=== PATIENT | female | born 1970 | race African-American/Black ===

== ENCOUNTER 2016-06-19 17:50 | Emergency (ER) | payer BC ==
[2016-06-19 17:59] VITALS: BP 139/82; PULSE 90; TEMP 98.8; BMI 39.9
--- NOTE | 2016-06-19 18:52 | PDOC ---
History of Present Illness - General Chief Complaint: Pain Stated Complaint: RT HAND PAIN/NUMB Time Seen by Provider: 06/19/16 18:30 History Source: Patient Exam Limitations: No Limitations - History of Present Illness Initial Comments: 06/19/16 18:46 46 yr female with pain to right hand for 2 months. Pt states the pain is worse because the weather is so cold. Pt denies trauma. Pt is post breast cancer 2013 . Pt has no fever or chills, has apt in 3 days with neurologist. Pt c/o numbness , tingling to her thumb, right index finger worse at night. Pt has pain to the base of right thumb. no headache or vision changes. 06/19/16 18:49 Occurred: reports: other (2 months ) Upper Extremity Pain Location: right: thumb, 2nd finger Method of Injury: reports: unknown Extremity Pain Location - Extremity Pain Location Extremity Pain Locations: right: thumb, 2nd finger Past History - Past Medical History Allergies/Adverse Reactions: Allergies Allergy/AdvReac Type Severity Reaction Status Date / Time No Known Allergies Allergy Verified 06/19/16 17:59 Home Medications: Ambulatory Orders Olmesartan Medoxomil [Benicar -] 40 mg PO DAILY 11/26/13 Albuterol Sulfate Inhaler - [Ventolin HFA Inhaler -] 1 - 2 inh PO QID PRN #1 inhaler 03/18/14 Hydrochlorothiazide [Hctz -] 25 mg PO DAILY #30 tablet 04/30/14 Montelukast Na [Singulair -] 10 mg PO HS #30 tablet 04/30/14 Salmeterol/Fluticasone [Advair 100Mcg/50Mcg -] 1 puff IH BID #1 inhaler Nifedipine [Nifedical Xl] 30 mg PO AM 04/12/16 Albuterol Sulfate Inhaler - [Ventolin HFA Inhaler -] 1 - 2 inh PO QID #1 inhaler 04/13/16 Levofloxacin [Levaquin] 750 mg PO DAILY #10 tab MDD 1 04/13/16 Methylprednisolone [Medrol Dose Arik] 4 mg PO ASDIR #21 tablet 04/13/16 Prednisone [Deltasone -] 40 mg PO DAILY #9 tablet 06/19/16 Anemia: No Asthma: Yes Cancer: Yes (BILATERAL BREAST CA OCTOBER 2014) Cardiac Disorders: Yes (HX OF CHEST PAIN 2013 PT REPORTS NEG WORK-UP) CVA: No COPD: No CHF: No Dementia: No Diabetes: Yes (WAS TAKEN OFF MEDICATION NOW UNDER CONTROL STATED BY PT) GI Disorders: No Disorders: No HTN: Yes Hypercholesterolemia: No Kidney Stones: Yes Liver Disease: No Suicide Attempt (Hx): No Seizures: No Thyroid Disease: Yes (HYPOTHYROID) - Surgical History Abdominal Surgery: Yes Appendectomy: No Cardiac Surgery: No Cholecystectomy: No Lung Surgery: No Neurologic Surgery: No Orthopedic Surgery: No - Reproductive History Cervical CA: No Dysfunctional Uterine Bleeding: No Ectopic : No Endometrial CA: No Polycystic Ovaries: No Therapeutic (s) & number: No Tubal Ligation: Yes - Immunization History Td Vaccination: Yes TDAP Vaccination: Yes Immunization Up to Date: Yes - Psycho/Social/Smoking Cessation Hx Anxiety: No Suicidal Ideation: No Smoking Status: Yes Smoking History: Never smoked Years of Tobacco Use: 0 Have you smoked in the past 12 months: No Number of Cigarettes Smoked Daily: 0 If you are a former smoker, when did you quit?: 2012 Information on smoking cessation initiated: No Hx Alcohol Use: No Drug/Substance Use Hx: No Substance Use Type: None Hx Substance Use Treatment: No Review of Systems - Review of Systems Able to Perform ROS?: Yes Is the patient limited Romansh proficient: No Constitutional: No: Symptoms Reported HEENTM: No: Symptoms Reported Respiratory: No: Symptoms reported Cardiac (ROS): No: Symptoms Reported ABD/GI: No: Symptoms Reported : No: Symptoms Reported Musculoskeletal: Yes: See HPI *Physical Exam - Vital Signs Last Vital Signs Temp Pulse Resp BP Pulse Ox 98.8 F 90 18 139/82 100 06/19/16 17:55 06/19/16 17:55 06/19/16 17:55 06/19/16 17:55 06/19/16 17:55 - Physical Exam General Appearance: Yes: Nourished, Appropriately Dressed HEENT: positive: EOMI, NORA, Pharynx Normal Neck: positive: Supple. negative: Lymphadenopathy (R), Lymphadenopathy (L) Respiratory/Chest: positive: Lungs Clear, Normal Breath Sounds. negative: Chest Tender Cardiovascular: positive: Regular Rhythm, Regular Rate Gastrointestinal/Abdominal: positive: Normal Bowel Sounds, Soft Musculoskeletal: positive: Normal Inspection Extremity: positive: Normal Capillary Refill, Normal Inspection, Normal Range of Motion, Tender (base of right thumb, no deformity, tender to touch ) Integumentary: positive: Normal Color, Dry, Warm Neurologic: positive: Fully Oriented, Alert, Normal Mood/Affect, Normal Response , Motor Strength /5 ED Treatment Course - RADIOLOGY Radiology Studies Ordered: Category Date Time Status HAND- RIGHT [RAD] Stat Radiology 06/19/16 18:42 Ordered Medical Decision Making - Medical Decision Making 06/19/16 18:55 cc: pain to right thumb, index finger for 2 months worse with cold weather no fever, no arm pain no swelling will r/o DVT r/o stress fracture pt took meds at home with no relief. 06/19/16 21:01 US is negative, xray is negative will give wrist splint to right hand follow up as planned *DC/Admit/Observation/Transfer Diagnosis at time of Disposition: Hand pain, right - Discharge Dispostion Disposition: HOME Condition at time of disposition: Good - Prescriptions Prescriptions: Prednisone [Deltasone -] 40 mg PO DAILY #9 tablet - Patient Instructions Additional Instructions: use the splint as needed you can sleep with it on if it helps with pain follow with the neurologist as planned take medrol dose pack as directed for the pain in your hand, it may help it might not, the neurologist may have other options for you to try.
[2016-06-19] MEDS ORDERED: NAPROXEN 500 MG TABLET (FP) PO ONE (21:12)
[2016-06-19] MEDS ORDERED: NAPROXEN 500 MG TABLET (FP) ONE (21:15)
== END 2016-06-19 21:31 | disposition home or self-care (01) ==
LOC: JERFT 17:50
PROC: 2W3CX1Z Immobilization of Right Lower Arm using Splint (ICD-10-PCS; principal; 2016-06-19)
DX: M79.641 Pain in right hand (principal); R20.0 Anesthesia of skin; Z85.3 Personal history of malignant neoplasm of breast
CPT/HCPCS: 73130-TC-RT; 93971; 99281-25

== ENCOUNTER 2016-09-06 12:49 | Inpatient (IN) | payer BC ==
[2016-09-06] MEDS ORDERED: predniSONE 20 MG TABLET (UD) PO ONE (13:04)
--- NOTE | 2016-09-06 13:05 | PDOC ---
[id number] SOB (ASTHMA) Time Seen by Provider: 09/06/16 13:01 History Source: Patient - History of Present Illness Timing/Duration: reports: this morning Associated Symptoms: reports: cough, wheezing. denies: fever/chills, nasal congestion, nasal drainage Past History - Past Medical History Allergies/Adverse Reactions: Allergies Allergy/AdvReac Type Severity Reaction Status Date / Time No Known Allergies Allergy Verified 09/06/16 12:52 Home Medications: Ambulatory Orders Olmesartan Medoxomil [Benicar -] 40 mg PO DAILY 11/26/13 Hydrochlorothiazide [Hctz -] 25 mg PO DAILY #30 tablet 04/30/14 Montelukast Na [Singulair -] 10 mg PO HS #30 tablet 04/30/14 Nifedipine [Nifedical Xl] 60 mg PO AM 04/12/16 Albuterol 0.083% Nebulizer Fartun [Ventolin 0.083% Nebulizer Soln -] 1 neb NEB Q6H #30 vial 07/18/16 Albuterol Sulfate Inhaler - [Ventolin HFA Inhaler -] 1 - 2 inh PO QID #1 inhaler 07/18/16 Salmeterol/Fluticasone [Advair 100Mcg/50Mcg -] 1 puff IH BID #1 inhaler Bupropion HCl [Wellbutrin Sr] 150 mg PO DAILY 09/07/16 Letrozole [Femara] 2.5 mg PO DAILY 09/07/16 Lorazepam 0.5 mg PO HS 09/07/16 Rosuvastatin Calcium [Crestor] 5 mg PO HS 09/07/16 Venlafaxine HCl ER [Effexor Xr -] 75 mg PO DAILY 09/07/16 Zolpidem Tartrate [Ambien Cr] 12.5 mg PO HS 09/07/16 Cefuroxime Axetil [Ceftin -] 500 mg PO Q12H #20 tablet 09/08/16 Methylprednisolone [Medrol Dose Arik] 4 mg PO ASDIR #21 tablet 09/08/16 Anemia: No Asthma: Yes Cancer: Yes (BREAST) Cardiac Disorders: Yes (HX OF CHEST PAIN 2014 PT REPORTS NEG WORK-UP) CVA: No COPD: No CHF: No Dementia: No Diabetes: No GI Disorders: No Disorders: No HTN: Yes Hypercholesterolemia: No Kidney Stones: Yes Liver Disease: No Suicide Attempt (Hx): No Seizures: No Thyroid Disease: Yes (HYPOTHYROID) Other medical history: BRACCA GENE POS - Surgical History Abdominal Surgery: No Appendectomy: No Cardiac Surgery: No Cholecystectomy: No Lung Surgery: No Neurologic Surgery: No Orthopedic Surgery: No - Family Disease History Family Disease History: Heart Disease: Sister ([place] (age 48)), CA: Father, Mother , Sister - Reproductive History Cervical CA: No Dysfunctional Uterine Bleeding: No Ectopic : No Endometrial CA: No Polycystic Ovaries: No Therapeutic (s) & number: No Tubal Ligation: Yes - Immunization History Td Vaccination: Yes TDAP Vaccination: Yes Immunization Up to Date: Yes - Psycho/Social/Smoking Cessation Hx Anxiety: No Suicidal Ideation: No Smoking Status: Yes Smoking History: Former smoker Years of Tobacco Use: 0 Have you smoked in the past 12 months: No Number of Cigarettes Smoked Daily: 0 If you are a former smoker, when did you quit?: 2 YRS Information on smoking cessation initiated: No Hx Alcohol Use: Yes (SOCIAL) Drug/Substance Use Hx: No Substance Use Type: None Hx Substance Use Treatment: No Respiratory Specific PMHX - Complaint Specific PMHX Angina: No Review of Systems - Review of Systems Constitutional: No: Fever Respiratory: Yes: Cough, Shortness of Breath, Wheezing *Physical Exam - Vital Signs Last Vital Signs Temp Pulse Resp BP Pulse Ox 97.8 F 93 H 24 119/78 99 09/06/16 12:50 09/06/16 12:50 09/06/16 12:50 09/06/16 12:50 09/06/16 12:50 - Physical Exam General Appearance: Yes: Appropriately Dressed. No: Apparent Distress HEENT: positive: Normal Voice Neck: positive: Supple Respiratory/Chest: positive: Wheezing Cardiovascular: positive: S1, S2 Gastrointestinal/Abdominal: positive: Soft. negative: Tender Integumentary: positive: Dry, Warm Neurologic: positive: Fully Oriented, Alert, Normal Mood/Affect ED Treatment Course - LABORATORY CBC & Chemistry Diagram: 09/07/16 06:30 09/07/16 06:30 Medical Decision Making - Medical Decision Making 09/06/16 13:32 46 yo F, h/o asthma, last admission 2 years ago, no intubations, uses alb pump, advair and nebs at home, here w/ acute sob/wheezing this am, similar to her asthma. Meds not helping at home. +cough, no f/c. see exam Asthma Stable but unable to speak in full sentences w/ diffuse wheezing on exam -nebs -pred -reassess 09/06/16 14:06 Pt c/o worsening tightness despite multiple nebs. Continues to sat 100% on portable monitor. Mag sulfate in progress. Possibly admit to obs for serial nebs. Signed out to ADILSON Pretty in main ED 09/06/16 19:27 09/06/16 19:28 09/06/16 19:28 *DC/Admit/Observation/Transfer Diagnosis at time of Disposition: Exacerbation of asthma - Discharge Dispostion Disposition: HOME Condition at time of disposition: Fair - Prescriptions
[2016-09-06] MEDS ORDERED: ALBUTEROL SO4 2.5/IPRATROPIUM 0.5 INH SOL 3 ML VIAL.NEB. NEB ONE (13:06)
[2016-09-06] MEDS: ALBUTEROL SO4 2.5/IPRATROPIUM 0.5 INH SOL 3 ML VIAL.NEB. NEB SCH ×4 (13:08→14:07)
[2016-09-06] MEDS ORDERED: predniSONE 20 MG TABLET (UD) ONE (13:09)
--- NOTE | 2016-09-06 14:03 | PDOC ---
*Physical Exam - Vital Signs Last Vital Signs Temp Pulse Resp BP Pulse Ox 97.8 F 93 H 24 119/78 99 09/06/16 12:50 09/06/16 12:50 09/06/16 12:50 09/06/16 12:50 09/06/16 12:50 ED Treatment Course - LABORATORY CBC & Chemistry Diagram: 09/06/16 14:30 09/06/16 14:30 - RADIOLOGY Radiology Studies Ordered: Category Date Time Status CHEST PA & LAT [RAD] Stat Radiology 09/06/16 14:02 Ordered - Medications Given in the ED: ED Medications Discontinued Medications Generic Name Dose Route Start Last Admin Trade Name Freq PRN Reason Stop Dose Admin Albuterol/Ipratropium 1 amp 09/06/16 13:15 09/06/16 13:52 Duoneb - NEB 09/06/16 14:01 1 amp Q15M LALY Administration Prednisone 60 mg 09/06/16 13:04 09/06/16 13:14 Deltasone - PO 09/06/16 13:05 60 mg ONCE ONE Administration Medical Decision Making - Medical Decision Making 09/06/16 14:03 Patient transferred from [facility] to Main ED. Briefly, this is a 46 year old female with a history of breast ca s/p bilateral mastectomy, asthma (prior hospitalizations but no intubations, maintained on daily Advair and Singulair) who presented to the ED complaining of dyspnea and cough since morning, typical of prior asthma exacerbations. She was given multiple albuterol nebs and prednisone in [facility] but did not improve. On exam, there is diffuse inspiratory and expiratory wheezing with poor air movement. Patient is anxious. She complains of left-sided chest pain. Plan: -Continue albuterol nebulizers -Add Mg 2g IVPB -Obtain CXR -Send labs including cardiac profile, d-dimer -ASA 324mg CXR: No acute cardiopulmonary process PCP is Dr. Smith Lugo *DC/Admit/Observation/Transfer Diagnosis at time of Disposition: Exacerbation of asthma - Discharge Dispostion Condition at time of disposition: Guarded Admit: Yes
[2016-09-06] MEDS ORDERED: MAGNESIUM SULF 50% (8.12 MEQ/2 ML-1 GM VIAL) IVPB ONE (14:06)
[2016-09-06] MEDS ORDERED: MAGNESIUM SULF 50% (8.12 MEQ/2 ML-1 GM VIAL) ONE (14:36)
[2016-09-06] MEDS ORDERED: ALPRAZolam 0.25 MG TABLET PO ONE (14:57)
[2016-09-06] MEDS ORDERED: ALPRAZolam 0.25 MG TABLET ONE (15:11)
[2016-09-06] MEDS ORDERED: ALBUTEROL SO4 0.083% IH SOL 2.5 MG/3 ML VIAL.NEB. NEB ONE (15:11)
[2016-09-06] MEDS: ALBUTEROL SO4 0.083% IH SOL 2.5 MG/3 ML VIAL.NEB. NEB SCH ×4 (15:14→16:07)
[2016-09-06] MEDS ORDERED: ASPIRIN 81 MG CHEWABLE TABLETS PO ONE (15:38)
[2016-09-06 15:40] LABS: BASOPHIL 0.2 % (0-2.0); MCH 26.8 pg (25.7-33.7); MCHC 32.6 g/dl (32.0-36.0); MEAN CELL VOLUME 82.2 fl (80-96); MEAN PLT VOLUME 7.9 fl (7.5-11.1); NEUTROPHILS 72.5 % (42.8-82.8); PLATELET COUNT 214 K/MM3 (134-434); RDW 15.7 % (11.6-15.6); WHITE BLOOD COUNT 9.7 K/mm3 (4.0-10.0)
[2016-09-06] MEDS ORDERED: ASPIRIN 81 MG CHEWABLE TABLETS ONE (15:49)
[2016-09-06 16:00] LABS: ALBUMIN 3.8 g/dl (3.4-5.0); BILIRUBIN,TOTAL 0.5 mg/dL (0.2-1.0); CALCIUM 9.3 mg/dL (8.5-10.1); CREATININE 1.1 mg/dL (0.55-1.02); TOT PROT 7.5 g/dl (6.4-8.2)
[2016-09-06] MEDS: SODIUM CHLORIDE 1,000 ML IV SCH (20:26)
[2016-09-06 20:48] LABS: TROPONIN I < 0.02 ng/ml (0.00-0.05)
[2016-09-06] MEDS ORDERED: traMADol HCL 50 MG TABLET PO ONE (22:31)
[2016-09-06] MEDS ORDERED: traMADol HCL 50 MG TABLET ONE (22:32)
[2016-09-07] MEDS ORDERED: ALBUTEROL SO4 2.5/IPRATROPIUM 0.5 INH SOL 3 ML VIAL.NEB. NEB ONE ×2 (00:23→00:42)
[2016-09-07] MEDS ORDERED: ALBUTEROL SO4 2.5/IPRATROPIUM 0.5 INH SOL 3 ML VIAL.NEB. NEB PRN (00:46)
[2016-09-07] MEDS ORDERED: AZITHROMYCIN IVPB 250 ML IVPB ONE ×2 (00:47→01:25)
[2016-09-07] MEDS ORDERED: CEFTRIAXONE 50 ML ONE ×2 (01:12→10:27)
[2016-09-07] MEDS: CEFTRIAXONE 50 ML IVPB SCH ×2 (01:23→10:27)
[2016-09-07] MEDS ORDERED: morphine CARPU-JECT 4 MG/1 ML DISP.SYRIN IVPUSH ONE (01:27)
[2016-09-07] MEDS ORDERED: morphine CARPU-JECT 4 MG/1 ML DISP.SYRIN ONE (01:29)
[2016-09-07] MEDS: methylPREDNISolone NA SUCC 40 MG/1 ML VIAL IVPB SCH ×3 (01:29→18:15)
[2016-09-07] MEDS ORDERED: methylPREDNISolone NA SUCC 40 MG/1 ML VIAL ONE ×2 (01:30→09:28)
[2016-09-07 06:53] LABS: BASOPHIL 0.5 % (0-2.0); MCH 27.1 pg (25.7-33.7); MCHC 32.8 g/dl (32.0-36.0); MEAN CELL VOLUME 82.6 fl (80-96); MEAN PLT VOLUME 7.6 fl (7.5-11.1); NEUTROPHILS 90.3 % (42.8-82.8); PLATELET COUNT 196 K/MM3 (134-434); WHITE BLOOD COUNT 10.7 K/mm3 (4.0-10.0)
[2016-09-07 07:17] LABS: ALBUMIN 3.3 g/dl (3.4-5.0); BILIRUBIN,TOTAL 0.3 mg/dL (0.2-1.0); CALCIUM 8.8 mg/dL (8.5-10.1); CREATININE 1.2 mg/dL (0.55-1.02); TOT PROT 6.9 g/dl (6.4-8.2)
[2016-09-07] MEDS: NIFEdipine E.R. 30 MG TABLET (FP) PO SCH ×2 (09:26→09:40)
[2016-09-07] MEDS: VALSARTAN 160 MG TABLET (UD) PO SCH ×2 (09:26→09:40)
[2016-09-07] MEDS: HYDROCHLOROTHIAZIDE 25 MG TABLET (FP) PO SCH ×2 (09:26→09:41)
[2016-09-07] MEDS ORDERED: traMADol HCL 50 MG TABLET ONE (09:28)
[2016-09-07] MEDS: traMADol HCL 50 MG TABLET PO PRN ×2 (09:39→18:35)
[2016-09-07] MEDS: HEPARIN NA (PORCINE) 5,000 UNITS/ML 1ML VIAL SQ SCH ×2 (10:00→22:13)
[2016-09-07 10:35] VITALS: BMI 40.2
--- NOTE | 2016-09-07 12:22 | EKG ---
Test Reason : Blood Pressure : / mmHG Vent. Rate : 098 BPM Atrial Rate : 098 BPM P-R Int : 138 ms QRS Dur : 086 ms QT Int : 344 ms P-R-T Axes : 048 -18 -28 degrees QTc Int : 439 ms NORMAL SINUS RHYTHM POSSIBLE LEFT ATRIAL ENLARGEMENT NONSPECIFIC ST AND T WAVE ABNORMALITY ABNORMAL ECG WHEN COMPARED WITH ECG OF 18-JUL-2016 09:48, CRITERIA FOR SEPTAL INFARCT ARE NO LONGER PRESENT Confirmed by LOUISE JOHNSON MD ([id number]) on 09/07/2016 12:22:01 PM Referred By: Confirmed By:LOUISE JOHNSON MD
--- NOTE | 2016-09-07 12:28 | HP ---
Admitting History and Physical - Past Medical History IT APPLICATIONS ANALYST: Yes: Migraine Cardiovascular: Yes: HTN, Hyperlipdemia, Other (h/o chest pain in 2015-per patient stress test negative) Pulmonary: Yes: Asthma Gastrointestinal: Yes: Constipation, Other (colon polyps) Renal/: Yes: Renal Calculi ...LMP Comment: HYSTERECTOMY ...: No Heme/Onc: Yes: Cancer (breast) Endocrine: Yes: Diabetes Mellitus, Hypothyroidism - Past Surgical History Past Surgical History: Yes: Hysterectomy, Mastectomy - Smoking History Smoking history: Former smoker Have you smoked in the past 12 months: No Aproximately how many cigarettes per day: 0 If you are a former smoker, when did you quit?: 2 YRS - Alcohol/Substance Use Hx Alcohol Use: Yes (SOCIAL) - Social History ADL: Independent 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, 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, 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 History of Recent Travel: No Home Medications - Allergies Allergies/Adverse Reactions: Allergies Allergy/AdvReac Type Severity Reaction Status Date / Time No Known Allergies Allergy Verified 09/06/16 12:52 - Home Medications Home Medications: Ambulatory Orders Olmesartan Medoxomil [Benicar -] 40 mg PO DAILY 11/26/13 Hydrochlorothiazide [Hctz -] 25 mg PO DAILY #30 tablet 04/30/14 Montelukast Na [Singulair -] 10 mg PO HS #30 tablet 04/30/14 Nifedipine [Nifedical Xl] 60 mg PO AM 04/12/16 Albuterol 0.083% Nebulizer Fartun [Ventolin 0.083% Nebulizer Soln -] 1 neb NEB Q6H #30 vial 07/18/16 Albuterol Sulfate Inhaler - [Ventolin HFA Inhaler -] 1 - 2 inh PO QID #1 inhaler 07/18/16 Salmeterol/Fluticasone [Advair 100Mcg/50Mcg -] 1 puff IH BID #1 inhaler Bupropion HCl [Wellbutrin Sr] 150 mg PO DAILY 09/07/16 Letrozole [Femara] 2.5 mg PO DAILY 09/07/16 Lorazepam 0.5 mg PO HS 09/07/16 Rosuvastatin Calcium [Crestor] 5 mg PO HS 09/07/16 Venlafaxine HCl ER [Effexor Xr -] 75 mg PO DAILY 09/07/16 Zolpidem Tartrate [Ambien Cr] 12.5 mg PO HS 09/07/16 Cefuroxime Axetil [Ceftin -] 500 mg PO Q12H #20 tablet 09/08/16 Methylprednisolone [Medrol Dose Arik] 4 mg PO ASDIR #21 tablet 09/08/16 Family Disease History - Family Disease History Family Disease History: CA: Father (triple negative breast ca), Mother (triple negative breast ca), Sister (2-sisters, one BRCA-pos; one -s/p lumpectomy) Physical Examination Vital Signs: Vital Signs Temperature 98.1 F 09/07/16 10:25 Pulse Rate 98 H 09/07/16 10:25 Respiratory Rate 18 09/07/16 10:25 Blood Pressure 139/91 09/07/16 10:25 O2 Sat by Pulse Oximetry (%) 97 09/07/16 10:25 Labs: CBC, BMP 09/07/16 06:30 09/07/16 06:30 Problem List - Problems (1) Exacerbation of asthma Code(s): J45.901 - UNSPECIFIED ASTHMA WITH (ACUTE) EXACERBATION (2) HLD (hyperlipidemia) Code(s): E78.5 - HYPERLIPIDEMIA, UNSPECIFIED (3) HTN (hypertension) Code(s): I10 - ESSENTIAL (PRIMARY) HYPERTENSION
[2016-09-07] MEDS ORDERED: MONTELUKAST NA 10 MG TABLET PO SCH (22:00)
[2016-09-07] MEDS: SODIUM CHLORIDE 1,000 ML IV SCH (22:13)
[2016-09-07] MEDS: oxyCODONE HCL 5 MG TABLET PO PRN (22:14)
[2016-09-08] MEDS: methylPREDNISolone NA SUCC 40 MG/1 ML VIAL IVPB SCH ×3 (01:04→17:32)
[2016-09-08 05:29] VITALS: TEMP 98.4
[2016-09-08] MEDS: NIFEdipine E.R. 30 MG TABLET (FP) PO SCH (06:24)
[2016-09-08] MEDS: oxyCODONE HCL 5 MG TABLET PO PRN (06:24)
[2016-09-08] MEDS: SODIUM CHLORIDE 1,000 ML IV SCH (06:26)
[2016-09-08] MEDS: HEPARIN NA (PORCINE) 5,000 UNITS/ML 1ML VIAL SQ SCH (09:19)
[2016-09-08] MEDS: CEFTRIAXONE 50 ML IVPB SCH (09:23)
[2016-09-08] MEDS: HYDROCHLOROTHIAZIDE 25 MG TABLET (FP) PO SCH (09:27)
[2016-09-08] MEDS: VALSARTAN 160 MG TABLET (UD) PO SCH (09:27)
[2016-09-08 09:42] VITALS: BP 116/78; PULSE 88
--- NOTE | 2016-09-08 12:19 | CON.PULM ---
Consult Consult Specialty:: PULMONARY Referred by:: RUFINA Reason for Consultation:: COUGH/WHEEZE - History of Present Illness Chief Complaint: COUGH/WHEEZE History of Present Illness: 46 B FEMALE FORMER SMOKER H/O BREAST CA PRESENTS TO ER WITH RECENT ONSET COUGH/ WHEEZES REQUIRING ER VISIT. PATIENT DENIES FEVER, HAS SCANT SPUTUM, NO SICK CONTACTS. PRESENTLY, FEELS WELL AND WANTS TO GO HOME. 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 Cardio/Vascular: Yes: HTN, Hyperlipdemia, Other (h/o chest pain in 2014-per patient stress test negative) Pulmonary: Yes: Asthma Gastrointestinal: Yes: Constipation, Other (colon polyps) Renal/: Yes: Renal Calculi ...LMP Comment: HYSTERECTOMY ...: No Endocrine: Yes: Diabetes Mellitus, Hypothyroidism - Past Surgical History Past Surgical History: Yes: Hysterectomy, Mastectomy - Alcohol/Substance Use Hx Alcohol Use: Yes (SOCIAL) History of Substance Use: reports: None - Smoking History Smoking history: Former smoker Have you smoked in the past 12 months: No Aproximately how many cigarettes per day: 0 If you are a former smoker, when did you quit?: 2 YRS - Social History Usual Living Arrangement: With Spouse ADL: Independent 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, 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, 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 History of Recent Travel: No Home Medications - Allergies Allergies/Adverse Reactions: Allergies Allergy/AdvReac Type Severity Reaction Status Date / Time No Known Allergies Allergy Verified 09/06/16 12:52 - Home Medications Home Medications: Ambulatory Orders Olmesartan Medoxomil [Benicar -] 40 mg PO DAILY 11/26/13 Hydrochlorothiazide [Hctz -] 25 mg PO DAILY #30 tablet 04/30/14 Montelukast Na [Singulair -] 10 mg PO HS #30 tablet 04/30/14 Nifedipine [Nifedical Xl] 60 mg PO AM 04/12/16 Albuterol 0.083% Nebulizer Fartun [Ventolin 0.083% Nebulizer Soln -] 1 neb NEB Q6H #30 vial 07/18/16 Albuterol Sulfate Inhaler - [Ventolin HFA Inhaler -] 1 - 2 inh PO QID #1 inhaler 07/18/16 Salmeterol/Fluticasone [Advair 100Mcg/50Mcg -] 1 puff IH BID #1 inhaler Bupropion HCl [Wellbutrin Sr] 150 mg PO DAILY 09/07/16 Letrozole [Femara] 2.5 mg PO DAILY 09/07/16 Lorazepam 0.5 mg PO HS 09/07/16 Rosuvastatin Calcium [Crestor] 5 mg PO HS 09/07/16 Venlafaxine HCl ER [Effexor Xr -] 75 mg PO DAILY 09/07/16 Zolpidem Tartrate [Ambien Cr] 12.5 mg PO HS 09/07/16 Family Disease History - Family Disease History Family Disease History: CA: Father (triple negative breast ca), Mother (triple negative breast ca), Sister (2-sisters, one BRCA-pos; one -s/p lumpectomy) Review of Systems - Review of Systems Constitutional: denies: Fever Eyes: denies: Blurred Vision HENT: denies: Difficult Swallowing Neck: denies: Decreased ROM Cardiovascular: denies: Chest Pain Respiratory: reports: Cough, SOB on Exertion, Wheezing. denies: Hemoptysis Gastrointestinal: denies: Abdominal Pain Genitourinary: reports: No Symptoms Musculoskeletal: reports: No Symptoms Physical Exam Vital Sings: Vital Signs Temperature 98.4 F 09/08/16 09:41 Pulse Rate 88 09/08/16 11:38 Respiratory Rate 18 09/08/16 09:41 Blood Pressure 116/78 09/08/16 09:41 O2 Sat by Pulse Oximetry (%) 99 09/08/16 11:38 Constitutional: Yes: Calm Eyes: Yes: EOM Intact HENT: Yes: Normocephalic Neck: Yes: Trachea Midline Cardiovascular: Yes: Regular Rate and Rhythm Respiratory: Yes: CTA Bilaterally Gastrointestinal: Yes: Normal Bowel Sounds, Abdomen, Obese Edema: LLE: 1+, RLE: 1+ Integumentary: Yes: WNL Neurological: Yes: WNL ...Motor Strength: WNL Psychiatric: Yes: WNL Labs: CBC, BMP 09/07/16 06:30 09/07/16 06:30 REST REVIEWED Imaging - Results Chest X-ray: Report Reviewed, Image Reviewed Cat Scan: Report Reviewed, Image Reviewed EKG: Report Reviewed Problem List - Problems (1) Exacerbation of asthma Code(s): J45.901 - UNSPECIFIED ASTHMA WITH (ACUTE) EXACERBATION (2) Abdominal pain Code(s): R10.9 - UNSPECIFIED ABDOMINAL PAIN (3) Breast cancer, left breast Code(s): C50.912 - MALIGNANT NEOPLASM OF UNSPECIFIED SITE OF LEFT FEMALE BREAST Assessment/Plan ACUTE EXACERBATION ASTHMA BREAST CA MULTIPLE MEDICAL PROBLEMS LISTED HAS RECEIVED DUONEBS/IV STEROIDS AND IV ANTIBIOTICS PRESENTLY, THE PEAK FLOW IS 350 L/M WOULD CONVERT STEROIDS TO ORAL CONTINUE SHEILA PRN ICS/LABA SINGULAIR/ORAL ANTIBIOTICS NO OBJECTION TO CONTINUING TREATMENT AN OUTPATIENT WITH CLOSE FOLLOW UP THANK YOU Dominick REYNA MD
== END 2016-09-08 04:00 | disposition home or self-care (01) | DRG 203 ==
LOC: JER 12:49 → JERFT 12:49 → JERBED 20:20 → OBSVTOIN 09-07 00:49 → J7W 09-07 15:16
PROVIDERS: ADMIT Internal Medicine; ATTEND Internal Medicine
DX: J45.901 Unspecified asthma with (acute) exacerbation (principal); I10 Essential (primary) hypertension; E78.5 Hyperlipidemia, unspecified; E11.9 Type 2 diabetes mellitus without complications; Z85.3 Personal history of malignant neoplasm of breast; Z87.891 Personal history of nicotine dependence
CPT/HCPCS: 36415; 71020-TC; 71275-TC; 80053; 82550; 82553; 84484; 84703; 85025; 85379; 93005; 93010; 94150; 99285-25; G0378; J1644

== ENCOUNTER 2016-10-18 13:52 | Emergency (ER) | payer BC, OTHER ==
[2016-10-18 13:58] VITALS: BP 157/91; PULSE 100; TEMP 98.5; BMI 41.5
--- NOTE | 2016-10-18 14:30 | PDOC ---
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 She states she has a history of carpal tunnel which she got injection for recently and that seems to bothering her now since the injury. Shouldn't was told by work to come and get evaluated after she told them what happened GENERAL/CONSTITUTIONAL: No fever, weakness. dizziness HEAD, EYES, EARS, NOSE AND THROAT: No change in vision. No ear pain or discharge. No sore throat. CARDIOVASCULAR: No chest pain RESPIRATORY: No shortness of breath or cough GASTROINTESTINAL: No pain, nausea, vomiting, diarrhea or constipation GENITOURINARY: No dysuria MUSCULOSKELETAL: No neck or back pain, + right arm SKIN: No rash NEUROLOGIC: No headache, vertigo, loss of consciousness, or loss of sensation. GENERAL: The patient is awake, alert, and fully oriented, in no acute distress. HEAD: Normal with no signs of trauma. EYES: Pupils equal, round and reactive to light, sclera anicteric, conjunctiva clear. ENT: pharynx: no erythema, no exudate, uvula midline NECK: supple CHEST: clear, nontender, rr ABD: soft, nontender EXTREMITIES: Normal range of motion, no edema. Right arm with full range of motion, no deformity, strength 5 out of 5 upper extremities bilaterally and neurovascular intact. NEUROLOGICAL: Normal speech, normal gait. SKIN: Warm, Dry Past History - Past Medical History Allergies/Adverse Reactions: Allergies Allergy/AdvReac Type Severity Reaction Status Date / Time No Known Allergies Allergy Verified 10/18/16 13:58 Home Medications: Ambulatory Orders Olmesartan Medoxomil [Benicar -] 40 mg PO DAILY 11/26/13 Hydrochlorothiazide [Hctz -] 25 mg PO DAILY #30 tablet 04/30/14 Montelukast Na [Singulair -] 10 mg PO HS #30 tablet 04/30/14 Nifedipine [Nifedical Xl] 60 mg PO AM 04/12/16 Albuterol 0.083% Nebulizer Fartun [Ventolin 0.083% Nebulizer Soln -] 1 neb NEB Q6H #30 vial 07/18/16 Albuterol Sulfate Inhaler - [Ventolin HFA Inhaler -] 1 - 2 inh PO QID #1 inhaler 07/18/16 Salmeterol/Fluticasone [Advair 100Mcg/50Mcg -] 1 puff IH BID #1 inhaler Bupropion HCl [Wellbutrin Sr] 150 mg PO DAILY 09/07/16 Letrozole [Femara] 2.5 mg PO DAILY 09/07/16 Lorazepam 0.5 mg PO HS 09/07/16 Rosuvastatin Calcium [Crestor] 5 mg PO HS 09/07/16 Venlafaxine HCl ER [Effexor Xr -] 75 mg PO DAILY 09/07/16 Zolpidem Tartrate [Ambien Cr] 12.5 mg PO HS 09/07/16 Cefuroxime Axetil [Ceftin -] 500 mg PO Q12H #20 tablet 09/08/16 Methylprednisolone [Medrol Dose Arik] 4 mg PO ASDIR #21 tablet 09/08/16 Oxycodone HCl/Acetaminophen [Percocet 5-325 mg Tablet] 1 tab PO HS PRN #20 tablet MDD 2 10/18/16 Anemia: No Asthma: Yes Cancer: Yes (BREAST) Cardiac Disorders: Yes (HX OF CHEST PAIN 2014 PT REPORTS NEG WORK-UP) CVA: No COPD: No CHF: No Dementia: No Diabetes: No GI Disorders: No Disorders: No HTN: Yes Hypercholesterolemia: No Kidney Stones: Yes Liver Disease: No Suicide Attempt (Hx): No Seizures: No Thyroid Disease: Yes (HYPOTHYROID) - Surgical History Abdominal Surgery: No Appendectomy: No Cardiac Surgery: No Cholecystectomy: No Lung Surgery: No Neurologic Surgery: No Orthopedic Surgery: No - Family Disease History Family Disease History: Heart Disease: Sister, CA: Father, Mother, Sister - Reproductive History Cervical CA: No Dysfunctional Uterine Bleeding: No Ectopic : No Endometrial CA: No Polycystic Ovaries: No Therapeutic (s) & number: No Tubal Ligation: Yes - Immunization History Td Vaccination: Yes TDAP Vaccination: Yes Immunization Up to Date: Yes - Psycho/Social/Smoking Cessation Hx Anxiety: No Suicidal Ideation: No Smoking Status: Yes Smoking History: Never smoked Years of Tobacco Use: 0 Have you smoked in the past 12 months: No Number of Cigarettes Smoked Daily: 0 If you are a former smoker, when did you quit?: 2 YRS Hx Alcohol Use: No Drug/Substance Use Hx: No Substance Use Type: None Hx Substance Use Treatment: No *Physical Exam - Vital Signs Last Vital Signs Temp Pulse Resp BP Pulse Ox 98.5 F 100 H 20 157/91 99 10/18/16 13:55 10/18/16 13:55 10/18/16 13:55 10/18/16 13:55 10/18/16 13:55 Medical Decision Making - Medical Decision Making 10/18/16 15:02 Patient with history of carpal tunnel, whose arm got pulled at school yesterday by a student, has full range of motion but some pain. No indication for imaging , was sent by her school for evaluation. He should took Motrin today which did not really help the pain and she had difficulty sleeping last night Will give a short course of pain medicine for at night and patient has an orthopedist to follow-up with *DC/Admit/Observation/Transfer Diagnosis at time of Disposition: Injury of arm Qualifiers: Encounter type: initial encounter Laterality: right Qualified Code(s): S49.91XA - Unspecified injury of right shoulder and upper arm, initial encounter - Discharge Dispostion Disposition: HOME Condition at time of disposition: Stable Admit: No - Prescriptions Prescriptions: Oxycodone HCl/Acetaminophen [Percocet 5-325 mg Tablet] 1 tab PO HS PRN #20 tablet MDD 2 PRN Reason: Pain - Referrals Referrals: Smith Lugo MD [Primary Care Provider] - - Patient Instructions Printed Discharge Instructions: DI for Arm Pain Additional Instructions: Elevate, wear splint You can apply ice for 20 minutes every 2 hours for the next 2 days Motrin 600 mg every 12 hours for pain. you can take the percocet at bedtime and another time during the day if needed and not going to work Call the orthopedist tomorrow - Post Discharge Activity Work/School Note: Back to Work
== END 2016-10-18 14:42 | disposition home or self-care (01) ==
LOC: JERFT 13:52
DX: S49.81XA Other specified injuries of right shoulder and upper arm, initial encounter (principal); X50.9XXA Other and unspecified overexertion or strenuous movements or postures, initial encounter; Y93.89 Activity, other specified; Y92.218 Other school as the place of occurrence of the external cause; Y99.0 Civilian activity done for income or pay; Y07.9 Unspecified perpetrator of maltreatment and neglect; J45.909 Unspecified asthma, uncomplicated; I11.0 Hypertensive heart disease with heart failure; E03.9 Hypothyroidism, unspecified; G56.01 Carpal tunnel syndrome, right upper limb; Z85.3 Personal history of malignant neoplasm of breast
CPT/HCPCS: 99281-25

== ENCOUNTER 2016-10-25 08:43 | Inpatient (IN) | payer BC, OTHER ==
[2016-10-25 08:48] VITALS: BMI 31.6
--- NOTE | 2016-10-25 08:52 | PDOC ---
History of Present Illness - General Chief Complaint: Wheezing Stated Complaint: SOB (ASTHMA ATTACK) Time Seen by Provider: 10/25/16 08:52 History Source: Patient Exam Limitations: No Limitations - History of Present Illness Initial Comments: 10/25/16 09:29 Patient is a 46-year-old female with a past medical history of asthma, breast cancer who presents to the ED today complaining of shortness of breath and wheezing. Patient states that her asthma flared last night and her albuterol treatment at home did not help. Admits to vomiting post nebulizer treatment. Patient also complains of left sided chest heaviness 3 days. Patient was recently hospitalized in August for an asthma exacerbation, never been intubated. Patient currently takes Advair and albuterol at home for her asthma. Patient denies history of seasonal allergies. Denies congestion, rhinorrhea, ear fullness, cough, and palpitations. Past History - Past Medical History Allergies/Adverse Reactions: Allergies Allergy/AdvReac Type Severity Reaction Status Date / Time No Known Allergies Allergy Verified 10/25/16 08:48 Home Medications: Ambulatory Orders Olmesartan Medoxomil [Benicar -] 40 mg PO DAILY 11/26/13 Hydrochlorothiazide [Hctz -] 25 mg PO DAILY #30 tablet 04/30/14 Montelukast Na [Singulair -] 10 mg PO HS #30 tablet 04/30/14 Nifedipine [Nifedical Xl] 60 mg PO AM 04/12/16 Albuterol 0.083% Nebulizer Fartun [Ventolin 0.083% Nebulizer Soln -] 1 neb NEB Q6H #30 vial 07/18/16 Albuterol Sulfate Inhaler - [Ventolin HFA Inhaler -] 1 - 2 inh PO QID #1 inhaler 07/18/16 Salmeterol/Fluticasone [Advair 100Mcg/50Mcg -] 1 puff IH BID #1 inhaler Bupropion HCl [Wellbutrin Sr] 150 mg PO DAILY 09/07/16 Letrozole [Femara] 2.5 mg PO DAILY 09/07/16 Lorazepam 0.5 mg PO HS 09/07/16 Rosuvastatin Calcium [Crestor] 5 mg PO HS 09/07/16 Venlafaxine HCl ER [Effexor Xr -] 75 mg PO DAILY 09/07/16 Zolpidem Tartrate [Ambien Cr] 12.5 mg PO HS 09/07/16 Anemia: No Asthma: Yes Cancer: Yes (BREAST) Cardiac Disorders: Yes (HX OF CHEST PAIN 2014 PT REPORTS NEG WORK-UP) CVA: No COPD: No CHF: No Dementia: No Diabetes: No GI Disorders: No Disorders: No HTN: Yes Hypercholesterolemia: No Kidney Stones: Yes Liver Disease: No Suicide Attempt (Hx): No Seizures: No Thyroid Disease: Yes (HYPOTHYROID) - Surgical History Abdominal Surgery: No Appendectomy: No Cardiac Surgery: No Cholecystectomy: No Lung Surgery: No Neurologic Surgery: No Orthopedic Surgery: No - Family Disease History Family Disease History: Heart Disease: Sister, CA: Father, Mother, Sister - Reproductive History Cervical CA: No Dysfunctional Uterine Bleeding: No Ectopic : No Endometrial CA: No Polycystic Ovaries: No Therapeutic (s) & number: No Tubal Ligation: Yes - Immunization History Td Vaccination: Yes TDAP Vaccination: Yes Immunization Up to Date: Yes - Psycho/Social/Smoking Cessation Hx Anxiety: No Suicidal Ideation: No Smoking Status: Yes Smoking History: Never smoked Years of Tobacco Use: 0 Have you smoked in the past 12 months: No Number of Cigarettes Smoked Daily: 0 If you are a former smoker, when did you quit?: 2 YRS Information on smoking cessation initiated: No Hx Alcohol Use: No Drug/Substance Use Hx: No Substance Use Type: None Hx Substance Use Treatment: No Review of Systems - Review of Systems Able to Perform ROS?: Yes Is the patient limited Malagasy proficient: No Constitutional: No: Chills, Fever, Night Sweats HEENTM: No: Double Vision, Ear Pain, Ear Discharge, Nose Pain, Nose Congestion, Throat Pain Respiratory: Yes: Shortness of Breath, SOB with Exertion, Wheezing. No: Cough Cardiac (ROS): Yes: Chest Pain. No: Edema, Irregular Heart Rate, Lightheadedness *Physical Exam - Vital Signs Last Vital Signs Temp Pulse Resp BP Pulse Ox 98.4 F 80 18 137/92 100 10/25/16 08:45 10/25/16 08:45 10/25/16 08:45 10/25/16 08:45 10/25/16 08:45 - Physical Exam General Appearance: Yes: Nourished, Appropriately Dressed, Mild Distress ( audible wheezing; pt is speaking in full sentances, but labored.) HEENT: positive: Nasal Congestion. negative: Rhinorrhea, Sinus Tenderness Neck: positive: Trachea midline, Supple. negative: Tender, Lymphadenopathy (R) , Lymphadenopathy (L) Respiratory/Chest: positive: Respiratory Distress (Audible wheezing while talking (without auscilation) poor aeration to the bases), Labored Respiration, Decreased Breath Sounds, Wheezing (Scattered inspiratory and expiratory wheezing ). negative: Lungs Clear, Normal Breath Sounds, Accessory Muscle Use, Rhonchi, Stridor Cardiovascular: positive: Regular Rhythm, Regular Rate, S1, S2 (present) ED Treatment Course - LABORATORY CBC & Chemistry Diagram: 10/25/16 14:45 10/25/16 14:45 Medical Decision Making - Medical Decision Making 10/25/16 09:36 Patient is a 46-year-old female with a past medical history of asthma, breast cancer who presents to the ED today complaining of shortness of breath and wheezing. Patient is audibly wheezing without auscultation. One DuoNeb was given prior to examination due to wheezing. Patient still with inspiratory and expiratory wheezing after first DuoNeb. Will give another DuoNeb at this time. We will give prednisone and obtain an EKG. Will reevaluate. 10/25/16 09:44 Pt. finished second duoneb treatment. Still very tight with inspiratory and expiratory wheezing. Will give third duoneb and re-evaluate 10/25/16 09:57 EKG: rate of 77 bpm, QT/QTc 378/427; Normal sinus rhythm with no acute ST-T wave changes. 10/25/16 10:05 Pt. still with inspiratory and expiratory wheezing after 3rd treatment. Pt. feeling no better. Will move back to the main ED. Sign out given Josselin STANTON *DC/Admit/Observation/Transfer Diagnosis at time of Disposition: Exacerbation of asthma, SOB (shortness of breath)
[2016-10-25] MEDS ORDERED: ALBUTEROL SO4 2.5/IPRATROPIUM 0.5 INH SOL 3 ML VIAL.NEB. NEB ONE ×5 (09:01→15:25)
[2016-10-25] MEDS ORDERED: DEXAMETHASONE 4 MG TABLET (FP) PO ONE (09:11)
[2016-10-25] MEDS ORDERED: predniSONE 20 MG TABLET (UD) PO ONE (09:15)
[2016-10-25] MEDS: ALBUTEROL SO4 2.5/IPRATROPIUM 0.5 INH SOL 3 ML VIAL.NEB. NEB SCH ×4 (09:17→10:11)
[2016-10-25] MEDS ORDERED: predniSONE 20 MG TABLET (UD) ONE (09:18)
--- NOTE | 2016-10-25 11:05 | PDOC ---
ED Treatment Course - RADIOLOGY Radiology Studies Ordered: Category Date Time Status CHEST PA & LAT [RAD] Stat Radiology 10/25/16 10:33 Ordered - Medications Given in the ED: ED Medications Discontinued Medications Generic Name Dose Route Start Last Admin Trade Name Daniela PRN Reason Stop Dose Admin Albuterol/Ipratropium 1 amp 10/25/16 09:15 10/25/16 10:11 Duoneb - NEB 10/25/16 10:01 1 amp Q15M LALY Administration Dexamethasone 10 mg 10/25/16 09:11 10/25/16 09:28 Decadron - PO 10/25/16 09:12 Not Given ONCE ONE Prednisone 60 mg 10/25/16 09:15 10/25/16 09:28 Deltasone - PO 10/25/16 09:16 60 mg ONCE ONE Administration Progress Note - Progress Note Progress Note: I have received report from ROMY Saleh regarding this patient. Pt's initial chief complaint: SOB and wheezing Pt's work up completed prior to sign out: EKG Pt treatment given from prior staff: Duoneb x 3, Prednisone Pt plan to be completed: CXR, hcg Dispo: Admission for serial nebs Medical Decision Making - Medical Decision Making A/P: 46 y/o afebrile female with PMH astjma, Breast CA c/o SOB and wheezing x 3 days. Her normal albuterol treatments at home are not helping. Pt was initially seen in [facility], given duoneb x 3 and PO prednisone with no relief. The patient continues to have audible wheezing and diffuse expiratory wheezing across all lung celis. Plan is as follows: 1. hcg 2. CXR 3. Admission CXR IMPRESSION: No evidence of active pulmonary disease. Spoke with Dr. Rodríguez, admitting for Smith Lugo, and she accepts admission. Pt made aware and is amenable. *DC/Admit/Observation/Transfer Diagnosis at time of Disposition: Exacerbation of asthma, SOB (shortness of breath) - Discharge Dispostion Condition at time of disposition: Fair Admit: Yes - Referrals Referrals: Smith Lugo MD [Primary Care Provider] - - Patient Instructions - Post Discharge Activity
[2016-10-25 15:17] LABS: ALBUMIN 3.5 g/dl (3.4-5.0); BILIRUBIN,TOTAL 0.3 mg/dL (0.2-1.0); CALCIUM 9.1 mg/dL (8.5-10.1); COCKROFT - GAULT 73.5675; CREATININE 1.3 mg/dL (0.55-1.02); TOT PROT 6.9 g/dl (6.4-8.2)
[2016-10-25 15:19] LABS: TROPONIN I < 0.02 ng/ml (0.00-0.05)
[2016-10-25 15:22] LABS: BASOPHIL 0.2 % (0-2.0); EOSINOPHIL 0.1 % (0-4.5); MCH 26.8 pg (25.7-33.7); MCHC 32.1 g/dl (32.0-36.0); MEAN CELL VOLUME 83.4 fl (80-96); MEAN PLT VOLUME 8.1 fl (7.5-11.1); PLATELET COUNT 185 K/MM3 (134-434); RDW 16.1 % (11.6-15.6); WHITE BLOOD COUNT 7.4 K/mm3 (4.0-10.0)
[2016-10-25] MEDS ORDERED: ALBUTEROL SO4 2.5/IPRATROPIUM 0.5 INH SOL 3 ML VIAL.NEB. NEB PRN (17:01)
[2016-10-25] MEDS ORDERED: ALBUTEROL SO4 0.083% IH SOL 2.5 MG/3 ML VIAL.NEB. NEB ONE ×2 (20:35→20:45)
--- NOTE | 2016-10-25 21:00 | HP ---
Admitting History and Physical - Past Medical History REHAB MANAGER: Yes: Migraine Cardiovascular: Yes: HTN, Hyperlipdemia, Other (h/o chest pain in 2015-per patient stress test negative) Pulmonary: Yes: Asthma Gastrointestinal: Yes: Constipation, Other (colon polyps) Renal/: Yes: Renal Calculi Heme/Onc: Yes: Cancer (breast) Endocrine: Yes: Diabetes Mellitus, Hypothyroidism - Past Surgical History Past Surgical History: Yes: Hysterectomy, Mastectomy - Smoking History Smoking history: Never smoked Have you smoked in the past 12 months: No Aproximately how many cigarettes per day: 0 If you are a former smoker, when did you quit?: 2 YRS - Alcohol/Substance Use Hx Alcohol Use: No History of Substance Use: reports: None - Social History ADL: Independent 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, 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, 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 History of Recent Travel: No Home Medications - Allergies Allergies/Adverse Reactions: Allergies Allergy/AdvReac Type Severity Reaction Status Date / Time No Known Allergies Allergy Verified 11/03/16 15:22 - Home Medications Home Medications: Ambulatory Orders Olmesartan Medoxomil [Benicar -] 40 mg PO DAILY 11/26/13 Hydrochlorothiazide [Hctz -] 25 mg PO DAILY #30 tablet 04/30/14 Montelukast Na [Singulair -] 10 mg PO HS #30 tablet 04/30/14 Nifedipine [Nifedical Xl] 60 mg PO AM 04/12/16 Albuterol 0.083% Nebulizer Fartun [Ventolin 0.083% Nebulizer Soln -] 1 neb NEB Q6H #30 vial 07/18/16 Albuterol Sulfate Inhaler - [Ventolin HFA Inhaler -] 1 - 2 inh PO QID #1 inhaler 07/18/16 Bupropion HCl [Wellbutrin Sr] 150 mg PO DAILY 09/07/16 Letrozole [Femara] 2.5 mg PO DAILY 09/07/16 Lorazepam 0.5 mg PO HS 09/07/16 Rosuvastatin Calcium [Crestor] 5 mg PO HS 09/07/16 Venlafaxine HCl ER [Effexor Xr -] 75 mg PO DAILY 09/07/16 Zolpidem Tartrate [Ambien Cr] 12.5 mg PO HS 09/07/16 Budesonide/Formeterol Fumarate [SYMBICORT 160/4.5mcg -] 2 puff IH BID #1 inhaler 10/27/16 Cefuroxime Axetil [Ceftin -] 500 mg PO Q12H #14 tablet 10/27/16 Ranitidine [Zantac -] 150 mg PO DAILY tablet 10/27/16 Prednisone [Deltasone -] 20 mg PO DAILY 11/03/16 Family Disease History - Family Disease History Family Disease History: CA: Father (triple negative breast ca), Mother (triple negative breast ca), Sister (2-sisters, one BRCA-pos; one -s/p lumpectomy) Physical Examination Vital Signs: Vital Signs Temperature 98.3 F 10/25/16 17:30 Pulse Rate 103 H 10/25/16 17:30 Respiratory Rate 19 10/25/16 17:30 Blood Pressure 141/81 10/25/16 17:30 O2 Sat by Pulse Oximetry (%) 100 10/25/16 17:30 Labs: CBC, BMP 10/25/16 14:45 10/25/16 14:45 Problem List - Problems (1) Asthma exacerbation Code(s): J45.901 - UNSPECIFIED ASTHMA WITH (ACUTE) EXACERBATION (2) Bilateral breast cancer Code(s): C50.911 - MALIGNANT NEOPLASM OF UNSP SITE OF RIGHT FEMALE BREAST C50.912 - MALIGNANT NEOPLASM OF UNSPECIFIED SITE OF LEFT FEMALE BREAST Qualifiers: Qualified Code(s): C50.911 - Malignant neoplasm of unspecified site of right female breast; C50.912 - Malignant neoplasm of unspecified site of left female breast
[2016-10-25] MEDS ORDERED: AZITHROMYCIN IVPB 250 ML IVPB ONE (22:00)
[2016-10-25] MEDS: ROSUVASTATIN CA 5 MG TABLET (FP) PO SCH (22:32)
[2016-10-25] MEDS: MONTELUKAST NA 10 MG TABLET PO SCH (22:32)
[2016-10-25] MEDS: HEPARIN NA (PORCINE) 5,000 UNITS/ML 1ML VIAL SQ SCH (22:33)
[2016-10-25] MEDS: CEFTRIAXONE 50 ML IVPB SCH (22:33)
[2016-10-25] MEDS: methylPREDNISolone NA SUCC 40 MG/1 ML VIAL IVPB SCH (22:33)
[2016-10-26] MEDS: LORazepam 0.5 MG TABLET PO PRN ×2 (00:15→21:17)
[2016-10-26] MEDS: methylPREDNISolone NA SUCC 40 MG/1 ML VIAL IVPB SCH ×2 (01:50→10:34)
[2016-10-26] MEDS: NIFEdipine E.R 60 MG TABLET (UD) PO SCH (06:15)
[2016-10-26 08:09] LABS: ALBUMIN 3.3 g/dl (3.4-5.0); BILIRUBIN,TOTAL 0.3 mg/dL (0.2-1.0); COCKROFT - GAULT 79.696; CREATININE 1.2 mg/dL (0.55-1.02); TOT PROT 6.9 g/dl (6.4-8.2)
[2016-10-26] MEDS ORDERED: AZITHROMYCIN IVPB 250 MG in DEXTROSE 5%-WATER - 250 ML IVPB SCH (10:00)
[2016-10-26] MEDS ORDERED: PATIENT'S OWN MEDICATION (NON-FORMULARY) (Olmesartan Medoxomil 40 MG) PO SCH (10:00)
[2016-10-26] MEDS ORDERED: BUPROPION HCL 150 MG PO SCH (10:00)
[2016-10-26] MEDS ORDERED: PT OWN MED DRAWER 7, Y5N ONE ×2 (10:28→21:10)
[2016-10-26] MEDS: VALSARTAN 160 MG TABLET (UD) PO SCH (10:33)
[2016-10-26] MEDS: HEPARIN NA (PORCINE) 5,000 UNITS/ML 1ML VIAL SQ SCH ×2 (10:34→21:11)
[2016-10-26] MEDS: CEFTRIAXONE 50 ML IVPB SCH (10:34)
[2016-10-26] MEDS: HYDROCHLOROTHIAZIDE 25 MG TABLET (FP) PO SCH (10:34)
--- NOTE | 2016-10-26 11:17 | CONSULT ---
Consultation: REQUESTING PROVIDER: CONSULT REQUEST: We have been asked to medically evaluate this patient for ( pulmonology ). HISTORY OF PRESENT ILLNESS: 46 y/o f with past medical h/o asthma, ca breast s/ p b/l mastectomy came to hospital with a cc of sob and wheezing. Yeimi mays states that she felt sob on Sunday night which kept on increasing. she took albuterol neb which didn't help her. She also states that she has dry cogh from many days which come and goes. Denies fever, chills, runny nose, sick contact. States because of sob she felt like pressure like symptom in chest which got better now. She denies working out. denies seasonal allergies, denies post nasal drip. Reports regurgitation, change in voice and heart burn. Also states she snores in night and some time wakes up with choking sensation. 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 REVIEW OF SYSTEMS: CONSTITUTIONAL: Absent: fever, chills, diaphoresis, generalized weakness, HEENT: Absent: rhinorrhea, nasal congestion, throat pain, throat swelling, CARDIOVASCULAR: Absent: chest congestion , syncope, palpitations, irregular heart rate, lightheadedness, peripheral edema RESPIRATORY: Absent: cough, shortness of breath, dyspnea with exertion, wheezing, stridor, hemoptysis GASTROINTESTINAL: Absent: abdominal pain, abdominal distension, nausea, vomiting, diarrhea, constipation, melena, hematochezia GENITOURINARY: Absent: dysuria, frequency, urgency, hesitancy, hematuria, flank pain, genital pain PHYSICAL EXAMINATION Vital Signs - 24 hr 10/25/16 10/25/16 10/25/16 14:30 16:30 17:00 Temperature 98.5 F Pulse Rate 108 H Pulse Rate [ 103 H 116 H Apical] Respiratory 20 19 18 Rate Blood Pressure 141/81 Blood Pressure 140/93 134/88 [Left Arm] O2 Sat by Pulse 100 96 Oximetry (%) 10/25/16 10/25/16 10/25/16 17:30 21:00 21:03 Temperature 98.3 F 98.3 F Pulse Rate 103 H 111 H Pulse Rate [ Apical] Respiratory 19 19 Rate Blood Pressure 141/81 152/91 Blood Pressure [Left Arm] O2 Sat by Pulse 100 100 96 Oximetry (%) 10/25/16 10/26/16 10/26/16 23:30 02:00 08:48 Temperature 98.2 F 98.1 F 99 F Pulse Rate 102 H 96 H 98 H Pulse Rate [ Apical] Respiratory 20 20 20 Rate Blood Pressure 144/78 135/56 147/92 Blood Pressure [Left Arm] O2 Sat by Pulse Oximetry (%) GENERAL: Awake, alert, and fully oriented, in no acute distress. HEAD: Normal with no signs of trauma. EYES: Pupils equal, round and reactive to light, EARS, NOSE, THROAT: oropharynx clear without exudates. Moist mucous membranes. NECK: Normal range of motion,no JVD, LUNGS: Breath sounds equal, clear to auscultation bilaterally. No wheezes, and no crackles. HEART: s1s2 ABDOMEN: Soft, nontender, not distended, normoactive bowel sounds, no guarding, no rebound, no masses. UPPER EXTREMITIES: 2+ pulses, warm, well-perfused. No cyanosis. LOWER EXTREMITIES: , well-perfused. No calf tenderness. Laboratory Results - last 24 hr 10/25/16 10/25/16 10/25/16 14:45 14:45 14:45 WBC 7.4 D RBC 4.57 Hgb 12.2 Hct 38.1 MCV 83.4 MCHC 32.1 RDW 16.1 H Plt Count 185 MPV 8.1 Neutrophils % 92.0 H Lymphocytes % 6.7 L Monocytes % 1.0 L Eosinophils % 0.1 D Basophils % 0.2 Sodium 141 Potassium 3.8 Chloride 107 Carbon Dioxide 26 Anion Gap 8 BUN 21 H Creatinine 1.3 H Creat Clearance w eGFR 44.10 Random Glucose 193 H Calcium 9.1 Total Bilirubin 0.3 AST 16 D ALT 25 Alkaline Phosphatase 65 Creatine Kinase 243 H CK-MB (CK-2) 1.902 Troponin I < 0.02 Total Protein 6.9 Albumin 3.5 10/26/16 06:10 WBC RBC Hgb Hct MCV MCHC RDW Plt Count MPV Neutrophils % Lymphocytes % Monocytes % Eosinophils % Basophils % Sodium 143 Potassium 4.3 Chloride 107 Carbon Dioxide 21 Anion Gap 15 BUN 22 H Creatinine 1.2 H Creat Clearance w eGFR 48.36 Random Glucose 221 H Calcium 9.0 Total Bilirubin 0.3 AST 14 L ALT 23 Alkaline Phosphatase 65 Creatine Kinase CK-MB (CK-2) Troponin I Total Protein 6.9 Albumin 3.3 L Active Medications Generic Name Dose Route Start Last Admin Trade Name Freq PRN Reason Stop Dose Admin Albuterol/Ipratropium 1 amp 10/25/16 17:01 10/25/16 18:59 Duoneb - NEB 1 amp Q6H PRN Administration SHORT OF BREATH/WHEEZING Bupropion HCl 150 mg 10/26/16 10:00 10/26/16 10:33 Wellbutrin Xl - PO 150 mg DAILY LALY Administration Heparin Sodium (Porcine) 5,000 unit 10/25/16 22:00 10/26/16 10:34 Heparin - SQ 5,000 unit BID LALY Administration Hydrochlorothiazide 25 mg 10/26/16 10:00 10/26/16 10:34 Hctz - PO 25 mg DAILY LALY Administration Azithromycin 250 mg/ Dextrose 250 mls @ 250 mls/hr 10/26/16 10:00 10/26/16 11: 16 IVPB 250 mls/hr DAILY LALY Administration Ceftriaxone Sodium 50 mls @ 100 mls/hr 10/25/16 22:00 10/26/16 10:34 Rocephin 1gm Ivpb (Pre-Docked) IVPB 100 mls/hr DAILY LALY Administration Letrozole 2.5 mg 10/26/16 10:00 Femara - PO DAILY LALY Lorazepam 0.5 mg 10/25/16 21:00 10/26/16 00:15 Ativan - PO 0.5 mg HS PRN Administration ANXIETY Methylprednisolone Sodium Succinate 40 mg 10/25/16 21:00 10/26/16 10:34 Solu-Medrol - IVPB 40 mg Q8H-IV LALY Administration Montelukast Sodium 10 mg 10/25/16 22:00 10/25/16 22:32 Singulair - PO 10 mg HS LALY Administration Nifedipine 60 mg 10/26/16 07:00 10/26/16 06:15 Procardia Xl - PO 60 mg AM LALY Administration Rosuvastatin Calcium 5 mg 10/25/16 22:00 10/25/16 22:32 Crestor - PO 5 mg HS LALY Administration Valsartan 320 mg 10/26/16 10:00 10/26/16 10:33 Diovan - PO 320 mg DAILY LALY Administration Venlafaxine HCl 75 mg 10/26/16 10:00 Effexor Xr - PO DAILY LALY ASSESSMENT/PLAN: acute exacerbation of asthma h/o breast ca, s/p b/l mastectomy GERD clinical suspicion for sleep apnea obesity plan albuterol prn oral steroid prednisone taper symbicort 2 puff bid montelukast zantac 150mg hs keep head end elevated lose weight monitor off antibiotics pulmonary follow up as an outpatient, should have sleep apnea workup as an outpatient. Dispo: We will continue to follow the patient. Thank you for this consultative opportunity. Visit type - Emergency Visit Emergency Visit: Yes ED Registration Date: 10/25/16 Care time: The patient presented to the Emergency Department on the above date and was hospitalized for further evaluation of their emergent condition. - New Patient This patient is new to me today: Yes Date on this admission: 10/26/16 - Critical Care Critical Care patient: No
--- NOTE | 2016-10-26 11:18 | PN ---
Teaching Attending Note Name of Resident: Merlin Leigh ATTENDING PHYSICIAN STATEMENT I saw and evaluated the patient. I reviewed the resident's note and discussed the case with the resident. I agree with the resident's findings and plan as documented. SUBJECTIVE: In brief. 46 F, known to me from previous recent admissions. Followed by a Signals Analyst from [facility]. Recent admission for AE of Asthma (never intubated, not steroid dependent, unknown PEF). Asthma symptoms seems to be aggravated by recent heat/humidity. She also reports some GERD symptoms and well and symptoms and clinical history consistent with Sleep Apnea. No travel history or sick contacts. No fever or chills. No hemoptysis. CXR : no acute pathology OBJECTIVE: Intake & Output 10/23/16 10/24/16 10/25/16 10/26/16 23:59 23:59 23:59 23:59 Intake Total 200 250 Balance 200 250 Weight 190 lb Last Vital Signs Temp Pulse Resp BP Pulse Ox 99 F 98 H 20 147/92 96 10/26/16 08:48 10/26/16 08:48 10/26/16 08:48 10/26/16 08:48 10/25/16 21:03 Active Medications Albuterol/Ipratropium (Duoneb -) 1 amp NEB Q6H PRN PRN Reason: SHORT OF BREATH/WHEEZING Last Admin: 10/25/16 18:59 Dose: 1 amp Bupropion HCl (Wellbutrin Xl -) 150 mg PO DAILY [facility] Last Admin: 10/26/16 10:33 Dose: 150 mg Heparin Sodium (Porcine) (Heparin -) 5,000 unit SQ BID [facility] Last Admin: 10/26/16 10:34 Dose: 5,000 unit Hydrochlorothiazide (Hctz -) 25 mg PO DAILY [facility] Last Admin: 10/26/16 10:34 Dose: 25 mg Azithromycin 250 mg/ Dextrose 250 mls @ 250 mls/hr IVPB DAILY [facility] Last Admin: 10/26/16 11:16 Dose: 250 mls/hr Ceftriaxone Sodium (Rocephin 1gm Ivpb (Pre-Docked)) 50 mls @ 100 mls/hr IVPB DAILY [facility] Last Admin: 10/26/16 10:34 Dose: 100 mls/hr Letrozole (Femara -) 2.5 mg PO DAILY [facility] Lorazepam (Ativan -) 0.5 mg PO HS PRN PRN Reason: ANXIETY Last Admin: 10/26/16 00:15 Dose: 0.5 mg Methylprednisolone Sodium Succinate (Solu-Medrol -) 40 mg IVPB Q8H-IV [facility] Last Admin: 10/26/16 10:34 Dose: 40 mg Montelukast Sodium (Singulair -) 10 mg PO HS [facility] Last Admin: 10/25/16 22:32 Dose: 10 mg Nifedipine (Procardia Xl -) 60 mg PO AM [facility] Last Admin: 10/26/16 06:15 Dose: 60 mg Rosuvastatin Calcium (Crestor -) 5 mg PO HS [facility] Last Admin: 10/25/16 22:32 Dose: 5 mg Valsartan (Diovan -) 320 mg PO DAILY [facility] Last Admin: 10/26/16 10:33 Dose: 320 mg Venlafaxine HCl (Effexor Xr -) 75 mg PO DAILY [facility] GENERAL: Awake, alert, and fully oriented, in no acute distress. HEAD: Normal with no signs of trauma. EYES: Pupils equal, round and reactive to light, extraocular movements intact, sclera anicteric, conjunctiva clear. No lid lag. EARS, NOSE, THROAT: Ears normal, nares patent, oropharynx clear without exudates. Moist mucous membranes. NECK: Normal range of motion, supple without lymphadenopathy, JVD, or masses. LUNGS: Breath sounds equal, few scattered rhonchi. No wheezes, and no crackles. No accessory muscle use. HEART: Regular rate and rhythm, normal S1 and S2 without murmur, rub or gallop. ABDOMEN: Soft, nontender, not distended, normoactive bowel sounds, no guarding, no rebound, no masses. No hepatomegaly or splenomegaly. MUSCULOSKELETAL: Normal range of motion at all joints. No bony deformities or tenderness. No CVA tenderness. UPPER EXTREMITIES: 2+ pulses, warm, well-perfused. No cyanosis. No clubbing. Cap refill <2 seconds. No peripheral edema. LOWER EXTREMITIES: 2+ pulses, warm, well-perfused. No calf tenderness. No peripheral edema. NEUROLOGICAL: Non-focal exam PSYCHIATRIC: Cooperative. Good eye contact. Appropriate mood and affect. SKIN: Warm, dry, normal turgor, no rashes or lesions noted. Laboratory Results - last 24 hr 10/25/16 10/25/16 10/25/16 14:45 14:45 14:45 WBC 7.4 D RBC 4.57 Hgb 12.2 Hct 38.1 MCV 83.4 MCHC 32.1 RDW 16.1 H Plt Count 185 MPV 8.1 Neutrophils % 92.0 H Lymphocytes % 6.7 L Monocytes % 1.0 L Eosinophils % 0.1 D Basophils % 0.2 Sodium 141 Potassium 3.8 Chloride 107 Carbon Dioxide 26 Anion Gap 8 BUN 21 H Creatinine 1.3 H Creat Clearance w eGFR 44.10 Random Glucose 193 H Calcium 9.1 Total Bilirubin 0.3 AST 16 D ALT 25 Alkaline Phosphatase 65 Creatine Kinase 243 H CK-MB (CK-2) 1.902 Troponin I < 0.02 Total Protein 6.9 Albumin 3.5 10/26/16 06:10 WBC RBC Hgb Hct MCV MCHC RDW Plt Count MPV Neutrophils % Lymphocytes % Monocytes % Eosinophils % Basophils % Sodium 143 Potassium 4.3 Chloride 107 Carbon Dioxide 21 Anion Gap 15 BUN 22 H Creatinine 1.2 H Creat Clearance w eGFR 48.36 Random Glucose 221 H Calcium 9.0 Total Bilirubin 0.3 AST 14 L ALT 23 Alkaline Phosphatase 65 Creatine Kinase CK-MB (CK-2) Troponin I Total Protein 6.9 Albumin 3.3 L ASSESSMENT AND PLAN: AE of Asthma related to weather change Possible contribution of GERD Likely Sleep Apnea No evidence of infectious process Do not suspect PNA At present patient feels close to her baseline There is no Pulmonary contraindication for D/C Symbicort 160/4.4 : 2 inhalations BID Singulair Prednisone taper GERD treatment Should have Sleep Apnea workup as an outpatient Dr Douglas
[2016-10-26] MEDS ORDERED: ALBUTEROL SO4 0.083% IH SOL 2.5 MG/3 ML VIAL.NEB. NEB PRN (11:35)
--- NOTE | 2016-10-26 11:35 | EKG ---
Test Reason : Blood Pressure : / mmHG Vent. Rate : 077 BPM Atrial Rate : 077 BPM P-R Int : 136 ms QRS Dur : 086 ms QT Int : 378 ms P-R-T Axes : 034 -22 -18 degrees QTc Int : 427 ms NORMAL SINUS RHYTHM NORMAL ECG WHEN COMPARED WITH ECG OF 06-SEP-2016 15:51, NONSPECIFIC T WAVE ABNORMALITY NO LONGER EVIDENT IN LATERAL LEADS Confirmed by ALEX REINA, LOUISE ([id number]) on 10/26/2016 11:35:23 AM Referred By: Liam FRY Confirmed By:LOUISE JOHNSON MD
[2016-10-26 11:43] LABS: BASOPHIL 0.3 % (0-2.0); MCHC 32.5 g/dl (32.0-36.0); MEAN CELL VOLUME 83.2 fl (80-96); MEAN PLT VOLUME 8.3 fl (7.5-11.1); NEUTROPHILS 89.8 % (42.8-82.8); PLATELET COUNT 197 K/MM3 (134-434); RDW 16.3 % (11.6-15.6); WHITE BLOOD COUNT 11.4 K/mm3 (4.0-10.0)
[2016-10-26] MEDS: VENLAFAXINE HCL 75 MG E.R. CAPSULES (FP) PO SCH (12:18)
[2016-10-26] MEDS: LETROZOLE 2.5 MG TABLET (FP) PO SCH (12:18)
[2016-10-26] MEDS: ACETAMINOPHEN 325 MG TABLET (FP) PO PRN (19:43)
--- NOTE | 2016-10-26 20:40 | PN ---
Progress Note, Physician - Current Medication List Current Medications: Active Medications Acetaminophen (Tylenol -) 650 mg PO Q6H PRN PRN Reason: FEVER OR PAIN Last Admin: 10/26/16 19:43 Dose: 650 mg Albuterol Sulfate (Ventolin 0.083% Nebulizer Soln -) 1 amp NEB Q6H PRN PRN Reason: SHORT OF BREATH/WHEEZING Budesonide/Formoterol Fumarate (Symbicort 160/4.5mcg -) 2 puff IH BID [facility] Bupropion HCl (Wellbutrin Xl -) 150 mg PO DAILY [facility] Last Admin: 10/26/16 10:33 Dose: 150 mg Heparin Sodium (Porcine) (Heparin -) 5,000 unit SQ BID [facility] Last Admin: 10/26/16 10:34 Dose: 5,000 unit Hydrochlorothiazide (Hctz -) 25 mg PO DAILY [facility] Last Admin: 10/26/16 10:34 Dose: 25 mg Ceftriaxone Sodium (Rocephin 1gm Ivpb (Pre-Docked)) 50 mls @ 100 mls/hr IVPB DAILY [facility] Last Admin: 10/26/16 10:34 Dose: 100 mls/hr Letrozole (Femara -) 2.5 mg PO DAILY [facility] Last Admin: 10/26/16 12:18 Dose: 2.5 mg Lorazepam (Ativan -) 0.5 mg PO HS PRN PRN Reason: ANXIETY Last Admin: 10/26/16 00:15 Dose: 0.5 mg Montelukast Sodium (Singulair -) 10 mg PO HS [facility] Last Admin: 10/25/16 22:32 Dose: 10 mg Nifedipine (Procardia Xl -) 60 mg PO AM [facility] Last Admin: 10/26/16 06:15 Dose: 60 mg Prednisone (Deltasone -) 60 mg PO DAILY [facility] Ranitidine HCl (Zantac -) 150 mg PO DAILY [facility] Rosuvastatin Calcium (Crestor -) 5 mg PO HS [facility] Last Admin: 10/25/16 22:32 Dose: 5 mg Valsartan (Diovan -) 320 mg PO DAILY [facility] Last Admin: 10/26/16 10:33 Dose: 320 mg Venlafaxine HCl (Effexor Xr -) 75 mg PO DAILY [facility] Last Admin: 10/26/16 12:18 Dose: 75 mg - Objective Vital Signs: Vital Signs Temperature 98.2 F 10/26/16 14:00 Pulse Rate 108 H 10/26/16 14:00 Respiratory Rate 22 10/26/16 14:00 Blood Pressure 107/69 10/26/16 14:00 O2 Sat by Pulse Oximetry (%) 97 10/26/16 11:39 Labs: CBC, BMP 10/26/16 06:10 10/26/16 06:10
[2016-10-26] MEDS: MONTELUKAST NA 10 MG TABLET PO SCH (21:11)
[2016-10-26] MEDS: RANITIDINE HCL 150 MG TABLET (FP) PO SCH (21:11)
[2016-10-26] MEDS: ROSUVASTATIN CA 5 MG TABLET (FP) PO SCH (22:21)
[2016-10-26] MEDS: BUDESONIDE/FORMETEROL FUMARATE 160/4.5 mcg INHALER IH SCH (22:21)
[2016-10-27] MEDS: ACETAMINOPHEN 325 MG TABLET (FP) PO PRN (04:27)
[2016-10-27] MEDS ORDERED: PT OWN MED DRAWER 7, Y5N ONE ×2 (06:26→09:06)
[2016-10-27] MEDS: NIFEdipine E.R 60 MG TABLET (UD) PO SCH (06:36)
[2016-10-27 08:29] VITALS: BP 132/70; PULSE 86; TEMP 97.9
[2016-10-27] MEDS: CEFTRIAXONE 50 ML IVPB SCH (09:00)
[2016-10-27] MEDS: RANITIDINE HCL 150 MG TABLET (FP) PO SCH (09:01)
[2016-10-27] MEDS: VALSARTAN 160 MG TABLET (UD) PO SCH (09:01)
[2016-10-27] MEDS: HEPARIN NA (PORCINE) 5,000 UNITS/ML 1ML VIAL SQ SCH (09:01)
[2016-10-27] MEDS: HYDROCHLOROTHIAZIDE 25 MG TABLET (FP) PO SCH (09:01)
[2016-10-27] MEDS: VENLAFAXINE HCL 75 MG E.R. CAPSULES (FP) PO SCH (09:07)
[2016-10-27] MEDS: LETROZOLE 2.5 MG TABLET (FP) PO SCH (09:07)
[2016-10-27] MEDS: BUDESONIDE/FORMETEROL FUMARATE 160/4.5 mcg INHALER IH SCH (09:07)
[2016-10-27] MEDS ORDERED: predniSONE 20 MG TABLET (UD) PO SCH (10:00)
== END 2016-10-27 11:00 | disposition home or self-care (01) | DRG 203 ==
LOC: JERFT 08:43 → JER 08:43 → JERBED 11:57 → INTOOBSV 11:57 → J4S 16:42 → OBSVTOIN 21:03 → J6S 23:58
PROVIDERS: ADMIT Internal Medicine; ATTEND Internal Medicine
DX: J45.901 Unspecified asthma with (acute) exacerbation (principal); E03.9 Hypothyroidism, unspecified; E11.9 Type 2 diabetes mellitus without complications; I10 Essential (primary) hypertension; E78.5 Hyperlipidemia, unspecified; N20.0 Calculus of kidney; K63.5 Polyp of colon; G43.909 Migraine, unspecified, not intractable, without status migrainosus; K21.9 Gastro-esophageal reflux disease without esophagitis; E66.9 Obesity, unspecified; Z68.31 Body mass index [BMI] 31.0-31.9, adult; G47.30 Sleep apnea, unspecified; K59.09 Other constipation; Z87.891 Personal history of nicotine dependence; Z85.3 Personal history of malignant neoplasm of breast
CPT/HCPCS: 36415; 71020-TC; 80053; 82550; 82553; 84484; 85025; 93005; 93010; 94640; 99284-25; G0378; J1644

== ENCOUNTER → 2016-11-03 | Emergency (ER) | payer BC, OTHER ==
[~2016-11-03] MED LIST: HYDROmorphone HCL CARPU-JECT 1 MG/1 ML DISP.SYRIN IVPUSH ONE; HYDROmorphone HCL CARPU-JECT 1 MG/1 ML DISP.SYRIN ONE; SODIUM CHLORIDE 1,000 ML IV SCH
[2016-11-03 15:26] VITALS: BMI 39.9
--- NOTE | 2016-11-03 19:12 | PDOC ---
History of Present Illness - General Chief Complaint: Pain Stated Complaint: ABD PAIN Time Seen by Provider: 11/03/16 19:05 History Source: Patient Exam Limitations: No Limitations - History of Present Illness Travel History: No Initial Comments: 11/03/16 20:33 46-year-old female with a history of bilateral breast CA/2014, asthma, hypertension, NIDDM presents to the emergency department complaining of diffuse abdominal discomfort. Pain is described as 7/10 dull nonradiating intermittent discomfort. Patient denies nausea/vomiting, fever/chills, diarrhea, neck pains, back pains, chest pain, shortness of breath, urinary symptoms: Frequency/urgency /hesitancy, hematuria. Patient was recently seen at [facility] in [place] for asthma. for asthma. Timing/Duration: reports: intermittent Abdominal Pain Onset Location: reports: generalized abdomen Pain Radiation: reports: no radiation Past History - Past Medical History Allergies/Adverse Reactions: Allergies Allergy/AdvReac Type Severity Reaction Status Date / Time No Known Allergies Allergy Verified 11/03/16 15:22 Home Medications: Ambulatory Orders Olmesartan Medoxomil [Benicar -] 40 mg PO DAILY 11/26/13 Hydrochlorothiazide [Hctz -] 25 mg PO DAILY #30 tablet 04/30/14 Montelukast Na [Singulair -] 10 mg PO HS #30 tablet 04/30/14 Nifedipine [Nifedical Xl] 60 mg PO AM 04/12/16 Albuterol 0.083% Nebulizer Fartun [Ventolin 0.083% Nebulizer Soln -] 1 neb NEB Q6H #30 vial 07/18/16 Albuterol Sulfate Inhaler - [Ventolin HFA Inhaler -] 1 - 2 inh PO QID #1 inhaler 07/18/16 Bupropion HCl [Wellbutrin Sr] 150 mg PO DAILY 09/07/16 Letrozole [Femara] 2.5 mg PO DAILY 09/07/16 Lorazepam 0.5 mg PO HS 09/07/16 Rosuvastatin Calcium [Crestor] 5 mg PO HS 09/07/16 Venlafaxine HCl ER [Effexor Xr -] 75 mg PO DAILY 09/07/16 Zolpidem Tartrate [Ambien Cr] 12.5 mg PO HS 09/07/16 Budesonide/Formeterol Fumarate [SYMBICORT 160/4.5mcg -] 2 puff IH BID #1 inhaler 10/27/16 Cefuroxime Axetil [Ceftin -] 500 mg PO Q12H #14 tablet 10/27/16 Ranitidine [Zantac -] 150 mg PO DAILY tablet 10/27/16 Prednisone [Deltasone -] 20 mg PO DAILY 11/03/16 Anemia: No Asthma: Yes Cancer: Yes (BREAST) Cardiac Disorders: Yes (HX OF CHEST PAIN 2014 PT REPORTS NEG WORK-UP) CVA: No COPD: No CHF: No Dementia: No Diabetes: No GI Disorders: No Disorders: No HTN: Yes Hypercholesterolemia: No Kidney Stones: Yes Liver Disease: No Suicide Attempt (Hx): No Seizures: No Thyroid Disease: Yes (HYPOTHYROID) - Surgical History Abdominal Surgery: No Appendectomy: No Cardiac Surgery: No Cholecystectomy: No Lung Surgery: No Neurologic Surgery: No Orthopedic Surgery: No - Family Disease History Family Disease History: Heart Disease: Sister, CA: Father, Mother, Sister - Reproductive History Cervical CA: No Dysfunctional Uterine Bleeding: No Ectopic : No Endometrial CA: No Polycystic Ovaries: No Therapeutic (s) & number: No Tubal Ligation: Yes - Immunization History Td Vaccination: Yes TDAP Vaccination: Yes Immunization Up to Date: Yes - Psycho/Social/Smoking Cessation Hx Anxiety: No Suicidal Ideation: No Smoking Status: Yes Smoking History: Never smoked Years of Tobacco Use: 0 Have you smoked in the past 12 months: No Number of Cigarettes Smoked Daily: 0 If you are a former smoker, when did you quit?: 2 YRS Information on smoking cessation initiated: No Hx Alcohol Use: No Drug/Substance Use Hx: No Substance Use Type: None Hx Substance Use Treatment: No Review of Systems - Review of Systems Able to Perform ROS?: Yes Comments:: 11/03/16 20:58 CONSTITUTIONAL: Absent: fever, chills, diaphoresis, generalized weakness, malaise, loss of appetite HEENT: Absent: rhinorrhea, nasal congestion, throat pain, throat swelling, difficulty swallowing, mouth swelling, ear pain, eye pain, visual Changes CARDIOVASCULAR: Absent: chest pain, loss of consciousness, palpitations, irregular heart rate, peripheral edema RESPIRATORY: Absent: cough, shortness of breath, dyspnea with exertion, orthopnea, wheezing, stridor, hemoptysis GASTROINTESTINAL: +diffuse abdominal pain Absent: abdominal distension, nausea, vomiting, diarrhea, constipation, melena, hematochezia GENITOURINARY: Absent: dysuria, frequency, urgency, hesitancy, hematuria, flank pain, genital pain MUSCULOSKELETAL: Absent: myalgia, arthralgia, joint swelling SKIN: Absent: rash, itching, pallor HEMATOLOGIC/IMMUNOLOGIC: Absent: easy bleeding, easy bruising, lymphadenopathy, frequent infections ENDOCRINE: Absent: unexplained weight gain, unexplained weight loss, heat intolerance, cold intolerance NEUROLOGIC: Absent: headache, focal weakness or paresthesias, dizziness, unsteady gait, seizure, mental status changes, bladder or bowel incontinence PSYCHIATRIC: Absent: anxiety, depression, suicidal or homicidal ideation, hallucinations. Is the patient limited Afghan proficient: No *Physical Exam - Vital Signs Last Vital Signs Temp Pulse Resp BP Pulse Ox 98.1 F 82 18 137/94 100 11/03/16 15:22 11/03/16 15:22 11/03/16 15:22 11/03/16 15:22 11/03/16 15:22 - Physical Exam Comments: 11/03/16 20:58 GENERAL: Well developed, well nourished. Awake and alert. No acute distress. HEENT: Normocephalic, atraumatic. PERRLA, EOMI. No conjunctival pallor. Sclera are non- icteric. Moist mucous membranes. Oropharynx is clear. NECK: Supple. Full ROM. No JVD. Carotid pulses 2+ and symmetric, without bruits. No thyromegaly. No lymphadenopathy. CARDIOVASCULAR: Regular rate and rhythm. No murmurs, rubs, or gallops. Distal pulses are 2+ and symmetric. PULMONARY: No evidence of respiratory distress. Lungs clear to auscultation bilaterally. No wheezing, rales or rhonchi. ABDOMINAL: Soft. Non-tender. Non-distended. No rebound or guarding. No organomegaly. Normoactive bowel sounds. MUSCULOSKELETAL Normal range of motion at all joints. No bony deformities or tenderness. No CVA tenderness. EXTREMITIES: No cyanosis. No clubbing. No edema. No calf tenderness. SKIN: Warm and dry. Normal capillary refill. No rashes. No jaundice. NEUROLOGICAL: Alert, awake, appropriate. Cranial nerves 2-12 intact. No deficits to light touch and temperature in face, upper extremities and lower extremities. No motor deficits in the in face, upper extremities and lower extremities. Normoreflexic in the upper and lower extremities. Normal speech. Toes are down- going bilaterally. Gait is normal without ataxia. PSYCHIATRIC: Cooperative. Good eye contact. Appropriate mood and affect. ED Treatment Course - LABORATORY CBC & Chemistry Diagram: 11/03/16 19:13 11/03/16 19:13 *DC/Admit/Observation/Transfer Diagnosis at time of Disposition: Abdominal pain Qualifiers: Abdominal location: generalized Qualified Code(s): R10.84 - Generalized abdominal pain Renal hematoma, right Qualifiers: Encounter type: initial encounter Qualified Code(s): S37.011A - Minor contusion of right kidney, initial encounter - Discharge Dispostion Disposition: HOME Condition at time of disposition: Stable Admit: No - Referrals Referrals: Fabrizio Hamilton MD [Primary Care Provider] - Satya Moyer MD [Staff Physician] - - Patient Instructions Printed Discharge Instructions: Acute Abdomen Additional Instructions: You are well aware that you have a bruise to your right kidney which is call the hematoma. The CAT scan report shows that it was measured at 3.4 x 2.1 x 4.7 cm. You had a ctscan on 12/18/2015 and MRI of 04/21/2016. The sized of this mass to your right kidney has slightly decreased. Please continue to follow up with your nuclear monitoring technician. Return back to the emergency department for severe/persistent or worsening symptoms.
[2016-11-03 19:30] LABS: BASOPHIL 0.9 % (0-2.0); EOSINOPHIL 1.4 % (0-4.5); MCH 27.1 pg (25.7-33.7); MCHC 32.8 g/dl (32.0-36.0); MEAN CELL VOLUME 82.5 fl (80-96); MEAN PLT VOLUME 7.2 fl (7.5-11.1); NEUTROPHILS 59.1 % (42.8-82.8); PLATELET COUNT 209 K/MM3 (134-434); RDW 15.8 % (11.6-15.6)
[2016-11-03 19:51] LABS: ALBUMIN 3.6 g/dl (3.4-5.0); BILIRUBIN,TOTAL 0.5 mg/dL (0.2-1.0); CALCIUM 8.9 mg/dL (8.5-10.1); COCKROFT - GAULT 109.82; CREATININE 1.1 mg/dL (0.55-1.02); TOT PROT 6.9 g/dl (6.4-8.2)
[2016-11-03 20:13] LABS: URINE APPEARANCE CLEAR; URINE BILIRUBIN NEGATIVE (NEGATIVE); URINE BLOOD NEGATIVE (NEGATIVE); URINE COLOR YELLOW; URINE GLUCOSE (UA) NEGATIVE (NEGATIVE); URINE KETONE NEGATIVE (NEGATIVE); URINE NITRITE NEGATIVE (NEGATIVE); URINE PROTEIN NEGATIVE (NEGATIVE); URINE UROBILINOGEN 2.0 E.U/dl E.U./dl (0.2-1.0)
[2016-11-03 20:23] LABS: URINE LEUK ESTERASE TRACE (NEGATIVE)
[2016-11-03 20:27] LABS: AMYLASE 72 U/L (25-115)
--- NOTE | 2016-11-03 20:28 | PDOC ---
*Physical Exam - Vital Signs Last Vital Signs Temp Pulse Resp BP Pulse Ox 98.1 F 82 18 137/94 100 11/03/16 15:22 11/03/16 15:22 11/03/16 15:22 11/03/16 15:22 11/03/16 15:22 ED Treatment Course - LABORATORY CBC & Chemistry Diagram: 11/03/16 19:13 11/03/16 19:13 - ADDITIONAL ORDERS Additional order review: Laboratory Results 11/03/16 11/03/16 19:13 19:13 Sodium 142 Potassium 3.6 Chloride 106 Carbon Dioxide 29 D Anion Gap 7 L BUN 13 D Creatinine 1.1 H Creat Clearance w eGFR 53.47 Random Glucose 90 D Calcium 8.9 Total Bilirubin 0.5 D AST 20 D ALT 30 D Alkaline Phosphatase 58 Total Protein 6.9 Albumin 3.6 Urine Color Yellow Urine Appearance Clear Urine pH 7.0 D Urine Protein Negative Urine Glucose (UA) Negative Urine Ketones Negative Urine Blood Negative Urine Nitrite Negative Urine Bilirubin Negative Urine Urobilinogen 2.0 e.u/dl H Ur Leukocyte Esterase Trace H Urine HCG, Qual Negative 11/03/16 19:13 RBC 4.72 MCV 82.5 MCHC 32.8 RDW 15.8 H MPV 7.2 L D Neutrophils % 59.1 D Lymphocytes % 32.8 D Monocytes % 5.8 D Eosinophils % 1.4 D Basophils % 0.9 - Medications Given in the ED: ED Medications Discontinued Medications Generic Name Dose Route Start Last Admin Trade Name Freq PRN Reason Stop Dose Admin Hydromorphone HCl 1 mg 11/03/16 19:50 11/03/16 20:02 Dilaudid Injection - IVPUSH 11/03/16 19:51 1 mg ONCE ONE Administration Medical Decision Making - Medical Decision Making 11/03/16 20:28 Pt seen by the Advanced Practice Provider under my direct supervision Ancillary studies reviewed I agree with plan as outlined by the Advanced Practice Provider ROMY Mejía *DC/Admit/Observation/Transfer Diagnosis at time of Disposition: Abdominal pain, Renal hematoma, right - Discharge Dispostion Disposition: HOME Condition at time of disposition: Stable - Referrals Referrals: Fabrizio Hamilton MD [Primary Care Provider] - Satya Moyer MD [Staff Physician] - - Patient Instructions Printed Discharge Instructions: Acute Abdomen Additional Instructions: You are well aware that you have a bruise to your right kidney which is call the hematoma. The CAT scan report shows that it was measured at 3.4 x 2.1 x 4.7 cm. You had a ctscan on 12/18/2015 and MRI of 04/21/2016. The sized of this mass to your right kidney has slightly decreased. Please continue to follow up with your director of fundraising. Return back to the emergency department for severe/persistent or worsening symptoms.
[2016-11-03 20:43] LABS: URINE BACTERIA RARE /hpf (NONE SEEN); URINE MUCUS RARE; URINE RBC 1 /hpf (0-3); URINE WBC 4 /hpf (3-5)
[2016-11-03 23:31] VITALS: BP 132/96; PULSE 84; TEMP 97.9
== END | disposition home or self-care (01) ==
LOC: JER 15:17
PROC: 3E033NZ Introduction of Analgesics, Hypnotics, Sedatives into Peripheral Vein, Percutaneous Approach (ICD-10-PCS; principal; 2016-11-03)
DX: R10.84 Generalized abdominal pain (principal); I10 Essential (primary) hypertension; E11.9 Type 2 diabetes mellitus without complications; Z79.84 Long term (current) use of oral hypoglycemic drugs; J45.909 Unspecified asthma, uncomplicated; E03.9 Hypothyroidism, unspecified; Z87.442 Personal history of urinary calculi; Z85.3 Personal history of malignant neoplasm of breast
CPT/HCPCS: 36415; 74177-TC; 80053; 81003; 81015; 82150; 83690; 84703; 85025; 99282-25; Q9967

== ENCOUNTER 2017-03-12 15:28 | Observation (INO) | payer BC ==
[2017-03-12 15:53] VITALS: BMI 39.9
--- NOTE | 2017-03-12 16:35 | PDOC ---
History of Present Illness - History of Present Illness Initial Comments: 03/12/17 16:35 The patient is a 46 year old female with history of hypertension, breast CA s/p double mastectomy s/p reconstructive surgery (no longer being treated with chemotherapy/radiation), thyroid CA, who presents to the ED complaining of chest pain that began approximately 1 hour prior to ED arrival. She describes her chest pain as midsternal, nonmigrating, pressure like chest pain that is intermittent, episodes lasting a few seconds at a time with associated bilateral jaw tightness. She also reports associated lightheadedness and diffuse headache. She denies blurred vision, numbmess, tingling, or focal weakness. She denies nausea, vomiting, or diaphoresis. She denies fever or chills. She reports she had an echocardiogram.stress test 2 weeks ago but is unsure of the results. PCP: Dr. Lugo Machine I Coremaker: Dr. Balbuena <Juanita Winston - Last Filed: 03/12/17 18:45> - General History Source: Patient Exam Limitations: No Limitations <Brayden Mahan - Last Filed: 03/12/17 18:50> - General Chief Complaint: Chest Pain Stated Complaint: Lightheaded Time Seen by Provider: 03/12/17 15:47 Past History <Juanita Winston - Last Filed: 03/12/17 18:45> - Past Medical History Anemia: No Asthma: Yes Cancer: Yes (BREAST) Cardiac Disorders: Yes (HX OF CHEST PAIN 2014 PT REPORTS NEG WORK-UP) CVA: No COPD: No CHF: No Dementia: No Diabetes: No GI Disorders: No Disorders: No HTN: Yes Hypercholesterolemia: No Kidney Stones: Yes Liver Disease: No Seizures: No Thyroid Disease: Yes (HYPOTHYROID) - Surgical History Abdominal Surgery: No Appendectomy: No Cardiac Surgery: No Cholecystectomy: No Lung Surgery: No Neurologic Surgery: No Orthopedic Surgery: No - Family Disease History Family Disease History: Heart Disease: Sister, CA: Father, Mother, Sister - Reproductive History Cervical CA: No Dysfunctional Uterine Bleeding: No Ectopic : No Endometrial CA: No Polycystic Ovaries: No Therapeutic (s) & number: No Tubal Ligation: Yes - Immunization History Td Vaccination: Yes TDAP Vaccination: Yes Immunization Up to Date: Yes - Suicide/Smoking/Psychosocial Hx Smoking Status: Yes Smoking History: Unknown if ever smoked Years of Tobacco Use: 0 Have you smoked in the past 12 months: No Number of Cigarettes Smoked Daily: 0 If you are a former smoker, when did you quit?: 2 YRS Hx Alcohol Use: No Drug/Substance Use Hx: No Substance Use Type: None Hx Substance Use Treatment: No <Brayden Mahan - Last Filed: 03/12/17 18:50> - Past Medical History Allergies/Adverse Reactions: Allergies Allergy/AdvReac Type Severity Reaction Status Date / Time No Known Allergies Allergy Verified 03/12/17 15:53 Home Medications: Ambulatory Orders Olmesartan Medoxomil [Benicar -] 40 mg PO DAILY 11/26/13 Hydrochlorothiazide [Hctz -] 25 mg PO DAILY #30 tablet 04/30/14 Montelukast Na [Singulair -] 10 mg PO HS #30 tablet 04/30/14 Nifedipine [Nifedical Xl] 60 mg PO AM 04/12/16 Albuterol 0.083% Nebulizer Fartun [Ventolin 0.083% Nebulizer Soln -] 1 neb NEB Q6H #30 vial 07/18/16 Albuterol Sulfate Inhaler - [Ventolin HFA Inhaler -] 1 - 2 inh PO QID #1 inhaler 07/18/16 Bupropion HCl [Wellbutrin Sr] 150 mg PO DAILY 09/07/16 Letrozole [Femara] 2.5 mg PO DAILY 09/07/16 Lorazepam 0.5 mg PO HS 09/07/16 Rosuvastatin Calcium [Crestor] 5 mg PO HS 09/07/16 Venlafaxine HCl ER [Effexor Xr -] 75 mg PO DAILY 09/07/16 Zolpidem Tartrate [Ambien Cr] 12.5 mg PO HS 09/07/16 Budesonide/Formeterol Fumarate [SYMBICORT 160/4.5mcg -] 2 puff IH BID #1 inhaler 10/27/16 Cefuroxime Axetil [Ceftin -] 500 mg PO Q12H #14 tablet 10/27/16 Ranitidine [Zantac -] 150 mg PO DAILY tablet 10/27/16 Prednisone [Deltasone -] 20 mg PO DAILY 11/03/16 Review of Systems - Review of Systems Able to Perform ROS?: Yes Comments:: 03/12/17 16:39 GENERAL/CONSTITUTIONAL: No fever or chills. HEAD, EYES, EARS, NOSE AND THROAT: No change in vision. No ear pain or discharge. No sore throat. CARDIOVASCULAR: +Chest pain, lightheadedness, jaw tightness. B/l LE edema ( resolved) RESPIRATORY: No cough, wheezing, or hemoptysis. GASTROINTESTINAL: No nausea, vomiting, diarrhea or constipation. GENITOURINARY: No dysuria, frequency, or change in urination. MUSCULOSKELETAL: No joint or muscle swelling or pain. No neck or back pain. SKIN: No rash NEUROLOGIC: +Diffuse BLACKMAN. No loss of consciousness, or change in strength/ sensation. ENDOCRINE: No increased thirst. No abnormal weight change. HEMATOLOGIC/LYMPHATIC: No anemia, easy bleeding, or history of blood clots. ALLERGIC/IMMUNOLOGIC: No hives or skin allergy. <Juanita Winston - Last Filed: 03/12/17 18:45> *Physical Exam - Vital Signs Last Vital Signs Temp Pulse Resp BP Pulse Ox 98.5 F 76 H 142/111 99 03/12/17 15:47 03/12/17 15:47 03/12/17 15:47 03/12/17 15:47 - Physical Exam Comments: 03/12/17 16:44 GENERAL: Awake, alert, and fully oriented, in no acute distress HEAD: No signs of trauma EYES: PERRLA, EOMI, sclera anicteric, conjunctiva clear ENT: Auricles normal inspection, hearing grossly normal, nares patent, oropharynx clear without exudates. Moist mucosa NECK: Normal ROM, supple, no lymphadenopathy, JVD, or masses LUNGS: Breath sounds equal, clear to auscultation bilaterally. No wheezes, and no crackles HEART: Regular rate and rhythm, normal S1 and S2, no murmurs, rubs or gallops ABDOMEN: Soft, nontender, normoactive bowel sounds. No guarding, no rebound. No masses EXTREMITIES: Normal range of motion, no edema. No clubbing or cyanosis. No cords, erythema, or tenderness NEUROLOGICAL: Cranial nerves II through XII grossly intact. Normal speech, normal gait. 5/5 MS x 4 all extremities. Sensation intact throughout. No pronator drift. No dysmetria. SKIN: Warm, Dry, normal turgor, no rashes or lesions noted. v <Juanita Winston - Last Filed: 03/12/17 18:45> - Vital Signs Last Vital Signs Temp Pulse Resp BP Pulse Ox 98.5 F 76 H 142/111 99 03/12/17 15:47 03/12/17 15:47 03/12/17 15:47 03/12/17 15:47 <Brayden Mahan - Last Filed: 03/12/17 18:50> Heart Score/ECG Review #1 ECG reviewed & interpreted by me at: 17:00 03/12/17 17:43 NSR 69, no std/iain, TWI III, avF, V3, V5-V6, no std/iain, normal axis, normal intervals, QTC 417 msec <Brayden Mahan - Last Filed: 03/12/17 18:50> ED Treatment Course - LABORATORY CBC & Chemistry Diagram: 03/12/17 17:37 03/12/17 17:37 <Juanita Winston - Last Filed: 03/12/17 18:45> - LABORATORY CBC & Chemistry Diagram: 03/12/17 17:37 03/12/17 17:37 - RADIOLOGY Radiology Studies Ordered: Category Date Time Status HEAD CT WITHOUT CONTRAST [CT] Stat CT Scan 03/12/17 15:50 Ordered CHEST X-RAY PORTABLE* [RAD] Stat Radiology 03/12/17 15:50 Ordered <Brayden Mahan - Last Filed: 03/12/17 18:50> Medical Decision Making - Medical Decision Making 03/12/17 18:[address] Rissa Rodríguez, who admits for Dr. Smith Lugo. Agrees to admission. <Juanita Winston - Last Filed: 03/12/17 18:45> - Medical Decision Making 03/12/17 16:47 A portion of this note was documented by scribe services under my direction. I have reviewed the details of the note, within reason, and agree with the documentation with the following case summary and management plan written by me. Patient treated in the ED. Nursing notes are reviewed and incorporated into the medical decision-making. Vital signs reviewed. Peripheral IV access obtained by the nurse, laboratory studies are drawn and sent, reviewed and interpreted by myself. Vital Signs Temp Pulse Resp BP Pulse Ox 98.5 F 76 H 142/111 99 03/12/17 15:47 03/12/17 15:47 03/12/17 15:47 03/12/17 15:47 46 year female with history of hypertension, breast cancer status post double mastectomy presents to the emergency department for chest pain and lightheadedness. Patient reports that approximately 1 hour prior to arrival, the patient has started noticing lightheadedness even with sitting associated with several seconds of chest tightness radiating to the jaws. Denies shortness of breath, diaphoresis or vomiting. Patient recently had a stress test and an echocardiogram 2 weeks ago and follows up with steelscope operator Dr. Balbuena. Does not know the results. We'll need to rule out cardiac etiology for the patient's symptoms. Labs including troponin, cardiac telemetry, troponin. The patient will need observation at the [facility] for telemetry given the symptoms. 03/12/17 18:48 CBC, BMP 03/12/17 17:37 03/12/17 17:37 CMP Sodium 141 mmol/L (136-145) 03/12/17 17:37 Potassium 3.8 mmol/L (3.5-5.1) 03/12/17 17:37 Chloride 108 mmol/L (98-107) H 03/12/17 17:37 Carbon Dioxide 27 mmol/L (21-32) 03/12/17 17:37 Anion Gap 6 (8-16) L 03/12/17 17:37 BUN 19 mg/dL (7-18) H D 03/12/17 17:37 Creatinine 1.1 mg/dL (0.55-1.02) H 03/12/17 17:37 Creat Clearance w eGFR 53.47 (>60) 03/12/17 17:37 Random Glucose 104 mg/dL (74-106) D 03/12/17 17:37 Calcium 9.0 mg/dL (8.5-10.1) 03/12/17 17:37 Total Bilirubin 0.3 mg/dL (0.2-1.0) D 03/12/17 17:37 AST 17 U/L (15-37) 03/12/17 17:37 ALT 25 U/L (12-78) 03/12/17 17:37 Alkaline Phosphatase 62 U/L (45-117) 03/12/17 17:37 Creatine Kinase 327 IU/L (26-192) H 03/12/17 17:37 Creatine Kinase Index 0.8 % (0.0-5.0) 03/12/17 17:37 CK-MB (CK-2) 2.671 ng/mL (0.5-3.6) 03/12/17 17:37 Troponin I < 0.02 ng/ml (0.00-0.05) 03/12/17 17:37 Total Protein 7.4 g/dl (6.4-8.2) 03/12/17 17:37 Albumin 3.6 g/dl (3.4-5.0) 03/12/17 17:37 CBC pending. Case discussed with Dr. Balbuena. Pt had a recent negative CTA to r/o PE and negative cath. However, given the chest pain, jaw radiation, lightheadedness, will admit to observation. Case discussed with DR. Rodríguez who accepts the patient to tele observation. Case discussed in detail with admitting physician including history, physical exam and ancillary studies. Admitting physician has assumed care for the patient, will follow all pending diagnostics and will complete the evaluation and treatment. <Brayden Mahan - Last Filed: 03/12/17 18:50> *DC/Admit/Observation/Transfer - Attestations Scribe Attestion: 03/12/17 16:46 Documentation prepared by Juanita Winston, acting as medical assisting program director for Brayden Mahan MD. <Juanita Winston - Last Filed: 03/12/17 18:45> - Discharge Dispostion Admit: Yes <Brayden Mahan - Last Filed: 03/12/17 18:50> Diagnosis at time of Disposition: Lightheadedness - Discharge Dispostion Condition at time of disposition: Stable - Referrals Referrals: Smith Lugo MD [Primary Care Provider] -
[2017-03-12 17:57] LABS: INR 1.01 (0.82-1.09); PROTHROMBIN TIME (PATIENT) 11.1 SEC (9.98-11.88)
[2017-03-12 18:00] LABS: ACTIVATED PTT 24.3 SECONDS (26.9-34.4)
[2017-03-12 18:04] LABS: ALBUMIN 3.6 g/dl (3.4-5.0); ALK PHOS 62 U/L (45-117); ANION GAP 6 (8-16); BILIRUBIN,TOTAL 0.3 mg/dL (0.2-1.0); CO2 27 mmol/L (21-32); CPK 327 IU/L (26-192); CREATININE 1.1 mg/dL (0.55-1.02); GLUCOSE,RANDOM 104 mg/dL (74-106); SGOT/AST 17 U/L (15-37); SGPT/ALT 25 U/L (12-78); TOT PROT 7.4 g/dl (6.4-8.2)
[2017-03-12 18:06] LABS: TROPONIN I < 0.02 ng/ml (0.00-0.05)
[2017-03-12 19:11] LABS: BASOPHIL 0.6 % (0-2.0); EOSINOPHIL 2.9 % (0-4.5); MCH 27.9 pg (25.7-33.7); MCHC 33.8 g/dl (32.0-36.0); MEAN CELL VOLUME 82.6 fl (80-96); MEAN PLT VOLUME 7.8 fl (7.5-11.1); NEUTROPHILS 56.5 % (42.8-82.8); PLATELET COUNT 232 K/MM3 (134-434); WHITE BLOOD COUNT 7.9 K/mm3 (4.0-10.0)
[2017-03-13] MEDS: ZOLPIDEM TARTRATE 5 MG TABLET PO PRN ×2 (01:50→21:51)
[2017-03-13] MEDS: ACETAMINOPHEN 325 MG TABLET (FP) PO PRN ×2 (01:50→08:23)
[2017-03-13] MEDS: ALBUTEROL SO4 0.083% IH SOL 2.5 MG/3 ML VIAL.NEB. NEB SCH ×4 (06:24→23:07)
[2017-03-13] MEDS: NIFEdipine E.R 60 MG TABLET (UD) PO SCH (06:28)
--- NOTE | 2017-03-13 07:16 | CON.CARD ---
Cardiology Consult (text) - Consultation Consultation Note: Cardiology Consult: Requested by Dr. Rodríguez for dizziness 46F known from office w/ chronic HTN, breast CA s/p b/l mastectomy, chemo and reconstruction, asthma presents to ER with severe lightheadedness and presyncope. Found to be moderate to severely hypertensive with BP 140/110. Head CT negative. Of note, patient has recently had an extensive cardiopulmonary work up for chronic atypical chest pain including cath 3 weeks ago at [facility] showing minimal non-obstructive CAD, a CTA chest on 02/26 negative for PE or aortic pathology. She denies slurred speech or focal neuro deficits. No palps or SOB. No fevers, chills cough or GI sx. Still feels lightheaded upon standing. PMH: BRCA gene + As above. Surgical hx includes B/l oophorectomy, partial thyroidectomy ALL: None Home Meds: Procardia XL 90, Benicar 40, HCTZ 25, Tamoxifen, Albuterol MDI, Singulair, Advair FH: Father and mother both breast CA SH: Former smoker. No ETOH or illegal drugs. 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 RRR. No m/r/g Chest: Decreased breath sounds, no wheezing or rales Abd: soft, NT Ext: no edema 03/12/17 03/13/17 22:00 08:24 Temperature 98.1 F Pulse Rate 66 Blood Pressure 120/59 O2 Sat by Pulse 100 Oximetry (%) Oxygen Delivery Room Air Method LABS/DATA: ECG: NSR, L axis, NSST changes TELE: NSR Head CT: empty sella, o/w negative CXR: no infiltrates Repeat echo pending. Laboratory Tests 03/12/17 03/12/17 03/12/17 17:37 17:37 18:45 WBC 7.9 Hgb 11.9 Hct 35.1 Plt Count 232 INR 1.01 Sodium 141 Potassium 3.8 BUN 19 H D Creatinine 1.1 H Creatine Kinase 327 H Troponin I < 0.02 Total LDL Cholesterol 03/13/17 06:00 WBC Hgb Hct Plt Count INR Sodium Potassium BUN Creatinine Creatine Kinase 249 H Troponin I < 0.02 Total LDL Cholesterol 104 H IMP: Lightheadedness of unclear etiology, possibly pre-renal state Chronic HTN H/o breast Cancer REC: 1. Telemetry to exclude arrhythmia 2. Close observation of BP, resume home meds. 3. Check TSH and Utox 4. Repeat echo 5. Orthostatics 6. Neuro evaluation
[2017-03-13 08:48] LABS: CPK 249 IU/L (26-192); TROPONIN I < 0.02 ng/ml (0.00-0.05)
[2017-03-13 09:04] LABS: CHOLESTEROL 181 mg/dl
--- NOTE | 2017-03-13 09:37 | EKG ---
Test Reason : Blood Pressure : / mmHG Vent. Rate : 069 BPM Atrial Rate : 069 BPM P-R Int : 144 ms QRS Dur : 086 ms QT Int : 390 ms P-R-T Axes : 032 -32 -41 degrees QTc Int : 417 ms NORMAL SINUS RHYTHM LEFT AXIS DEVIATION SEPTAL INFARCT , AGE UNDETERMINED ABNORMAL ECG WHEN COMPARED WITH ECG OF 25-OCT-2016 09:26, T WAVE VARIATION Confirmed by ABEL ESTEVEZ MD ([id number]) on 03/13/2017 9:36:47 AM Referred By: Confirmed By:ABEL ESTEVEZ MD
[2017-03-13 09:49] LABS: URINE MARIJUANA THC NEGATIVE ng/ml (CUTOFF=50)
[2017-03-13] MEDS ORDERED: KETOROLAC TROMETHAMINE 30 MG/1 ML VIAL IVPUSH ONE (11:00)
[2017-03-13] MEDS: LETROZOLE 2.5 MG TABLET (FP) PO SCH (11:08)
[2017-03-13] MEDS: VALSARTAN 160 MG TABLET (UD) PO SCH (11:09)
[2017-03-13] MEDS: VENLAFAXINE HCL 75 MG E.R. CAPSULES (FP) PO SCH (11:09)
[2017-03-13] MEDS: BUDESONIDE/FORMETEROL FUMARATE 160/4.5 mcg INHALER IH SCH ×2 (11:10→21:23)
[2017-03-13] MEDS: HYDROCHLOROTHIAZIDE 25 MG TABLET (FP) PO SCH (11:10)
[2017-03-13] MEDS: ASPIRIN COATED 81 MG TABLET.EC PO SCH (11:14)
[2017-03-13] MEDS: RANITIDINE HCL 150 MG TABLET (FP) PO SCH (11:14)
--- NOTE | 2017-03-13 17:27 | HP ---
Admitting History and Physical - Admission History of Present Illness: Pt is a 46 y/o female with PMH significant for hTN, HLD(s/p cardiac cath about 3 weeks wc was negative), diabetes, hypothyroidism, anemia, asthma, migraine BLACKMAN , renal calculi and breast CA(on hormal therapy) s/p double mastectomy s/p reconstructive surgery and thyroid CA. Pt presented to the ER w/ complaints of chest pain. The chest pain is substernal and nonradiating. It is not associated w/ palpitaitons or SOB. Pt also complains of and headache. Pt has been having hjeadache for the past year. The BLACKMAN is generalized and not associated w/ photophobia and no N/V. Pt is now chest pain free. 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 Q6H #30 vial 07/18/16 Albuterol Sulfate Inhaler - [Ventolin HFA Inhaler -] 1 - 2 inh PO QID #1 inhaler 07/18/16 Bupropion HCl [Wellbutrin Sr] 150 mg PO DAILY 09/07/16 Letrozole [Femara] 2.5 mg PO DAILY 09/07/16 Lorazepam 0.5 mg PO HS 09/07/16 Rosuvastatin Calcium [Crestor] 5 mg PO HS 09/07/16 Venlafaxine HCl ER [Effexor Xr -] 75 mg PO DAILY 09/07/16 Zolpidem Tartrate [Ambien Cr] 12.5 mg PO HS 09/07/16 Budesonide/Formeterol Fumarate [SYMBICORT 160/4.5mcg -] 2 puff IH BID #1 inhaler 10/27/16 Cefuroxime Axetil [Ceftin -] 500 mg PO Q12H #14 tablet 10/27/16 Ranitidine [Zantac -] 150 mg PO DAILY tablet 10/27/16 Prednisone [Deltasone -] 20 mg PO DAILY 11/03/16 Family Disease History - Family Disease History Family History: Unremarkable Family Disease History: CA: Father (triple negative breast ca), Mother (triple negative breast ca), Sister (2-sisters, one BRCA-pos; one -s/p lumpectomy) Review of Systems - Review of Systems Cardiovascular: reports: Chest Pain Physical Examination Vital Signs: Vital Signs Temperature 98.7 F 03/13/17 15:00 Pulse Rate 88 03/13/17 15:00 Respiratory Rate 20 03/13/17 15:00 Blood Pressure 121/66 03/13/17 15:00 O2 Sat by Pulse Oximetry (%) 98 03/13/17 08:00 Constitutional: Yes: Well Nourished HENT: Yes: WNL Neck: Yes: WNL, Supple Cardiovascular: Yes: WNL, Regular Rate and Rhythm Respiratory: Yes: WNL, Regular, CTA Bilaterally Gastrointestinal: Yes: WNL, Normal Bowel Sounds, Soft Extremities: Yes: WNL Edema: No Problem List - Problems (1) Chest pain Assessment/Plan: Admitted to tele Serial cpk/troponin negative Check echo Further w/u as per cardio Urine tox screen (+) cocaine/ecstasy Spoke at length to pt about drug use and cardiac risk Code(s): R07.9 - CHEST PAIN, UNSPECIFIED (2) Headache Assessment/Plan: CT scan head unremarkable MRI brain Neuro consult Code(s): R51 - HEADACHE (3) HTN (hypertension) Assessment/Plan: BP stable Cont antihypertensives Code(s): I10 - ESSENTIAL (PRIMARY) HYPERTENSION (4) HLD (hyperlipidemia) Assessment/Plan: Cont crestor Code(s): E78.5 - HYPERLIPIDEMIA, UNSPECIFIED
[2017-03-13] MEDS: MONTELUKAST NA 10 MG TABLET PO SCH (21:24)
[2017-03-13] MEDS: ROSUVASTATIN CA 5 MG TABLET (FP) PO SCH (21:24)
--- NOTE | 2017-03-13 22:09 | CON.NEURO ---
Consult Consult Specialty:: NEUROLOGY-ALEX[facility] RE[facility] Reason for Consultation:: Lightheadedness - History of Present Illness Chief Complaint: Lightheadedness/dizziness History of Present Illness: The patient is a 46 year old female with history of hypertension, breast CA s/p double mastectomy s/p reconstructive surgery (no longer being treated with chemotherapy/radiation), thyroid CA, who presents to the ED complaining of chest pain that began approximately 1 hour prior to ED arrival. She describes her chest pain as midsternal, nonmigrating, pressure like chest pain that is intermittent, episodes lasting a few seconds at a time with associated bilateral jaw tightness. She also reports associated lightheadedness and diffuse headache. She denies blurred vision, numbmess, tingling, or focal weakness. She denies nausea, vomiting, or diaphoresis. She denies fever or chills. She reports she had an echocardiogram.stress test 2 weeks ago but is unsure of the results. Pt.reports she was placed on hormone therapy for breast ca 1 year ago, since than began having headaches-these were ocurring 2x/week, lasting an hour each. bitemporal, 8/10 in intensity acc. by photophobia, throbbing in character, well treated with Excedrin prn. SHe observes that most times with her headaches her BP would be approx. 150/90-100. + weight gain since hormone therapy started. She also reports lightheadedness/dizzinessx1 month ocurring when she would get out of bed in the morning or bend her head down. Yesterday am reports 2 episodes of vertigo each lasting 2-5 minutes each with no other accompanying symptoms.Deniers headaches upon coughing/sneezing.Denies blurred vison/visual obscurations and all lother neurologic symptoms. Urine tox. screen + for cocaine/MDMA. 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 Cardio/Vascular: Yes: HTN, Hyperlipdemia, Other (h/o chest pain in 2015-per patient stress test negative) Pulmonary: Yes: Asthma Gastrointestinal: Yes: Constipation, Other (colon polyps) Renal/: Yes: Renal Calculi Endocrine: Yes: Diabetes Mellitus, Hypothyroidism - Past Surgical History Past Surgical History: Yes: Hysterectomy, Mastectomy - Alcohol/Substance Use Hx Alcohol Use: No History of Substance Use: reports: None - Smoking History Smoking history: Unknown if ever smoked Have you smoked in the past 12 months: No Aproximately how many cigarettes per day: 0 If you are a former smoker, when did you quit?: 2 YRS - Social History Usual Living Arrangement: With Spouse ADL: Independent 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, 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, 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 History of Recent Travel: No Home Medications - Allergies Allergies/Adverse Reactions: Allergies Allergy/AdvReac Type Severity Reaction Status Date / Time No Known Allergies Allergy Verified 03/12/17 15:53 - Home Medications Home Medications: Ambulatory Orders Olmesartan Medoxomil [Benicar -] 40 mg PO DAILY 11/26/13 Hydrochlorothiazide [Hctz -] 25 mg PO DAILY #30 tablet 04/30/14 Montelukast Na [Singulair -] 10 mg PO HS #30 tablet 04/30/14 Nifedipine [Nifedical Xl] 60 mg PO AM 04/12/16 Albuterol 0.083% Nebulizer Fartun [Ventolin 0.083% Nebulizer Soln -] 1 neb NEB Q6H #30 vial 07/18/16 Albuterol Sulfate Inhaler - [Ventolin HFA Inhaler -] 1 - 2 inh PO QID #1 inhaler 07/18/16 Bupropion HCl [Wellbutrin Sr] 150 mg PO DAILY 09/07/16 Letrozole [Femara] 2.5 mg PO DAILY 09/07/16 Lorazepam 0.5 mg PO HS 09/07/16 Rosuvastatin Calcium [Crestor] 5 mg PO HS 09/07/16 Venlafaxine HCl ER [Effexor Xr -] 75 mg PO DAILY 09/07/16 Zolpidem Tartrate [Ambien Cr] 12.5 mg PO HS 09/07/16 Budesonide/Formeterol Fumarate [SYMBICORT 160/4.5mcg -] 2 puff IH BID #1 inhaler 10/27/16 Cefuroxime Axetil [Ceftin -] 500 mg PO Q12H #14 tablet 10/27/16 Ranitidine [Zantac -] 150 mg PO DAILY tablet 10/27/16 Prednisone [Deltasone -] 20 mg PO DAILY 11/03/16 Family Disease History - Family Disease History Family Disease History: CA: Father (triple negative breast ca), Mother (triple negative breast ca), Sister (2-sisters, one BRCA-pos; one -s/p lumpectomy) Physical Exam-Neuro Vital Signs: Vital Signs Temperature 98.7 F 03/13/17 21:05 Pulse Rate 83 03/13/17 21:05 Respiratory Rate 20 03/13/17 21:05 Blood Pressure 114/76 03/13/17 21:05 O2 Sat by Pulse Oximetry (%) 97 03/13/17 20:30 Labs: INR, PTT INR 1.01 (0.82-1.09) 03/12/17 17:37 - Neuro Exam Dominant Hand: Right Mini Mental Exam: Normal DTR's: 2+ Left Bicep, 2+ Right Bicep, 2+ Left Tricep, 2+ Right Tricep, 2+ Left Brachioradialis, 2+ Right Brachioradialis, 2+ Left Achilles, 2+ Right Achilles Babinski: Absent Motor Strength: 5/5: Left Arm, Right Arm, Left Leg, Right Leg Gait: Normal Imaging - Results Cat Scan: Report Reviewed (CT head reported without abnormalities.) Assessment/Plan Pt. presenting with lightheadedness/dizziness, episodic headaches and vertigo in the setting of hormone therapy/breast ca. and weight gain. In addition has cocaine/MDMA in urine. In the differential dx. is pseudotumour cerebrii(benign intracranial HTN), orthostatic(due to meds) lightheadedness, cocaine induced lightheadedness, post.circulation ischemic events, very less likely metastatic lesions.. Suggest: MRI brain without contrast. She may require a spinal tap for measuring opening pressure for dx. of benign intracranial HTN. Thank you, Ophelia Long MD
[2017-03-14] MEDS: NIFEdipine E.R 60 MG TABLET (UD) PO SCH (06:22)
[2017-03-14] MEDS: ALBUTEROL SO4 0.083% IH SOL 2.5 MG/3 ML VIAL.NEB. NEB SCH ×4 (06:50→23:56)
--- NOTE | 2017-03-14 07:17 | PN ---
Progress Note, Physician Chief Complaint: Appreciated neuro input MRI brain planned to help with the neuro differential TELE: NSR + MDMA and COCAINE in urine - Current Medication List Current Medications: Active Medications Acetaminophen (Tylenol -) 650 mg PO Q6H PRN PRN Reason: FEVER OR PAIN Last Admin: 03/13/17 08:23 Dose: 650 mg Albuterol Sulfate (Ventolin 0.083% Nebulizer Soln -) 1 amp NEB QIDR [facility] Last Admin: 03/13/17 23:07 Dose: 1 amp Aspirin (Ecotrin -) 81 mg PO DAILY [facility] Last Admin: 03/13/17 11:14 Dose: 81 mg Budesonide/Formoterol Fumarate (Symbicort 160/4.5mcg -) 2 puff IH BID [facility] Last Admin: 03/13/17 21:23 Dose: 2 puff Bupropion HCl (Wellbutrin Xl -) 150 mg PO DAILY [facility] Last Admin: 03/13/17 11:09 Dose: 150 mg Hydrochlorothiazide (Hctz -) 25 mg PO DAILY [facility] Last Admin: 03/13/17 11:10 Dose: 25 mg Letrozole (Femara -) 2.5 mg PO DAILY [facility] Last Admin: 03/13/17 11:08 Dose: 2.5 mg Montelukast Sodium (Singulair -) 10 mg PO HS [facility] Last Admin: 03/13/17 21:24 Dose: 10 mg Nifedipine (Procardia Xl -) 60 mg PO AM [facility] Last Admin: 03/14/17 06:22 Dose: 60 mg Ranitidine HCl (Zantac -) 150 mg PO DAILY [facility] Last Admin: 03/13/17 11:14 Dose: 150 mg Rosuvastatin Calcium (Crestor -) 5 mg PO HS [facility] Last Admin: 03/13/17 21:24 Dose: 5 mg Valsartan (Diovan -) 320 mg PO DAILY [facility] Last Admin: 03/13/17 11:09 Dose: 320 mg Venlafaxine HCl (Effexor Xr -) 75 mg PO DAILY [facility] Last Admin: 03/13/17 11:09 Dose: 75 mg Zolpidem Tartrate (Ambien -) 10 mg PO HS PRN PRN Reason: INSOMNIA Last Admin: 03/13/17 21:51 Dose: 10 mg - Objective Vital Signs: Vital Signs Temperature 98.4 F 03/14/17 05:00 Pulse Rate 82 03/14/17 05:00 Respiratory Rate 20 03/14/17 05:00 Blood Pressure 139/77 03/14/17 05:00 O2 Sat by Pulse Oximetry (%) 97 03/13/17 20:30 Constitutional: Yes: Calm Cardiovascular: Yes: Regular Rate and Rhythm Respiratory: Yes: CTA Bilaterally Gastrointestinal: Yes: Soft Edema: No Neurological: Yes: Alert, Oriented ...Motor Strength: WNL Labs: INR, PTT INR 1.01 (0.82-1.09) 03/12/17 17:37 Laboratory Tests 03/12/17 03/13/17 03/13/17 17:37 06:00 08:10 WBC Hct Plt Count Potassium Creatinine Troponin I < 0.02 < 0.02 TSH MDMA (Ecstasy) Screen Positive Cocaine Screen Positive 03/14/17 03/14/17 05:10 05:10 WBC 8.2 Hct 37.7 Plt Count 241 Potassium 3.9 Creatinine 1.0 Troponin I TSH 0.32 L D MDMA (Ecstasy) Screen Cocaine Screen - ....Imaging EKG: Image Reviewed Assessment/Plan IMP: Lightheadedness of unclear etiology, possibly pre-renal state Chronic HTN H/o breast Cancer Cocaine use Thyroid disorder REC: 1. Tele and echo do not reveal cause of symptoms. 2. Would proceed w/ Neuro workup as suggested including brain MRI (r/o met. dz). 3. TSH is low, likely needs Synthroid dose adjusted. 4. Mildly orthostatic, can be corrected with oral hydration. 5. Strongly advised cessation of all illegal drugs. She states she used cocaine last week "once" because she was "Stressed out" but states it is not a habit. Will need close outpatient f/u with PMD and consideration for future drug counselling.
[2017-03-14 07:20] LABS: BASOPHIL 0.5 % (0-2.0); EOSINOPHIL 2.2 % (0-4.5); MCH 27.4 pg (25.7-33.7); MCHC 33.2 g/dl (32.0-36.0); MEAN CELL VOLUME 82.6 fl (80-96); MEAN PLT VOLUME 7.7 fl (7.5-11.1); NEUTROPHILS 64.1 % (42.8-82.8); PLATELET COUNT 241 K/MM3 (134-434); RDW 15.1 % (11.6-15.6); WHITE BLOOD COUNT 8.2 K/mm3 (4.0-10.0)
[2017-03-14 07:50] LABS: ALBUMIN 3.5 g/dl (3.4-5.0); ANION GAP 6 (8-16); CALCIUM 9.1 mg/dL (8.5-10.1); CO2 28 mmol/L (21-32); GLUCOSE,RANDOM 92 mg/dL (74-106); SGPT/ALT 32 U/L (12-78)
[2017-03-14 08:01] LABS: ALK PHOS 60 U/L (45-117); BILIRUBIN,TOTAL 0.5 mg/dL (0.2-1.0); SGOT/AST 19 U/L (15-37); THYROID STIMULATING HORMONE 0.32 uIU/ml (0.358-3.74)
[2017-03-14] MEDS: VALSARTAN 160 MG TABLET (UD) PO SCH (09:14)
[2017-03-14] MEDS: RANITIDINE HCL 150 MG TABLET (FP) PO SCH (09:14)
[2017-03-14] MEDS: ASPIRIN COATED 81 MG TABLET.EC PO SCH (09:14)
[2017-03-14] MEDS: VENLAFAXINE HCL 75 MG E.R. CAPSULES (FP) PO SCH (09:15)
[2017-03-14] MEDS: LETROZOLE 2.5 MG TABLET (FP) PO SCH (09:15)
[2017-03-14] MEDS: HYDROCHLOROTHIAZIDE 25 MG TABLET (FP) PO SCH (09:15)
[2017-03-14] MEDS: BUDESONIDE/FORMETEROL FUMARATE 160/4.5 mcg INHALER IH SCH ×2 (09:15→21:20)
[2017-03-14 12:04] LABS: CPK 207 IU/L (26-192); TROPONIN I < 0.02 ng/ml (0.00-0.05)
--- NOTE | 2017-03-14 18:58 | PN ---
Progress Note (short form) - Note Progress Note: 46 year old female with history of hypertension, breast CA s/p double mastectomy s/p reconstructive surgery (no longer being treated with chemotherapy /radiation), thyroid CA, who presents to the ED complaining of chest pain that began approximately 1 hour prior to ED arrival. She describes her chest pain as midsternal, nonmigrating, pressure like chest pain that is intermittent, episodes lasting a few seconds at a time with associated bilateral jaw tightness. She also reports associated lightheadedness and diffuse headache. She denies blurred vision, numbmess, tingling, or focal weakness. She denies nausea, vomiting, or diaphoresis. She denies fever or chills. She reports she had an echocardiogram.stress test 2 weeks ago but is unsure of the results. Pt.reports she was placed on hormone therapy for breast ca 1 year ago, since than began having headaches-these were ocurring 2x/week, lasting an hour each. bitemporal, 8/10 in intensity acc. by photophobia, throbbing in character, well treated with Excedrin prn. She observes that most times with her headaches her BP would be approx. 150/90-100. + weight gain since hormone therapy started. She also reports lightheadedness/dizzinessx1 month ocurring when she would get out of bed in the morning or bend her head down. Yesterday am reports 2 episodes of vertigo each lasting 2-5 minutes each with no other accompanying symptoms.Deniers headaches upon coughing/sneezing.Denies blurred vison/visual obscurations and all lother neurologic symptoms. Urine tox. screen + for cocaine/MDMA. FU : BLACKMAN continue , no tinnitus, + visual changes MRI noted IMPRESSION: 1. No evidence of intracranial mass, acute or subacute infarction. No mass effect, midline shift or hydrocephalus. 2. A partially empty sella turcica with prominent optic nerve sheath complexes and suggestion of flattening of the globes at the optic disc insertions. Please correlate clinically for papilledema. The constellation of findings may be seen patients with idiopathic intracranial hypertension. Please correlate clinically. 3. Nonenhancing punctate foci of T2/FLAIR signal scattered within the cerebral white matter are nonspecific with a broad differential, including migraine headaches, minimal chronic microvascular ischemia as well as a chronic sequela of vasculitis or prior infectious process. Primary demyelinating process is less likely. Please correlate clinically. 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: Yes: Migraine Cardio/Vascular: Yes: HTN, Hyperlipdemia, Other (h/o chest pain in 2015-per patient stress test negative) Pulmonary: Yes: Asthma Gastrointestinal: Yes: Constipation, Other (colon polyps) Renal/: Yes: Renal Calculi Endocrine: Yes: Diabetes Mellitus, Hypothyroidism - Past Surgical History Past Surgical History: Yes: Hysterectomy, Mastectomy - Alcohol/Substance Use Hx Alcohol Use: No History of Substance Use: reports: None - Smoking History Smoking history: Unknown if ever smoked Have you smoked in the past 12 months: No Aproximately how many cigarettes per day: 0 If you are a former smoker, when did you quit?: 2 YRS - Social History Usual Living Arrangement: With Spouse ADL: Independent 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, 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, 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 History of Recent Travel: No Home Medications - Allergies Allergies/Adverse Reactions: Allergies Allergy/AdvReac Type Severity Reaction Status Date / Time No Known Allergies Allergy Verified 03/12/17 15:53 - Home Medications Home Medications: Ambulatory Orders Olmesartan Medoxomil [Benicar -] 40 mg PO DAILY 11/26/13 Hydrochlorothiazide [Hctz -] 25 mg PO DAILY #30 tablet 04/30/14 Montelukast Na [Singulair -] 10 mg PO HS #30 tablet 04/30/14 Nifedipine [Nifedical Xl] 60 mg PO AM 04/12/16 Albuterol 0.083% Nebulizer Fartun [Ventolin 0.083% Nebulizer Soln -] 1 neb NEB Q6H #30 vial 07/18/16 Albuterol Sulfate Inhaler - [Ventolin HFA Inhaler -] 1 - 2 inh PO QID #1 inhaler 07/18/16 Bupropion HCl [Wellbutrin Sr] 150 mg PO DAILY 09/07/16 Letrozole [Femara] 2.5 mg PO DAILY 09/07/16 Lorazepam 0.5 mg PO HS 09/07/16 Rosuvastatin Calcium [Crestor] 5 mg PO HS 09/07/16 Venlafaxine HCl ER [Effexor Xr -] 75 mg PO DAILY 09/07/16 Zolpidem Tartrate [Ambien Cr] 12.5 mg PO HS 09/07/16 Budesonide/Formeterol Fumarate [SYMBICORT 160/4.5mcg -] 2 puff IH BID #1 inhaler 10/27/16 Cefuroxime Axetil [Ceftin -] 500 mg PO Q12H #14 tablet 10/27/16 Ranitidine [Zantac -] 150 mg PO DAILY tablet 10/27/16 Prednisone [Deltasone -] 20 mg PO DAILY 11/03/16 Family Disease History - Family Disease History Family Disease History: CA: Father (triple negative breast ca), Mother (triple negative breast ca), Sister (2-sisters, one BRCA-pos; one -s/p lumpectomy) Physical Exam-Neuro Vital Signs: Vital Signs Temperature 98.5 F 03/14/17 15:00 Pulse Rate 92 H 03/14/17 15:00 Respiratory Rate 18 03/14/17 15:00 Blood Pressure 123/75 03/14/17 15:00 O2 Sat by Pulse Oximetry (%) 100 03/14/17 08:00 Labs: CBCD WBC 8.2 K/mm3 (4.0-10.0) 03/14/17 05:10 RBC 4.57 M/mm3 (3.60-5.2) 03/14/17 05:10 Hgb 12.5 GM/dL (10.7-15.3) 03/14/17 05:10 Hct 37.7 % (32.4-45.2) 03/14/17 05:10 MCV 82.6 fl (80-96) 03/14/17 05:10 MCHC 33.2 g/dl (32.0-36.0) 03/14/17 05:10 RDW 15.1 % (11.6-15.6) 03/14/17 05:10 Plt Count 241 K/MM3 (134-434) 03/14/17 05:10 MPV 7.7 fl (7.5-11.1) 03/14/17 05:10 CMP Sodium 139 mmol/L (136-145) 03/14/17 05:10 Potassium 3.9 mmol/L (3.5-5.1) 03/14/17 05:10 Chloride 105 mmol/L (98-107) 03/14/17 05:10 Carbon Dioxide 28 mmol/L (21-32) 03/14/17 05:10 Anion Gap 6 (8-16) L 03/14/17 05:10 BUN 14 mg/dL (7-18) D 03/14/17 05:10 Creatinine 1.0 mg/dL (0.55-1.02) 03/14/17 05:10 Creat Clearance w eGFR 59.69 (>60) 03/14/17 05:10 Calcium 9.1 mg/dL (8.5-10.1) 03/14/17 05:10 Total Bilirubin 0.5 mg/dL (0.2-1.0) D 03/14/17 05:10 AST 19 U/L (15-37) 03/14/17 05:10 ALT 32 U/L (12-78) D 03/14/17 05:10 Alkaline Phosphatase 60 U/L (45-117) 03/14/17 05:10 Total Protein 7.0 g/dl (6.4-8.2) 03/14/17 05:10 Albumin 3.5 g/dl (3.4-5.0) 03/14/17 05:10 - Neuro Exam Dominant Hand: Right Mini Mental Exam: Normal DTR's: 2+ Left Bicep, 2+ Right Bicep, 2+ Left Tricep, 2+ Right Tricep, 2+ Left Brachioradialis, 2+ Right Brachioradialis, 2+ Left Achilles, 2+ Right Achilles Babinski: Absent Motor Strength: 5/5: Left Arm, Right Arm, Left Leg, Right Leg Gait: Normal Imaging - Results Cat Scan: Report Reviewed (CT head reported without abnormalities.) Assessment/Plan Pt. presenting with lightheadedness/dizziness, episodic headaches and vertigo in the setting of hormone therapy/breast ca. and weight gain. In addition has cocaine/MDMA in urine. MRI suggests intracranial hypertension ; pseudotumour cerebrii(benign intracranial HTN) please obtain OPTHo consult, r/o pappiledema will do Lumbar TAP in AM and check OP IF + will start diamox Dr Benson
[2017-03-14] MEDS: MONTELUKAST NA 10 MG TABLET PO SCH (21:21)
[2017-03-14] MEDS: ROSUVASTATIN CA 5 MG TABLET (FP) PO SCH (21:21)
[2017-03-14] MEDS: ZOLPIDEM TARTRATE 5 MG TABLET PO PRN (21:23)
--- NOTE | 2017-03-14 22:24 | PN ---
Progress Note, Physician - Current Medication List Current Medications: Active Medications Acetaminophen (Tylenol -) 650 mg PO Q6H PRN PRN Reason: FEVER OR PAIN Last Admin: 03/13/17 08:23 Dose: 650 mg Albuterol Sulfate (Ventolin 0.083% Nebulizer Soln -) 1 amp NEB QIDR [facility] Last Admin: 03/14/17 17:36 Dose: 1 amp Aspirin (Ecotrin -) 81 mg PO DAILY [facility] Last Admin: 03/14/17 09:14 Dose: 81 mg Budesonide/Formoterol Fumarate (Symbicort 160/4.5mcg -) 2 puff IH BID [facility] Last Admin: 03/14/17 21:20 Dose: 2 puff Bupropion HCl (Wellbutrin Xl -) 150 mg PO DAILY [facility] Last Admin: 03/14/17 09:14 Dose: 150 mg Hydrochlorothiazide (Hctz -) 25 mg PO DAILY [facility] Last Admin: 03/14/17 09:15 Dose: 25 mg Letrozole (Femara -) 2.5 mg PO DAILY [facility] Last Admin: 03/14/17 09:15 Dose: 2.5 mg Montelukast Sodium (Singulair -) 10 mg PO HS [facility] Last Admin: 03/14/17 21:21 Dose: 10 mg Nifedipine (Procardia Xl -) 60 mg PO AM [facility] Last Admin: 03/14/17 06:22 Dose: 60 mg Ranitidine HCl (Zantac -) 150 mg PO DAILY [facility] Last Admin: 03/14/17 09:14 Dose: 150 mg Rosuvastatin Calcium (Crestor -) 5 mg PO HS [facility] Last Admin: 03/14/17 21:21 Dose: 5 mg Valsartan (Diovan -) 320 mg PO DAILY [facility] Last Admin: 03/14/17 09:14 Dose: 320 mg Venlafaxine HCl (Effexor Xr -) 75 mg PO DAILY [facility] Last Admin: 03/14/17 09:15 Dose: 75 mg Zolpidem Tartrate (Ambien -) 10 mg PO HS PRN PRN Reason: INSOMNIA Last Admin: 03/14/17 21:23 Dose: 10 mg - Objective Vital Signs: Vital Signs Temperature 98 F 03/14/17 21:15 Pulse Rate 85 03/14/17 21:15 Respiratory Rate 20 03/14/17 21:15 Blood Pressure 124/87 03/14/17 21:15 O2 Sat by Pulse Oximetry (%) 98 03/14/17 20:00 Constitutional: Yes: Well Nourished HENT: Yes: WNL Neck: Yes: WNL, Supple Cardiovascular: Yes: WNL, Regular Rate and Rhythm Respiratory: Yes: WNL, Regular, CTA Bilaterally Gastrointestinal: Yes: WNL, Normal Bowel Sounds, Soft, Abdomen, Obese Extremities: Yes: WNL Edema: No Labs: CBC, BMP 03/14/17 05:10 03/14/17 05:10 INR, PTT INR 1.01 (0.82-1.09) 03/12/17 17:37 Problem List - Problems (1) Chest pain Assessment/Plan: Pt is chest pain free Admitted to tele Serial cpk/troponin negative Further w/u as per cardio Urine tox screen (+) cocaine/ecstasy Spoke at length to pt about drug use and cardiac risk Code(s): R07.9 - CHEST PAIN, UNSPECIFIED (2) Headache Assessment/Plan: CT scan head unremarkable MRI brain showed empty sella turcica/ ?papilledema Pt to have LP in am Will try to get optho consult Diamox as per neuro Code(s): R51 - HEADACHE (3) HTN (hypertension) Assessment/Plan: BP stable Cont antihypertensives Code(s): I10 - ESSENTIAL (PRIMARY) HYPERTENSION (4) HLD (hyperlipidemia) Code(s): E78.5 - HYPERLIPIDEMIA, UNSPECIFIED
[2017-03-15] MEDS: NIFEdipine E.R 60 MG TABLET (UD) PO SCH (06:32)
[2017-03-15] MEDS: ACETAMINOPHEN 325 MG TABLET (FP) PO PRN (06:33)
[2017-03-15] MEDS: ALBUTEROL SO4 0.083% IH SOL 2.5 MG/3 ML VIAL.NEB. NEB SCH ×2 (06:55→12:05)
--- NOTE | 2017-03-15 09:27 | PN ---
Progress Note (short form) - Note Progress Note: 46 year old female with history of hypertension, breast CA s/p double mastectomy s/p reconstructive surgery (no longer being treated with chemotherapy /radiation), thyroid CA, who presents to the ED complaining of chest pain that began approximately 1 hour prior to ED arrival. She describes her chest pain as midsternal, nonmigrating, pressure like chest pain that is intermittent, episodes lasting a few seconds at a time with associated bilateral jaw tightness. She also reports associated lightheadedness and diffuse headache. She denies blurred vision, numbmess, tingling, or focal weakness. She denies nausea, vomiting, or diaphoresis. She denies fever or chills. She reports she had an echocardiogram.stress test 2 weeks ago but is unsure of the results. Pt.reports she was placed on hormone therapy for breast ca 1 year ago, since than began having headaches-these were ocurring 2x/week, lasting an hour each. bitemporal, 8/10 in intensity acc. by photophobia, throbbing in character, well treated with Excedrin prn. She observes that most times with her headaches her BP would be approx. 150/90-100. + weight gain since hormone therapy started. She also reports lightheadedness/dizzinessx1 month ocurring when she would get out of bed in the morning or bend her head down. Yesterday am reports 2 episodes of vertigo each lasting 2-5 minutes each with no other accompanying symptoms.Deniers headaches upon coughing/sneezing.Denies blurred vison/visual obscurations and all lother neurologic symptoms. Urine tox. screen + for cocaine/MDMA. FU : BLACKMAN continue , no tinnitus, + visual changes S/P TAP this AM, OP 31 --elevated , sent sample for testing signed consent in chart MRI noted IMPRESSION: 1. No evidence of intracranial mass, acute or subacute infarction. No mass effect, midline shift or hydrocephalus. 2. A partially empty sella turcica with prominent optic nerve sheath complexes and suggestion of flattening of the globes at the optic disc insertions. Please correlate clinically for papilledema. The constellation of findings may be seen patients with idiopathic intracranial hypertension. Please correlate clinically. 3. Nonenhancing punctate foci of T2/FLAIR signal scattered within the cerebral white matter are nonspecific with a broad differential, including migraine headaches, minimal chronic microvascular ischemia as well as a chronic sequela of vasculitis or prior infectious process. Primary demyelinating process is less likely. Please correlate clinically. 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: Migraine Cardio/Vascular: Yes: HTN, Hyperlipdemia, Other (h/o chest pain in 2014-per patient stress test negative) Pulmonary: Yes: Asthma Gastrointestinal: Yes: Constipation, Other (colon polyps) Renal/: Yes: Renal Calculi Endocrine: Yes: Diabetes Mellitus, Hypothyroidism - Past Surgical History Past Surgical History: Yes: Hysterectomy, Mastectomy - Alcohol/Substance Use Hx Alcohol Use: No History of Substance Use: reports: None - Smoking History Smoking history: Unknown if ever smoked Have you smoked in the past 12 months: No Aproximately how many cigarettes per day: 0 If you are a former smoker, when did you quit?: 2 YRS - Social History Usual Living Arrangement: With Spouse ADL: Independent 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, 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, 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 History of Recent Travel: No Home Medications - Allergies Allergies/Adverse Reactions: Allergies Allergy/AdvReac Type Severity Reaction Status Date / Time No Known Allergies Allergy Verified 03/12/17 15:53 - Home Medications Home Medications: Ambulatory Orders Olmesartan Medoxomil [Benicar -] 40 mg PO DAILY 11/26/13 Hydrochlorothiazide [Hctz -] 25 mg PO DAILY #30 tablet 04/30/14 Montelukast Na [Singulair -] 10 mg PO HS #30 tablet 04/30/14 Nifedipine [Nifedical Xl] 60 mg PO AM 04/12/16 Albuterol 0.083% Nebulizer Fartun [Ventolin 0.083% Nebulizer Soln -] 1 neb NEB Q6H #30 vial 07/18/16 Albuterol Sulfate Inhaler - [Ventolin HFA Inhaler -] 1 - 2 inh PO QID #1 inhaler 07/18/16 Bupropion HCl [Wellbutrin Sr] 150 mg PO DAILY 09/07/16 Letrozole [Femara] 2.5 mg PO DAILY 09/07/16 Lorazepam 0.5 mg PO HS 09/07/16 Rosuvastatin Calcium [Crestor] 5 mg PO HS 09/07/16 Venlafaxine HCl ER [Effexor Xr -] 75 mg PO DAILY 09/07/16 Zolpidem Tartrate [Ambien Cr] 12.5 mg PO HS 09/07/16 Budesonide/Formeterol Fumarate [SYMBICORT 160/4.5mcg -] 2 puff IH BID #1 inhaler 10/27/16 Cefuroxime Axetil [Ceftin -] 500 mg PO Q12H #14 tablet 10/27/16 Ranitidine [Zantac -] 150 mg PO DAILY tablet 10/27/16 Prednisone [Deltasone -] 20 mg PO DAILY 11/03/16 Family Disease History - Family Disease History Family Disease History: CA: Father (triple negative breast ca), Mother (triple negative breast ca), Sister (2-sisters, one BRCA-pos; one -s/p lumpectomy) Physical Exam-Neuro Vital Signs: Vital Signs Temperature 98.5 F 03/14/17 15:00 Pulse Rate 92 H 03/14/17 15:00 Respiratory Rate 18 03/14/17 15:00 Blood Pressure 123/75 03/14/17 15:00 O2 Sat by Pulse Oximetry (%) 100 03/14/17 08:00 Labs: CBCD WBC 8.2 K/mm3 (4.0-10.0) 03/14/17 05:10 RBC 4.57 M/mm3 (3.60-5.2) 03/14/17 05:10 Hgb 12.5 GM/dL (10.7-15.3) 03/14/17 05:10 Hct 37.7 % (32.4-45.2) 03/14/17 05:10 MCV 82.6 fl (80-96) 03/14/17 05:10 MCHC 33.2 g/dl (32.0-36.0) 03/14/17 05:10 RDW 15.1 % (11.6-15.6) 03/14/17 05:10 Plt Count 241 K/MM3 (134-434) 03/14/17 05:10 MPV 7.7 fl (7.5-11.1) 03/14/17 05:10 CMP Sodium 139 mmol/L (136-145) 03/14/17 05:10 Potassium 3.9 mmol/L (3.5-5.1) 03/14/17 05:10 Chloride 105 mmol/L (98-107) 03/14/17 05:10 Carbon Dioxide 28 mmol/L (21-32) 03/14/17 05:10 Anion Gap 6 (8-16) L 03/14/17 05:10 BUN 14 mg/dL (7-18) D 03/14/17 05:10 Creatinine 1.0 mg/dL (0.55-1.02) 03/14/17 05:10 Creat Clearance w eGFR 59.69 (>60) 03/14/17 05:10 Calcium 9.1 mg/dL (8.5-10.1) 03/14/17 05:10 Total Bilirubin 0.5 mg/dL (0.2-1.0) D 03/14/17 05:10 AST 19 U/L (15-37) 03/14/17 05:10 ALT 32 U/L (12-78) D 03/14/17 05:10 Alkaline Phosphatase 60 U/L (45-117) 03/14/17 05:10 Total Protein 7.0 g/dl (6.4-8.2) 03/14/17 05:10 Albumin 3.5 g/dl (3.4-5.0) 03/14/17 05:10 - Neuro Exam Dominant Hand: Right Mini Mental Exam: Normal DTR's: 2+ Left Bicep, 2+ Right Bicep, 2+ Left Tricep, 2+ Right Tricep, 2+ Left Brachioradialis, 2+ Right Brachioradialis, 2+ Left Achilles, 2+ Right Achilles Babinski: Absent Motor Strength: 5/5: Left Arm, Right Arm, Left Leg, Right Leg Gait: Normal Imaging - Results Cat Scan: Report Reviewed (CT head reported without abnormalities.) Assessment/Plan Pt. presenting with lightheadedness/dizziness, episodic headaches and vertigo in the setting of hormone therapy/breast ca. and weight gain. In addition has cocaine/MDMA in urine. MRI suggests intracranial hypertension ; pseudotumour cerebrii(benign intracranial HTN) LP today-- procedure note L4/l5 Localized, sterilized, CSF collected in recumbent position, OP 31 cc L69--[id number] , sent for gluc, protein, cell count , cytology please obtain OPTHo consult,-can be done outpt start diamox 250BID will have discuss with ONC hormone treatment as this may be factor as well can be dc later today as long as no BLACKMAN, further c/o outpt [phone] Dr Benson
[2017-03-15] MEDS: VALSARTAN 160 MG TABLET (UD) PO SCH (10:03)
[2017-03-15] MEDS: ASPIRIN COATED 81 MG TABLET.EC PO SCH (10:04)
[2017-03-15] MEDS: HYDROCHLOROTHIAZIDE 25 MG TABLET (FP) PO SCH (10:04)
[2017-03-15] MEDS: BUDESONIDE/FORMETEROL FUMARATE 160/4.5 mcg INHALER IH SCH (10:04)
[2017-03-15] MEDS: RANITIDINE HCL 150 MG TABLET (FP) PO SCH (10:04)
[2017-03-15] MEDS: VENLAFAXINE HCL 75 MG E.R. CAPSULES (FP) PO SCH (10:04)
[2017-03-15] MEDS: LETROZOLE 2.5 MG TABLET (FP) PO SCH (10:05)
--- NOTE | 2017-03-15 10:23 | PN ---
Progress Note, Physician History of Present Illness: seen and examined today in nad. s/p LP this am, states she has some discomfort at the LP site. no new complaints. - Current Medication List Current Medications: Active Medications Acetaminophen (Tylenol -) 650 mg PO Q6H PRN PRN Reason: FEVER OR PAIN Last Admin: 03/15/17 06:33 Dose: 650 mg Albuterol Sulfate (Ventolin 0.083% Nebulizer Soln -) 1 amp NEB QIDR [facility] Last Admin: 03/15/17 06:55 Dose: 1 amp Aspirin (Ecotrin -) 81 mg PO DAILY [facility] Last Admin: 03/15/17 10:04 Dose: 81 mg Budesonide/Formoterol Fumarate (Symbicort 160/4.5mcg -) 2 puff IH BID [facility] Last Admin: 03/15/17 10:04 Dose: 2 puff Bupropion HCl (Wellbutrin Xl -) 150 mg PO DAILY [facility] Last Admin: 03/15/17 10:04 Dose: 150 mg Hydrochlorothiazide (Hctz -) 25 mg PO DAILY [facility] Last Admin: 03/15/17 10:04 Dose: 25 mg Letrozole (Femara -) 2.5 mg PO DAILY [facility] Last Admin: 03/15/17 10:05 Dose: 2.5 mg Montelukast Sodium (Singulair -) 10 mg PO HS [facility] Last Admin: 03/14/17 21:21 Dose: 10 mg Nifedipine (Procardia Xl -) 60 mg PO AM [facility] Last Admin: 03/15/17 06:32 Dose: 60 mg Ranitidine HCl (Zantac -) 150 mg PO DAILY [facility] Last Admin: 03/15/17 10:04 Dose: 150 mg Rosuvastatin Calcium (Crestor -) 5 mg PO HS [facility] Last Admin: 03/14/17 21:21 Dose: 5 mg Valsartan (Diovan -) 320 mg PO DAILY [facility] Last Admin: 03/15/17 10:03 Dose: 320 mg Venlafaxine HCl (Effexor Xr -) 75 mg PO DAILY [facility] Last Admin: 03/15/17 10:04 Dose: 75 mg Zolpidem Tartrate (Ambien -) 10 mg PO HS PRN PRN Reason: INSOMNIA Last Admin: 03/14/17 21:23 Dose: 10 mg - Objective Vital Signs: Vital Signs Temperature 98.2 F 03/15/17 06:35 Pulse Rate 78 03/15/17 06:35 Respiratory Rate 20 03/15/17 06:35 Blood Pressure 133/71 03/15/17 06:35 O2 Sat by Pulse Oximetry (%) 98 03/14/17 20:00 Constitutional: Yes: No Distress, Calm, Obese Eyes: Yes: Conjunctiva Clear, EOM Intact, PERRL HENT: Yes: Atraumatic, Normocephalic Neck: Yes: Supple, Trachea Midline Cardiovascular: Yes: Regular Rate and Rhythm, S1, S2. No: Bradycardia, Tachycardia, Pulse Irregular, Bruit, JVD, Gallop, Murmur, Rub, S3, S4, Varicosities Respiratory: Yes: Regular, CTA Bilaterally. No: Rales, Rhonchi, Wheezes Gastrointestinal: Yes: Normal Bowel Sounds, Soft. No: Distention, Tenderness Extremities: Yes: WNL Edema: No Peripheral Pulses WNL: Yes Peripheral Pulses: Left Doralis Pedis: 2+, Right Dorsalis Pedis: 2+ Integumentary: Yes: WNL Neurological: Yes: Alert, Oriented Psychiatric: Yes: Alert, Oriented Labs: CBC, BMP 03/14/17 05:10 03/14/17 05:10 INR, PTT INR 1.01 (0.82-1.09) 03/12/17 17:37 - ....Imaging Chest X-ray: Report Reviewed, Image Reviewed EKG: Report Reviewed, Image Reviewed Other: Report Reviewed, Image Reviewed (tele-nsr, sinus tach, no arrhythmias) Assessment/Plan IMP: Lightheadedness Intracranial hypertension/pseudotumor cerebrii Chest [id number] CAD-minimal, non-obstructive disease Chronic HTN H/o breast Cancer Cocaine use Thyroid disorder REC: -No cardiac source of symptoms identified, no arrhythmias on telemetry, echo showed overall normal structural heart, carotid doppler has shown no stenosis, recent cardiac cath very minimal non-obstructive CAD -Neuro work up revealed intracerebral HTN, additionally tox screen revealed cocaine and MDMA use -[facility] Drug use counseling -No additional inpatient cardiac work up needed at this point -Acceptable from a cardiac standpoint for discharge with plan for outpatient follow up -pt should f/up with PMD and Neurology as outpatient
[2017-03-15 10:30] LABS: CSF APPEARANCE CLEAR; CSF COLOR COLORLESS; CSF RBC 31
[2017-03-15 11:29] LABS: GLUCOSE,CSF 56 mg/dL (50-80)
[2017-03-15 12:08] VITALS: BP 116/74; PULSE 82; TEMP 98.4
--- NOTE | 2017-03-15 15:36 | PATH ---
Cytology Non-Gynecological Report Patient Name: SOCORRO NICHOLAS [facility]. Rec. #: [id number] /Age/Gender: 1970 (Age: 46) / F Account: [id number] Location: 4 W TELEMETRY U Taken: 03/15/2017 Received: 03/15/2017 Reported: 03/15/2017 Physicians: Rissa Rodríguez M.D. Specimen(s) Received CEREBRAL SPINAL FLUID Clinical History History of breast cancer Final Diagnosis CEREBROSPINAL FLUID: NO MALIGNANT CELLS IDENTIFIED. LYMPHOCYTES AND PROTEINACEOUS MATERIAL. Comment: Immunohistochemical stain for Ae1/Ae3 keratin performed and interpreted at [facility] is negative supporting the interpretation above. Electronically Signed Ren Dunham M.D. Gross Description Received are 5cc of clear fluid. Four cytofunnel slides are made.
--- NOTE | 2017-04-15 16:18 | DS ---
Physical Examination Vital Signs: Vital Signs Temperature 98.4 F 03/15/17 10:00 Pulse Rate 82 03/15/17 10:00 Respiratory Rate 20 03/15/17 10:00 Blood Pressure 116/74 03/15/17 10:00 O2 Sat by Pulse Oximetry (%) 97 03/15/17 10:00 Labs: CBC, BMP 03/14/17 05:10 03/14/17 05:10 Discharge Summary Reason For Visit: LightheadedNESS Condition: Good - Instructions Diet, Activity, Other Instructions: follow up outpatient with an supervisor tubing. follow up next week with dr benson. Referrals: Hector Benson DO [Staff Physician] - John Balbuena MD [Staff Physician] - Smith Lugo MD [Primary Care Provider] - Disposition: HOME - Home Medications Comprehensive Discharge Medication List: Ambulatory Orders Montelukast Na [Singulair -] 10 mg PO HS #30 tablet 04/30/14 Nifedipine [Nifedical Xl] 60 mg PO AM 04/12/16 Albuterol 0.083% Nebulizer Fartun [Ventolin 0.083% Nebulizer Soln -] 1 neb NEB Q6H #30 vial 07/18/16 Albuterol Sulfate Inhaler - [Ventolin HFA Inhaler -] 1 - 2 inh PO QID #1 inhaler 07/18/16 Bupropion HCl [Wellbutrin Sr] 150 mg PO DAILY 09/07/16 Letrozole [Femara] 2.5 mg PO DAILY 09/07/16 Rosuvastatin Calcium [Crestor] 5 mg PO HS 09/07/16 Venlafaxine HCl ER [Effexor Xr -] 75 mg PO DAILY 09/07/16 Budesonide/Formeterol Fumarate [SYMBICORT 160/4.5mcg -] 2 puff IH BID #1 inhaler 10/27/16 Ranitidine [Zantac -] 150 mg PO DAILY tablet 10/27/16 Acetazolamide [Diamox -] 250 mg PO BID #60 tablet 03/15/17 Aspirin Coated [Ecotrin -] 81 mg PO DAILY #30 tab 03/15/17 Valsartan [Diovan] 160 mg PO DAILY #30 tablet 03/15/17 Zolpidem Tartrate [Ambien] 12.5 mg PO HS PRN MDD 1 03/23/17
== END 2017-03-15 13:51 | disposition home or self-care (01) ==
LOC: JER 15:28 → JERBED 18:50 → J4W 23:14
PROVIDERS: ADMIT Internal Medicine; ATTEND Internal Medicine
PROC: 3E0333Z Introduction of Anti-inflammatory into Peripheral Vein, Percutaneous Approach (ICD-10-PCS; principal; 2017-03-12)
PROC: 3E0F7GC Introduction of Other Therapeutic Substance into Respiratory Tract, Via Natural or Artificial Opening (ICD-10-PCS; 2017-03-12)
DX: R42 Dizziness and giddiness (principal); R07.9 Chest pain, unspecified; I25.10 Atherosclerotic heart disease of native coronary artery without angina pectoris; I10 Essential (primary) hypertension; G93.2 Benign intracranial hypertension; E03.9 Hypothyroidism, unspecified; E78.5 Hyperlipidemia, unspecified; E11.9 Type 2 diabetes mellitus without complications; J45.909 Unspecified asthma, uncomplicated; F14.90 Cocaine use, unspecified, uncomplicated; Z85.3 Personal history of malignant neoplasm of breast; Z90.13 Acquired absence of bilateral breasts and nipples; Z92.21 Personal history of antineoplastic chemotherapy; Z87.442 Personal history of urinary calculi
CPT/HCPCS: 36415; 70450-TC; 70553-TC; 71010-TC; 76700-TC; 80053; 80061; 80307; 82553; 82945; 83721; 84157; 84443; 84484; 85025; 85610; 85730; 88108; 88342-TC; 89050; 93005; 93010; 93306-TC; 94640; 99285-25; G0378; G0480

== ENCOUNTER 2017-03-22 20:58 | Emergency (ER) | payer BC ==
[2017-03-22 21:23] VITALS: TEMP 98.3; BMI 22.8
--- NOTE | 2017-03-22 21:30 | PDOC ---
History of Present Illness - General Chief Complaint: Chest Pain Stated Complaint: CHEST PAIN Time Seen by Provider: 03/22/17 21:29 - History of Present Illness Initial Comments: 03/22/17 21:29 Ms. Beatty is a 46 yo female with a significant past medical history of hypertension, breast CA s/p double mastectomy s/p reconstructive surgery (no longer being treated with chemotherapy/radiation), thyroid CA, recent (negative ) cath to investigate chest pain, and visit yesterday with plastic surgeon who deemed good results from reconstruction who presents to the emergency department with a 2 day history of chest pain that she would like investigated. She reports the chest pain began yesterday before her appointment with her plastic surgeon and got worse when she went to the grocery store and lifted a large container of [employer] punch. She then went to [employer] and reported her pain increased during dinner. She attempted to alleviate the pain with jack maria c with no result. The patient denies shortness of breath, headache and dizziness. Denies fever, chills, nausea, vomit, diarrhea and constipation. Denies dysuria, frequency, urgency and hematuria. Allergies: NKDA Past History - Past Medical History Allergies/Adverse Reactions: Allergies Allergy/AdvReac Type Severity Reaction Status Date / Time No Known Allergies Allergy Verified 03/22/17 21:22 Home Medications: Ambulatory Orders Montelukast Na [Singulair -] 10 mg PO HS #30 tablet 04/30/14 Nifedipine [Nifedical Xl] 60 mg PO AM 04/12/16 Albuterol 0.083% Nebulizer Fartun [Ventolin 0.083% Nebulizer Soln -] 1 neb NEB Q6H #30 vial 07/18/16 Albuterol Sulfate Inhaler - [Ventolin HFA Inhaler -] 1 - 2 inh PO QID #1 inhaler 07/18/16 Bupropion HCl [Wellbutrin Sr] 150 mg PO DAILY 09/07/16 Letrozole [Femara] 2.5 mg PO DAILY 09/07/16 Rosuvastatin Calcium [Crestor] 5 mg PO HS 09/07/16 Venlafaxine HCl ER [Effexor Xr -] 75 mg PO DAILY 09/07/16 Budesonide/Formeterol Fumarate [SYMBICORT 160/4.5mcg -] 2 puff IH BID #1 inhaler 10/27/16 Ranitidine [Zantac -] 150 mg PO DAILY tablet 10/27/16 Acetazolamide [Diamox -] 250 mg PO BID #60 tablet 03/15/17 Aspirin Coated [Ecotrin -] 81 mg PO DAILY #30 tab 03/15/17 Valsartan [Diovan] 160 mg PO DAILY #30 tablet 03/15/17 Zolpidem Tartrate [Ambien] 10 mg PO HS PRN #0 tablet MDD 1 03/15/17 Anemia: No Asthma: Yes Cancer: Yes (BREAST) Cardiac Disorders: Yes (HX OF CHEST PAIN 2014 PT REPORTS NEG WORK-UP) CVA: No COPD: No CHF: No Dementia: No Diabetes: No GI Disorders: No Disorders: No HTN: Yes Hypercholesterolemia: No Kidney Stones: Yes Liver Disease: No Seizures: No Thyroid Disease: Yes (HYPOTHYROID) - Surgical History Abdominal Surgery: No Appendectomy: No Cardiac Surgery: No Cholecystectomy: No Lung Surgery: No Neurologic Surgery: No Orthopedic Surgery: No - Family Disease History Family Disease History: Heart Disease: Sister, CA: Father, Mother, Sister - Reproductive History Cervical CA: No Dysfunctional Uterine Bleeding: No Ectopic : No Endometrial CA: No Polycystic Ovaries: No Therapeutic (s) & number: No Tubal Ligation: Yes - Immunization History Td Vaccination: Yes TDAP Vaccination: Yes Immunization Up to Date: Yes - Suicide/Smoking/Psychosocial Hx Smoking Status: Yes Smoking History: Never smoked Years of Tobacco Use: 0 Have you smoked in the past 12 months: No Number of Cigarettes Smoked Daily: 0 If you are a former smoker, when did you quit?: 2 YRS Information on smoking cessation initiated: No Hx Alcohol Use: No Drug/Substance Use Hx: No Substance Use Type: None Hx Substance Use Treatment: No Review of Systems - Review of Systems Comments:: 03/22/17 21:30 GENERAL/CONSTITUTIONAL: No fever or chills. No weakness. HEAD, EYES, EARS, NOSE AND THROAT: No change in vision. No ear pain or discharge. No sore throat. CARDIOVASCULAR: +Chest pain that gets worse whenever she moves her left arm. No shortness of breath RESPIRATORY: No cough, wheezing, or hemoptysis. GASTROINTESTINAL: No nausea, vomiting, diarrhea or constipation. GENITOURINARY: No dysuria, frequency, or change in urination. MUSCULOSKELETAL: No joint or muscle swelling or pain. No neck or back pain. SKIN: No rash NEUROLOGIC: No headache, vertigo, loss of consciousness, or change in strength/ sensation. ENDOCRINE: No increased thirst. No abnormal weight change HEMATOLOGIC/LYMPHATIC: No anemia, easy bleeding, or history of blood clots. ALLERGIC/IMMUNOLOGIC: No hives or skin allergy. 03/22/17 22:09 *Physical Exam - Vital Signs Last Vital Signs Temp Pulse Resp BP Pulse Ox 98.3 F 99 H 18 155/109 99 03/22/17 21:22 03/22/17 21:22 03/22/17 21:22 03/22/17 21:22 03/22/17 21:22 - Physical Exam Comments: 03/22/17 21:30 GENERAL: Awake, alert, and fully oriented, in no acute distress HEAD: No signs of trauma, normocephalic, atraumatic EYES: PERRLA, EOMI, sclera anicteric, conjunctiva clear ENT: Auricles normal inspection, hearing grossly normal, nares patent, oropharynx clear without exudates. Moist mucosa NECK: Normal ROM, supple, no lymphadenopathy, JVD, or masses LUNGS: No distress, speaks full sentences, clear to auscultation bilaterally HEART: +Reproducible chest pain with tenderness to palpation midline. Regular rate and rhythm, normal S1 and S2, no murmurs, rubs or gallops, peripheral pulses normal and equal bilaterally. ABDOMEN: Soft, nontender, normoactive bowel sounds. No guarding, no rebound. No masses EXTREMITIES: +Increase of chest pain with opposed adduction of left arm. Normal inspection, Normal range of motion, no edema. No clubbing or cyanosis. NEUROLOGICAL: Cranial nerves II through XII grossly intact. Normal speech, normal gait, no focal sensorimotor deficits SKIN: Warm, Dry, normal turgor, no rashes or lesions noted. ED Treatment Course - LABORATORY CBC & Chemistry Diagram: 03/22/17 23:32 03/23/17 00:19 Medical Decision Making - Medical Decision Making 03/22/17 22:14 Patient presents for 2nd opinion of chest pain. Patient in no acute distress and not short of breath with reproducible sternal pain increased with movement of left arm. 03/23/17 01:09 Labs negative as below, EKG normal rate, normal rhythm, normal access, normal intervals, no ST elevations. Normal EKG. Will d/c to home with instructions to follow-up as needed outpatient with PCP. *DC/Admit/Observation/Transfer Diagnosis at time of Disposition: Muscle strain of anterior chest wall - Discharge Dispostion Disposition: HOME - Patient Instructions Printed Discharge Instructions: DI for Atypical Chest Pain Additional Instructions: Please follow-up with your PCP if your muscle strain does not get better over time. Take over the counter motrin as needed for pain relief.
--- NOTE | 2017-03-22 21:58 | PDOC ---
Attending Attestation - Resident Resident Name: Sarabjit Eugene - ED Attending Attestation I have performed the following: I have examined & evaluated the patient, The case was reviewed & discussed with the resident, I agree w/resident's findings & plan, Exceptions are as noted <EfrageoffreyFabrizio - Last Filed: 03/22/17 21:58> - HPI HPI: 03/22/17 22:16 The patient is a 46-year-old female with a significant past medical history of HTN, breast CA s/p double mastectomy and reconstructive surgery, thyroid CA, recent cath (neg) for chest pain investigation, who presents to the emergency department with chest pain that began yesterday. She states she went to see her plastic surgeon regarding the reconstructive surgery, and afterwards went grocery shopping and ate at [employer] when she felt her chest pain worsening. Pt denies SOB, BLACKMAN and dizziness. Denies F/C, N/V/D. The patient denies dysuria, frequency, urgency and hematuria. Allergies: NKDA PCP: Dr. Smith Lugo <Ene Cary - Last Filed: 03/22/17 22:16>
[2017-03-22 23:36] LABS: BASOPHIL 1.2 % (0-2.0); EOSINOPHIL 2.8 % (0-4.5); MCH 27.3 pg (25.7-33.7); MEAN CELL VOLUME 82.8 fl (80-96); NEUTROPHILS 61.8 % (42.8-82.8); PLATELET COUNT 195 K/MM3 (134-434); WHITE BLOOD COUNT 8.2 K/mm3 (4.0-10.0)
[2017-03-22 23:54] LABS: URINE APPEARANCE SLCLOUDY; URINE BILIRUBIN NEGATIVE (NEGATIVE); URINE BLOOD 1+ (NEGATIVE); URINE COLOR YELLOW; URINE GLUCOSE (UA) NEGATIVE (NEGATIVE); URINE KETONE NEGATIVE (NEGATIVE); URINE NITRITE NEGATIVE (NEGATIVE); URINE PROTEIN NEGATIVE (NEGATIVE); URINE UROBILINOGEN NEGATIVE mg/dL (0.2-1.0)
[2017-03-22 23:58] LABS: URINE HYALINE CAST 2 /lpf; URINE MUCUS FEW; URINE RBC 7 /hpf (0-3); URINE WBC 12 /hpf (3-5)
[2017-03-23 00:50] LABS: ALBUMIN 3.6 g/dl (3.4-5.0); ALK PHOS 65 U/L (45-117); ANION GAP 7 (8-16); BILIRUBIN,TOTAL 0.2 mg/dL (0.2-1.0); CALCIUM 9.1 mg/dL (8.5-10.1); CO2 27 mmol/L (21-32); GLUCOSE,RANDOM 85 mg/dL (74-106); SGOT/AST 20 U/L (15-37); SGPT/ALT 32 U/L (12-78)
[2017-03-23] MEDS ORDERED: KETOROLAC TROMETHAMINE 30 MG/1 ML VIAL IVPUSH ONE (01:15)
[2017-03-23] MEDS ORDERED: KETOROLAC TROMETHAMINE 30 MG/1 ML VIAL ONE (01:17)
[2017-03-23 01:58] VITALS: BP 151/91; PULSE 75
--- NOTE | 2017-03-23 09:06 | EKG ---
Test Reason : Blood Pressure : / mmHG Vent. Rate : 082 BPM Atrial Rate : 082 BPM P-R Int : 110 ms QRS Dur : 086 ms QT Int : 368 ms P-R-T Axes : 040 -35 007 degrees QTc Int : 429 ms POOR DATA QUALITY, INTERPRETATION MAY BE ADVERSELY AFFECTED SINUS RHYTHM WITH SINUS ARRHYTHMIA WITH SHORT PA LEFT AXIS DEVIATION SEPTAL INFARCT (CITED ON OR BEFORE 12-MAR-2017) ABNORMAL ECG Confirmed by NEHEMIAH AMOS MD ([id number]) on 03/23/2017 9:06:44 AM Referred By: Confirmed By:NEHEMIAH AMOS MD
[2017-03-23 09:11] LABS: URINE LEUK ESTERASE Negative (NEGATIVE)
== END 2017-03-23 01:26 | disposition home or self-care (01) ==
LOC: JER 20:58
PROC: 3E0333Z Introduction of Anti-inflammatory into Peripheral Vein, Percutaneous Approach (ICD-10-PCS; principal; 2017-03-22)
DX: S29.011A Strain of muscle and tendon of front wall of thorax, initial encounter (principal); X58.XXXA Exposure to other specified factors, initial encounter; Y93.9 Activity, unspecified; Y92.9 Unspecified place or not applicable; I10 Essential (primary) hypertension; Z85.3 Personal history of malignant neoplasm of breast; Z85.850 Personal history of malignant neoplasm of thyroid
CPT/HCPCS: 36415; 80053; 81003; 81015; 85025; 93005; 93010; 99284-25

== ENCOUNTER 2017-03-28 16:24 | Observation (INO) | payer BC ==
[2017-03-28 16:30] VITALS: TEMP 98.6; BMI 39.9
--- NOTE | 2017-03-28 20:33 | PDOC ---
History of Present Illness - General History Source: Patient Exam Limitations: No Limitations - History of Present Illness Initial Comments: 03/28/17 20:46 The patient is a 46 year old female, with a significant past medical history of Migraines, Asthma, Breast CA, HTN, Hypothyroidism who presents to the emergency department with migraine. As per Dr. Benson, patient had LP performed early March. Since then, patient has been experiencing persistent headache. Patient describes global diffuse throbbing headache with no nausea, vomiting, light sound sensitivity. Patient has been taking tylenol with minimal relief and presents to the ED for blood patch. She denies chest pain, dizziness. She denies fever, chills, abdominal pain, nausea, vomit, diarrhea or constipation. She denies dysuria, frequency, urgency or hematuria. Patient denies sick contacts or recent travel. <Deloris Dover - Last Filed: 03/28/17 22:57> - General History Source: Patient <Fabrizio Crain - Last Filed: 03/28/17 23:03> - General Chief Complaint: Migraine Headache Stated Complaint: PCP SENT Time Seen by Provider: 03/28/17 20:18 Past History <Deloris Dover - Last Filed: 03/28/17 22:57> - Past Medical History Anemia: No Asthma: Yes Cancer: Yes (BREAST) Cardiac Disorders: Yes (HX OF CHEST PAIN 2014 PT REPORTS NEG WORK-UP) CVA: No COPD: No CHF: No DVT: No Dementia: No Diabetes: No Dialysis: No GI Disorders: No Disorders: No HTN: Yes Hypercholesterolemia: No Kidney Stones: Yes Liver Disease: No Psychiatric Problems: No Seizures: No Thyroid Disease: Yes (HYPOTHYROID) Lung CA: No Other medical history: MIGRAINES - Surgical History Abdominal Surgery: No Appendectomy: No Cardiac Surgery: No Cholecystectomy: No Gastric Stapling: No GI Surgery: No Lung Surgery: No Neurologic Surgery: No Orthopedic Surgery: No - Family Disease History Family Disease History: Heart Disease: Sister, CA: Father, Mother, Sister - Reproductive History Cervical CA: No Dysfunctional Uterine Bleeding: No Ectopic : No Endometrial CA: No Polycystic Ovaries: No Therapeutic (s) & number: No Tubal Ligation: Yes - Immunization History Td Vaccination: Yes TDAP Vaccination: Yes Immunization Up to Date: Yes - Suicide/Smoking/Psychosocial Hx Smoking Status: Yes Smoking History: Never smoked Years of Tobacco Use: 0 Have you smoked in the past 12 months: No Number of Cigarettes Smoked Daily: 0 If you are a former smoker, when did you quit?: 2 YRS Hx Alcohol Use: Yes (SOCIAL) Drug/Substance Use Hx: No Substance Use Type: None Hx Substance Use Treatment: No <Fabrizio Crain - Last Filed: 03/28/17 23:03> - Past Medical History Allergies/Adverse Reactions: Allergies Allergy/AdvReac Type Severity Reaction Status Date / Time No Known Allergies Allergy Verified 03/28/17 16:30 Home Medications: Ambulatory Orders Montelukast Na [Singulair -] 10 mg PO HS #30 tablet 04/30/14 Nifedipine [Nifedical Xl] 60 mg PO AM 04/12/16 Albuterol 0.083% Nebulizer Fartun [Ventolin 0.083% Nebulizer Soln -] 1 neb NEB Q6H #30 vial 07/18/16 Albuterol Sulfate Inhaler - [Ventolin HFA Inhaler -] 1 - 2 inh PO QID #1 inhaler 07/18/16 Bupropion HCl [Wellbutrin Sr] 150 mg PO DAILY 09/07/16 Letrozole [Femara] 2.5 mg PO DAILY 09/07/16 Rosuvastatin Calcium [Crestor] 5 mg PO HS 09/07/16 Venlafaxine HCl ER [Effexor Xr -] 75 mg PO DAILY 09/07/16 Budesonide/Formeterol Fumarate [SYMBICORT 160/4.5mcg -] 2 puff IH BID #1 inhaler 10/27/16 Ranitidine [Zantac -] 150 mg PO DAILY tablet 10/27/16 Acetazolamide [Diamox -] 250 mg PO BID #60 tablet 03/15/17 Aspirin Coated [Ecotrin -] 81 mg PO DAILY #30 tab 03/15/17 Valsartan [Diovan] 160 mg PO DAILY #30 tablet 03/15/17 Zolpidem Tartrate [Ambien] 12.5 mg PO HS PRN MDD 1 03/23/17 Review of Systems - Review of Systems Able to Perform ROS?: Yes Comments:: 03/28/17 20:46 CONSTITUTIONAL: Absent: fever, chills, diaphoresis, generalized weakness, malaise, loss of appetite HEENT: Absent: rhinorrhea, nasal congestion, throat pain, throat swelling, difficulty swallowing, mouth swelling, ear pain, eye pain, visual Changes CARDIOVASCULAR: Absent: chest pain, syncope, palpitations, irregular heart rate, lightheadedness , peripheral edema RESPIRATORY: Absent: cough, shortness of breath, dyspnea with exertion, orthopnea, wheezing, stridor, hemoptysis GASTROINTESTINAL: Absent: abdominal pain, abdominal distension, nausea, vomiting, diarrhea, constipation, melena, hematochezia GENITOURINARY: Absent: dysuria, frequency, urgency, hesitancy, hematuria, flank pain, genital pain MUSCULOSKELETAL: Absent: myalgia, arthralgia, joint swelling SKIN: Absent: rash, itching, pallor HEMATOLOGIC/IMMUNOLOGIC: Absent: easy bleeding, easy bruising, lymphadenopathy, frequent infections ENDOCRINE: Absent: unexplained weight gain, unexplained weight loss, heat intolerance, cold intolerance NEUROLOGIC: +headache Absent: , focal weakness or paresthesias, dizziness, unsteady gait, seizure, mental status changes, bladder or bowel incontinence PSYCHIATRIC: Absent: anxiety, depression, suicidal or homicidal ideation, hallucinations. <Deloris Dover - Last Filed: 03/28/17 22:57> *Physical Exam - Vital Signs Last Vital Signs Temp Pulse Resp BP Pulse Ox 98.6 F 96 H 20 140/102 97 03/28/17 16:27 03/28/17 16:27 03/28/17 16:27 03/28/17 16:27 03/28/17 16:27 - Physical Exam Comments: 03/28/17 20:46 GENERAL: Well developed, well nourished. Awake and alert. In no acute distress. HEENT: Normocephalic, atraumatic. PERRLA, EOMI. No conjunctival pallor. Sclerae are non -icteric. Moist mucous membranes. Oropharynx is clear. NECK: Supple. Full ROM. No JVD. Carotid pulses 2+ and symmetric, without bruits. No thyromegaly. No lymphadenopathy. CARDIOVASCULAR: Regular rate and rhythm. No murmurs, rubs, or gallops. Distal pulses are 2+ and symmetric. PULMONARY: No evidence of respiratory distress. Lungs clear to auscultation bilaterally. No wheezing, rales or rhonchi. ABDOMINAL: Soft. Non-tender. Non-distended. No rebound or guarding. No organomegaly. Normoactive bowel sounds. MUSCULOSKELETAL Normal range of motion at all joints. No bony deformities or tenderness. No CVA tenderness. EXTREMITIES: No cyanosis. No clubbing. No edema. No calf tenderness. SKIN: Warm and dry. Normal capillary refill. No rashes. No jaundice. NEUROLOGICAL: Alert, awake, appropriate. Cranial nerves 2-12 intact. No deficits to light touch and temperature in face, upper extremities and lower extremities. No motor deficits in the in face, upper extremities and lower extremities. Normoreflexic in the upper and lower extremities. Normal speech. Toes are downgoing bilaterally. Gait is normal without ataxia. PSYCHIATRIC: Cooperative. Good eye contact. Appropriate mood and affect. <Deloris Dvoer - Last Filed: 03/28/17 22:57> - Vital Signs Last Vital Signs Temp Pulse Resp BP Pulse Ox 98.6 F 96 H 20 140/102 97 03/28/17 16:27 03/28/17 16:27 03/28/17 16:27 03/28/17 16:27 03/28/17 16:27 <Fabrizio Crain - Last Filed: 03/28/17 23:03> Medical Decision Making - Medical Decision Making 03/28/17 22:[address] Rodríguezs service via phone answering service Awaiting call back 03/28/17 22:54 Second page placed. Awaiting call back. 03/28/17 22:57 Discussed the case with Dr. Rodríguez Patient will be admitted. <Deloris Dover - Last Filed: 03/28/17 22:57> - Medical Decision Making 03/28/17 20:40 Dr. Crain: The scribe's documentation has been prepared under my direction and personally reviewed by me in its entirery. I confirm that the note above accurately reflects all work, treatment, procedures, and medical decision making performed by me. Spoke to anesthesologist it operations manager he said he could not do blood patch this evening. Pt will return in the morning to have procedure done. 03/28/17 23:01 Pt BP becoming worse, as well as her headache despite treatment. Pt to be admitted to Telemetry to control BP <Fabrizio Crain - Last Filed: 03/28/17 23:03> *DC/Admit/Observation/Transfer - Attestations Scribe Attestion: 03/28/17 20:47 Documentation prepared by Deloris Dover, acting as medical and scientific illustrator for Fabrizio Crain MD/DO. <Deloris Dover - Last Filed: 03/28/17 22:57> - Discharge Dispostion Admit: Yes <Fabrizio Crain - Last Filed: 03/28/17 23:03> Diagnosis at time of Disposition: Headache, Uncontrolled hypertension - Discharge Dispostion Condition at time of disposition: Stable - Referrals Referrals: Smith Lugo MD [Primary Care Provider] - - Patient Instructions
[2017-03-28] MEDS ORDERED: hydrALAZINE HCL 20 MG/ML VIAL IVPUSH ONE ×2 (20:55→21:51)
[2017-03-28] MEDS ORDERED: hydrALAZINE HCL 20 MG/ML VIAL ONE (21:23)
[2017-03-28] MEDS ORDERED: morphine CARPU-JECT 2 MG/1 ML DISP.SYRIN IVPUSH ONE (22:35)
[2017-03-28] MEDS ORDERED: ONDANSETRON 4 MG/2 ML VIAL IVPUSH STA (22:35)
[2017-03-29] MEDS ORDERED: morphine CARPU-JECT 10 MG/1 ML DISP.SYRIN ONE ×2 (00:10→04:54)
[2017-03-29] MEDS ORDERED: ONDANSETRON 4 MG/2 ML VIAL ONE (00:10)
[2017-03-29 00:47] LABS: BASOPHIL 0.7 % (0-2.0); EOSINOPHIL 3.2 % (0-4.5); MCH 27.2 pg (25.7-33.7); MCHC 33.1 g/dl (32.0-36.0); MEAN CELL VOLUME 82.4 fl (80-96); MEAN PLT VOLUME 7.8 fl (7.5-11.1); NEUTROPHILS 56.7 % (42.8-82.8); PLATELET COUNT 215 K/MM3 (134-434); RDW 15.3 % (11.6-15.6); WHITE BLOOD COUNT 9.7 K/mm3 (4.0-10.0)
[2017-03-29 00:58] LABS: URINE APPEARANCE CLEAR; URINE BILIRUBIN NEGATIVE (NEGATIVE); URINE BLOOD NEGATIVE (NEGATIVE); URINE COLOR STRAW; URINE GLUCOSE (UA) NEGATIVE (NEGATIVE); URINE KETONE NEGATIVE (NEGATIVE); URINE NITRITE NEGATIVE (NEGATIVE); URINE PROTEIN NEGATIVE (NEGATIVE); URINE UROBILINOGEN NEGATIVE mg/dL (0.2-1.0)
[2017-03-29 01:05] LABS: INR 0.97 (0.82-1.09)
[2017-03-29 01:12] LABS: URINE MARIJUANA THC NEGATIVE ng/ml (CUTOFF=50)
[2017-03-29 01:13] LABS: ALBUMIN 3.6 g/dl (3.4-5.0); ALK PHOS 63 U/L (45-117); ANION GAP 12 (8-16); BILIRUBIN,TOTAL 0.2 mg/dL (0.2-1.0); CALCIUM 8.8 mg/dL (8.5-10.1); CO2 18 mmol/L (21-32); CREATININE 0.9 mg/dL (0.55-1.02); GLUCOSE,RANDOM 143 mg/dL (74-106); SGOT/AST 17 U/L (15-37); SGPT/ALT 28 U/L (12-78)
[2017-03-29] MEDS ORDERED: morphine CARPU-JECT 2 MG/1 ML DISP.SYRIN IVPUSH ONE (04:32)
[2017-03-29 06:30] LABS: BASOPHIL 0.5 % (0-2.0); EOSINOPHIL 2.1 % (0-4.5); MCH 27.6 pg (25.7-33.7); MCHC 33.5 g/dl (32.0-36.0); MEAN CELL VOLUME 82.2 fl (80-96); MEAN PLT VOLUME 7.7 fl (7.5-11.1); NEUTROPHILS 59.5 % (42.8-82.8); PLATELET COUNT 211 K/MM3 (134-434); RDW 15.3 % (11.6-15.6); WHITE BLOOD COUNT 9.5 K/mm3 (4.0-10.0)
[2017-03-29 06:55] LABS: ALBUMIN 3.4 g/dl (3.4-5.0); ANION GAP 10 (8-16); CALCIUM 8.8 mg/dL (8.5-10.1); CO2 24 mmol/L (21-32); CREATININE 0.8 mg/dL (0.55-1.02); GLUCOSE,RANDOM 109 mg/dL (74-106); SGOT/AST 12 U/L (15-37); SGPT/ALT 26 U/L (12-78)
[2017-03-29 06:57] LABS: ALK PHOS 58 U/L (45-117); BILIRUBIN,TOTAL 0.4 mg/dL (0.2-1.0); TOT PROT 6.5 g/dl (6.4-8.2)
--- NOTE | 2017-03-29 08:49 | CON.CARD ---
Consult Consult Specialty:: Cardiology Referred by:: ER Reason for Consultation:: HTN urgency, headache - History of Present Illness Chief Complaint: sent in for persistent headache, admitted for htn urgency History of Present Illness: 46 year old woman h/o HTN, mild non-obs CAD, breast Ca, cocaine use, recent admission for headaches found to have evidence of Intracranial hypertension/ pseudotumor cerebrii s/p LP discharged home. pt has had persistent headaches and saw neurologist yesterday who sent her in for a blood patch of LP site. pt was noted to have uncontrolled HTN overnight and thus was admitted for further management. pt seen and examined in the er this am in nad. states she still has a headache. states that her BP has been well controlled at home except when her headache flairs up she notices it is higher. denies any other current symptoms. no chest pain, sob, palpitations. no pnd, orthopnea, or LE edema. IMP: Lightheadedness Chest [id number] CAD-minimal, non-obstructive disease Chronic HTN H/o breast Cancer Cocaine use Thyroid disorder REC: -No cardiac source of symptoms identified, no arrhythmias on telemetry, echo showed overall normal structural heart, carotid doppler has shown no stenosis, recent cardiac cath very minimal non-obstructive CAD -Neuro work up revealed intracerebral HTN, additionally tox screen revealed cocaine and MDMA use -[facility] Drug use counseling -No additional inpatient cardiac work up needed at this point -Acceptable from a cardiac standpoint for discharge with plan for outpatient follow up -pt should f/up with PMD and Neurology as outpatient - History Source History Provided By: Patient, Medical Record Limitations to Obtaining History: No Limitations - Past Medical History 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 Cardio/Vascular: Yes: CAD, HTN, Hyperlipdemia, Other (h/o chest pain in 2014- per patient stress test negative) Pulmonary: Yes: Asthma Gastrointestinal: Yes: Constipation, Other (colon polyps) Renal/: Yes: Renal Calculi Endocrine: Yes: Diabetes Mellitus, Hypothyroidism - Past Surgical History Past Surgical History: Yes: Hysterectomy, Mastectomy - Alcohol/Substance Use Hx Alcohol Use: Yes (SOCIAL) History of Substance Use: reports: None - Smoking History Smoking history: Never smoked Have you smoked in the past 12 months: No Aproximately how many cigarettes per day: 0 If you are a former smoker, when did you quit?: 2 YRS - Social History Usual Living Arrangement: With Spouse ADL: Independent 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, 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, 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 History of Recent Travel: No Home Medications - Allergies Allergies/Adverse Reactions: Allergies Allergy/AdvReac Type Severity Reaction Status Date / Time No Known Allergies Allergy Verified 03/28/17 16:30 - Home Medications Home Medications: Ambulatory Orders Montelukast Na [Singulair -] 10 mg PO HS #30 tablet 04/30/14 Nifedipine [Nifedical Xl] 60 mg PO AM 04/12/16 Albuterol 0.083% Nebulizer Fartun [Ventolin 0.083% Nebulizer Soln -] 1 neb NEB Q6H #30 vial 07/18/16 Albuterol Sulfate Inhaler - [Ventolin HFA Inhaler -] 1 - 2 inh PO QID #1 inhaler 07/18/16 Bupropion HCl [Wellbutrin Sr] 150 mg PO DAILY 09/07/16 Letrozole [Femara] 2.5 mg PO DAILY 09/07/16 Rosuvastatin Calcium [Crestor] 5 mg PO HS 09/07/16 Venlafaxine HCl ER [Effexor Xr -] 75 mg PO DAILY 09/07/16 Budesonide/Formeterol Fumarate [SYMBICORT 160/4.5mcg -] 2 puff IH BID #1 inhaler 10/27/16 Ranitidine [Zantac -] 150 mg PO DAILY tablet 10/27/16 Acetazolamide [Diamox -] 250 mg PO BID #60 tablet 03/15/17 Aspirin Coated [Ecotrin -] 81 mg PO DAILY #30 tab 03/15/17 Valsartan [Diovan] 160 mg PO DAILY #30 tablet 03/15/17 Zolpidem Tartrate [Ambien] 12.5 mg PO HS PRN MDD 1 03/23/17 Family Disease History - Family Disease History Family Disease History: CA: Father (triple negative breast ca), Mother (triple negative breast ca), Sister (2-sisters, one BRCA-pos; one -s/p lumpectomy) Review of Systems - Review of Systems Constitutional: denies: No Symptoms, Chills, Diaphoresis, Fever, Lethargy, Loss of Appetite, Malaise, Night Sweats, Unintentional Wgt. Loss, Weakness, Other Eyes: denies: No Symptoms, Blind Spots, Blurred Vision, Double Vision, Eye Pain , Floaters, Photophobia, Recent Change in Vision, Other HENT: denies: No Symptoms, Difficult Swallowing, Ear Discharge, Ear Pain, Epistaxis, Gingival Bleeding, Hearing Loss, Mouth Swelling, Nasal Congestion, Ocular Prosthesis, Throat Pain, Toothache, Ringing in Ears, Other Neck: denies: No Symptoms, Decreased ROM, Lumps, Pain on Movement, Stiffness, Swollen Glands, Tenderness, Other Cardiovascular: denies: No Symptoms, Chest Pain, Edema, Palpitations, Shortness of Breath, Other Respiratory: denies: No Symptoms, Cough, Exercise Intolerance, Hemoptysis, Orthopnea, PND, Snoring, SOB, SOB on Exertion, Wheezing, Other Gastrointestinal: denies: No Symptoms, Abdominal Pain, Bloating, Constipation, Diarrhea, Dysphagia, Indigestion, Melena, Nausea, Rectal Bleeding, Vomiting, Vomiting Blood, Other Genitourinary: denies: No Symptoms, Burning, Discharge, Dysuria, Flank Pain, Frequency, Hematuria, Incontinence, Lesions, Menses, Pain, Testicular Mass, Testicular Pain, Testicular Swelling, Urgency, Vaginal Bleeding, Other Breasts: denies: No Symptoms Reported, See HPI, Breast Implants, Discharge from Nipple, Lumps, Pain, Skin Changes, Other Musculoskeletal: denies: No Symptoms, Back Pain, Crepitus, Decreased ROM, Extremity Pain, Joint Pain, Joint Swelling, Muscle Pain, Muscle Cramps, Muscle Weakness, Other Integumentary: denies: No Symptoms, Blister, Bruising, Change in Color, Eczema, Erythema, Incision, Lesions, Lump, Pallor, Pruritis, Rash, Wound, Other Neurological: reports: Headache. denies: No Symptoms, Change in LOC, Change in Speech, Confusion, Dizziness, Incoordination, Numbness, Parasthesia, Pre- Existing Deficit, Seizure, Syncope, Tremors, Unsteady Gait, Weakness, Other Endocrine: denies: No Symptoms, Excessive Sweating, Flushing, Increased Hunger, Increased Thirst, Intolerance to Cold, Intolerance to Heat, Unexplained Weight Gain, Unexplained Weight Loss, Other Hematology/Lymphatic: denies: No Symptoms, Easily Bruised, Excessive Bleeding, Swollen Glands, Other Psychiatric: denies: No Symptoms, Altered Sleep Pattern, Anxiety, Depression, Hallucinations, Panic, Paranoia, Suicidal, Other - Risk Factors Known Risk Factors: Yes: Hypercholesterolemia, Hypertension Vital Signs: Vital Signs Temperature 98.6 F 03/28/17 16:27 Pulse Rate 97 H 03/29/17 06:52 Respiratory Rate 18 03/29/17 07:46 Blood Pressure 107/72 03/29/17 06:52 O2 Sat by Pulse Oximetry (%) 98 03/29/17 07:46 Constitutional: Yes: No Distress, Calm, Obese Eyes: Yes: Conjunctiva Clear, EOM Intact, PERRL HENT: Yes: Atraumatic, Normocephalic Neck: Yes: Supple, Trachea Midline Respiratory: Yes: Regular, CTA Bilaterally. No: Rales, Rhonchi, Wheezes Gastrointestinal: Yes: Normal Bowel Sounds, Soft. No: Distention, Tenderness Cardiovascular: Yes: Regular Rate and Rhythm. No: Bradycardia, Tachycardia, Pulse Irregular, Gallop, Rub, Varicosities JVD: No Carotid Bruit: No PMI: Non-Displaced Heart Sounds: Yes: S1, S2. No: Split S2, S3, S4, Clicks, Gallop, Rub, Bruit Murmur: No: Systolic Murmur, Diastolic Murmur Musculoskeletal: Yes: WNL Extremities: Yes: WNL Edema: No Peripheral Pulses WNL: Yes Peripheral Pulses: 2+ Left Doralis Pedis, 2+ Right Dorsalis Pedis Integumentary: Yes: WNL Neurological: Yes: Alert, Oriented Psychiatric: Yes: Alert, Oriented - Other Data Labs, Other Data: CBC, BMP 03/29/17 06:15 03/29/17 06:15 INR, PTT INR 0.97 (0.82-1.09) 03/29/17 00:38 ekgs reviewed Echo: Report Reviewed Prior Cardiac Procedures: Cardiac Catheterization Imaging - Results Chest X-ray: Report Reviewed, Image Reviewed EKG: Report Reviewed, Image Reviewed Other: Report Reviewed, Image Reviewed Assessment/Plan 46 year old woman h/o HTN, mild non-obs CAD, breast Ca, cocaine use, recent admission for headaches found to have evidence of Intracranial hypertension/ pseudotumor cerebrii s/p LP discharged home. pt has had persistent headaches and saw neurologist yesterday who sent her in for a blood patch of LP site. pt was noted to have uncontrolled HTN overnight and thus was admitted for further management. pt seen and examined in the er this am in nad. states she still has a headache. states that her BP has been well controlled at home except when her headache flairs up she notices it is higher. denies any other current symptoms. no chest pain, sob, palpitations. no pnd, orthopnea, or LE edema. HTN-uncontrolled overnight in setting of severe headache -bp normalized this am and was low normal this am and pt reports overall normal readings at home -would resume home bp meds -Pt does not require telemetry -Ok for discharge from cardiac standpoint after blood patch -Close f/up in office within 1 week
[2017-03-29] MEDS ORDERED: KETOROLAC TROMETHAMINE 30 MG/1 ML VIAL IVPUSH ONE (08:57)
[2017-03-29] MEDS ORDERED: KETOROLAC TROMETHAMINE 30 MG/1 ML VIAL ONE (09:01)
[2017-03-29 09:08] LABS: URINE LEUK ESTERASE 3+ (NEGATIVE)
[2017-03-29 09:11] LABS: URINE BACTERIA MODERATE /hpf (NEGATIVE); URINE RBC 0-3 /hpf (0-3); URINE WBC 20-30 (3-5)
[2017-03-29] MEDS ORDERED: VALSARTAN 160 MG TABLET (UD) PO SCH (10:00)
[2017-03-29] MEDS ORDERED: BUDESONIDE/FORMETEROL FUMARATE 160/4.5 mcg INHALER IH SCH (10:00)
[2017-03-29] MEDS ORDERED: ASPIRIN COATED 81 MG TABLET.EC PO SCH (10:00)
[2017-03-29] MEDS ORDERED: acetaZOLAMIDE 250 MG TABLET PO SCH (10:00)
[2017-03-29] MEDS ORDERED: NIFEdipine E.R 60 MG TABLET (UD) PO SCH (10:00)
[2017-03-29] MEDS ORDERED: RANITIDINE HCL 150 MG TABLET (FP) PO SCH (10:00)
[2017-03-29] MEDS ORDERED: LETROZOLE 2.5 MG TABLET (FP) PO SCH (10:00)
--- NOTE | 2017-03-29 10:06 | PN ---
Progress Note (short form) - Note Progress Note: Chart reviewed, pt. seen. Case discussed with Dr. Benson. 46y/o female s/p lumbar puncture presents to ER with symptoms consistent with post-dural puncture headache. After informed consent obtained, an epidural blood patch was performed under sterile technique with 20cc of blood injected. Pt. tolerated the procedure well. Pt. instructed to stay in bed for 1 hour. Pt. will follow up with Dr. Benson.
--- NOTE | 2017-03-29 10:26 | CON.NEURO ---
Consult - History of Present Illness History of Present Illness: 46 year old female, with a significant past medical history of Migraines, Asthma , Breast CA, HTN, Hypothyroidism who presents fro [facility] post LP done last week. LP performed early March- found to elevated OP and presumptive pseudotumor. (- ) malignant cells. was a high volume tap. SInce then [facility] with standing /sitting, orthostatic component++. Since then, patient has been experiencing persistent headache. has been unable to go back to work. She denies chest pain, dizziness. She denies fever, chills, abdominal pain, nausea, vomit, diarrhea or constipation. She denies dysuria, frequency, urgency or hematuria. Patient denies sick contacts or recent travel. 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 Cardio/Vascular: Yes: HTN, Hyperlipdemia, Other (h/o chest pain in 2014-per patient stress test negative) Pulmonary: Yes: Asthma Gastrointestinal: Yes: Constipation, Other (colon polyps) Renal/: Yes: Renal Calculi Endocrine: Yes: Diabetes Mellitus, Hypothyroidism - Past Surgical History Past Surgical History: Yes: Hysterectomy, Mastectomy - Alcohol/Substance Use Hx Alcohol Use: Yes (SOCIAL) History of Substance Use: reports: None - Smoking History Smoking history: Never smoked Have you smoked in the past 12 months: No Aproximately how many cigarettes per day: 0 If you are a former smoker, when did you quit?: 2 YRS - Social History Usual Living Arrangement: With Spouse ADL: Independent 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, 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, 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 History of Recent Travel: No Home Medications - Allergies Allergies/Adverse Reactions: Allergies Allergy/AdvReac Type Severity Reaction Status Date / Time No Known Allergies Allergy Verified 03/28/17 16:30 - Home Medications Home Medications: Ambulatory Orders Montelukast Na [Singulair -] 10 mg PO HS #30 tablet 04/30/14 Nifedipine [Nifedical Xl] 60 mg PO AM 04/12/16 Albuterol 0.083% Nebulizer Fartun [Ventolin 0.083% Nebulizer Soln -] 1 neb NEB Q6H #30 vial 07/18/16 Albuterol Sulfate Inhaler - [Ventolin HFA Inhaler -] 1 - 2 inh PO QID #1 inhaler 07/18/16 Bupropion HCl [Wellbutrin Sr] 150 mg PO DAILY 09/07/16 Letrozole [Femara] 2.5 mg PO DAILY 09/07/16 Rosuvastatin Calcium [Crestor] 5 mg PO HS 09/07/16 Venlafaxine HCl ER [Effexor Xr -] 75 mg PO DAILY 09/07/16 Budesonide/Formeterol Fumarate [SYMBICORT 160/4.5mcg -] 2 puff IH BID #1 inhaler 10/27/16 Ranitidine [Zantac -] 150 mg PO DAILY tablet 10/27/16 Acetazolamide [Diamox -] 250 mg PO BID #60 tablet 03/15/17 Aspirin Coated [Ecotrin -] 81 mg PO DAILY #30 tab 03/15/17 Valsartan [Diovan] 160 mg PO DAILY #30 tablet 03/15/17 Zolpidem Tartrate [Ambien] 12.5 mg PO HS PRN MDD 1 03/23/17 Family Disease History - Family Disease History Family Disease History: CA: Father (triple negative breast ca), Mother (triple negative breast ca), Sister (2-sisters, one BRCA-pos; one -s/p lumpectomy) Physical Exam-Neuro Vital Signs: Vital Signs Temperature 98.6 F 03/28/17 16:27 Pulse Rate 97 H 03/29/17 06:52 Respiratory Rate 18 03/29/17 07:46 Blood Pressure 107/72 03/29/17 06:52 O2 Sat by Pulse Oximetry (%) 98 03/29/17 07:46 Labs: CBC, BMP 03/29/17 06:15 03/29/17 06:15 INR, PTT INR 0.97 (0.82-1.09) 03/29/17 00:38 - Neuro Exam Level Of Consciousness: Yes: Alert (nonfocal neuro exam, optho exam limited ) Problem List - Problems (1) Headache Code(s): R51 - HEADACHE (2) Low intracranial pressure Code(s): G93.9 - DISORDER OF BRAIN, UNSPECIFIED (3) Intracranial hypertension, benign Code(s): G93.2 - BENIGN INTRACRANIAL HYPERTENSION Assessment/Plan 46 year old female, with a significant past medical history of Migraines, Asthma , Breast CA, HTN, Hypothyroidism who presents fro [facility] post done 2week ago. LP performed early March- found to elevated OP and presumptive pseudotumor/MRI + also suggested the same. (-) malignant cells. was a high volume tap. Since then [facility] with standing /sitting, orthostatic component++. Since then, patient has been experiencing persistent headache. has been unable to go back to work. LOw pressure [facility] post TAP, spoke to anersthesia for blodd patch can continue DIAMOX 250BID in meantime, please call any questions. Dr Benson
--- NOTE | 2017-03-29 12:04 | HP ---
Admitting History and Physical - Admission History of Present Illness: Pt is a 46 y/o female w/ PMH significant for HTN, HLD, CAD, breast Ca, substance abuse(cocaine/ectasy), hypothyroidism, asthma, nephroliathiasis and diabetes. Pt was recently admitted for headaches and acclerated HTN. Pt underwent LP for intracranial hypertension/pseudotumor cerebrii. Pt's headaches continued and went to see neuro who sent pt to ER for blood patch. While in the ER pt also found to have elevated HTN. 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 Cardiovascular: Yes: CAD, HTN, Hyperlipdemia, Other (h/o chest pain in 2015-per patient stress test negative) Pulmonary: Yes: Asthma Gastrointestinal: Yes: Constipation, Other (colon polyps) Renal/: Yes: Renal Calculi Heme/Onc: Yes: Cancer (breast) Endocrine: Yes: Diabetes Mellitus, Hypothyroidism - Past Surgical History Past Surgical History: Yes: Hysterectomy, Mastectomy - Smoking History Smoking history: Never smoked Have you smoked in the past 12 months: No Aproximately how many cigarettes per day: 0 If you are a former smoker, when did you quit?: 2 YRS - Alcohol/Substance Use Hx Alcohol Use: Yes (SOCIAL) History of Substance Use: reports: None - Social History ADL: Independent 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, 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, 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 History of Recent Travel: No Home Medications - Allergies Allergies/Adverse Reactions: Allergies Allergy/AdvReac Type Severity Reaction Status Date / Time No Known Allergies Allergy Verified 03/28/17 16:30 - Home Medications Home Medications: Ambulatory Orders Montelukast Na [Singulair -] 10 mg PO HS #30 tablet 04/30/14 Nifedipine [Nifedical Xl] 60 mg PO AM 04/12/16 Albuterol 0.083% Nebulizer Fartun [Ventolin 0.083% Nebulizer Soln -] 1 neb NEB Q6H #30 vial 07/18/16 Albuterol Sulfate Inhaler - [Ventolin HFA Inhaler -] 1 - 2 inh PO QID #1 inhaler 07/18/16 Bupropion HCl [Wellbutrin Sr] 150 mg PO DAILY 09/07/16 Letrozole [Femara] 2.5 mg PO DAILY 09/07/16 Rosuvastatin Calcium [Crestor] 5 mg PO HS 09/07/16 Venlafaxine HCl ER [Effexor Xr -] 75 mg PO DAILY 09/07/16 Budesonide/Formeterol Fumarate [SYMBICORT 160/4.5mcg -] 2 puff IH BID #1 inhaler 10/27/16 Ranitidine [Zantac -] 150 mg PO DAILY tablet 10/27/16 Acetazolamide [Diamox -] 250 mg PO BID #60 tablet 03/15/17 Aspirin Coated [Ecotrin -] 81 mg PO DAILY #30 tab 03/15/17 Valsartan [Diovan] 160 mg PO DAILY #30 tablet 03/15/17 Zolpidem Tartrate [Ambien] 12.5 mg PO HS PRN MDD 1 03/23/17 Family Disease History - Family Disease History Family History: Unremarkable Family Disease History: CA: Father (triple negative breast ca), Mother (triple negative breast ca), Sister (2-sisters, one BRCA-pos; one -s/p lumpectomy) Review of Systems - Review of Systems Constitutional: reports: No Symptoms Eyes: reports: No Symptoms HENT: reports: No Symptoms Neck: reports: No Symptoms Cardiovascular: reports: No Symptoms Respiratory: reports: No Symptoms Gastrointestinal: reports: No Symptoms Physical Examination Vital Signs: Vital Signs Temperature 98.6 F 03/28/17 16:27 Pulse Rate 82 03/29/17 11:40 Respiratory Rate 14 03/29/17 11:40 Blood Pressure 100/64 03/29/17 11:40 O2 Sat by Pulse Oximetry (%) 99 03/29/17 11:40 Constitutional: Yes: No Distress Eyes: Yes: WNL HENT: Yes: WNL Neck: Yes: WNL, Supple Cardiovascular: Yes: WNL, Regular Rate and Rhythm Respiratory: Yes: WNL, Regular, CTA Bilaterally Gastrointestinal: Yes: WNL, Normal Bowel Sounds Musculoskeletal: Yes: WNL Extremities: Yes: WNL Edema: No Neurological: Yes: WNL, Alert, Oriented ...Motor Strength: WNL Labs: CBC, BMP 03/29/17 06:15 03/29/17 06:15 Problem List - Problems (1) Headache Assessment/Plan: Pt underwent blood patch Pt tolerated procedure DC planniing Code(s): R51 - HEADACHE (2) HTN (hypertension) Assessment/Plan: Monitor BP Cont antihypertensives Cardio consult Code(s): I10 - ESSENTIAL (PRIMARY) HYPERTENSION (3) Intracranial hypertension, benign Assessment/Plan: Cont diamox Code(s): G93.2 - BENIGN INTRACRANIAL HYPERTENSION (4) Breast CA Code(s): C50.919 - MALIGNANT NEOPLASM OF UNSP SITE OF UNSPECIFIED FEMALE BREAST (5) HLD (hyperlipidemia) Code(s): E78.5 - HYPERLIPIDEMIA, UNSPECIFIED
--- NOTE | 2017-03-29 12:57 | EKG ---
Test Reason : Blood Pressure : / mmHG Vent. Rate : 112 BPM Atrial Rate : 112 BPM P-R Int : 128 ms QRS Dur : 090 ms QT Int : 344 ms P-R-T Axes : 063 -36 017 degrees QTc Int : 469 ms SINUS TACHYCARDIA LEFT AXIS DEVIATION SEPTAL INFARCT , AGE UNDETERMINED ABNORMAL ECG WHEN COMPARED WITH ECG OF 29-MAR-2017 00:07, SEPTAL INFARCT IS NOW PRESENT Confirmed by ALEX REINA, LOUISE ([id number]) on 03/29/2017 12:57:35 PM Referred By: Confirmed By:LOUISE JOHNSON MD
--- NOTE | 2017-03-29 12:57 | EKG ---
Test Reason : Blood Pressure : / mmHG Vent. Rate : 114 BPM Atrial Rate : 114 BPM P-R Int : 140 ms QRS Dur : 084 ms QT Int : 338 ms P-R-T Axes : 067 -43 -12 degrees QTc Int : 465 ms SINUS TACHYCARDIA LEFT AXIS DEVIATION NONSPECIFIC ST ABNORMALITY ABNORMAL ECG WHEN COMPARED WITH ECG OF 22-MAR-2017 21:17, [place] INTERVAL HAS INCREASED CRITERIA FOR SEPTAL INFARCT ARE NO LONGER PRESENT Confirmed by ALEX REINA, LOUISE ([id number]) on 03/29/2017 12:57:26 PM Referred By: Confirmed By:LOUISE JOHNSON MD
[2017-03-29 13:07] VITALS: BP 128/69; PULSE 93
[2017-03-29] MEDS ORDERED: MONTELUKAST NA 10 MG TABLET PO SCH (22:00)
[2017-03-29] MEDS ORDERED: ROSUVASTATIN CA 5 MG TABLET (FP) PO SCH (22:00)
--- NOTE | 2017-03-30 00:17 | DS ---
Physical Examination Vital Signs: Vital Signs Temperature 98.6 F 03/28/17 16:27 Pulse Rate 93 H 03/29/17 13:05 Respiratory Rate 16 03/29/17 13:05 Blood Pressure 128/69 03/29/17 13:05 O2 Sat by Pulse Oximetry (%) 95 03/29/17 13:05 Discharge Summary Reason For Visit: UNCONTROLLED HYPERTENSION Condition: Good - Instructions Diet, Activity, Other Instructions: 2 gram sodium diet Referrals: Smith Lugo MD [Primary Care Provider] - Disposition: HOME - Home Medications Comprehensive Discharge Medication List: Ambulatory Orders Montelukast Na [Singulair -] 10 mg PO HS #30 tablet 04/30/14 Nifedipine [Nifedical Xl] 60 mg PO AM 04/12/16 Albuterol 0.083% Nebulizer Fartun [Ventolin 0.083% Nebulizer Soln -] 1 neb NEB Q6H #30 vial 07/18/16 Albuterol Sulfate Inhaler - [Ventolin HFA Inhaler -] 1 - 2 inh PO QID #1 inhaler 07/18/16 Bupropion HCl [Wellbutrin Sr] 150 mg PO DAILY 09/07/16 Letrozole [Femara] 2.5 mg PO DAILY 09/07/16 Rosuvastatin Calcium [Crestor] 5 mg PO HS 09/07/16 Venlafaxine HCl ER [Effexor Xr -] 75 mg PO DAILY 09/07/16 Budesonide/Formeterol Fumarate [SYMBICORT 160/4.5mcg -] 2 puff IH BID #1 inhaler 10/27/16 Ranitidine [Zantac -] 150 mg PO DAILY tablet 10/27/16 Acetazolamide [Diamox -] 250 mg PO BID #60 tablet 03/15/17 Aspirin Coated [Ecotrin -] 81 mg PO DAILY #30 tab 03/15/17 Valsartan [Diovan] 160 mg PO DAILY #30 tablet 03/15/17 Zolpidem Tartrate [Ambien] 12.5 mg PO HS PRN MDD 1 03/23/17
== END 2017-03-29 13:08 | disposition home or self-care (01) ==
LOC: JER 16:24 → UNDOADMOB 22:59 → JERBED 22:59 → INTOOBSV 22:59 → UNDOADMIN 23:16 → JERBED 23:16
PROVIDERS: ADMIT Internal Medicine; ATTEND Internal Medicine
PROC: 3E0333Z Introduction of Anti-inflammatory into Peripheral Vein, Percutaneous Approach (ICD-10-PCS; principal; 2017-03-29)
PROC: 3E033NZ Introduction of Analgesics, Hypnotics, Sedatives into Peripheral Vein, Percutaneous Approach (ICD-10-PCS; 2017-03-29)
PROC: 3E033GC Introduction of Other Therapeutic Substance into Peripheral Vein, Percutaneous Approach (ICD-10-PCS; 2017-03-29)
PROC: 3E0F7GC Introduction of Other Therapeutic Substance into Respiratory Tract, Via Natural or Artificial Opening (ICD-10-PCS; 2017-03-29)
DX: I10 Essential (primary) hypertension (principal); R51 Headache; G93.2 Benign intracranial hypertension; G93.9 Disorder of brain, unspecified; I25.10 Atherosclerotic heart disease of native coronary artery without angina pectoris; E03.9 Hypothyroidism, unspecified; J45.909 Unspecified asthma, uncomplicated; Z85.3 Personal history of malignant neoplasm of breast; Z87.442 Personal history of urinary calculi; Z79.82 Long term (current) use of aspirin
CPT/HCPCS: 36415; 71010-TC; 80053; 80307; 81003; 81015; 84703; 85025; 85610; 93005; 93010; 99283-25; G0378

== ENCOUNTER 2018-10-07 17:10 | Inpatient (IN) | payer BC ==
--- NOTE | 2018-10-07 18:05 | PDOC ---
History of Present Illness - General Chief Complaint: Chest Pain Stated Complaint: CHEST PAIN - History of Present Illness Initial Comments: The pt is a 48F w/ a history of HTN, COPD, Breast cancer (on CTX every 6 months) , w/ a FHx of sister w/ AR at 50y who presents for evaluation 1 week of worsening, intermittent, sharp, substernal chest pain that radiates to her left chest. She endorses RODRIGUEZ that is worse than her baseline the last 2 days. She also reports a global, intermittent, BLACKMAN for 2-3 days that she has tried taking oxy for w/ minimal relief. Reports NBNB vomiting x2 today. Denies fevers/chills, vision changes, abdominal pain, dysuria, hematuria, or blood in her stool 10/07/18 18:30 Past History - Past Medical History Allergies/Adverse Reactions: Allergies Allergy/AdvReac Type Severity Reaction Status Date / Time No Known Allergies Allergy Verified 10/07/18 17:33 Home Medications: Ambulatory Orders Albuterol 0.083% Nebulizer Fartun [Ventolin 0.083%] 1 neb NEB TID PRN 10/07/18 Amlodipine Besylate [Norvasc -] 10 mg PO DAILY 10/07/18 Atorvastatin Ca [Lipitor] 10 mg PO HS 10/07/18 Bupropion HCl [Wellbutrin Xl -] 150 mg PO DAILY 10/07/18 Calcium Carbonate/Vitamin D3 [Calcium 600 + Vit D Tablet] 2 each PO DAILY Cholecalciferol (Vitamin D3) [Vitamin D3] 2,000 unit PO DAILY 10/07/18 Diclofenac Sodium [Voltaren] 2 gm TP QID 10/07/18 Fluticasone/Salmeterol [Advair 250-50 Diskus] 1 each IH BID PRN 10/07/18 Gabapentin 800 mg PO BID 10/07/18 Letrozole [Femara] 2.5 mg PO DAILY 10/07/18 Lorazepam 0.5 mg PO DAILY 10/07/18 Pantoprazole Sodium 40 mg PO DAILY 10/07/18 Valsartan [Diovan] 160 mg PO DAILY 10/07/18 Venlafaxine HCl ER [Effexor Xr -] 75 mg PO DAILY 10/07/18 acetaZOLAMIDE [Diamox -] 500 mg PO BID 10/07/18 Anemia: No Asthma: Yes Cancer: Yes (BREAST) Cardiac Disorders: Yes (HX OF CHEST PAIN 2014 PT REPORTS NEG WORK-UP) CVA: No COPD: No CHF: No DVT: No Dementia: No Diabetes: No Dialysis: No GI Disorders: No Disorders: No HTN: Yes Hypercholesterolemia: No Kidney Stones: Yes Liver Disease: No Psychiatric Problems: No Seizures: No Thyroid Disease: Yes (HYPOTHYROID) Lung CA: No - Surgical History Abdominal Surgery: No Appendectomy: No Cardiac Surgery: No Cholecystectomy: No Gastric Stapling: No GI Surgery: No Lung Surgery: No Neurologic Surgery: No Orthopedic Surgery: No - Family Disease History Family Disease History: Heart Disease: Sister, CA: Father, Mother, Sister - Reproductive History Cervical CA: No Dysfunctional Uterine Bleeding: No Ectopic : No Endometrial CA: No Polycystic Ovaries: No Therapeutic (s) & number: No Tubal Ligation: Yes - Immunization History Td Vaccination: Yes TDAP Vaccination: Yes Immunization Up to Date: Yes - Suicide/Smoking/Psychosocial Hx Smoking Status: Yes Smoking History: Never smoked Years of Tobacco Use: 0 Have you smoked in the past 12 months: No Number of Cigarettes Smoked Daily: 0 If you are a former smoker, when did you quit?: 2 YRS Hx Alcohol Use: No Drug/Substance Use Hx: No Substance Use Type: None Hx Substance Use Treatment: No Review of Systems - Review of Systems Able to Perform ROS?: Yes Comments:: GENERAL/CONSTITUTIONAL: No fever or chills. No weakness._ HEAD, EYES, EARS, NOSE AND THROAT: No change in vision. No ear pain or discharge. No sore throat._ CARDIOVASCULAR: No chest pain or shortness of breath_ RESPIRATORY: Denies cough, hemoptysis_ GASTROINTESTINAL: No nausea, vomiting, diarrhea or constipation._ GENITOURINARY: No dysuria, frequency, or change in urination._ MUSCULOSKELETAL: No joint or muscle swelling or pain. No neck or back pain._ SKIN: No rash_ NEUROLOGIC: No headache, vertigo, loss of consciousness, or change in strength/ sensation._ ENDOCRINE: No increased thirst. No abnormal weight change_ HEMATOLOGIC/LYMPHATIC: No anemia, easy bleeding, or history of blood clots._ ALLERGIC/IMMUNOLOGIC: No hives or skin allergy._ 10/07/18 18:05 Is the patient limited Lithuanian proficient: No *Physical Exam - Vital Signs Last Vital Signs Temp Pulse Resp BP Pulse Ox 98.3 F 91 H 15 143/90 96 10/07/18 17:33 10/07/18 17:33 10/07/18 17:33 10/07/18 17:33 10/07/18 17:33 - Physical Exam Comments: GENERAL: Awake, alert, and oriented to person/place/time, in no acute distress_ HEAD: No signs of trauma, normocephalic, atraumatic _ EYES: PERRLA, EOMI, sclera anicteric, conjunctiva clear_ ENT: Hearing grossly normal, nares patent, oropharynx clear without exudates. No uvular deviation. Moist mucosa_ NECK: Normal ROM, supple, no lymphadenopathy, JVD, or masses_ LUNGS: No distress, speaks full sentences, clear to auscultation bilaterally _ HEART: Regular rate and rhythm, normal S1 and S2, no murmurs appreciated, peripheral pulses normal and equal bilaterally._ ABDOMEN: Soft, nontender, normoactive bowel sounds. No guarding, no rebound. No masses_ EXTREMITIES: Normal inspection, Normal range of motion, no edema. No clubbing or cyanosis_ NEUROLOGICAL: Cranial nerves II through XII grossly intact. Normal speech, normal gait, no focal sensorimotor deficits _ SKIN: Warm, Dry, normal turgor, no rashes or lesions noted_ 10/07/18 18:05 ED Treatment Course - LABORATORY CBC & Chemistry Diagram: 10/07/18 18:35 10/07/18 18:35 Medical Decision Making - Medical Decision Making The pt is a 48F w/ a history of COPD, Breast Cancer, FHx AR, previous cocaine use who presents for chest pain, lightheadedness, and BLACKMAN Ddx: ACS, PNA, COPD, substance abuse ED Course Labs sent ECG CXR UDS IVF, Ofirmev, Benadryl, Zofran, Reglan ECG w/ new T-wave inversions in V5-V6; HR 82; QTc 439; ST elevation/depressions 10/07/18 18:41 Lytes wnl Trop I neg No CHARLENE LFTs wnl No leukocytosis No anemia Pt reports BLACKMAN feels somewhat improved and chest pain is improved but not resolved Plan for admission for ACS 10/07/18 20:39 *DC/Admit/Observation/Transfer Diagnosis at time of Disposition: ACS (acute coronary syndrome) Chest pain Qualifiers: Chest pain type: unspecified Qualified Code(s): R07.9 - Chest pain, unspecified Headache Qualifiers: Headache type: unspecified Headache chronicity pattern: unspecified pattern Intractability: not intractable Qualified Code(s): R51 - Headache - Discharge Dispostion Condition at time of disposition: Good Decision to Admit order: Yes - Referrals Referrals: Smith Lugo MD [Primary Care Provider] - - Patient Instructions - Post Discharge Activity
[2018-10-07] MEDS ORDERED: METOCLOPRAMIDE HCL INJECTION 10 MG/2 ML VIAL IVPUSH ONE (18:26)
[2018-10-07] MEDS ORDERED: ONDANSETRON 4 MG/2 ML VIAL IVPUSH ONE (18:26)
[2018-10-07] MEDS ORDERED: SODIUM CHLORIDE 0.9% 500 ML INFUS.BAG IV ONE (18:26)
[2018-10-07] MEDS ORDERED: ACETAMINOPHEN 1000 MG/100 ML VIAL (NON FORMULARY) IVPB ONE (18:26)
[2018-10-07] MEDS ORDERED: METOCLOPRAMIDE HCL INJECTION 10 MG/2 ML VIAL ONE (18:39)
[2018-10-07] MEDS ORDERED: ACETAMINOPHEN INJECTION 100 ML IVPB ONE ×2 (18:40→22:18)
[2018-10-07] MEDS ORDERED: ONDANSETRON 4 MG/2 ML VIAL ONE (18:40)
[2018-10-07 18:48] LABS: RBC 4.56 M/mm3 (3.60-5.2); WHITE BLOOD COUNT 8.1 K/mm3 (4.0-10.0)
[2018-10-07 18:49] LABS: EOS % 0.5 % (0-4.5); HEMATOCRIT 37.5 % (32.4-45.2); HEMOGLOBIN 12.3 GM/dL (10.7-15.3); LYMPH % 30.1 % (8-40); MCHC 32.8 g/dl (32.0-36.0); MEAN CELL VOLUME 82.1 fl (80-96); MONO % 5.2 % (3.8-10.2); NEUT % 63.2 % (42.8-82.8); PLATELET COUNT 220 K/MM3 (134-434)
[2018-10-07 19:18] LABS: ALBUMIN 3.2 g/dl (3.4-5.0); ALK PHOS 46 U/L (45-117); ANION GAP 7 MMOL/L (8-16); BILIRUBIN,TOTAL 0.5 mg/dL (0.2-1); BLOOD UREA NITROGEN 13 mg/dL (7-18); CALCIUM 7.9 mg/dL (8.5-10.1); CHLORIDE 112 mmol/L (98-107); CO2 23 mmol/L (21-32); CREATININE 0.8 mg/dL (0.55-1.3); GLUCOSE,RANDOM 103 mg/dL (74-106); POTASSIUM 3.7 mmol/L (3.5-5.1); SGOT/AST 24 U/L (15-37); SGPT/ALT 21 U/L (13-61); SODIUM 143 mmol/L (136-145); TOT PROT 6.6 g/dl (6.4-8.2)
[2018-10-07 20:52] LABS: COCAINE, UR NEGATIVE ng/ml (CUTOFF=300); METHADONE, UR NEGATIVE ng/ml (CUTOFF=300); PHENCYCLIDINE,URINE NEGATIVE ng/ml (CUTOFF=25); URINE AMPHETAMINES NEGATIVE ng/ml (CUTOFF=500); URINE BARBITURATES NEGATIVE ng/ml (CUTOFF=200); URINE BENZODIAZEPINES NEGATIVE ng/ml (CUTOFF=200)
[2018-10-07 20:56] LABS: OPIATES, URI POSITIVE ng/ml (CUTOFF=300)
[2018-10-07] MEDS ORDERED: ASPIRIN 81 MG CHEWABLE TABLETS PO ONE (22:05)
--- NOTE | 2018-10-07 22:05 | PDOC ---
Documentation entered by Maria Isabel Cortez SCRIBE, acting as scribe for Coleen Nettles MD. Coleen Nettles MD: This documentation has been prepared by the Dana arriaga Daisy, SCRIBE, under my direction and personally reviewed by me in its entirety. I confirm that the documentation accurately reflects all work, treatment, procedures, and medical decision making performed by me. Attending Attestation - Resident Resident Name: HelenaGarrison - ED Attending Attestation I have performed the following: I have examined & evaluated the patient, The case was reviewed & discussed with the resident, I agree w/resident's findings & plan - HPI HPI: 10/07/18 18:50 The patient is a 48 YOF with a PMH of COPD, CHF, hypertension, coronary artery disease, GERD, breast cancer who presents to the ER with a diffuse headache and chest pain for the past week. She describes the chest pain as sharp, intermittent, and localized to the left breast. She is also complaining of associated 2 episodes of NB, NB vomit and lightheadedness., Allergies: NKDA Surgeries: bilateral mastectomy, and hysterectomy. PCP: Dr. Smith Lugo - Physicial Exam PE: 10/07/18 18:53 ADULT EXAM GENERAL: Awake, alert, and fully oriented, in no acute distress HEAD: No signs of trauma EYES: PERRLA, EOMI, sclera anicteric, conjunctiva clear ENT: Auricles normal inspection, hearing grossly normal, nares patent, oropharynx clear without exudates. Moist mucosa NECK: No JVD or bruits LUNGS: Breath sounds equal, clear to auscultation bilaterally. No wheezes, and no crackles HEART: Regular rate and rhythm, normal S1 and S2, no murmurs, rubs or gallops ABDOMEN: Protuberant abdomen; Soft, nontender, normoactive bowel sounds. No guarding, no rebound. No masses EXTREMITIES: Normal range of motion, no edema. No clubbing or cyanosis. No cords , erythema, or tenderness NEUROLOGICAL: Cranial nerves II through XII grossly intact. Normal speech, normal gait SKIN: Warm, Dry, normal turgor, no rashes or lesions noted. - Medical Decision Making 10/07/18 18:42 48-year-old female presents with 1 week of headache and chest pain She denies the pain as sharp, radiating underneath her left breast and intermittent. Her headache is associated with vomiting and lightheadedness. She had 2 episodes of vomiting today. Past medical history significant for COPD, CHF, hypertension, coronary artery disease, GERD, breast cancer Past surgical history bilateral mastectomy, and hysterectomy. 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 Family history her sister had a myocardial infarction at the age of 50 10/07/18 18:47 Plan EKG was done and shows normal sinus rhythm 82 bpm, left axis deviation and has Q waves in V1 V2, V3 10/07/18 22:02 first troponin is negative, pt to be admitted for telemetry obs to r/o MD
[2018-10-07] MEDS ORDERED: ASPIRIN 81 MG CHEWABLE TABLETS ONE (22:18)
[2018-10-08] MEDS: ACETAMINOPHEN 325 MG TABLET (FP) PO PRN (02:22)
[2018-10-08] MEDS ORDERED: morphine SULFATE 4 MG/ML VIAL ONE (04:15)
[2018-10-08] MEDS ORDERED: ONDANSETRON 4 MG/2 ML VIAL ONE (04:15)
[2018-10-08] MEDS ORDERED: ALBUTEROL SO4 0.083% IH SOL 2.5 MG/3 ML VIAL.NEB. NEB PRN (04:29)
[2018-10-08] MEDS ORDERED: ONDANSETRON 4 MG/2 ML VIAL IVPUSH PRN (04:32)
[2018-10-08] MEDS ORDERED: ONDANSETRON 4 MG/2 ML VIAL IVPUSH ONE (04:38)
[2018-10-08] MEDS ORDERED: morphine CARPU-JECT 4 MG/1 ML DISP.SYRIN IVPUSH ONE (04:39)
[2018-10-08] MEDS: DEXTROSE 5%-0.45% SALINE 1,000 ML IV SCH ×2 (04:55→12:45)
[2018-10-08 08:13] LABS: ALBUMIN 3.3 g/dl (3.4-5.0); ALK PHOS 52 U/L (45-117); ANION GAP 7 MMOL/L (8-16); BILIRUBIN,TOTAL 0.4 mg/dL (0.2-1); BLOOD UREA NITROGEN 11 mg/dL (7-18); CALCIUM 8.8 mg/dL (8.5-10.1); CHLORIDE 108 mmol/L (98-107); CO2 24 mmol/L (21-32); CREATININE 0.7 mg/dL (0.55-1.3); GLUCOSE,RANDOM 120 mg/dL (74-106); POTASSIUM 3.7 mmol/L (3.5-5.1); SGOT/AST 18 U/L (15-37); SGPT/ALT 26 U/L (13-61); SODIUM 139 mmol/L (136-145)
[2018-10-08 08:15] LABS: BASO % 0.4 % (0-2.0); EOS % 0.6 % (0-4.5); HEMATOCRIT 37.4 % (32.4-45.2); HEMOGLOBIN 12.3 GM/dL (10.7-15.3); LYMPH % 10.9 % (8-40); MCH 26.8 pg (25.7-33.7); MCHC 32.8 g/dl (32.0-36.0); MEAN CELL VOLUME 81.7 fl (80-96); MEAN PLT VOLUME 7.9 fl (7.5-11.1); MONO % 3.3 % (3.8-10.2); NEUT % 84.8 % (42.8-82.8); PLATELET COUNT 218 K/MM3 (134-434); RBC 4.58 M/mm3 (3.60-5.2); RDW 16.7 % (11.6-15.6); WHITE BLOOD COUNT 7.9 K/mm3 (4.0-10.0)
--- NOTE | 2018-10-08 08:35 | EKG ---
Test Reason : Blood Pressure : / mmHG Vent. Rate : 070 BPM Atrial Rate : 070 BPM P-R Int : 138 ms QRS Dur : 088 ms QT Int : 416 ms P-R-T Axes : 042 -33 -50 degrees QTc Int : 449 ms NORMAL SINUS RHYTHM LEFT AXIS DEVIATION SEPTAL INFARCT (CITED ON OR BEFORE 12-MAR-2017) ABNORMAL ECG WHEN COMPARED WITH ECG OF 29-MAR-2017 03:08, VENT. RATE HAS DECREASED BY 42 BPM QUESTIONABLE CHANGE IN INITIAL FORCES OF SEPTAL LEADS T WAVE INVERSION NOW EVIDENT IN INFERIOR LEADS NONSPECIFIC T WAVE ABNORMALITY NOW EVIDENT IN LATERAL LEADS Confirmed by MD BILLY, SAVANNAH ([id number]) on 10/08/2018 8:34:47 AM Referred By: Confirmed By:SAVANNAH CERVANTES MD
--- NOTE | 2018-10-08 09:09 | CON.CARD ---
Consult Consult Specialty:: Cardiology Referred by:: Medicine Reason for Consultation:: epigastric pain - History of Present Illness Chief Complaint: epigastric pain History of Present Illness: 48F h/o HTN, COPD, breast cancer, prior cocaine use p/w epigastric pain. Chest pain for one week, intermittent, sharp, epigastric pain radiating to L chest. Has family history of sister with [place] age 50. Also complains of headache, vomiting. Symptoms started on Sunday with diarrhea, poor appetite. On Sunday started getting pain in epigastric area radiating to L chest, yesterday had episodes of nausea and vomiting and felt that the abdominal pain got worse. No exertional symptoms. Sees Dr. Gregorio for cardio. - Past Medical History MUSHROOM PICKER: Yes: Migraine Cardio/Vascular: Yes: CAD, HTN, Hyperlipdemia, Other (h/o chest pain in 2014- per patient stress test negative) Pulmonary: Yes: Asthma Gastrointestinal: Yes: Constipation, Other (colon polyps) Renal/: Yes: Renal Calculi Endocrine: Yes: Diabetes Mellitus, Hypothyroidism - Past Surgical History Past Surgical History: Yes: Hysterectomy, Mastectomy - Alcohol/Substance Use Hx Alcohol Use: No History of Substance Use: reports: None - Smoking History Smoking history: Never smoked Have you smoked in the past 12 months: No Aproximately how many cigarettes per day: 0 If you are a former smoker, when did you quit?: 2 YRS - Social History Usual Living Arrangement: With Spouse ADL: Independent 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, 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, 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 History of Recent Travel: No Home Medications - Allergies Allergies/Adverse Reactions: Allergies Allergy/AdvReac Type Severity Reaction Status Date / Time No Known Allergies Allergy Verified 10/07/18 17:33 - Home Medications Home Medications: Ambulatory Orders Albuterol 0.083% Nebulizer Fartun [Ventolin 0.083%] 1 neb NEB TID PRN 10/07/18 Amlodipine Besylate [Norvasc -] 10 mg PO DAILY 10/07/18 Atorvastatin Ca [Lipitor] 10 mg PO HS 10/07/18 Bupropion HCl [Wellbutrin Xl -] 150 mg PO DAILY 10/07/18 Calcium Carbonate/Vitamin D3 [Calcium 600 + Vit D Tablet] 2 each PO DAILY Cholecalciferol (Vitamin D3) [Vitamin D3] 2,000 unit PO DAILY 10/07/18 Diclofenac Sodium [Voltaren] 2 gm TP QID 10/07/18 Fluticasone/Salmeterol [Advair 250-50 Diskus] 1 each IH BID PRN 10/07/18 Gabapentin 800 mg PO BID 10/07/18 Letrozole [Femara] 2.5 mg PO DAILY 10/07/18 Lorazepam 0.5 mg PO DAILY 10/07/18 Pantoprazole Sodium 40 mg PO DAILY 10/07/18 Valsartan [Diovan] 160 mg PO DAILY 10/07/18 Venlafaxine HCl ER [Effexor Xr -] 75 mg PO DAILY 10/07/18 acetaZOLAMIDE [Diamox -] 500 mg PO BID 10/07/18 Family Disease History - Family Disease History Family Disease History: CA: Father (triple negative breast ca), Mother (triple negative breast ca), Sister (2-sisters, one BRCA-pos; one -s/p lumpectomy) Review of Systems - Review of Systems Constitutional: reports: No Symptoms Eyes: reports: No Symptoms HENT: reports: No Symptoms Neck: reports: No Symptoms Cardiovascular: reports: No Symptoms Respiratory: reports: No Symptoms Gastrointestinal: reports: Abdominal Pain, Diarrhea, Vomiting Genitourinary: reports: No Symptoms Musculoskeletal: reports: No Symptoms Integumentary: reports: No Symptoms Neurological: reports: No Symptoms Endocrine: reports: No Symptoms Hematology/Lymphatic: reports: No Symptoms Psychiatric: reports: No Symptoms Vital Signs: Vital Signs Temperature 98.3 F 10/08/18 07:36 Pulse Rate 95 H 10/08/18 07:36 Respiratory Rate 18 10/08/18 07:36 Blood Pressure 138/79 10/08/18 07:36 O2 Sat by Pulse Oximetry (%) 96 10/08/18 07:36 Constitutional: Yes: Well Nourished, No Distress, Calm Eyes: Yes: Conjunctiva Clear, EOM Intact HENT: Yes: Atraumatic, Normocephalic Neck: Yes: Supple, Trachea Midline Respiratory: Yes: Regular, CTA Bilaterally Gastrointestinal: Yes: Normal Bowel Sounds, Soft, Tenderness, Epigastrium Cardiovascular: Yes: Regular Rate and Rhythm JVD: No Carotid Bruit: No PMI: Non-Displaced Heart Sounds: Yes: S1, S2 Murmur: No: Systolic Murmur Musculoskeletal: No: Back Pain Extremities: No: Cold Edema: No Peripheral Pulses WNL: Yes Peripheral Pulses: 2+ Left Doralis Pedis, 2+ Right Dorsalis Pedis Integumentary: No: Jaundice Neurological: Yes: Oriented Psychiatric: No: Agitated - Other Data Labs, Other Data: CBC, BMP 10/08/18 07:30 10/08/18 07:30 Troponin, BNP 10/07/18 10/07/18 10/08/18 18:35 22:51 07:30 Troponin I < 0.02 < 0.02 < 0.02 Troponin, BNP 10/07/18 10/07/18 10/08/18 18:35 22:51 07:30 Troponin I < 0.02 < 0.02 < 0.02 Assessment/Plan EKG: sinus, nl intervals, nonspecific T wave changes CXR: no acute process epigastric pain - trop neg x 3, EKG no ischemic changes - unlikely ACS - concerning for GI etiology given associated diarrhea, vomiting, epigastric tenderness on exam - echo pending, if benign findings defer further cardiac testing as inpatient HTN - continue home meds COPD - manage per primary
[2018-10-08] MEDS: GABAPENTIN 400 MG CAPSULE (FP) PO SCH ×2 (09:29→22:26)
[2018-10-08] MEDS: HEPARIN NA (PORCINE) 5,000 UNITS/ML 1ML VIAL SQ SCH ×2 (09:29→22:26)
[2018-10-08] MEDS: LETROZOLE 2.5 MG TABLET (FP) PO SCH (09:29)
[2018-10-08] MEDS: PANTOPRAZOLE 40 MG TABLET (FP) PO SCH (09:29)
[2018-10-08] MEDS: CALCIUM 500MG/VIT-D 200 UNITS COMBO TABLET (FP) PO SCH (09:29)
[2018-10-08] MEDS: amLODIPine BESYLATE 10 MG TABLET (FP) PO SCH (09:29)
[2018-10-08] MEDS: CHOLECALCIFEROL (VITAMIN D3) 1,000 UNIT TABLET (FP) PO SCH (09:29)
[2018-10-08] MEDS: VALSARTAN 160 MG TABLET (UD) PO SCH (09:30)
[2018-10-08] MEDS ORDERED: LORazepam 0.5 MG TABLET ONE (09:32)
[2018-10-08] MEDS: LORazepam 0.5 MG TABLET PO SCH (09:39)
--- NOTE | 2018-10-08 10:56 | ECHO ---
Version: 1 Name: SOCORRO NICHOLAS Exam: Adult Echocardiogram Study Date: 10/08/2018, 7:51 AM Age: 48 Years MMode/2D Measurements & Calculations IVSd: 1.06 cm LVIDs: 2.9 cm LVIDd: 4.9 cm LVPWd: 0.94 cm LVOT diam: 2.05 cm Ao root diam: 2.9 cm LA dimension: 3.4 cm Doppler Measurements & Calculations MV E max kamari: 62.7 cm/sec Med E/e': 11.0 MV A max kamari: 79.0 cm/sec Med Peak E' Kamari: 5.7 cm/sec MV E/A: 0.79 Lat E/e': 9.1 Lat Peak E' Kamari: 6.9 cm/sec Ao max P.2 mmHg LV V1 mean: 84.0 cm/sec Ao V2 max: 194.9 cm/sec LV V1 mean P.2 mmHg Left Ventricle The left ventricular size, thickness and function are normal. Abnormal diastolic relaxation. Right Ventricle The right ventricle is normal in size and function. Atria Normal left and right atrial size and function. The atrial septum is aneurysmal without evidence of shunting. Mitral Valve The mitral valve is normal. Tricuspid Valve The tricuspid valve is normal. There is trace tricuspid regurgitation. Aortic Valve The aortic valve is normal in structure and function. Pulmonic Valve The pulmonic valve is not well seen, but is grossly normal. Great Vessels The aortic root is normal size. Pericardium/Pleura There is no pericardial effusion. Summary Statements The left ventricular size, thickness and function are normal The right ventricle is normal in size and function. Normal left and right atrial size and function. The mitral valve is normal. There is trace tricuspid regurgitation. The aortic valve is normal in structure and function. The aortic root is normal size. The EF is 71%. MD Stanislaw Lees 10/08/2018, 9:56 AM Ordering Physician: Rissa Rodríguez Performed By: Chio Prather
[2018-10-08] MEDS: BUDESONIDE/FORMETEROL FUMARATE 80/4.5 mcg INHALER IH SCH ×2 (11:33→22:29)
--- NOTE | 2018-10-08 11:56 | CONSULT ---
Consult - text type - Consultation Consultation Note: NEUROLOGY CONSULT GREATLY APPRECIATED: Events reviewed and discussed. Cardiology consult appreciated. This 48 yo RH female with pmhx migraines, COPD, Breast CA (BRCA+) on chemotherapy, HTN, HLD, depression, chronic low back pain and insomnia. Meds: albuterol, amlodipine, atorvastatin, buproprion, advair, gabapentin 800 BID, letrozole, lorazepam 0.5 mg, pantoprazole, valsartan, effexor, diamox 500 BID Surgical hx: partial thyroidectomy, L4/L5 spinal fusion May 2018, PAOLA-BSO, B/L mastectomy x 2. Hx of headaches since age 30s attributed to "requiring glasses", initially improved after removal of ovaries 2 years ago. Now daily holocranial headaches with photophobia, nausea, vomiting, kinesiophobia x 1 month with limited effect with Excedrin or Tylenol. MRI 03/14/17 noted increased T2 signal in the optic nerve sheath as well as periventricular ischemic changes. LP performed as out-patient and dx with presumptive pseudotumor cerebri, now on diamox. ROS: chronic LBP, worse in evening hours and interrupting sleep despite surgery. Occasional "numbness" in hands and feet, dx with "carpal tunnel." reports patient "grits" teeth at nighttime. FH++ mother with migraines Head CT (reviewed): fair quality study, essentially normal MRI of brain C+/C- 03/14/17 (reviewed): optic sheaths mildly prom., ? papilledema , periventricular/scattered supratentorial chronic ischemic changes c/w migraine DEO: 240lb. Cor reg. No bruit. Neck Supple. S/P LS fusion. Neg SLR. NEURO: Awake, alert, oriented x 3. CNII-CNXII: EOM's without nystagmus. Full celis appreciated. No facial. Motor: No drift. Strength normal. Reflexes normal in arms, absent KJ' s, but AJ's present. Toes downgoing. Coordination: No FTN dystaxia. Sensation: Normal to vibration. Reduced pinprink to L digits I, II, III. Romberg - Gait: Normal including toes, heels. Impression: Migraine Headaches now Chronic Daily Headache Syndrome (CDHS) R/O Underlying Papilledema/Pseudotumor Cerebri Possible L Carpal Tunnel Syndrome (CTS) Nocturnal LBP, paresthesia, and bruxism suggest possible underlying Restless Limbs Syndrome (RLS) Suggest: Stop Tylenol and NSAIDs Provide sumatriptan 6 mg sq x1, oxygen therapy at 6L/min, and Reglan 5-10 mg for nausea/BLACKMAN's. Then sumatriptan 100 mg prn for acute headache Start topiramate 25 mg BID x 1 week, then increase to 50 mg BID ( also carbonic anhydrase inhibitor similar to diamox) Ophthalmology consult to evaluate papilledema Neuro f/u as out-patient for migraine headaches, CTS and RLS Thank you very much, Adrian Whatley MD
[2018-10-08] MEDS ORDERED: SUMAtriptan SUCCINATE 50 MG TABLET PO PRN ×2 (12:12→21:11)
[2018-10-08 12:55] VITALS: BMI 40.1
[2018-10-08] MEDS ORDERED: SUMATRIPTAN SUCCINATE 6 MG/0.5 ML VIAL SQ ONE (13:15)
--- NOTE | 2018-10-08 15:06 | HP ---
Admitting History and Physical - Admission History of Present Illness: Pt is a 48 female w/ PMH significant for HTN, HLD, Migraines,COPDand Breast cancer (on CTX every 6 months). Pt presents to the ER w/ multiple complaints. Pt is having 1 week of worsening, intermittent, sharp, substernal chest pain that radiates to her left chest. She also complains of RODRIGUEZ that is worse than her baseline the last 2 days. However she also complains of intermittent BLACKMAN for the past 2-3 days associated w/ nausea and vomiting. Pt gives a h/o diarrhea for the past month. 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, Other (Pseudotumor cerebri?) Cardiovascular: Yes: CAD, HTN, Hyperlipdemia Pulmonary: Yes: COPD Gastrointestinal: Yes: Constipation, Other (colon polyps) Renal/: Yes: Renal Calculi ...: No Heme/Onc: Yes: Cancer (Breast CA) Musculoskeletal: Yes: Chronic low back pain Endocrine: Yes: Diabetes Mellitus, Hypothyroidism - Past Surgical History Past Surgical History: Yes: Hysterectomy, Mastectomy Additional Past Surgical History: Partial thyrodiectomy Spinal fusion L4/L5 - Smoking History Smoking history: Never smoked Have you smoked in the past 12 months: No Aproximately how many cigarettes per day: 0 If you are a former smoker, when did you quit?: 2014 - Alcohol/Substance Use Hx Alcohol Use: Yes (casual) History of Substance Use: reports: None - Social History ADL: Independent 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, 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, 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 History of Recent Travel: No Home Medications - Allergies Allergies/Adverse Reactions: Allergies Allergy/AdvReac Type Severity Reaction Status Date / Time No Known Allergies Allergy Verified 10/07/18 17:33 - Home Medications Home Medications: Ambulatory Orders Albuterol 0.083% Nebulizer Fartun [Ventolin 0.083%] 1 neb NEB TID PRN 10/07/18 Amlodipine Besylate [Norvasc -] 10 mg PO DAILY 10/07/18 Atorvastatin Ca [Lipitor] 10 mg PO HS 10/07/18 Bupropion HCl [Wellbutrin Xl -] 150 mg PO DAILY 10/07/18 Calcium Carbonate/Vitamin D3 [Calcium 600 + Vit D Tablet] 2 each PO DAILY Cholecalciferol (Vitamin D3) [Vitamin D3] 2,000 unit PO DAILY 10/07/18 Diclofenac Sodium [Voltaren] 2 gm TP QID 10/07/18 Fluticasone/Salmeterol [Advair 250-50 Diskus] 1 each IH BID PRN 10/07/18 Gabapentin 800 mg PO BID 10/07/18 Letrozole [Femara] 2.5 mg PO DAILY 10/07/18 Lorazepam 0.5 mg PO DAILY 10/07/18 Pantoprazole Sodium 40 mg PO DAILY 10/07/18 Valsartan [Diovan] 160 mg PO DAILY 10/07/18 Venlafaxine HCl ER [Effexor Xr -] 75 mg PO DAILY 10/07/18 acetaZOLAMIDE [Diamox -] 500 mg PO BID 10/07/18 Family Disease History - Family Disease History Family History: Unremarkable Family Disease History: CA: Father (triple negative breast ca), Mother (triple negative breast ca), Sister (2-sisters, one BRCA-pos; one -s/p lumpectomy) Review of Systems - Review of Systems Constitutional: reports: No Symptoms HENT: reports: No Symptoms Neck: reports: No Symptoms Cardiovascular: reports: Chest Pain, Shortness of Breath Respiratory: reports: SOB Gastrointestinal: reports: Diarrhea, Nausea, Vomiting Genitourinary: reports: No Symptoms Physical Examination Vital Signs: Vital Signs Temperature 98.4 F 10/08/18 14:48 Pulse Rate 84 10/08/18 14:48 Respiratory Rate 20 10/08/18 14:48 Blood Pressure 135/86 10/08/18 14:48 O2 Sat by Pulse Oximetry (%) 98 10/08/18 14:30 Constitutional: Yes: Well Nourished Neck: Yes: WNL, Supple Cardiovascular: Yes: WNL, Regular Rate and Rhythm Respiratory: Yes: WNL, Regular, CTA Bilaterally Gastrointestinal: Yes: WNL, Normal Bowel Sounds, Soft Musculoskeletal: Yes: WNL Extremities: Yes: WNL Edema: No Neurological: Yes: WNL, Alert, Oriented ...Motor Strength: WNL Labs: CBC, BMP 10/08/18 07:30 10/08/18 07:30 Problem List - Problems (1) Chest pain Assessment/Plan: Serial cpk/troponin Tele monitoring Cardio consult Cont asa Will also check abdominal US Code(s): R07.9 - CHEST PAIN, UNSPECIFIED Qualifiers: Chest pain type: unspecified Qualified Code(s): R07.9 - Chest pain, unspecified (2) Headache Assessment/Plan: Pt requiring morphine for pain Check ct scan head Neuro consult ?H/O pseudotumor cerebri Cont diamox Code(s): R51 - HEADACHE Qualifiers: Headache type: unspecified Headache chronicity pattern: unspecified pattern Intractability: not intractable Qualified Code(s): R51 - Headache (3) SOB (shortness of breath) Assessment/Plan: Check echo Cont inhalers H/O COPD Code(s): R06.02 - SHORTNESS OF BREATH (4) HTN (hypertension) Assessment/Plan: BP stable Code(s): I10 - ESSENTIAL (PRIMARY) HYPERTENSION (5) HLD (hyperlipidemia) Code(s): E78.5 - HYPERLIPIDEMIA, UNSPECIFIED (6) Breast CA Assessment/Plan: Cont femara Code(s): C50.919 - MALIGNANT NEOPLASM OF UNSP SITE OF UNSPECIFIED FEMALE BREAST
--- NOTE | 2018-10-08 17:16 | EKG ---
Test Reason : Blood Pressure : / mmHG Vent. Rate : 082 BPM Atrial Rate : 082 BPM P-R Int : 134 ms QRS Dur : 084 ms QT Int : 376 ms P-R-T Axes : 049 -32 -55 degrees QTc Int : 439 ms NORMAL SINUS RHYTHM LEFT AXIS DEVIATION SEPTAL INFARCT (CITED ON OR BEFORE 12-MAR-2017) ABNORMAL ECG WHEN COMPARED WITH ECG OF 29-MAR-2017 03:08, T WAVE INVERSION NOW EVIDENT IN INFERIOR LEADS NONSPECIFIC T WAVE ABNORMALITY NOW EVIDENT IN LATERAL LEADS Confirmed by MD Nabeel, Stanislaw ([id number]) on 10/08/2018 5:16:12 PM Referred By: Confirmed By:Stanislaw Lees MD
[2018-10-08] MEDS ORDERED: PT OWN MED DRAWER 7, Y5N ONE (21:32)
[2018-10-08] MEDS: TOPIRAMATE 25 MG TABLET (FP) PO SCH (22:26)
[2018-10-08] MEDS: ATORVASTATIN CA 10 MG TABLET (FP) PO SCH (22:26)
[2018-10-08] MEDS: ZOLPIDEM TARTRATE 5 MG TABLET PO PRN (22:37)
[2018-10-09 06:13] LABS: BASO % 0.8 % (0-2.0); EOS % 3.7 % (0-4.5); HEMATOCRIT 36.1 % (32.4-45.2); HEMOGLOBIN 11.9 GM/dL (10.7-15.3); LYMPH % 34.7 % (8-40); MCH 26.7 pg (25.7-33.7); MCHC 32.9 g/dl (32.0-36.0); MEAN CELL VOLUME 81.1 fl (80-96); MEAN PLT VOLUME 8.2 fl (7.5-11.1); MONO % 6.9 % (3.8-10.2); NEUT % 53.9 % (42.8-82.8); PLATELET COUNT 213 K/MM3 (134-434); RBC 4.45 M/mm3 (3.60-5.2); RDW 16.4 % (11.6-15.6); WHITE BLOOD COUNT 6.9 K/mm3 (4.0-10.0)
[2018-10-09 06:25] LABS: ALK PHOS 48 U/L (45-117); ANION GAP 5 MMOL/L (8-16); BILIRUBIN,TOTAL 0.3 mg/dL (0.2-1); BLOOD UREA NITROGEN 10 mg/dL (7-18); CALCIUM 8.8 mg/dL (8.5-10.1); CHLORIDE 113 mmol/L (98-107); CO2 25 mmol/L (21-32); CREATININE 0.8 mg/dL (0.55-1.3); GLUCOSE,RANDOM 100 mg/dL (74-106); POTASSIUM 3.5 mmol/L (3.5-5.1); SGOT/AST 23 U/L (15-37); SGPT/ALT 31 U/L (13-61); SODIUM 143 mmol/L (136-145); TOT PROT 6.5 g/dl (6.4-8.2)
[2018-10-09] MEDS ORDERED: PT OWN MED DRAWER 7, Y5N ONE ×3 (08:18→21:12)
--- NOTE | 2018-10-09 09:57 | CON.GI ---
Consult Consult Specialty:: GI Referred by:: Dr. Rodríguez Reason for Consultation:: Abdominal Pain - History of Present Illness History of Present Illness: Patient is a 48 y/o female with past medical history of HTN, HLD, Migraines, COPD, Breast CA (CTX every 6 months). I was consulted to see the patient for complaints of abdominal pain. Patient states having burning/aching epigastric pain that radiates to LUQ accomapnied with nausea and vomiting for 4 days. Pain is exacerbated with food intake and was relieved with pain medication. She states the day before the pain began she had diarrhea dark in color. She states experiencing dysphagia with solids and having 15lb weight loss since 2017. Patient had an endoscopy performed 10/2016 which showed duodenal mucosa with chronic inflammation and focal Brunners glands hyperplasia and gastric oxyntic mucosa with mild to moderate chronic gastritis. 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, Other (Pseudotumor cerebri?) Cardio/Vascular: Yes: CAD, HTN, Hyperlipdemia Pulmonary: Yes: COPD Gastrointestinal: Yes: Constipation, Other (colon polyps) Renal/: Yes: Renal Calculi ...: No Musculoskeletal: Yes: Chronic low back pain Endocrine: Yes: Diabetes Mellitus, Hypothyroidism - Past Surgical History Past Surgical History: Yes: Hysterectomy, Mastectomy - Alcohol/Substance Use Hx Alcohol Use: Yes (casual) History of Substance Use: reports: None - Smoking History Smoking history: Never smoked Have you smoked in the past 12 months: No Aproximately how many cigarettes per day: 0 If you are a former smoker, when did you quit?: 2014 - Social History Usual Living Arrangement: With Spouse ADL: Independent 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, 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, 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 History of Recent Travel: No Home Medications - Allergies Allergies/Adverse Reactions: Allergies Allergy/AdvReac Type Severity Reaction Status Date / Time No Known Allergies Allergy Verified 10/07/18 17:33 - Home Medications Home Medications: Ambulatory Orders Albuterol 0.083% Nebulizer Fartun [Ventolin 0.083%] 1 neb NEB TID PRN 10/07/18 Amlodipine Besylate [Norvasc -] 10 mg PO DAILY 10/07/18 Atorvastatin Ca [Lipitor] 10 mg PO HS 10/07/18 Bupropion HCl [Wellbutrin Xl -] 150 mg PO DAILY 10/07/18 Calcium Carbonate/Vitamin D3 [Calcium 600 + Vit D Tablet] 2 each PO DAILY Cholecalciferol (Vitamin D3) [Vitamin D3] 2,000 unit PO DAILY 10/07/18 Diclofenac Sodium [Voltaren] 2 gm TP QID 10/07/18 Fluticasone/Salmeterol [Advair 250-50 Diskus] 1 each IH BID PRN 10/07/18 Gabapentin 800 mg PO BID 10/07/18 Letrozole [Femara] 2.5 mg PO DAILY 10/07/18 Lorazepam 0.5 mg PO DAILY 10/07/18 Pantoprazole Sodium 40 mg PO DAILY 10/07/18 Valsartan [Diovan] 160 mg PO DAILY 10/07/18 Venlafaxine HCl ER [Effexor Xr -] 75 mg PO DAILY 10/07/18 acetaZOLAMIDE [Diamox -] 500 mg PO BID 10/07/18 Family Disease History - Family Disease History Family Disease History: CA: Father (triple negative breast ca), Mother (triple negative breast ca), Sister (2-sisters, one BRCA-pos; one -s/p lumpectomy) Review of Systems - Review of Systems Constitutional: reports: Unintentional Wgt. Loss Eyes: reports: No Symptoms HENT: reports: No Symptoms Neck: reports: No Symptoms Cardiovascular: reports: No Symptoms Respiratory: reports: No Symptoms Gastrointestinal: reports: Abdominal Pain, Diarrhea, Nausea, Vomiting Genitourinary: reports: No Symptoms Breasts: reports: No Symptoms Reported Musculoskeletal: reports: No Symptoms Integumentary: reports: No Symptoms Neurological: reports: No Symptoms Endocrine: reports: No Symptoms Hematology/Lymphatic: reports: No Symptoms Psychiatric: reports: No Symptoms Physical Exam-GI Vital Signs: Vital Signs Temperature 97.7 F 10/09/18 09:00 Pulse Rate 78 10/09/18 09:00 Respiratory Rate 24 H 10/09/18 09:00 Blood Pressure 143/99 10/09/18 09:00 O2 Sat by Pulse Oximetry (%) 99 10/09/18 09:00 Constitutional: Yes: Well Nourished, No Distress, Calm Eyes: Yes: Conjunctiva Clear HENT: Yes: Atraumatic Cardiovascular: Yes: Regular Rate and Rhythm Respiratory: Yes: Regular, CTA Bilaterally Gastrointestinal Inspection: Yes: WNL. No: Ascites, Distention, Hernia, Scars, Other ...Auscultate: Yes: Normoactive Bowel Sounds. No: Hyperactive Bowel Sounds, Hypoactive Bowel Sounds, No Bowel Sounds, Other ...Palpate: Yes: Soft, Tenderness (RUQ, epigastric, LUQ). No: Firm/Rigid, Guarding, Hepatomegaly, Mass, Pulsatile Mass, Splenomegaly, Tenderness, Epigastium, Tenderness, Rebound, Other ...Percussion: Yes: Tympanitic. No: Dullness, Fluid Wave, Other Neurological: Yes: Alert, Oriented Psychiatric: Yes: Alert, Oriented Labs: CBC, BMP 10/09/18 05:30 10/09/18 05:30 Active Medications Generic Name Dose Route Start Last Admin Trade Name Freq PRN Reason Stop Dose Admin Acetaminophen 650 mg 10/08/18 02:14 10/08/18 02:22 Tylenol - PO 650 mg Q6H PRN Administration PAIN Albuterol Sulfate 1 amp 10/08/18 04:29 Ventolin 0.083% Nebulizer Soln - NEB Q8H PRN SHORT OF BREATH/WHEEZING Amlodipine Besylate 10 mg 10/08/18 10:00 10/08/18 09:29 Norvasc - PO 10 mg DAILY LALY Administration Atorvastatin Calcium 10 mg 10/08/18 22:00 10/08/18 22:26 Lipitor - PO 10 mg HS LALY Administration Budesonide/Formoterol Fumarate 2 puff 10/08/18 10:00 10/08/18 22:29 Symbicort 80/4.5mcg - IH 2 puff BID LALY Administration Bupropion HCl 150 mg 10/08/18 10:00 10/08/18 09:29 Wellbutrin Xl - PO 150 mg DAILY LALY Administration Calcium Carbonate/Cholecalciferol 2 tab 10/08/18 10:00 10/08/18 09:29 Os-Mikhail 500+D - PO 2 tab DAILY LALY Administration Cholecalciferol 2,000 unit 10/08/18 10:00 10/08/18 09:29 Vitamin D3 - PO 2,000 unit DAILY LALY Administration Gabapentin 800 mg 10/08/18 10:00 10/08/18 22:26 Neurontin - PO 800 mg BID LALY Administration Heparin Sodium (Porcine) 5,000 unit 10/08/18 10:00 10/08/18 22:26 Heparin - SQ 5,000 unit BID LALY Administration Dextrose/Sodium Chloride 1,000 mls @ 75 mls/hr 10/08/18 04:45 10/08/18 12:45 D5-1/2ns - IV 75 mls/hr ASDIR LALY Administration Letrozole 2.5 mg 10/08/18 10:00 10/08/18 09:29 Femara - PO 2.5 mg DAILY LALY Administration Lorazepam 0.5 mg 10/08/18 10:00 10/08/18 09:39 Ativan - PO 0.5 mg DAILY LALY Administration Ondansetron HCl 4 mg 10/08/18 04:32 10/09/18 09:03 Zofran Injection IVPUSH 4 mg Q6H PRN Administration NAUSEA Pantoprazole Sodium 40 mg 10/08/18 10:00 10/08/18 09:29 Protonix - PO 40 mg DAILY LALY Administration Sumatriptan Succinate 100 mg 10/08/18 21:11 10/08/18 22:26 Imitrex - PO 100 mg ONCE PRN Administration HEADACHE Topiramate 25 mg 10/08/18 22:00 10/08/18 22:26 Topamax - PO 25 mg BID LALY Administration Valsartan 160 mg 10/08/18 10:00 10/08/18 09:30 Diovan - PO 160 mg DAILY LALY Administration Zolpidem Tartrate 10 mg 10/08/18 22:24 10/08/18 22:37 Ambien - PO 10 mg HS PRN Administration INSOMNIA Imaging - Results Chest X-ray: Report Reviewed Cat Scan: Report Reviewed Problem List - Problems (1) Abdominal pain Assessment/Plan: R> Continue Pantoprazole >Zofran 4mg IVPB q4h and Reglan 10mg IV q8h >follow up as outpatient for further management Code(s): R10.9 - UNSPECIFIED ABDOMINAL PAIN Qualifiers: Abdominal location: generalized Qualified Code(s): R10.84 - Generalized abdominal pain
[2018-10-09] MEDS ORDERED: FLU VACCINE QUAD 60 MCG/0.5 ML (MDV 18-19) IM ONE (10:00)
[2018-10-09] MEDS: DEXTROSE 5%-0.45% SALINE 1,000 ML IV SCH (10:18)
[2018-10-09] MEDS: VALSARTAN 160 MG TABLET (UD) PO SCH (10:20)
[2018-10-09] MEDS: CHOLECALCIFEROL (VITAMIN D3) 1,000 UNIT TABLET (FP) PO SCH (10:20)
[2018-10-09] MEDS: GABAPENTIN 400 MG CAPSULE (FP) PO SCH ×2 (10:21→21:21)
[2018-10-09] MEDS: amLODIPine BESYLATE 10 MG TABLET (FP) PO SCH (10:21)
[2018-10-09] MEDS: HEPARIN NA (PORCINE) 5,000 UNITS/ML 1ML VIAL SQ SCH ×2 (10:21→21:21)
[2018-10-09] MEDS: PANTOPRAZOLE 40 MG TABLET (FP) PO SCH (10:21)
[2018-10-09] MEDS: CALCIUM 500MG/VIT-D 200 UNITS COMBO TABLET (FP) PO SCH (10:21)
[2018-10-09] MEDS: LORazepam 0.5 MG TABLET PO SCH (10:23)
[2018-10-09] MEDS: BUDESONIDE/FORMETEROL FUMARATE 80/4.5 mcg INHALER IH SCH ×2 (10:26→21:21)
[2018-10-09] MEDS: TOPIRAMATE 25 MG TABLET (FP) PO SCH ×2 (10:27→21:21)
[2018-10-09] MEDS: LETROZOLE 2.5 MG TABLET (FP) PO SCH (10:27)
[2018-10-09] MEDS ORDERED: ONDANSETRON 4 MG/2 ML VIAL IVPB STA (11:19)
--- NOTE | 2018-10-09 11:26 | CONSULT ---
Consult - text type - Consultation Consultation Note: Opthalmology Consult 48 year-old female with pmhx significant for pseudotumor cerebri dignosed in 2017 and treated with diamox 500 mg bid admitted with intermittents holocranial headache described as throbbing and 10/10 in intensity. Relieved with current regimen of medications . She reports blurry vision with headaches which last 1.5-2 hours . The headaches are associated with nausea and vomiting , photophobia and phonophobia. Denies diplopia. This is similar to the headaches that she had had in the past when diagnosed with pseudotumor cerebrii. She also reported concomitant chest and abdominal pain. PMHX Pseuotumor Cerebri Breast CA Stage 2 s/p b/l mastectomy and undergoing chemotherapy q6 months HTN Obesity hypothyroid astma/COPD ALL: Cipro Meds: amlodipine diamox symbicort albuterol letrzole ativan ambien wellbutrin calcium vitamin D neurontin valsartan sumatriptan reglan topimax tylenol POCH: pseudotumor, wears bifocals, patient of Dr. Yolie RUEDA: granmother with glaucoma GTTS: none Social : non smoker, lives with EXAM: VA with glasses near card 20/30 OD 20/40 OS. TA 12 OD 15 OS, P 3 sluggish ou no APD . VFc Full, Rotations full PLE LLL wnl SC melanosis , K clear ou AC formed ou I WNL Ou L Clear OU DFE C:D 0.3 discs flat and pink, m/v/p wnl Imp Visual disturbance and headache with history of chronic papilledema, but no evidence of optic disc edma on exam today, more likely migraine headaches. Continue present mgmt with neurology as headaches have resolved. Caution with Topamax given hyperopia. Will have patient return as outpatient for visual field test. Thank you for this consult Felicita Jason MD
--- NOTE | 2018-10-09 12:08 | PN ---
Progress Note (short form) - Note Progress Note: s: abd pain today, no dyspnea, palps, dizziness Current Medications Acetaminophen (Tylenol -) 650 mg PO Q6H PRN PRN Reason: PAIN Last Admin: 10/08/18 02:22 Dose: 650 mg Albuterol Sulfate (Ventolin 0.083% Nebulizer Soln -) 1 amp NEB Q8H PRN PRN Reason: SHORT OF BREATH/WHEEZING Amlodipine Besylate (Norvasc -) 10 mg PO DAILY [facility] Last Admin: 10/09/18 10:21 Dose: 10 mg Atorvastatin Calcium (Lipitor -) 10 mg PO HS [facility] Last Admin: 10/08/18 22:26 Dose: 10 mg Budesonide/Formoterol Fumarate (Symbicort 80/4.5mcg -) 2 puff IH BID [facility] Last Admin: 10/09/18 10:26 Dose: 2 puff Bupropion HCl (Wellbutrin Xl -) 150 mg PO DAILY [facility] Last Admin: 10/09/18 10:45 Dose: Not Given Calcium Carbonate/Cholecalciferol (Os-Mikhail 500+D -) 2 tab PO DAILY [facility] Last Admin: 10/09/18 10:21 Dose: 2 tab Cholecalciferol (Vitamin D3 -) 2,000 unit PO DAILY [facility] Last Admin: 10/09/18 10:20 Dose: 2,000 unit Gabapentin (Neurontin -) 800 mg PO BID [facility] Last Admin: 10/09/18 10:21 Dose: 800 mg Heparin Sodium (Porcine) (Heparin -) 5,000 unit SQ BID [facility] Last Admin: 10/09/18 10:21 Dose: 5,000 unit Dextrose/Sodium Chloride (D5-1/2ns -) 1,000 mls @ 75 mls/hr IV ASDIR [facility] Last Admin: 10/09/18 10:18 Dose: 75 mls/hr Letrozole (Femara -) 2.5 mg PO DAILY [facility] Last Admin: 10/09/18 10:27 Dose: 2.5 mg Lorazepam (Ativan -) 0.5 mg PO DAILY [facility] Last Admin: 10/09/18 10:23 Dose: 0.5 mg Metoclopramide HCl (Reglan Injection -) 10 mg IVPB Q8H [facility] Ondansetron HCl (Zofran Injection) 4 mg IVPB Q4H [facility] Stop: 10/09/18 23:20 Ondansetron HCl (Zofran Injection) 4 mg IVPUSH Q4H PRN PRN Reason: NAUSEA AND/OR VOMITING Pantoprazole Sodium (Protonix -) 40 mg PO DAILY [facility] Last Admin: 10/09/18 10:21 Dose: 40 mg Sumatriptan Succinate (Imitrex -) 100 mg PO ONCE PRN PRN Reason: HEADACHE Last Admin: 10/08/18 22:26 Dose: 100 mg Topiramate (Topamax -) 25 mg PO BID [facility] Last Admin: 10/09/18 10:27 Dose: 25 mg Valsartan (Diovan -) 160 mg PO DAILY [facility] Last Admin: 10/09/18 10:20 Dose: 160 mg Zolpidem Tartrate (Ambien -) 10 mg PO HS PRN PRN Reason: INSOMNIA Last Admin: 10/08/18 22:37 Dose: 10 mg Vital Signs Period Temp Pulse Resp BP Sys/Aleman Pulse Ox Last 24 Hr 97.6 F-99.1 F 74-98 18-24 118-143/74-99 98-99 Constitutional: Yes: Well Nourished, No Distress, Calm Eyes: Yes: Conjunctiva Clear, EOM Intact HENT: Yes: Atraumatic, Normocephalic Neck: Yes: Supple, Trachea Midline Respiratory: Yes: Regular, CTA Bilaterally Gastrointestinal: Yes: Normal Bowel Sounds, Soft, Tenderness, Epigastrium Cardiovascular: Yes: Regular Rate and Rhythm JVD: No Carotid Bruit: No PMI: Non-Displaced Heart Sounds: Yes: S1, S2 Murmur: No: Systolic Murmur Musculoskeletal: No: Back Pain Extremities: No: Cold Edema: No Peripheral Pulses WNL: Yes Peripheral Pulses: 2+ Left Doralis Pedis, 2+ Right Dorsalis Pedis Integumentary: No: Jaundice Neurological: Yes: Oriented Psychiatric: No: Agitated Assessment/Plan EKG: sinus, nl intervals, nonspecific T wave changes CXR: no acute process echo 09/2018 nl LV/RV function, tr TR epigastric pain - trop neg x 3, EKG no ischemic changes - unlikely ACS - concerning for GI etiology given associated diarrhea, vomiting, epigastric tenderness on exam - GI consulted - echo unremarkable, defer further cardiac testing as inpatient HTN - continue home meds COPD - manage per primary headaches - manage per neuro
[2018-10-09] MEDS: ONDANSETRON 4 MG/2 ML VIAL IVPB SCH ×3 (12:12→20:30)
[2018-10-09] MEDS: METOCLOPRAMIDE HCL INJECTION 10 MG/2 ML VIAL IVPB SCH ×2 (12:12→20:30)
[2018-10-09] MEDS ORDERED: SUCRALFATE 1 GM/10 ML UNIT DOSE CUPS PO SCH (14:00)
[2018-10-09] MEDS: SUCRALFATE 1 GM/10 ML UNIT DOSE CUPS PO SCH ×3 (15:43→21:21)
[2018-10-09] MEDS: METOCLOPRAMIDE HCL 10 MG TABLET (FP) PO SCH (17:33)
--- NOTE | 2018-10-09 19:38 | PN ---
Progress Note (short form) - Note Progress Note: NEUROLOGY FOLLOW-UP: Events reviewed and discussed with Dr. Rodríguez. Ophthalmology consultation is greatly appreciated. No evidence of active papilledema. Favors Dx of migraine. Mild BLACKMAN this morning. Resolved after Sumatriptan (50 mg) No parestheisiae Exam Normal IMP: Migraine Headaches SUGGEST: D/C on Topiramate 50 mg BID Sumatriptan 50-100 mg PRN Neuro f/u as out patient. Thank you very much, Adrian Whatley MD
--- NOTE | 2018-10-09 19:42 | PN ---
Progress Note, Physician History of Present Illness: Pt c/o epigastric pain - Current Medication List Current Medications: Active Medications Acetaminophen (Tylenol -) 650 mg PO Q6H PRN PRN Reason: PAIN Last Admin: 10/08/18 02:22 Dose: 650 mg Albuterol Sulfate (Ventolin 0.083% Nebulizer Soln -) 1 amp NEB Q8H PRN PRN Reason: SHORT OF BREATH/WHEEZING Amlodipine Besylate (Norvasc -) 10 mg PO DAILY [facility] Last Admin: 10/09/18 10:21 Dose: 10 mg Atorvastatin Calcium (Lipitor -) 10 mg PO HS [facility] Last Admin: 10/08/18 22:26 Dose: 10 mg Budesonide/Formoterol Fumarate (Symbicort 80/4.5mcg -) 2 puff IH BID [facility] Last Admin: 10/09/18 10:26 Dose: 2 puff Bupropion HCl (Wellbutrin Xl -) 150 mg PO DAILY [facility] Last Admin: 10/09/18 10:45 Dose: Not Given Calcium Carbonate/Cholecalciferol (Os-Mikhail 500+D -) 2 tab PO DAILY [facility] Last Admin: 10/09/18 10:21 Dose: 2 tab Cholecalciferol (Vitamin D3 -) 2,000 unit PO DAILY [facility] Last Admin: 10/09/18 10:20 Dose: 2,000 unit Gabapentin (Neurontin -) 800 mg PO BID [facility] Last Admin: 10/09/18 10:21 Dose: 800 mg Heparin Sodium (Porcine) (Heparin -) 5,000 unit SQ BID [facility] Last Admin: 10/09/18 10:21 Dose: 5,000 unit Dextrose/Sodium Chloride (D5-1/2ns -) 1,000 mls @ 75 mls/hr IV ASDIR [facility] Last Admin: 10/09/18 10:18 Dose: 75 mls/hr Letrozole (Femara -) 2.5 mg PO DAILY [facility] Last Admin: 10/09/18 10:27 Dose: 2.5 mg Lorazepam (Ativan -) 0.5 mg PO DAILY [facility] Last Admin: 10/09/18 10:23 Dose: 0.5 mg Metoclopramide HCl (Reglan Injection -) 10 mg IVPB Q8H [facility] Last Admin: 10/09/18 12:12 Dose: 10 mg Metoclopramide HCl (Reglan -) 5 mg PO TIDAC [facility] Last Admin: 10/09/18 17:33 Dose: 5 mg Ondansetron HCl (Zofran Injection) 4 mg IVPB Q4H [facility] Stop: 10/09/18 23:20 Last Admin: 10/09/18 15:43 Dose: 4 mg Ondansetron HCl (Zofran Injection) 4 mg IVPUSH Q4H PRN PRN Reason: NAUSEA AND/OR VOMITING Pantoprazole Sodium (Protonix -) 40 mg PO DAILY [facility] Last Admin: 10/09/18 10:21 Dose: 40 mg Sucralfate (Carafate Oral Suspension -) 1 gm PO QID [facility] Last Admin: 10/09/18 18:35 Dose: 1 gm Sumatriptan Succinate (Imitrex -) 100 mg PO ONCE PRN PRN Reason: HEADACHE Last Admin: 10/08/18 22:26 Dose: 100 mg Topiramate (Topamax -) 25 mg PO BID [facility] Last Admin: 10/09/18 10:27 Dose: 25 mg Valsartan (Diovan -) 160 mg PO DAILY [facility] Last Admin: 10/09/18 10:20 Dose: 160 mg Zolpidem Tartrate (Ambien -) 10 mg PO HS PRN PRN Reason: INSOMNIA Last Admin: 10/08/18 22:37 Dose: 10 mg - Objective Vital Signs: Vital Signs Temperature 98.0 F 10/09/18 18:00 Pulse Rate 85 10/09/18 18:00 Respiratory Rate 18 10/09/18 18:00 Blood Pressure 145/75 10/09/18 18:00 O2 Sat by Pulse Oximetry (%) 99 10/09/18 09:00 HENT: Yes: WNL Neck: Yes: WNL, Supple Cardiovascular: Yes: WNL, Regular Rate and Rhythm Respiratory: Yes: WNL, Regular, CTA Bilaterally Extremities: Yes: WNL Edema: No Labs: CBC, BMP 10/09/18 05:30 10/09/18 05:30 Problem List - Problems (1) Chest pain Assessment/Plan: Serial cpk/troponin have been negative DC Tele monitoring ?GI component GI consult noted Check abdominal US DC planning for am Code(s): R07.9 - CHEST PAIN, UNSPECIFIED Qualifiers: Chest pain type: unspecified Qualified Code(s): R07.9 - Chest pain, unspecified (2) Headache Assessment/Plan: Cont imitrex/topimax Seen by opthmal: no papillary edema Code(s): R51 - HEADACHE Qualifiers: Headache type: unspecified Headache chronicity pattern: unspecified pattern Intractability: not intractable Qualified Code(s): R51 - Headache (3) SOB (shortness of breath) Assessment/Plan: Cont inhalers Code(s): R06.02 - SHORTNESS OF BREATH (4) HTN (hypertension) Assessment/Plan: BP stable Code(s): I10 - ESSENTIAL (PRIMARY) HYPERTENSION (5) HLD (hyperlipidemia) Code(s): E78.5 - HYPERLIPIDEMIA, UNSPECIFIED (6) Breast CA Assessment/Plan: Cont femara Code(s): C50.919 - MALIGNANT NEOPLASM OF UNSP SITE OF UNSPECIFIED FEMALE BREAST
[2018-10-09] MEDS: ZOLPIDEM TARTRATE 5 MG TABLET PO PRN (21:21)
[2018-10-09] MEDS: ATORVASTATIN CA 10 MG TABLET (FP) PO SCH (21:21)
[2018-10-09] MEDS ORDERED: ONDANSETRON 4 MG/2 ML VIAL IVPUSH PRN (23:45)
[2018-10-10 02:21] VITALS: TEMP 98.2
[2018-10-10] MEDS: ONDANSETRON 4 MG/2 ML VIAL IVPB SCH (02:45)
[2018-10-10] MEDS: METOCLOPRAMIDE HCL INJECTION 10 MG/2 ML VIAL IVPB SCH ×2 (02:45→12:33)
[2018-10-10 07:05] VITALS: BP 133/73; PULSE 68
[2018-10-10] MEDS ORDERED: PT OWN MED DRAWER 7, Y5N ONE (10:04)
[2018-10-10] MEDS: HEPARIN NA (PORCINE) 5,000 UNITS/ML 1ML VIAL SQ SCH (10:06)
[2018-10-10] MEDS: SUCRALFATE 1 GM/10 ML UNIT DOSE CUPS PO SCH ×2 (10:06→14:16)
[2018-10-10] MEDS: GABAPENTIN 400 MG CAPSULE (FP) PO SCH (10:06)
[2018-10-10] MEDS: VALSARTAN 160 MG TABLET (UD) PO SCH (10:07)
[2018-10-10] MEDS: CALCIUM 500MG/VIT-D 200 UNITS COMBO TABLET (FP) PO SCH (10:07)
[2018-10-10] MEDS: PANTOPRAZOLE 40 MG TABLET (FP) PO SCH (10:07)
[2018-10-10] MEDS: CHOLECALCIFEROL (VITAMIN D3) 1,000 UNIT TABLET (FP) PO SCH (10:07)
[2018-10-10] MEDS: amLODIPine BESYLATE 10 MG TABLET (FP) PO SCH (10:07)
[2018-10-10] MEDS: LORazepam 0.5 MG TABLET PO SCH (10:08)
[2018-10-10] MEDS: TOPIRAMATE 25 MG TABLET (FP) PO SCH (10:08)
[2018-10-10] MEDS: LETROZOLE 2.5 MG TABLET (FP) PO SCH (10:09)
[2018-10-10] MEDS: BUDESONIDE/FORMETEROL FUMARATE 80/4.5 mcg INHALER IH SCH (10:10)
[2018-10-10] MEDS: ACETAMINOPHEN 325 MG TABLET (FP) PO PRN (11:11)
[2018-10-10] MEDS: METOCLOPRAMIDE HCL 10 MG TABLET (FP) PO SCH ×2 (11:11→11:13)
--- NOTE | 2018-10-10 12:03 | PN ---
Progress Note (short form) - Note Progress Note: s: no cp dyspnea, palps, dizziness Current Medications Generic Name Dose Route Start Last Admin Trade Name Freq PRN Reason Stop Dose Admin Acetaminophen 650 mg 10/08/18 02:14 10/10/18 11:11 Tylenol - PO 650 mg Q6H PRN Administration PAIN Albuterol Sulfate 1 amp 10/08/18 04:29 Ventolin 0.083% Nebulizer Soln - NEB Q8H PRN SHORT OF BREATH/WHEEZING Amlodipine Besylate 10 mg 10/08/18 10:00 10/10/18 10:07 Norvasc - PO 10 mg DAILY LALY Administration Atorvastatin Calcium 10 mg 10/08/18 22:00 10/09/18 21:21 Lipitor - PO 10 mg HS LALY Administration Budesonide/Formoterol Fumarate 2 puff 10/08/18 10:00 10/10/18 10:10 Symbicort 80/4.5mcg - IH 2 puff BID LALY Administration Bupropion HCl 150 mg 10/08/18 10:00 10/10/18 10:12 Wellbutrin Xl - PO Not Given DAILY LALY Calcium Carbonate/Cholecalciferol 2 tab 10/08/18 10:00 10/10/18 10:07 Os-Mikhail 500+D - PO 2 tab DAILY LALY Administration Cholecalciferol 2,000 unit 10/08/18 10:00 10/10/18 10:07 Vitamin D3 - PO 2,000 unit DAILY LALY Administration Gabapentin 800 mg 10/08/18 10:00 10/10/18 10:06 Neurontin - PO 800 mg BID LALY Administration Heparin Sodium (Porcine) 5,000 unit 10/08/18 10:00 10/10/18 10:06 Heparin - SQ 5,000 unit BID LALY Administration Letrozole 2.5 mg 10/08/18 10:00 10/10/18 10:09 Femara - PO 2.5 mg DAILY LALY Administration Lorazepam 0.5 mg 10/08/18 10:00 10/10/18 10:08 Ativan - PO 0.5 mg DAILY LALY Administration Metoclopramide HCl 10 mg 10/09/18 11:30 10/10/18 02:45 Reglan Injection - IVPB 10 mg Q8H LALY Administration Metoclopramide HCl 5 mg 10/09/18 16:30 10/10/18 11:13 Reglan - PO Not Given TIDAC [facility] Ondansetron HCl 4 mg 10/09/18 23:45 Zofran Injection IVPUSH Q4H PRN NAUSEA AND/OR VOMITING Pantoprazole Sodium 40 mg 10/08/18 10:00 10/10/18 10:07 Protonix - PO 40 mg DAILY LALY Administration Sucralfate 1 gm 10/09/18 14:00 10/10/18 10:06 Carafate Oral Suspension - PO 1 gm QID LALY Administration Topiramate 25 mg 10/08/18 22:00 10/10/18 10:08 Topamax - PO 25 mg BID LALY Administration Valsartan 160 mg 10/08/18 10:00 10/10/18 10:07 Diovan - PO 160 mg DAILY LALY Administration Zolpidem Tartrate 10 mg 10/08/18 22:24 10/09/18 21:21 Ambien - PO 10 mg HS PRN Administration INSOMNIA Vital Signs Period Temp Pulse Resp BP Sys/Aleman Pulse Ox Last 24 Hr 97.9 F-98.2 F 68-92 18-18 113-152/59-78 97-97 Constitutional: Yes: Well Nourished, No Distress, Calm Eyes: Yes: Conjunctiva Clear Respiratory: Yes: Regular, CTA Bilaterally Gastrointestinal: Yes: Normal Bowel Sounds, Soft, Tenderness, Epigastrium Cardiovascular: Yes: Regular Rate and Rhythm JVD: No Heart Sounds: Yes: S1, S2 Murmur: No: Systolic Murmur Musculoskeletal: No: Back Pain Extremities: No: Cold Edema: No Peripheral Pulses: 2+ Left Doralis Pedis, 2+ Right Dorsalis Pedis Integumentary: No: Jaundice Neurological: Yes: Oriented Psychiatric: No: Agitated CBC, BMP 10/09/18 05:30 10/09/18 05:30 Assessment/Plan tele:sr EKG: sinus, nl intervals, nonspecific T wave changes CXR: no acute process echo 09/2018 nl LV/RV function, tr TR epigastric pain - trop neg x 3, EKG no ischemic changes - unlikely ACS - concerning for GI etiology given associated diarrhea, vomiting, epigastric tenderness on exam - GI consulted - echo unremarkable, defer further cardiac testing as inpatient HTN - continue home meds COPD - manage per primary headaches - manage per neuro cardiac menon stable, dc tele
== END 2018-10-10 14:53 | disposition home or self-care (01) | DRG 313 ==
LOC: JER 17:10 → JERBED 20:40 → OBSVTOIN 10-08 04:30 → J4S 10-08 12:29
PROVIDERS: ADMIT Internal Medicine; ATTEND Internal Medicine
DX: R07.9 Chest pain, unspecified (principal); Z68.41 Body mass index [BMI] 40.0-44.9, adult; I11.0 Hypertensive heart disease with heart failure; I50.9 Heart failure, unspecified; R10.13 Epigastric pain; G43.909 Migraine, unspecified, not intractable, without status migrainosus; J44.9 Chronic obstructive pulmonary disease, unspecified; C50.919 Malignant neoplasm of unspecified site of unspecified female breast; J45.909 Unspecified asthma, uncomplicated; E03.9 Hypothyroidism, unspecified; K21.9 Gastro-esophageal reflux disease without esophagitis; Z87.891 Personal history of nicotine dependence; Z82.49 Family history of ischemic heart disease and other diseases of the circulatory system; Z90.710 Acquired absence of both cervix and uterus; Z90.13 Acquired absence of bilateral breasts and nipples; I25.10 Atherosclerotic heart disease of native coronary artery without angina pectoris; E66.9 Obesity, unspecified
CPT/HCPCS: 36415; 70460-TC; 71046-TC-FY; 76700-TC; 80053; 80307; 82550; 82553; 84484; 84703; 85025; 87081; 90688; 93005; 93010; 93306-TC; 99284-25; G0008; G0378; J0131; J1644

== ENCOUNTER 2018-11-13 10:35 | Inpatient (IN) | payer BC ==
--- NOTE | 2018-11-13 11:02 | PDOC ---
History of Present Illness <Diana Hannon - Last Filed: 11/13/18 12:17> - General History Source: Patient - History of Present Illness Timing/Duration: reports: other Severity: reports: moderate Associated Symptoms: reports: cough, shortness of breath, wheezing. denies: chest pain/soreness, fever/chills <Caroline MorenoRenzoDella - Last Filed: 11/13/18 12:54> - General Chief Complaint: Asthma Stated Complaint: ASTHMA ATTACK Time Seen by Provider: 11/13/18 10:59 Past History <Diana Hannon - Last Filed: 11/13/18 12:17> - Past Medical History Anemia: Yes Asthma: Yes Cancer: Yes (BREAST 2014) Cardiac Disorders: Yes (HX OF CHEST PAIN 2013 PT REPORTS NEG WORK-UP) CVA: No COPD: Yes CHF: No DVT: No Dementia: No Diabetes: No Dialysis: No GI Disorders: No Disorders: No HTN: Yes Hypercholesterolemia: Yes Kidney Stones: Yes Liver Disease: No Psychiatric Problems: No 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) Thyroid Disease: Yes (HYPOTHYROID) Lung CA: No - Surgical History Abdominal Surgery: No Appendectomy: No Cardiac Surgery: No Cholecystectomy: No Gastric Stapling: No GI Surgery: No Lung Surgery: No Neurologic Surgery: Yes (Back sx 05/2018- Spinal fusion) Orthopedic Surgery: No - Family Disease History Family Disease History: Heart Disease: Sister, CA: Father, Mother, Sister - Reproductive History Cervical CA: No Dysfunctional Uterine Bleeding: No Ectopic : No Endometrial CA: No Polycystic Ovaries: No Therapeutic (s) & number: No Tubal Ligation: Yes - Immunization History Td Vaccination: Yes TDAP Vaccination: Yes Immunization Up to Date: Yes - Suicide/Smoking/Psychosocial Hx Smoking Status: Yes Smoking History: Never smoked Years of Tobacco Use: 0 Have you smoked in the past 12 months: No Number of Cigarettes Smoked Daily: 0 If you are a former smoker, when did you quit?: 2014 Information on smoking cessation initiated: No Hx Alcohol Use: No Drug/Substance Use Hx: No Substance Use Type: Alcohol Hx Substance Use Treatment: No <Leila Moreno - Last Filed: 11/13/18 12:54> - Past Medical History Allergies/Adverse Reactions: Allergies Allergy/AdvReac Type Severity Reaction Status Date / Time No Known Allergies Allergy Verified 10/07/18 17:33 Home Medications: Ambulatory Orders Albuterol 0.083% Nebulizer Fartun [Ventolin 0.083% Nebulizer Soln -] 1 neb NEB TID PRN 10/07/18 Amlodipine Besylate [Norvasc -] 10 mg PO DAILY 10/07/18 Atorvastatin Ca [Lipitor] 10 mg PO HS 10/07/18 Bupropion HCl [Wellbutrin Xl -] 150 mg PO DAILY 10/07/18 Calcium Carbonate/Vitamin D3 [Calcium 600 + Vit D Tablet] 2 each PO DAILY Cholecalciferol (Vitamin D3) [Vitamin D3] 2,000 unit PO DAILY 10/07/18 Diclofenac Sodium [Voltaren] 2 gm TP QID 10/07/18 Fluticasone/Salmeterol [Advair 250-50 Diskus] 1 each IH BID PRN 10/07/18 Gabapentin 800 mg PO BID 10/07/18 Letrozole [Femara] 2.5 mg PO DAILY 10/07/18 Lorazepam 0.5 mg PO DAILY 10/07/18 Pantoprazole Sodium 40 mg PO DAILY 10/07/18 Valsartan [Diovan] 160 mg PO DAILY 10/07/18 acetaZOLAMIDE [Diamox -] 500 mg PO BID 10/07/18 Topiramate 50 mg PO BID #60 tablet 10/10/18 Respiratory Specific PMHX - Complaint Specific PMHX Angina: No <Leila Moreno - Last Filed: 11/13/18 12:54> Review of Systems - Review of Systems Constitutional: No: Chills, Fever Respiratory: Yes: Cough, Shortness of Breath, Wheezing Cardiac (ROS): No: Chest Pain, Palpitations <Leila Moreno - Last Filed: 11/13/18 12:54> *Physical Exam - Vital Signs Last Vital Signs Temp Pulse Resp BP Pulse Ox 98.1 F 94 H 22 H 134/81 97 11/13/18 10:41 11/13/18 10:41 11/13/18 10:41 11/13/18 10:41 11/13/18 10:41 <Diana Hannon - Last Filed: 11/13/18 12:17> - Vital Signs Last Vital Signs Temp Pulse Resp BP Pulse Ox 98.1 F 94 H 22 H 134/81 97 11/13/18 10:41 11/13/18 10:41 11/13/18 10:41 11/13/18 10:41 11/13/18 10:41 - Physical Exam General Appearance: Yes: Appropriately Dressed, Mild Distress HEENT: positive: Normal Voice Neck: positive: Supple Respiratory/Chest: positive: Wheezing Cardiovascular: positive: Regular Rate, S1, S2 Extremity: negative: Pedal Edema Integumentary: positive: Dry, Warm Neurologic: positive: Fully Oriented, Alert, Normal Mood/Affect <Leila Moreno - Last Filed: 11/13/18 12:54> ED Treatment Course - LABORATORY CBC & Chemistry Diagram: 11/13/18 11:30 11/13/18 11:30 - ADDITIONAL ORDERS Additional order review: Laboratory Results 11/13/18 11/13/18 11:30 11:30 Sodium 142 Potassium 4.1 Chloride 112 H Carbon Dioxide 22 Anion Gap 8 BUN 22 H Creatinine 1.3 Est GFR (CKD-EPI)AfAm 56.18 Est GFR (CKD-EPI)NonAf 48.47 Random Glucose 184 H Calcium 8.9 Total Bilirubin 0.4 AST 26 ALT 30 Alkaline Phosphatase 45 Total Protein 6.6 Albumin 3.3 L Serum , Qual Negative 11/13/18 11:30 RBC 4.18 MCV 83.2 MCHC 32.3 RDW 17.3 H MPV 7.8 Neutrophils % 79.7 D Lymphocytes % 16.9 D Monocytes % 2.9 L Eosinophils % 0.1 D Basophils % 0.4 - Medications Given in the ED: ED Medications Discontinued Medications Generic Name Dose Route Start Last Admin Trade Name Freq PRN Reason Stop Dose Admin Albuterol/Ipratropium 1 amp 11/13/18 11:15 11/13/18 12:09 Duoneb - NEB 11/13/18 12:01 1 amp Q15M LALY Administration Magnesium Sulfate 2 gm 11/13/18 11:03 11/13/18 11:54 Magnesium Sulfate IVPB 11/13/18 11:04 2 gm ONCE ONE Administration Methylprednisolone Sodium Succinate 125 mg 11/13/18 11:03 11/13/18 11:26 Solu-Medrol - IVPUSH 11/13/18 11:04 125 mg ONCE ONE Administration <Diana Hannon - Last Filed: 11/13/18 12:17> - LABORATORY CBC & Chemistry Diagram: 11/13/18 11:30 11/13/18 11:30 <Leila Moreno - Last Filed: 11/13/18 12:54> Medical Decision Making - Medical Decision Making The patient was seen and evaluated in conjunction with midlevel provider under my direct supervision, ancillary studies were reviewed. I agree with the plan as outlined ROMY Moreno. HPI, workup/dispo as outlined. VS reviewed, no fever but RR 20s noted, normal sats asthma vs copd exacerbation. treatments with steroid, albuterol/atrovent nebs, mag and reassess. labs reviewed, wnl. neg preg test. CXR unremarkable. 11/13/18 12:17 <Diana Hannon - Last Filed: 11/13/18 12:17> - Medical Decision Making 11/13/18 10:59 48-year-old female, former smoker, HTN, history of asthma/COPD, uses oxygen at home as needed, breast cancer s/p post double mastectomy/chemo, here with persistent shortness of breath with wheezing and productive cough ~2 weeks. No hemoptysis, fever, chills, palpitations, leg pain/swelling. Seen by her primary doctor 3 days ago and states she had a chest x-ray done which was negative. Given a shot of Solu-Medrol in office and currently on Pred burst but states symptoms have not improved. Reports that she was also given an IM dose of abx in office but not sent home with a prescription. Patient states her last admission for asthma was a year ago. No history of intubations See exam Asthma/copd flare, r/o PNA, PE considered given h/o breast cancer though unlikely given duration of sxs and not tachycardic here Sxs not improving despite steroid/nebs at home Tachypneic here w/ wheezing diffusely -duoneb -steroid (to 20mg po this am) -mag at this point -anticipate admission 11/13/18 12:46 Case d/w Dr Rodríguez and pt admitted <Leila Moreno - Last Filed: 11/13/18 12:54> *DC/Admit/Observation/Transfer <Diana Hannon - Last Filed: 11/13/18 12:17> - Discharge Dispostion Decision to Admit order: Yes <Leila Moreno - Last Filed: 11/13/18 12:54> Diagnosis at time of Disposition: History of COPD Asthma exacerbation Qualifiers: Asthma severity: moderate Asthma persistence: persistent Qualified Code(s): J45.41 - Moderate persistent asthma with (acute) exacerbation - Discharge Dispostion Condition at time of disposition: Fair
[2018-11-13] MEDS ORDERED: AZITHROMYCIN IVPB 500 MG in DEXTROSE 5%-WATER - 250 ML IVPB ONE (11:03)
[2018-11-13] MEDS ORDERED: methylPREDNISolone NA SUCC 125 MG/2 ML VIAL IVPUSH ONE (11:03)
[2018-11-13] MEDS ORDERED: MAGNESIUM SULF 50% (8.12 MEQ/2 ML-1 GM VIAL) IVPB ONE (11:03)
[2018-11-13] MEDS ORDERED: ALBUTEROL SO4 2.5/IPRATROPIUM 0.5 INH SOL 3 ML VIAL.NEB. NEB ONE ×2 (11:04→13:01)
[2018-11-13] MEDS ORDERED: methylPREDNISolone NA SUCC 125 MG/2 ML VIAL ONE (11:05)
[2018-11-13] MEDS: ALBUTEROL SO4 2.5/IPRATROPIUM 0.5 INH SOL 3 ML VIAL.NEB. NEB SCH ×6 (11:12→20:20)
[2018-11-13] MEDS ORDERED: MAGNESIUM SULF 50% (8.12 MEQ/2 ML-1 GM VIAL) ONE (11:13)
[2018-11-13] MEDS ORDERED: AZITHROMYCIN IVPB 500 MG/250 ML BAG IVPB ONE (11:13)
[2018-11-13 11:35] LABS: BASO % 0.4 % (0-2.0); EOS % 0.1 % (0-4.5); HEMATOCRIT 34.8 % (32.4-45.2); HEMOGLOBIN 11.2 GM/dL (10.7-15.3); LYMPH % 16.9 % (8-40); MCH 26.8 pg (25.7-33.7); MCHC 32.3 g/dl (32.0-36.0); MEAN CELL VOLUME 83.2 fl (80-96); MEAN PLT VOLUME 7.8 fl (7.5-11.1); MONO % 2.9 % (3.8-10.2); NEUT % 79.7 % (42.8-82.8); PLATELET COUNT 222 K/MM3 (134-434); RBC 4.18 M/mm3 (3.60-5.2); RDW 17.3 % (11.6-15.6); WHITE BLOOD COUNT 9.8 K/mm3 (4.0-10.0)
[2018-11-13 12:03] LABS: ALBUMIN 3.3 g/dl (3.4-5.0); BILIRUBIN,TOTAL 0.4 mg/dL (0.2-1); CALCIUM 8.9 mg/dL (8.5-10.1); CREATININE 1.3 mg/dL (0.55-1.3); POTASSIUM 4.1 mmol/L (3.5-5.1); TOT PROT 6.6 g/dl (6.4-8.2)
--- NOTE | 2018-11-13 12:51 | EKG ---
Test Reason : Blood Pressure : / mmHG Vent. Rate : 083 BPM Atrial Rate : 083 BPM P-R Int : 120 ms QRS Dur : 092 ms QT Int : 364 ms P-R-T Axes : 036 -27 -11 degrees QTc Int : 427 ms NORMAL SINUS RHYTHM WITH SINUS ARRHYTHMIA SEPTAL INFARCT (CITED ON OR BEFORE 12-MAR-2017) ABNORMAL ECG WHEN COMPARED WITH ECG OF 07-OCT-2018 23:07, QUESTIONABLE CHANGE IN INITIAL FORCES OF SEPTAL LEADS T WAVE INVERSION LESS EVIDENT IN INFERIOR LEADS NONSPECIFIC T WAVE ABNORMALITY NO LONGER EVIDENT IN LATERAL LEADS Confirmed by RADHA VELASQUEZ MD ([id number]) on 11/13/2018 12:50:48 PM Referred By: Confirmed By:RADHA VELASQUEZ MD
[2018-11-13 14:44] VITALS: BMI 39.1
--- NOTE | 2018-11-13 14:46 | CON.PULM ---
Consult Consult Specialty:: PULMONARY Referred by:: Dr Rodríguez Reason for Consultation:: shortness of breath - History of Present Illness Chief Complaint: shortness of breath History of Present Illness: 48yo female with h/o HTN, hyperlipidemia, asthma diagnosed as adult, former smoker, h/o breast ca s/p double mastectomy who was admitted with worsening shortness of breath x 5 days. Denies chest pain or palpitations. +cough productive of thick, clear sputum and wheezing. +chest tightness. No fevers or chills but with sweats. No sick contacts or recent travel. Maintained at home on Symbicort, Singulair and albuterol. Was started on prednisone as outpt 2 days ago without significant improvement. Prior to this episode, her asthma was well controlled. Has not been hospitalized or on prednisone in years. Unknown best peak flow. She is a former smoker, started at age 15, smoked 4-5 cigarettes /day until 2014. 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, Other (Pseudotumor cerebri?) Cardio/Vascular: Yes: CAD, HTN, Hyperlipdemia Pulmonary: Yes: COPD Gastrointestinal: Yes: Constipation, Other (colon polyps) Renal/: Yes: Renal Calculi Musculoskeletal: Yes: Chronic low back pain Endocrine: Yes: Diabetes Mellitus, Hypothyroidism - Past Surgical History Past Surgical History: Yes: Hysterectomy, Mastectomy - Alcohol/Substance Use Hx Alcohol Use: No History of Substance Use: reports: None - Smoking History Smoking history: Never smoked Have you smoked in the past 12 months: No Aproximately how many cigarettes per day: 0 If you are a former smoker, when did you quit?: 2014 - Social History Usual Living Arrangement: With Spouse ADL: Independent 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, 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, 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 History of Recent Travel: No Home Medications - Allergies Allergies/Adverse Reactions: Allergies Allergy/AdvReac Type Severity Reaction Status Date / Time No Known Allergies Allergy Verified 10/07/18 17:33 - Home Medications Home Medications: Ambulatory Orders Albuterol 0.083% Nebulizer Fartun [Ventolin 0.083% Nebulizer Soln -] 1 neb NEB TID PRN 10/07/18 Amlodipine Besylate [Norvasc -] 10 mg PO DAILY 10/07/18 Atorvastatin Ca [Lipitor] 10 mg PO HS 10/07/18 Bupropion HCl [Wellbutrin Xl -] 150 mg PO DAILY 10/07/18 Calcium Carbonate/Vitamin D3 [Calcium 600 + Vit D Tablet] 2 each PO DAILY Cholecalciferol (Vitamin D3) [Vitamin D3] 2,000 unit PO DAILY 10/07/18 Diclofenac Sodium [Voltaren] 2 gm TP QID 10/07/18 Fluticasone/Salmeterol [Advair 250-50 Diskus] 1 each IH BID PRN 10/07/18 Gabapentin 800 mg PO BID 10/07/18 Letrozole [Femara] 2.5 mg PO DAILY 10/07/18 Lorazepam 0.5 mg PO DAILY 10/07/18 Pantoprazole Sodium 40 mg PO DAILY 10/07/18 Valsartan [Diovan] 160 mg PO DAILY 10/07/18 acetaZOLAMIDE [Diamox -] 500 mg PO BID 10/07/18 Topiramate 50 mg PO BID #60 tablet 10/10/18 Family Disease History - Family Disease History Family Disease History: CA: Father (triple negative breast ca), Mother (triple negative breast ca), Sister (2-sisters, one BRCA-pos; one -s/p lumpectomy) Review of Systems - Review of Systems Constitutional: reports: Weakness. denies: Chills, Fever Eyes: denies: Recent Change in Vision HENT: denies: Nasal Congestion, Throat Pain Neck: denies: Stiffness, Tenderness Cardiovascular: reports: Shortness of Breath. denies: Chest Pain, Edema, Palpitations Respiratory: reports: Cough, Exercise Intolerance, SOB, SOB on Exertion, Wheezing. denies: Hemoptysis Gastrointestinal: denies: Abdominal Pain, Nausea, Vomiting Genitourinary: denies: Dysuria, Hematuria Neurological: denies: Dizziness, Headache Endocrine: denies: Unexplained Weight Loss Physical Exam Vital Sings: Vital Signs Temperature 98.3 F 11/13/18 13:37 Pulse Rate 98 H 11/13/18 13:37 Respiratory Rate 18 11/13/18 13:37 Blood Pressure 136/77 11/13/18 13:37 O2 Sat by Pulse Oximetry (%) 100 11/13/18 13:37 Constitutional: Yes: Calm Eyes: Yes: Conjunctiva Clear, EOM Intact HENT: Yes: Atraumatic, Normocephalic Neck: Yes: Supple, Trachea Midline Cardiovascular: Yes: Regular Rate and Rhythm Respiratory: Yes: Diminished (decreased air movement), Wheezes (scattered) ...Clubbing: No Gastrointestinal: Yes: Normal Bowel Sounds, Soft. No: Tenderness Edema: No Neurological: Yes: Alert, Oriented Labs: CBC, BMP 11/13/18 11:30 11/13/18 11:30 Imaging - Results Chest X-ray: Report Reviewed, Image Reviewed (no infiltrates) Problem List - Problems (1) Exacerbation of asthma Code(s): J45.901 - UNSPECIFIED ASTHMA WITH (ACUTE) EXACERBATION Qualifiers: Asthma severity: moderate Asthma persistence: persistent Qualified Code(s ): J45.41 - Moderate persistent asthma with (acute) exacerbation (2) HLD (hyperlipidemia) Code(s): E78.5 - HYPERLIPIDEMIA, UNSPECIFIED (3) HTN (hypertension) Code(s): I10 - ESSENTIAL (PRIMARY) HYPERTENSION (4) Lung nodule, multiple Code(s): R91.8 - OTHER NONSPECIFIC ABNORMAL FINDING OF LUNG FIELD Assessment/Plan Acute Asthma Exacerbation Lung Nodules HTN Hyperlipidemia h/o Breast Ca - IV medrol - inhaled bronchodilators standing and PRN - singulair - empiric azithromycin - monitor peak flow - CT chest noncontrast to re-evaluate lung nodules - O2 as needed - outpt PFTs - DVT prophylaxis Thank you for this consult Amanuel Hernandez MD
[2018-11-13] MEDS ORDERED: ALBUTEROL SO4 0.083% IH SOL 2.5 MG/3 ML VIAL.NEB. NEB PRN ×2 (14:52→15:11)
[2018-11-13] MEDS ORDERED: ALBUTEROL SO4 2.5/IPRATROPIUM 0.5 INH SOL 3 ML VIAL.NEB. NEB PRN (15:12)
[2018-11-13] MEDS ORDERED: LORazepam 0.5 MG TABLET PO SCH (15:15)
[2018-11-13] MEDS: methylPREDNISolone NA SUCC 40 MG/1 ML VIAL IVPUSH SCH (17:16)
[2018-11-13] MEDS: LETROZOLE 2.5 MG TABLET (FP) PO SCH (17:18)
[2018-11-13] MEDS ORDERED: PT OWN MED DRAWER 7, Y5N ONE ×2 (17:47→21:13)
[2018-11-13] MEDS ORDERED: methylPREDNISolone NA SUCC 40 MG/1 ML VIAL IVPUSH SCH (18:00)
[2018-11-13] MEDS: MONTELUKAST NA 10 MG TABLET PO SCH (21:16)
[2018-11-13] MEDS: acetaZOLAMIDE 250 MG TABLET PO SCH (21:16)
[2018-11-13] MEDS: ATORVASTATIN CA 10 MG TABLET (FP) PO SCH (21:16)
[2018-11-13] MEDS: GABAPENTIN 400 MG CAPSULE (FP) PO SCH (21:16)
[2018-11-13] MEDS: BUDESONIDE/FORMETEROL FUMARATE 160/4.5 mcg INHALER IH SCH (21:17)
[2018-11-13] MEDS ORDERED: PATIENT'S OWN MEDICATION (NON-FORMULARY) (Topiramate [Topiramate] 50 MG) PO SCH (22:00)
[2018-11-13] MEDS ORDERED: BUDESONIDE/FORMETEROL FUMARATE 80/4.5 mcg INHALER IH SCH (22:00)
[2018-11-13] MEDS ORDERED: ALBUTEROL SO4 0.083% IH SOL 2.5 MG/3 ML VIAL.NEB. NEB ONE (22:54)
--- NOTE | 2018-11-13 23:17 | HP ---
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, Other (Pseudotumor cerebri?) Cardiovascular: Yes: CAD, HTN, Hyperlipdemia Pulmonary: Yes: COPD Gastrointestinal: Yes: Constipation, Other (colon polyps) Renal/: Yes: Renal Calculi ...LMP: 03/15/10 ...LMP Comment: s/p hysterectomy ...: No Heme/Onc: Yes: Cancer (Breast CA) Musculoskeletal: Yes: Chronic low back pain Endocrine: Yes: Diabetes Mellitus, Hypothyroidism - Past Surgical History Past Surgical History: Yes: Hysterectomy, Mastectomy - Smoking History Smoking history: Never smoked Have you smoked in the past 12 months: No Aproximately how many cigarettes per day: 0 If you are a former smoker, when did you quit?: 2014 - Alcohol/Substance Use Hx Alcohol Use: No History of Substance Use: reports: None - Social History ADL: Independent 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, 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, 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 History of Recent Travel: No Home Medications - Allergies Allergies/Adverse Reactions: Allergies Allergy/AdvReac Type Severity Reaction Status Date / Time No Known Allergies Allergy Verified 10/07/18 17:33 - Home Medications Home Medications: Ambulatory Orders Albuterol 0.083% Nebulizer Fartun [Ventolin 0.083% Nebulizer Soln -] 1 neb NEB TID PRN 10/07/18 Amlodipine Besylate [Norvasc -] 10 mg PO DAILY 10/07/18 Atorvastatin Ca [Lipitor] 10 mg PO HS 10/07/18 Bupropion HCl [Wellbutrin Xl -] 150 mg PO DAILY 10/07/18 Calcium Carbonate/Vitamin D3 [Calcium 600 + Vit D Tablet] 2 each PO DAILY Cholecalciferol (Vitamin D3) [Vitamin D3] 2,000 unit PO DAILY 10/07/18 Diclofenac Sodium [Voltaren] 2 gm TP QID 10/07/18 Fluticasone/Salmeterol [Advair 250-50 Diskus] 1 each IH BID PRN 10/07/18 Gabapentin 800 mg PO BID 10/07/18 Letrozole [Femara] 2.5 mg PO DAILY 10/07/18 Lorazepam 0.5 mg PO DAILY 10/07/18 Pantoprazole Sodium 40 mg PO DAILY 10/07/18 Valsartan [Diovan] 160 mg PO DAILY 10/07/18 acetaZOLAMIDE [Diamox -] 500 mg PO BID 10/07/18 Topiramate 50 mg PO BID #60 tablet 10/10/18 Family Disease History - Family Disease History Family Disease History: CA: Father (triple negative breast ca), Mother (triple negative breast ca), Sister (2-sisters, one BRCA-pos; one -s/p lumpectomy) Physical Examination Vital Signs: Vital Signs Temperature 98.6 F 11/13/18 22:16 Pulse Rate 80 11/13/18 22:16 Respiratory Rate 0 L 11/13/18 22:16 Blood Pressure 124/70 11/13/18 22:16 O2 Sat by Pulse Oximetry (%) 100 11/13/18 21:00 Labs: CBC, BMP 11/13/18 11:30 11/13/18 11:30
[2018-11-13] MEDS: ZOLPIDEM TARTRATE 5 MG TABLET PO PRN (23:18)
[2018-11-13] MEDS: guaiFENesin 200 MG/10 ML 10 ML UNIT-DOSE CUPS PO PRN (23:18)
[2018-11-14] MEDS: methylPREDNISolone NA SUCC 40 MG/1 ML VIAL IVPUSH SCH ×3 (01:29→17:40)
[2018-11-14] MEDS: guaiFENesin 200 MG/10 ML 10 ML UNIT-DOSE CUPS PO PRN (07:07)
[2018-11-14] MEDS: ALBUTEROL SO4 2.5/IPRATROPIUM 0.5 INH SOL 3 ML VIAL.NEB. NEB SCH ×4 (07:35→20:15)
[2018-11-14] MEDS ORDERED: PT OWN MED DRAWER 7, Y5N ONE (09:25)
[2018-11-14] MEDS: AZITHROMYCIN IVPB 500 MG/250 ML BAG IVPB SCH (09:31)
[2018-11-14] MEDS: GABAPENTIN 400 MG CAPSULE (FP) PO SCH ×2 (09:32→21:33)
[2018-11-14] MEDS: amLODIPine BESYLATE 10 MG TABLET (FP) PO SCH (09:32)
[2018-11-14] MEDS: ENOXAPARIN NA (PORCINE) 40 MG/0.4 ML DISP.SYRIN SQ SCH (09:33)
[2018-11-14] MEDS: VALSARTAN 160 MG TABLET (UD) PO SCH (09:33)
[2018-11-14] MEDS: acetaZOLAMIDE 250 MG TABLET PO SCH ×2 (09:34→21:34)
[2018-11-14] MEDS: LETROZOLE 2.5 MG TABLET (FP) PO SCH (09:34)
[2018-11-14] MEDS: BUDESONIDE/FORMETEROL FUMARATE 160/4.5 mcg INHALER IH SCH ×2 (09:35→21:46)
--- NOTE | 2018-11-14 11:00 | PN ---
Progress Note (short form) - Note Progress Note: PULMONARY States breathing about the same or slightly worse. +cough with thick clear sputum and wheezing. No fevers or chills. CT chest showing unchanged pleural nodules. Vital Signs Period Temp Pulse Resp BP Sys/Aleman Pulse Ox Last 24 Hr 98.3 F-98.7 F 78-98 0-20 121-136/60-77 100-100 Gen: frequent cough Heart: RRR Lung: scattered rhonchi, wheezes Abd: soft, nontender Ext: no edema CBC, BMP 11/13/18 11:30 11/13/18 11:30 Active Medications Acetazolamide (Diamox -) 500 mg PO BID [facility] Last Admin: 11/14/18 09:34 Dose: 500 mg Albuterol/Ipratropium (Duoneb -) 1 amp NEB RQID [facility] Last Admin: 11/13/18 20:20 Dose: 1 amp Amlodipine Besylate (Norvasc -) 10 mg PO DAILY [facility] Last Admin: 11/14/18 09:32 Dose: 10 mg Atorvastatin Calcium (Lipitor -) 10 mg PO HS [facility] Last Admin: 11/13/18 21:16 Dose: 10 mg Budesonide/Formoterol Fumarate (Symbicort 160/4.5mcg -) 2 puff IH BID [facility] Last Admin: 11/14/18 09:35 Dose: 2 puff Bupropion HCl (Wellbutrin Xl -) 150 mg PO DAILY [facility] Last Admin: 11/14/18 09:45 Dose: Not Given Enoxaparin Sodium (Lovenox -) 40 mg SQ DAILY [facility] Last Admin: 11/14/18 09:33 Dose: 40 mg Gabapentin (Neurontin -) 800 mg PO BID [facility] Last Admin: 11/14/18 09:32 Dose: 800 mg Guaifenesin (Robitussin -) 10 ml PO Q6H PRN PRN Reason: COUGH Last Admin: 11/14/18 07:07 Dose: 10 ml Azithromycin (Zithromax 500mg Ivpb (Pre-Docked)) 500 mg in 250 mls @ 250 mls/ hr IVPB DAILY [facility] Last Admin: 11/14/18 09:31 Dose: 250 mls/hr Letrozole (Femara -) 2.5 mg PO DAILY [facility] Last Admin: 11/14/18 09:34 Dose: 2.5 mg Lorazepam (Ativan -) 0.5 mg PO DAILY [facility] Methylprednisolone Sodium Succinate (Solu-Medrol -) 40 mg IVPUSH Q8H-IV [facility] Last Admin: 11/14/18 09:31 Dose: 40 mg Montelukast Sodium (Singulair -) 10 mg PO HS [facility] Last Admin: 11/13/18 21:16 Dose: 10 mg Non-Formulary Medication (Topiramate [Topiramate]) 50 mg PO BID [facility] Valsartan (Diovan -) 160 mg PO DAILY [facility] Last Admin: 11/14/18 09:33 Dose: 160 mg Zolpidem Tartrate (Ambien -) 10 mg PO HS PRN PRN Reason: INSOMNIA Last Admin: 11/13/18 23:18 Dose: 10 mg A/P Acute Asthma Exacerbation Lung Nodules HTN Hyperlipidemia h/o Breast Ca - will increase medrol to 60mg - inhaled bronchodilators standing and PRN - singulair - empiric azithromycin - monitor peak flow - O2 as needed - outpt PFTs - DVT prophylaxis Problem List - Problems (1) Exacerbation of asthma Code(s): J45.901 - UNSPECIFIED ASTHMA WITH (ACUTE) EXACERBATION Qualifiers: Asthma severity: moderate Asthma persistence: persistent Qualified Code(s ): J45.41 - Moderate persistent asthma with (acute) exacerbation (2) HLD (hyperlipidemia) Code(s): E78.5 - HYPERLIPIDEMIA, UNSPECIFIED (3) HTN (hypertension) Code(s): I10 - ESSENTIAL (PRIMARY) HYPERTENSION (4) Lung nodule, multiple Code(s): R91.8 - OTHER NONSPECIFIC ABNORMAL FINDING OF LUNG FIELD
[2018-11-14] MEDS ORDERED: guaiFENesin/CODEINE 10 ML UNIT-DOSE CUPS PO PRN (11:01)
[2018-11-14] MEDS: guaiFENesin/CODEINE 10 ML UNIT-DOSE CUPS PO PRN ×2 (18:05→23:39)
[2018-11-14] MEDS: ATORVASTATIN CA 10 MG TABLET (FP) PO SCH (21:34)
[2018-11-14] MEDS: MONTELUKAST NA 10 MG TABLET PO SCH (21:34)
[2018-11-14] MEDS: ZOLPIDEM TARTRATE 5 MG TABLET PO PRN (21:46)
--- NOTE | 2018-11-14 23:49 | PN ---
Progress Note, Physician - Current Medication List Current Medications: Active Medications Acetazolamide (Diamox -) 500 mg PO BID [facility] Last Admin: 11/14/18 21:34 Dose: 500 mg Albuterol/Ipratropium (Duoneb -) 1 amp NEB RQID [facility] Last Admin: 11/14/18 20:15 Dose: 1 amp Amlodipine Besylate (Norvasc -) 10 mg PO DAILY [facility] Last Admin: 11/14/18 09:32 Dose: 10 mg Atorvastatin Calcium (Lipitor -) 10 mg PO HS [facility] Last Admin: 11/14/18 21:34 Dose: 10 mg Budesonide/Formoterol Fumarate (Symbicort 160/4.5mcg -) 2 puff IH BID [facility] Last Admin: 11/14/18 21:46 Dose: 2 puff Bupropion HCl (Wellbutrin Xl -) 150 mg PO DAILY [facility] Last Admin: 11/14/18 09:45 Dose: Not Given Enoxaparin Sodium (Lovenox -) 40 mg SQ DAILY [facility] Last Admin: 11/14/18 09:33 Dose: 40 mg Gabapentin (Neurontin -) 800 mg PO BID [facility] Last Admin: 11/14/18 21:33 Dose: 800 mg Guaifenesin/Codeine Phosphate (Robitussin Ac -) 10 ml PO Q6H PRN PRN Reason: COUGH Last Admin: 11/14/18 23:39 Dose: 10 ml Azithromycin (Zithromax 500mg Ivpb (Pre-Docked)) 500 mg in 250 mls @ 250 mls/ hr IVPB DAILY [facility] Last Admin: 11/14/18 09:31 Dose: 250 mls/hr Letrozole (Femara -) 2.5 mg PO DAILY [facility] Last Admin: 11/14/18 09:34 Dose: 2.5 mg Lorazepam (Ativan -) 0.5 mg PO DAILY [facility] Methylprednisolone Sodium Succinate (Solu-Medrol -) 60 mg IVPUSH Q8H-IV [facility] Last Admin: 11/14/18 17:40 Dose: 60 mg Montelukast Sodium (Singulair -) 10 mg PO HS [facility] Last Admin: 11/14/18 21:34 Dose: 10 mg Non-Formulary Medication (Topiramate [Topiramate]) 50 mg PO BID [facility] Valsartan (Diovan -) 160 mg PO DAILY [facility] Last Admin: 11/14/18 09:33 Dose: 160 mg Zolpidem Tartrate (Ambien -) 10 mg PO HS PRN PRN Reason: INSOMNIA Last Admin: 11/14/18 21:46 Dose: 10 mg - Objective Vital Signs: Vital Signs Temperature 98.1 F 11/14/18 22:23 Pulse Rate 80 11/14/18 22:23 Respiratory Rate 20 11/14/18 22:23 Blood Pressure 102/70 11/14/18 22:23 O2 Sat by Pulse Oximetry (%) 100 11/14/18 09:00 Labs: CBC, BMP 11/13/18 11:30 11/13/18 11:30
[2018-11-15] MEDS: methylPREDNISolone NA SUCC 40 MG/1 ML VIAL IVPUSH SCH ×3 (02:08→17:32)
[2018-11-15] MEDS: guaiFENesin/CODEINE 10 ML UNIT-DOSE CUPS PO PRN ×3 (06:14→17:32)
[2018-11-15] MEDS: ALBUTEROL SO4 2.5/IPRATROPIUM 0.5 INH SOL 3 ML VIAL.NEB. NEB SCH ×4 (07:25→20:45)
[2018-11-15] MEDS: ENOXAPARIN NA (PORCINE) 40 MG/0.4 ML DISP.SYRIN SQ SCH (10:32)
[2018-11-15] MEDS: GABAPENTIN 400 MG CAPSULE (FP) PO SCH ×2 (10:32→21:20)
[2018-11-15] MEDS: AZITHROMYCIN IVPB 500 MG/250 ML BAG IVPB SCH (10:33)
[2018-11-15] MEDS: amLODIPine BESYLATE 10 MG TABLET (FP) PO SCH (10:33)
[2018-11-15] MEDS: VALSARTAN 160 MG TABLET (UD) PO SCH (10:33)
[2018-11-15] MEDS ORDERED: PT OWN MED DRAWER 7, Y5N ONE ×2 (10:35→21:08)
[2018-11-15] MEDS: acetaZOLAMIDE 250 MG TABLET PO SCH ×2 (10:36→21:20)
[2018-11-15] MEDS: LETROZOLE 2.5 MG TABLET (FP) PO SCH (10:36)
[2018-11-15] MEDS: BUDESONIDE/FORMETEROL FUMARATE 160/4.5 mcg INHALER IH SCH ×2 (10:40→21:24)
--- NOTE | 2018-11-15 13:02 | PN ---
Progress Note, Physician History of Present Illness: PULMONARY ALERT,STILL CONGESTED,SOB,COUGH - Current Medication List Current Medications: Active Medications Acetazolamide (Diamox -) 500 mg PO BID [facility] Last Admin: 11/15/18 10:36 Dose: 500 mg Albuterol/Ipratropium (Duoneb -) 1 amp NEB RQID [facility] Last Admin: 11/15/18 11:40 Dose: 1 amp Amlodipine Besylate (Norvasc -) 10 mg PO DAILY [facility] Last Admin: 11/15/18 10:33 Dose: 10 mg Atorvastatin Calcium (Lipitor -) 10 mg PO HS [facility] Last Admin: 11/14/18 21:34 Dose: 10 mg Budesonide/Formoterol Fumarate (Symbicort 160/4.5mcg -) 2 puff IH BID [facility] Last Admin: 11/15/18 10:40 Dose: 2 puff Bupropion HCl (Wellbutrin Xl -) 150 mg PO DAILY [facility] Last Admin: 11/15/18 10:33 Dose: Not Given Enoxaparin Sodium (Lovenox -) 40 mg SQ DAILY [facility] Last Admin: 11/15/18 10:32 Dose: 40 mg Gabapentin (Neurontin -) 800 mg PO BID [facility] Last Admin: 11/15/18 10:32 Dose: 800 mg Guaifenesin/Codeine Phosphate (Robitussin Ac -) 10 ml PO Q6H PRN PRN Reason: COUGH Last Admin: 11/15/18 11:50 Dose: 10 ml Azithromycin (Zithromax 500mg Ivpb (Pre-Docked)) 500 mg in 250 mls @ 250 mls/ hr IVPB DAILY [facility] Last Admin: 11/15/18 10:33 Dose: 250 mls/hr Letrozole (Femara -) 2.5 mg PO DAILY [facility] Last Admin: 11/15/18 10:36 Dose: 2.5 mg Methylprednisolone Sodium Succinate (Solu-Medrol -) 60 mg IVPUSH Q8H-IV [facility] Last Admin: 11/15/18 10:33 Dose: 60 mg Montelukast Sodium (Singulair -) 10 mg PO HS [facility] Last Admin: 11/14/18 21:34 Dose: 10 mg Valsartan (Diovan -) 160 mg PO DAILY [facility] Last Admin: 11/15/18 10:33 Dose: 160 mg Zolpidem Tartrate (Ambien -) 10 mg PO HS PRN PRN Reason: INSOMNIA Last Admin: 11/14/18 21:46 Dose: 10 mg - Objective Vital Signs: Vital Signs Temperature 98.0 F 11/15/18 08:36 Pulse Rate 95 H 11/15/18 08:36 Respiratory Rate 18 11/15/18 08:36 Blood Pressure 148/88 11/15/18 08:36 O2 Sat by Pulse Oximetry (%) 100 11/14/18 21:00 Constitutional: Yes: Well Nourished, Calm Eyes: Yes: WNL HENT: Yes: WNL Neck: Yes: WNL Cardiovascular: Yes: Regular Rate and Rhythm, S1, S2 Respiratory: Yes: Rhonchi (DIFFUSE ANAI WHEEZES AND RHONCHI), Wheezes Gastrointestinal: Yes: Normal Bowel Sounds, Soft Extremities: Yes: WNL Edema: No Labs: CBC, BMP 11/13/18 11:30 11/13/18 11:30 Assessment/Plan - Problems (1) Exacerbation of asthma Code(s): J45.901 - UNSPECIFIED ASTHMA WITH (ACUTE) EXACERBATION Qualifiers: Asthma severity: moderate Asthma persistence: persistent Qualified Code(s ): J45.41 - Moderate persistent asthma with (acute) exacerbation (2) HLD (hyperlipidemia) Code(s): E78.5 - HYPERLIPIDEMIA, UNSPECIFIED (3) HTN (hypertension) Code(s): I10 - ESSENTIAL (PRIMARY) HYPERTENSION (4) Lung nodule, multiple Code(s): R91.8 - OTHER NONSPECIFIC ABNORMAL FINDING OF LUNG FIELD Assessment/Plan Acute Asthma Exacerbation Lung Nodules no change HTN Hyperlipidemia h/o Breast Ca - IV medrol q6h - inhaled bronchodilators standing and PRN - singulair - empiric azithromycin - monitor peak flow - O2 as needed - outpt PFTs - DVT prophylaxis DR TRINH
[2018-11-15] MEDS: MONTELUKAST NA 10 MG TABLET PO SCH (21:20)
[2018-11-15] MEDS: ATORVASTATIN CA 10 MG TABLET (FP) PO SCH (21:21)
[2018-11-15] MEDS: ZOLPIDEM TARTRATE 5 MG TABLET PO PRN (21:22)
--- NOTE | 2018-11-15 22:25 | PN ---
Progress Note, Physician History of Present Illness: Pt still w/ increased cough - Current Medication List Current Medications: Active Medications Acetazolamide (Diamox -) 500 mg PO BID [facility] Last Admin: 11/15/18 21:20 Dose: 500 mg Albuterol/Ipratropium (Duoneb -) 1 amp NEB RQID [facility] Last Admin: 11/15/18 20:45 Dose: 1 amp Amlodipine Besylate (Norvasc -) 10 mg PO DAILY [facility] Last Admin: 11/15/18 10:33 Dose: 10 mg Atorvastatin Calcium (Lipitor -) 10 mg PO HS [facility] Last Admin: 11/15/18 21:21 Dose: 10 mg Budesonide/Formoterol Fumarate (Symbicort 160/4.5mcg -) 2 puff IH BID [facility] Last Admin: 11/15/18 21:24 Dose: 2 puff Bupropion HCl (Wellbutrin Xl -) 150 mg PO DAILY [facility] Last Admin: 11/15/18 10:33 Dose: Not Given Enoxaparin Sodium (Lovenox -) 40 mg SQ DAILY [facility] Last Admin: 11/15/18 10:32 Dose: 40 mg Gabapentin (Neurontin -) 800 mg PO BID [facility] Last Admin: 11/15/18 21:20 Dose: 800 mg Guaifenesin/Codeine Phosphate (Robitussin Ac -) 10 ml PO Q6H PRN PRN Reason: COUGH Last Admin: 11/15/18 17:32 Dose: 10 ml Azithromycin (Zithromax 500mg Ivpb (Pre-Docked)) 500 mg in 250 mls @ 250 mls/ hr IVPB DAILY [facility] Last Admin: 11/15/18 10:33 Dose: 250 mls/hr Letrozole (Femara -) 2.5 mg PO DAILY [facility] Last Admin: 11/15/18 10:36 Dose: 2.5 mg Methylprednisolone Sodium Succinate (Solu-Medrol -) 60 mg IVPUSH Q8H-IV [facility] Last Admin: 11/15/18 17:32 Dose: 60 mg Montelukast Sodium (Singulair -) 10 mg PO HS [facility] Last Admin: 11/15/18 21:20 Dose: 10 mg Valsartan (Diovan -) 160 mg PO DAILY [facility] Last Admin: 11/15/18 10:33 Dose: 160 mg Zolpidem Tartrate (Ambien -) 10 mg PO HS PRN PRN Reason: INSOMNIA Last Admin: 11/15/18 21:22 Dose: 10 mg - Objective Vital Signs: Vital Signs Temperature 98.5 F 11/15/18 18:00 Pulse Rate 93 H 11/15/18 18:00 Respiratory Rate 16 11/15/18 18:00 Blood Pressure 142/79 11/15/18 18:00 O2 Sat by Pulse Oximetry (%) 100 11/15/18 09:00 Neck: Yes: WNL, Supple Cardiovascular: Yes: WNL, Regular Rate and Rhythm Respiratory: Yes: Rhonchi, Wheezes Gastrointestinal: Yes: WNL, Normal Bowel Sounds, Soft, Abdomen, Obese Labs: CBC, BMP 11/13/18 11:30 11/13/18 11:30 Problem List - Problems (1) Exacerbation of asthma Code(s): J45.901 - UNSPECIFIED ASTHMA WITH (ACUTE) EXACERBATION Qualifiers: Asthma severity: moderate Asthma persistence: persistent Qualified Code(s ): J45.41 - Moderate persistent asthma with (acute) exacerbation (2) Breast CA Code(s): C50.919 - MALIGNANT NEOPLASM OF UNSP SITE OF UNSPECIFIED FEMALE BREAST (3) HLD (hyperlipidemia) Code(s): E78.5 - HYPERLIPIDEMIA, UNSPECIFIED (4) HTN (hypertension) Code(s): I10 - ESSENTIAL (PRIMARY) HYPERTENSION
[2018-11-16] MEDS: guaiFENesin/CODEINE 10 ML UNIT-DOSE CUPS PO PRN ×4 (00:16→21:01)
[2018-11-16] MEDS: methylPREDNISolone NA SUCC 40 MG/1 ML VIAL IVPUSH SCH ×3 (01:32→17:47)
[2018-11-16] MEDS: ALBUTEROL SO4 2.5/IPRATROPIUM 0.5 INH SOL 3 ML VIAL.NEB. NEB SCH ×4 (07:45→20:30)
[2018-11-16] MEDS ORDERED: PT OWN MED DRAWER 7, Y5N ONE ×2 (10:08→20:59)
[2018-11-16] MEDS: LETROZOLE 2.5 MG TABLET (FP) PO SCH (10:11)
[2018-11-16] MEDS: AZITHROMYCIN IVPB 500 MG/250 ML BAG IVPB SCH (10:11)
[2018-11-16] MEDS: ENOXAPARIN NA (PORCINE) 40 MG/0.4 ML DISP.SYRIN SQ SCH (10:11)
[2018-11-16] MEDS: VALSARTAN 160 MG TABLET (UD) PO SCH (10:12)
[2018-11-16] MEDS: GABAPENTIN 400 MG CAPSULE (FP) PO SCH ×2 (10:12→21:01)
[2018-11-16] MEDS: amLODIPine BESYLATE 10 MG TABLET (FP) PO SCH (10:12)
[2018-11-16] MEDS: acetaZOLAMIDE 250 MG TABLET PO SCH ×2 (10:12→21:02)
[2018-11-16] MEDS: BUDESONIDE/FORMETEROL FUMARATE 160/4.5 mcg INHALER IH SCH ×2 (10:17→21:05)
--- NOTE | 2018-11-16 13:26 | PN ---
Progress Note (short form) - Note Progress Note: PULMONARY States breathing about the same. +cough now mostly nonproductive. No fevers or chills. Peak flow 220. Vital Signs Period Temp Pulse Resp BP Sys/Aleman Pulse Ox Last 24 Hr 97.8 F-98.6 F 81-107 16-20 125-146/74-97 100-100 Gen: NAD at rest Heart: RRR Lung: scattered rhonchi, wheezes Abd: soft, nontender Ext: no edema CBC, BMP 11/13/18 11:30 11/13/18 11:30 Active Medications Acetazolamide (Diamox -) 500 mg PO BID [facility] Last Admin: 11/16/18 10:12 Dose: 500 mg Albuterol/Ipratropium (Duoneb -) 1 amp NEB RQID [facility] Last Admin: 11/16/18 12:28 Dose: 1 amp Amlodipine Besylate (Norvasc -) 10 mg PO DAILY [facility] Last Admin: 11/16/18 10:12 Dose: 10 mg Atorvastatin Calcium (Lipitor -) 10 mg PO HS [facility] Last Admin: 11/15/18 21:21 Dose: 10 mg Budesonide/Formoterol Fumarate (Symbicort 160/4.5mcg -) 2 puff IH BID [facility] Last Admin: 11/16/18 10:17 Dose: 2 puff Bupropion HCl (Wellbutrin Xl -) 150 mg PO DAILY [facility] Last Admin: 11/16/18 10:13 Dose: Not Given Enoxaparin Sodium (Lovenox -) 40 mg SQ DAILY [facility] Last Admin: 11/16/18 10:11 Dose: 40 mg Gabapentin (Neurontin -) 800 mg PO BID [facility] Last Admin: 11/16/18 10:12 Dose: 800 mg Guaifenesin/Codeine Phosphate (Robitussin Ac -) 10 ml PO Q6H PRN PRN Reason: COUGH Last Admin: 11/16/18 08:23 Dose: 10 ml Azithromycin (Zithromax 500mg Ivpb (Pre-Docked)) 500 mg in 250 mls @ 250 mls/ hr IVPB DAILY [facility] Last Admin: 11/16/18 10:11 Dose: 250 mls/hr Letrozole (Femara -) 2.5 mg PO DAILY [facility] Last Admin: 11/16/18 10:11 Dose: 2.5 mg Methylprednisolone Sodium Succinate (Solu-Medrol -) 60 mg IVPUSH Q8H-IV [facility] Last Admin: 11/16/18 10:11 Dose: 60 mg Montelukast Sodium (Singulair -) 10 mg PO HS [facility] Last Admin: 11/15/18 21:20 Dose: 10 mg Valsartan (Diovan -) 160 mg PO DAILY [facility] Last Admin: 11/16/18 10:12 Dose: 160 mg Zolpidem Tartrate (Ambien -) 10 mg PO HS PRN PRN Reason: INSOMNIA Last Admin: 11/15/18 21:22 Dose: 10 mg A/P Acute Asthma Exacerbation Lung Nodules HTN Hyperlipidemia h/o Breast Ca - continue medrol 60mg q8h - inhaled bronchodilators standing and PRN - singulair - empiric azithromycin - monitor peak flow - O2 as needed - outpt PFTs - DVT prophylaxis Problem List - Problems (1) Exacerbation of asthma Code(s): J45.901 - UNSPECIFIED ASTHMA WITH (ACUTE) EXACERBATION Qualifiers: Asthma severity: moderate Asthma persistence: persistent Qualified Code(s ): J45.41 - Moderate persistent asthma with (acute) exacerbation (2) HLD (hyperlipidemia) Code(s): E78.5 - HYPERLIPIDEMIA, UNSPECIFIED (3) HTN (hypertension) Code(s): I10 - ESSENTIAL (PRIMARY) HYPERTENSION (4) Lung nodule, multiple Code(s): R91.8 - OTHER NONSPECIFIC ABNORMAL FINDING OF LUNG FIELD
--- NOTE | 2018-11-16 16:58 | EKG ---
Test Reason : Blood Pressure : / mmHG Vent. Rate : 093 BPM Atrial Rate : 093 BPM P-R Int : 108 ms QRS Dur : 090 ms QT Int : 340 ms P-R-T Axes : 057 -23 -21 degrees QTc Int : 422 ms SINUS RHYTHM WITH SHORT KS NONSPECIFIC ST ABNORMALITY ABNORMAL ECG WHEN COMPARED WITH ECG OF 13-NOV-2018 11:09, CRITERIA FOR SEPTAL INFARCT ARE NO LONGER PRESENT Confirmed by EVA REINA, RADHA ([id number]) on 11/16/2018 4:57:42 PM Referred By: Confirmed By:RADHA VELASQUEZ MD
[2018-11-16] MEDS: ZOLPIDEM TARTRATE 5 MG TABLET PO PRN (21:01)
[2018-11-16] MEDS: MONTELUKAST NA 10 MG TABLET PO SCH (21:02)
[2018-11-16] MEDS: ATORVASTATIN CA 10 MG TABLET (FP) PO SCH (21:02)
--- NOTE | 2018-11-17 01:19 | PN ---
Progress Note (short form) - Note Progress Note: covering for Dr Rodríguez patient seen and examined in room mild respiratory distress moist cough Vital Signs Period Temp Pulse Resp BP Sys/Aleman Pulse Ox Last 24 Hr 97.6 F-98.7 F 82-107 20-20 123-144/70-90 100-100 obese female neck -JVD heart S1/S2 lungs exp / insp wheezing abd obese CBC, BMP 11/13/18 11:30 11/13/18 11:30 Active Medications Acetazolamide (Diamox -) 500 mg PO BID [facility] Last Admin: 11/16/18 21:02 Dose: 500 mg Albuterol/Ipratropium (Duoneb -) 1 amp NEB RQID [facility] Last Admin: 11/16/18 20:30 Dose: 1 amp Amlodipine Besylate (Norvasc -) 10 mg PO DAILY [facility] Last Admin: 11/16/18 10:12 Dose: 10 mg Atorvastatin Calcium (Lipitor -) 10 mg PO HS [facility] Last Admin: 11/16/18 21:02 Dose: 10 mg Budesonide/Formoterol Fumarate (Symbicort 160/4.5mcg -) 2 puff IH BID [facility] Last Admin: 11/16/18 21:05 Dose: 2 puff Bupropion HCl (Wellbutrin Xl -) 150 mg PO DAILY [facility] Last Admin: 11/16/18 10:13 Dose: Not Given Enoxaparin Sodium (Lovenox -) 40 mg SQ DAILY [facility] Last Admin: 11/16/18 10:11 Dose: 40 mg Gabapentin (Neurontin -) 800 mg PO BID [facility] Last Admin: 11/16/18 21:01 Dose: 800 mg Guaifenesin/Codeine Phosphate (Robitussin Ac -) 10 ml PO Q6H PRN PRN Reason: COUGH Last Admin: 11/16/18 21:01 Dose: 10 ml Azithromycin (Zithromax 500mg Ivpb (Pre-Docked)) 500 mg in 250 mls @ 250 mls/ hr IVPB DAILY [facility] Last Admin: 11/16/18 10:11 Dose: 250 mls/hr Letrozole (Femara -) 2.5 mg PO DAILY [facility] Last Admin: 11/16/18 10:11 Dose: 2.5 mg Methylprednisolone Sodium Succinate (Solu-Medrol -) 60 mg IVPUSH Q8H-IV [facility] Last Admin: 11/16/18 17:47 Dose: 60 mg Montelukast Sodium (Singulair -) 10 mg PO HS [facility] Last Admin: 11/16/18 21:02 Dose: 10 mg Valsartan (Diovan -) 160 mg PO DAILY [facility] Last Admin: 11/16/18 10:12 Dose: 160 mg Zolpidem Tartrate (Ambien -) 10 mg PO HS PRN PRN Reason: INSOMNIA Last Admin: 11/16/18 21:01 Dose: 10 mg # AE Asthma continue IV steroids / nebulizer/ singulair / O2/ ABX peak flow / PPi # Lung nodules work up as out patient followed by Pulmonary # HTN continue meds # hld statins # Hx of breast CA
[2018-11-17] MEDS: methylPREDNISolone NA SUCC 40 MG/1 ML VIAL IVPUSH SCH ×4 (02:34→22:01)
[2018-11-17] MEDS: ALBUTEROL SO4 2.5/IPRATROPIUM 0.5 INH SOL 3 ML VIAL.NEB. NEB SCH ×4 (07:29→20:06)
[2018-11-17] MEDS ORDERED: PT OWN MED DRAWER 7, Y5N ONE ×2 (10:24→17:17)
[2018-11-17] MEDS: VALSARTAN 160 MG TABLET (UD) PO SCH (10:45)
[2018-11-17] MEDS: AZITHROMYCIN IVPB 500 MG/250 ML BAG IVPB SCH (10:45)
[2018-11-17] MEDS: amLODIPine BESYLATE 10 MG TABLET (FP) PO SCH (10:45)
[2018-11-17] MEDS: ENOXAPARIN NA (PORCINE) 40 MG/0.4 ML DISP.SYRIN SQ SCH (10:45)
[2018-11-17] MEDS: GABAPENTIN 400 MG CAPSULE (FP) PO SCH ×2 (10:46→22:01)
[2018-11-17] MEDS: acetaZOLAMIDE 250 MG TABLET PO SCH ×2 (10:47→22:01)
[2018-11-17] MEDS: BUDESONIDE/FORMETEROL FUMARATE 160/4.5 mcg INHALER IH SCH ×2 (10:47→22:07)
[2018-11-17] MEDS: LETROZOLE 2.5 MG TABLET (FP) PO SCH (10:47)
[2018-11-17] MEDS: guaiFENesin/CODEINE 10 ML UNIT-DOSE CUPS PO PRN (12:13)
--- NOTE | 2018-11-17 13:26 | PN ---
Progress Note (short form) - Note Progress Note: PULMONARY States breathing about the same. +cough now mostly nonproductive. No fevers or chills. Vital Signs Period Temp Pulse Resp BP Sys/Aleman Pulse Ox Last 24 Hr 97.6 F-98.8 F 84-101 19-20 121-142/61-74 100-100 Gen: NAD at rest Heart: RRR Lung: scattered rhonchi, wheezes Abd: soft, nontender Ext: no edema CBC, BMP 11/13/18 11:30 11/13/18 11:30 Active Medications Acetazolamide (Diamox -) 500 mg PO BID [facility] Last Admin: 11/17/18 10:47 Dose: 500 mg Albuterol/Ipratropium (Duoneb -) 1 amp NEB RQID [facility] Last Admin: 11/17/18 11:35 Dose: 1 amp Amlodipine Besylate (Norvasc -) 10 mg PO DAILY [facility] Last Admin: 11/17/18 10:45 Dose: 10 mg Atorvastatin Calcium (Lipitor -) 10 mg PO HS [facility] Last Admin: 11/16/18 21:02 Dose: 10 mg Budesonide/Formoterol Fumarate (Symbicort 160/4.5mcg -) 2 puff IH BID [facility] Last Admin: 11/17/18 10:47 Dose: 2 puff Bupropion HCl (Wellbutrin Xl -) 150 mg PO DAILY [facility] Last Admin: 11/17/18 10:47 Dose: Not Given Enoxaparin Sodium (Lovenox -) 40 mg SQ DAILY [facility] Last Admin: 11/17/18 10:45 Dose: 40 mg Gabapentin (Neurontin -) 800 mg PO BID [facility] Last Admin: 11/17/18 10:46 Dose: 800 mg Guaifenesin/Codeine Phosphate (Robitussin Ac -) 10 ml PO Q6H PRN PRN Reason: COUGH Last Admin: 11/17/18 12:13 Dose: 10 ml Azithromycin (Zithromax 500mg Ivpb (Pre-Docked)) 500 mg in 250 mls @ 250 mls/ hr IVPB DAILY [facility] Last Admin: 11/17/18 10:45 Dose: 250 mls/hr Letrozole (Femara -) 2.5 mg PO DAILY [facility] Last Admin: 11/17/18 10:47 Dose: 2.5 mg Methylprednisolone Sodium Succinate (Solu-Medrol -) 60 mg IVPUSH Q8H-IV [facility] Last Admin: 11/17/18 10:46 Dose: 60 mg Montelukast Sodium (Singulair -) 10 mg PO HS [facility] Last Admin: 11/16/18 21:02 Dose: 10 mg Valsartan (Diovan -) 160 mg PO DAILY [facility] Last Admin: 11/17/18 10:45 Dose: 160 mg Zolpidem Tartrate (Ambien -) 10 mg PO HS PRN PRN Reason: INSOMNIA Last Admin: 11/16/18 21:01 Dose: 10 mg A/P Acute Asthma Exacerbation Lung Nodules HTN Hyperlipidemia h/o Breast Ca - will increase medrol to 60mg q6h - inhaled bronchodilators standing and PRN - singulair - empiric azithromycin - monitor peak flow - O2 as needed - outpt PFTs - DVT prophylaxis Problem List - Problems (1) Exacerbation of asthma Code(s): J45.901 - UNSPECIFIED ASTHMA WITH (ACUTE) EXACERBATION Qualifiers: Asthma severity: moderate Asthma persistence: persistent Qualified Code(s ): J45.41 - Moderate persistent asthma with (acute) exacerbation (2) HLD (hyperlipidemia) Code(s): E78.5 - HYPERLIPIDEMIA, UNSPECIFIED (3) HTN (hypertension) Code(s): I10 - ESSENTIAL (PRIMARY) HYPERTENSION (4) Lung nodule, multiple Code(s): R91.8 - OTHER NONSPECIFIC ABNORMAL FINDING OF LUNG FIELD
[2018-11-17] MEDS: ZOLPIDEM TARTRATE 5 MG TABLET PO PRN (22:01)
[2018-11-17] MEDS: MONTELUKAST NA 10 MG TABLET PO SCH (22:07)
[2018-11-17] MEDS: ATORVASTATIN CA 10 MG TABLET (FP) PO SCH (22:07)
--- NOTE | 2018-11-17 22:20 | PN ---
Progress Note, Physician - Current Medication List Current Medications: Active Medications Acetazolamide (Diamox -) 500 mg PO BID [facility] Last Admin: 11/17/18 22:01 Dose: 500 mg Albuterol/Ipratropium (Duoneb -) 1 amp NEB RQID [facility] Last Admin: 11/17/18 20:06 Dose: 1 amp Amlodipine Besylate (Norvasc -) 10 mg PO DAILY [facility] Last Admin: 11/17/18 10:45 Dose: 10 mg Atorvastatin Calcium (Lipitor -) 10 mg PO HS [facility] Last Admin: 11/17/18 22:07 Dose: 10 mg Budesonide/Formoterol Fumarate (Symbicort 160/4.5mcg -) 2 puff IH BID [facility] Last Admin: 11/17/18 22:07 Dose: 2 puff Bupropion HCl (Wellbutrin Xl -) 150 mg PO DAILY [facility] Last Admin: 11/17/18 10:47 Dose: Not Given Enoxaparin Sodium (Lovenox -) 40 mg SQ DAILY [facility] Last Admin: 11/17/18 10:45 Dose: 40 mg Gabapentin (Neurontin -) 800 mg PO BID [facility] Last Admin: 11/17/18 22:01 Dose: 800 mg Guaifenesin/Codeine Phosphate (Robitussin Ac -) 10 ml PO Q6H PRN PRN Reason: COUGH Last Admin: 11/17/18 12:13 Dose: 10 ml Azithromycin (Zithromax 500mg Ivpb (Pre-Docked)) 500 mg in 250 mls @ 250 mls/ hr IVPB DAILY [facility] Last Admin: 11/17/18 10:45 Dose: 250 mls/hr Letrozole (Femara -) 2.5 mg PO DAILY [facility] Last Admin: 11/17/18 10:47 Dose: 2.5 mg Methylprednisolone Sodium Succinate (Solu-Medrol -) 60 mg IVPUSH QID [facility] Last Admin: 11/17/18 22:01 Dose: 60 mg Montelukast Sodium (Singulair -) 10 mg PO HS [facility] Last Admin: 11/17/18 22:07 Dose: 10 mg Valsartan (Diovan -) 160 mg PO DAILY [facility] Last Admin: 11/17/18 10:45 Dose: 160 mg Zolpidem Tartrate (Ambien -) 10 mg PO HS PRN PRN Reason: INSOMNIA Last Admin: 11/17/18 22:01 Dose: 10 mg - Objective Vital Signs: Vital Signs Temperature 98 F 11/17/18 19:00 Pulse Rate 98 H 11/17/18 19:00 Respiratory Rate 20 11/17/18 19:00 Blood Pressure 154/96 11/17/18 19:00 O2 Sat by Pulse Oximetry (%) 100 11/17/18 20:01 Labs: CBC, BMP 11/13/18 11:30 11/13/18 11:30 Problem List - Problems (1) Exacerbation of asthma Code(s): J45.901 - UNSPECIFIED ASTHMA WITH (ACUTE) EXACERBATION Qualifiers: Asthma severity: moderate Asthma persistence: persistent Qualified Code(s ): J45.41 - Moderate persistent asthma with (acute) exacerbation (2) Breast CA Code(s): C50.919 - MALIGNANT NEOPLASM OF UNSP SITE OF UNSPECIFIED FEMALE BREAST (3) HLD (hyperlipidemia) Code(s): E78.5 - HYPERLIPIDEMIA, UNSPECIFIED (4) HTN (hypertension) Code(s): I10 - ESSENTIAL (PRIMARY) HYPERTENSION
[2018-11-17] MEDS ORDERED: ALBUTEROL SO4 2.5/IPRATROPIUM 0.5 INH SOL 3 ML VIAL.NEB. NEB PRN (23:06)
[2018-11-18] MEDS: guaiFENesin/CODEINE 10 ML UNIT-DOSE CUPS PO PRN ×3 (03:15→23:19)
[2018-11-18] MEDS: ALBUTEROL SO4 2.5/IPRATROPIUM 0.5 INH SOL 3 ML VIAL.NEB. NEB SCH ×3 (07:20→16:29)
[2018-11-18] MEDS: ENOXAPARIN NA (PORCINE) 40 MG/0.4 ML DISP.SYRIN SQ SCH (10:10)
[2018-11-18] MEDS: BUDESONIDE/FORMETEROL FUMARATE 160/4.5 mcg INHALER IH SCH ×2 (10:15→21:33)
[2018-11-18] MEDS ORDERED: PT OWN MED DRAWER 7, Y5N ONE ×2 (10:19→21:25)
[2018-11-18] MEDS: GABAPENTIN 400 MG CAPSULE (FP) PO SCH ×2 (10:31→21:32)
[2018-11-18] MEDS: amLODIPine BESYLATE 10 MG TABLET (FP) PO SCH (10:31)
[2018-11-18] MEDS: VALSARTAN 160 MG TABLET (UD) PO SCH (10:32)
[2018-11-18] MEDS: AZITHROMYCIN IVPB 500 MG/250 ML BAG IVPB SCH (10:33)
[2018-11-18] MEDS: acetaZOLAMIDE 250 MG TABLET PO SCH ×2 (10:33→21:32)
[2018-11-18] MEDS: LETROZOLE 2.5 MG TABLET (FP) PO SCH (10:33)
[2018-11-18] MEDS: methylPREDNISolone NA SUCC 40 MG/1 ML VIAL IVPUSH SCH ×5 (10:33→21:31)
--- NOTE | 2018-11-18 11:44 | PN ---
Progress Note (short form) - Note Progress Note: Breathing feels about the same as yesterday, minimally improved. Still with congested cough but reports slightly less wheezing. Intake & Output 11/15/18 11/16/18 11/17/18 11/18/18 23:59 23:59 23:59 23:59 Intake Total 1390 1370 770 240 Balance 1390 1370 770 240 Weight 235 lb Last Vital Signs Temp Pulse Resp BP Pulse Ox 98.2 F 93 H 20 149/72 100 11/18/18 06:00 11/18/18 06:00 11/18/18 06:00 11/18/18 06:00 11/17/18 20:01 Active Medications Acetazolamide (Diamox -) 500 mg PO BID [facility] Last Admin: 11/18/18 10:33 Dose: 500 mg Albuterol/Ipratropium (Duoneb -) 1 amp NEB RQID [facility] Last Admin: 11/18/18 11:28 Dose: 1 amp Albuterol/Ipratropium (Duoneb -) 1 amp NEB Q4H PRN PRN Reason: WHEEZING Last Admin: 11/18/18 01:41 Dose: 1 amp Amlodipine Besylate (Norvasc -) 10 mg PO DAILY [facility] Last Admin: 11/18/18 10:31 Dose: 10 mg Atorvastatin Calcium (Lipitor -) 10 mg PO HS [facility] Last Admin: 11/17/18 22:07 Dose: 10 mg Budesonide/Formoterol Fumarate (Symbicort 160/4.5mcg -) 2 puff IH BID [facility] Last Admin: 11/17/18 22:07 Dose: 2 puff Bupropion HCl (Wellbutrin Xl -) 150 mg PO DAILY [facility] Last Admin: 11/18/18 10:31 Dose: Not Given Enoxaparin Sodium (Lovenox -) 40 mg SQ DAILY [facility] Last Admin: 11/17/18 10:45 Dose: 40 mg Gabapentin (Neurontin -) 800 mg PO BID [facility] Last Admin: 11/18/18 10:31 Dose: 800 mg Guaifenesin/Codeine Phosphate (Robitussin Ac -) 10 ml PO Q6H PRN PRN Reason: COUGH Last Admin: 11/18/18 03:15 Dose: 10 ml Azithromycin (Zithromax 500mg Ivpb (Pre-Docked)) 500 mg in 250 mls @ 250 mls/ hr IVPB DAILY [facility] Last Admin: 11/18/18 10:33 Dose: 250 mls/hr Letrozole (Femara -) 2.5 mg PO DAILY [facility] Last Admin: 11/18/18 10:33 Dose: 2.5 mg Methylprednisolone Sodium Succinate (Solu-Medrol -) 60 mg IVPUSH QID [facility] Last Admin: 11/18/18 10:33 Dose: 60 mg Montelukast Sodium (Singulair -) 10 mg PO HS [facility] Last Admin: 11/17/18 22:07 Dose: 10 mg Valsartan (Diovan -) 160 mg PO DAILY [facility] Last Admin: 11/18/18 10:32 Dose: 160 mg Zolpidem Tartrate (Ambien -) 10 mg PO HS PRN PRN Reason: INSOMNIA Last Admin: 11/17/18 22:01 Dose: 10 mg Gen: NAD at rest Heart: RRR Lung: Bilateral coarse rhonchi and expiratory wheezing Abd: soft, nontender Ext: no edema Problem List - Problems (1) Exacerbation of asthma Code(s): J45.901 - UNSPECIFIED ASTHMA WITH (ACUTE) EXACERBATION Qualifiers: Asthma severity: moderate Asthma persistence: persistent Qualified Code(s ): J45.41 - Moderate persistent asthma with (acute) exacerbation (2) HLD (hyperlipidemia) Code(s): E78.5 - HYPERLIPIDEMIA, UNSPECIFIED (3) HTN (hypertension) Code(s): I10 - ESSENTIAL (PRIMARY) HYPERTENSION (4) Lung nodule, multiple Code(s): R91.8 - OTHER NONSPECIFIC ABNORMAL FINDING OF LUNG FIELD A/P Acute Asthma Exacerbation Lung Nodules HTN Hyperlipidemia h/o Breast Ca (?) OSAS - Maintain Medrol at current dose - inhaled bronchodilators standing and PRN - singulair - empiric azithromycin - monitor peak flow - O2 as needed - outpt PFTs - DVT prophylaxis - Will need sleep screen once clinically improved or as an outpatient Dr Douglas
[2018-11-18] MEDS: MONTELUKAST NA 10 MG TABLET PO SCH (21:32)
[2018-11-18] MEDS: ZOLPIDEM TARTRATE 5 MG TABLET PO PRN (21:32)
[2018-11-18] MEDS: ATORVASTATIN CA 10 MG TABLET (FP) PO SCH (21:32)
[2018-11-18] MEDS: ALBUTEROL SO4 2.5/IPRATROPIUM 0.5 INH SOL 3 ML VIAL.NEB. NEB PRN (21:50)
--- NOTE | 2018-11-18 23:09 | PN ---
Progress Note, Physician - Current Medication List Current Medications: Active Medications Acetazolamide (Diamox -) 500 mg PO BID [facility] Last Admin: 11/18/18 21:32 Dose: 500 mg Albuterol/Ipratropium (Duoneb -) 1 amp NEB Q6H PRN PRN Reason: SHORTNESS OF BREATH Last Admin: 11/18/18 21:50 Dose: 1 amp Amlodipine Besylate (Norvasc -) 10 mg PO DAILY [facility] Last Admin: 11/18/18 10:31 Dose: 10 mg Atorvastatin Calcium (Lipitor -) 10 mg PO HS [facility] Last Admin: 11/18/18 21:32 Dose: 10 mg Budesonide/Formoterol Fumarate (Symbicort 160/4.5mcg -) 2 puff IH BID [facility] Last Admin: 11/18/18 21:33 Dose: 2 puff Bupropion HCl (Wellbutrin Xl -) 150 mg PO DAILY [facility] Last Admin: 11/18/18 10:31 Dose: Not Given Enoxaparin Sodium (Lovenox -) 40 mg SQ DAILY [facility] Last Admin: 11/18/18 10:10 Dose: 40 mg Gabapentin (Neurontin -) 800 mg PO BID [facility] Last Admin: 11/18/18 21:32 Dose: 800 mg Guaifenesin/Codeine Phosphate (Robitussin Ac -) 10 ml PO Q6H PRN PRN Reason: COUGH Last Admin: 11/18/18 17:03 Dose: 10 ml Azithromycin (Zithromax 500mg Ivpb (Pre-Docked)) 500 mg in 250 mls @ 250 mls/ hr IVPB DAILY [facility] Last Admin: 11/18/18 10:33 Dose: 250 mls/hr Letrozole (Femara -) 2.5 mg PO DAILY [facility] Last Admin: 11/18/18 10:33 Dose: 2.5 mg Methylprednisolone Sodium Succinate (Solu-Medrol -) 60 mg IVPUSH QID [facility] Last Admin: 11/18/18 21:31 Dose: 60 mg Montelukast Sodium (Singulair -) 10 mg PO HS [facility] Last Admin: 11/18/18 21:32 Dose: 10 mg Valsartan (Diovan -) 160 mg PO DAILY [facility] Last Admin: 11/18/18 10:32 Dose: 160 mg Zolpidem Tartrate (Ambien -) 10 mg PO HS PRN PRN Reason: INSOMNIA Last Admin: 11/18/18 21:32 Dose: 10 mg - Objective Vital Signs: Vital Signs Temperature 98.5 F 11/18/18 18:00 Pulse Rate 94 H 11/18/18 18:00 Respiratory Rate 11/18/18 18:00 Blood Pressure 131/63 11/18/18 18:00 O2 Sat by Pulse Oximetry (%) 98 11/18/18 09:00 Labs: CBC, BMP 11/13/18 11:30 11/13/18 11:30 Problem List - Problems (1) Exacerbation of asthma Code(s): J45.901 - UNSPECIFIED ASTHMA WITH (ACUTE) EXACERBATION Qualifiers: Asthma severity: moderate Asthma persistence: persistent Qualified Code(s ): J45.41 - Moderate persistent asthma with (acute) exacerbation (2) Breast CA Code(s): C50.919 - MALIGNANT NEOPLASM OF UNSP SITE OF UNSPECIFIED FEMALE BREAST (3) HLD (hyperlipidemia) Code(s): E78.5 - HYPERLIPIDEMIA, UNSPECIFIED (4) HTN (hypertension) Code(s): I10 - ESSENTIAL (PRIMARY) HYPERTENSION
--- NOTE | 2018-11-18 23:26 | CONSULT ---
Consult Consult Specialty:: endocrine Referred by:: dr.elizabeth daniel Reason for Consultation:: thyroid goiter - History of Present Illness Chief Complaint: enlarged thyroid History of Present Illness: 48yo female with h/o morbid obesity,thyroid goiter multinodular,HTN, hyperlipidemia, asthma diagnosed as adult, former smoker, h/o breast ca s/p double mastectomy who was admitted with worsening shortness of breath . Denies chest pain or palpitations. +cough productive of thick, clear sputum and wheezing. +chest tightness. Has not been hospitalized or on prednisone in years.has had weight gain,hair thinning,hoarseness voice,feeling chocking from thyroid mass,denies cold intolerance,palpitation or tremor. 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: Yes: Migraine, Other (Pseudotumor cerebri?) Cardio/Vascular: Yes: CAD, HTN, Hyperlipdemia Pulmonary: Yes: COPD Gastrointestinal: Yes: Constipation, Other (colon polyps) Renal/: Yes: Renal Calculi ...LMP: 03/15/10 ...LMP Comment: s/p hysterectomy ...: No Musculoskeletal: Yes: Chronic low back pain Endocrine: Yes: Diabetes Mellitus, Hypothyroidism - Past Surgical History Past Surgical History: Yes: Hysterectomy, Mastectomy - Alcohol/Substance Use Hx Alcohol Use: No History of Substance Use: reports: None - Smoking History Smoking history: Never smoked Have you smoked in the past 12 months: No Aproximately how many cigarettes per day: 0 If you are a former smoker, when did you quit?: 2014 - Social History Usual Living Arrangement: With Spouse ADL: Independent 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, 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, 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 History of Recent Travel: No Home Medications - Allergies Allergies/Adverse Reactions: Allergies Allergy/AdvReac Type Severity Reaction Status Date / Time No Known Allergies Allergy Verified 10/07/18 17:33 - Home Medications Home Medications: Ambulatory Orders Albuterol 0.083% Nebulizer Fatrun [Ventolin 0.083% Nebulizer Soln -] 1 neb NEB TID PRN 10/07/18 Amlodipine Besylate [Norvasc -] 10 mg PO DAILY 10/07/18 Atorvastatin Ca [Lipitor] 10 mg PO HS 10/07/18 Bupropion HCl [Wellbutrin Xl -] 150 mg PO DAILY 10/07/18 Calcium Carbonate/Vitamin D3 [Calcium 600 + Vit D Tablet] 2 each PO DAILY Cholecalciferol (Vitamin D3) [Vitamin D3] 2,000 unit PO DAILY 10/07/18 Diclofenac Sodium [Voltaren] 2 gm TP QID 10/07/18 Fluticasone/Salmeterol [Advair 250-50 Diskus] 1 each IH BID PRN 10/07/18 Gabapentin 800 mg PO BID 10/07/18 Letrozole [Femara] 2.5 mg PO DAILY 10/07/18 Lorazepam 0.5 mg PO DAILY 10/07/18 Pantoprazole Sodium 40 mg PO DAILY 10/07/18 Valsartan [Diovan] 160 mg PO DAILY 10/07/18 acetaZOLAMIDE [Diamox -] 500 mg PO BID 10/07/18 Topiramate 50 mg PO BID #60 tablet 10/10/18 Family Disease History - Family Disease History Family Disease History: CA: Father (triple negative breast ca), Mother (triple negative breast ca), Sister (2-sisters, one BRCA-pos; one -s/p lumpectomy) Review of Systems - Review of Systems Constitutional: reports: Weakness Eyes: reports: No Symptoms HENT: reports: Throat Pain Neck: reports: No Symptoms Cardiovascular: reports: Shortness of Breath Respiratory: reports: Exercise Intolerance, Orthopnea, SOB, SOB on Exertion, Wheezing Gastrointestinal: reports: Bloating Genitourinary: reports: No Symptoms Musculoskeletal: reports: Muscle Pain, Muscle Cramps, Muscle Weakness Integumentary: reports: No Symptoms Neurological: reports: Weakness Endocrine: reports: Unexplained Weight Gain Physical Exam Vital Signs: Vital Signs Temperature 98.5 F 11/18/18 18:00 Pulse Rate 94 H 11/18/18 18:00 Respiratory Rate 19 11/18/18 18:00 Blood Pressure 131/63 11/18/18 18:00 O2 Sat by Pulse Oximetry (%) 98 11/18/18 09:00 Constitutional: Yes: Anxious HENT: Yes: Normocephalic Neck: Yes: Thyromegaly Cardiovascular: Yes: Tachycardia Respiratory: Yes: On Nasal O2, Rhonchi, SOB, Tachypnea, Wheezes Gastrointestinal: Yes: Normal Bowel Sounds ...Rectal Exam: Yes: Deferred Renal/: Yes: WNL Musculoskeletal: Yes: Muscle Weakness Extremities: Yes: WNL Edema: No Peripheral Pulses WNL: Yes Neurological: Yes: Alert, Oriented Labs: CBC, BMP 11/13/18 11:30 11/13/18 11:30 Problem List - Problems (1) Multinodular goiter (nontoxic) Code(s): E04.2 - NONTOXIC MULTINODULAR GOITER (2) Exacerbation of asthma Code(s): J45.901 - UNSPECIFIED ASTHMA WITH (ACUTE) EXACERBATION Qualifiers: Asthma severity: moderate Asthma persistence: persistent Qualified Code(s ): J45.41 - Moderate persistent asthma with (acute) exacerbation (3) History of COPD Code(s): Z87.09 - PERSONAL HISTORY OF OTHER DISEASES OF THE RESPIRATORY SYSTEM (4) ACS (acute coronary syndrome) Code(s): I24.9 - ACUTE ISCHEMIC HEART DISEASE, UNSPECIFIED (5) ARF (acute renal failure) Code(s): N17.9 - ACUTE KIDNEY FAILURE, UNSPECIFIED (6) Abnormal EKG Code(s): R94.31 - ABNORMAL ELECTROCARDIOGRAM [ECG] [EKG] (7) Asthma exacerbation Code(s): J45.901 - UNSPECIFIED ASTHMA WITH (ACUTE) EXACERBATION (8) Bilateral breast cancer Code(s): C50.911 - MALIGNANT NEOPLASM OF UNSP SITE OF RIGHT FEMALE BREAST; C50.912 - MALIGNANT NEOPLASM OF UNSPECIFIED SITE OF LEFT FEMALE BREAST Assessment/Plan Current Active Problems multinodular goiter Exacerbation of asthma (Acute) History of COPD (Acute) morbid obesity htn hld Laboratory Tests 11/13/18 11:30 Sodium 142 Potassium 4.1 Chloride 112 H Carbon Dioxide 22 Anion Gap 8 BUN 22 H Creatinine 1.3 Random Glucose 184 H plan: thyroid sonogram tsh,free t4 fasting glucose hba1c
[2018-11-19] MEDS: guaiFENesin/CODEINE 10 ML UNIT-DOSE CUPS PO PRN (06:39)
[2018-11-19 08:54] LABS: BASO % 0.2 % (0-2.0); HEMATOCRIT 34.1 % (32.4-45.2); HEMOGLOBIN 11.1 GM/dL (10.7-15.3); LYMPH % 8.2 % (8-40); MCH 27.5 pg (25.7-33.7); MCHC 32.4 g/dl (32.0-36.0); MEAN CELL VOLUME 84.8 fl (80-96); MONO % 2.7 % (3.8-10.2); NEUT % 88.9 % (42.8-82.8); PLATELET COUNT 236 K/MM3 (134-434); RBC 4.02 M/mm3 (3.60-5.2); RDW 17.7 % (11.6-15.6); WHITE BLOOD COUNT 10.8 K/mm3 (4.0-10.0)
[2018-11-19 09:03] LABS: BILIRUBIN,TOTAL 0.3 mg/dL (0.2-1); CALCIUM 8.4 mg/dL (8.5-10.1); CREATININE 1.5 mg/dL (0.55-1.3); POTASSIUM 4.2 mmol/L (3.5-5.1); TOT PROT 5.8 g/dl (6.4-8.2)
[2018-11-19] MEDS ORDERED: PT OWN MED DRAWER 7, Y5N ONE ×2 (09:41→21:27)
[2018-11-19] MEDS: amLODIPine BESYLATE 10 MG TABLET (FP) PO SCH (09:44)
[2018-11-19] MEDS: ENOXAPARIN NA (PORCINE) 40 MG/0.4 ML DISP.SYRIN SQ SCH (09:45)
[2018-11-19] MEDS: LETROZOLE 2.5 MG TABLET (FP) PO SCH (09:45)
[2018-11-19] MEDS: acetaZOLAMIDE 250 MG TABLET PO SCH ×2 (09:45→21:28)
[2018-11-19] MEDS: GABAPENTIN 400 MG CAPSULE (FP) PO SCH ×2 (09:45→21:28)
[2018-11-19] MEDS: VALSARTAN 160 MG TABLET (UD) PO SCH (09:45)
[2018-11-19] MEDS: AZITHROMYCIN IVPB 500 MG/250 ML BAG IVPB SCH (09:46)
[2018-11-19] MEDS: methylPREDNISolone NA SUCC 40 MG/1 ML VIAL IVPUSH SCH ×3 (09:46→21:28)
[2018-11-19] MEDS: BUDESONIDE/FORMETEROL FUMARATE 160/4.5 mcg INHALER IH SCH ×2 (09:48→21:31)
[2018-11-19] MEDS ORDERED: INSULIN (NOVOLOG) ASPART 100 UNITS/ML 10ML VIAL ONE ×2 (11:33→21:42)
--- NOTE | 2018-11-19 11:58 | PN ---
Progress Note (short form) - Note Progress Note: Breathing feels better today. Still with congested cough and wheezing, but less. Intake & Output 11/16/18 11/17/18 11/18/18 11/19/18 23:59 23:59 23:59 23:59 Intake Total 7343 949 9938 1000 Balance 0014 220 5719 1000 Last Vital Signs Temp Pulse Resp BP Pulse Ox 98.1 F 88 20 138/96 98 11/19/18 05:00 11/19/18 05:00 11/18/18 22:00 11/19/18 05:00 11/18/18 21:00 Active Medications Acetazolamide (Diamox -) 500 mg PO BID [facility] Last Admin: 11/19/18 09:45 Dose: 500 mg Albuterol/Ipratropium (Duoneb -) 1 amp NEB Q6H PRN PRN Reason: SHORTNESS OF BREATH Last Admin: 11/18/18 21:50 Dose: 1 amp Amlodipine Besylate (Norvasc -) 10 mg PO DAILY [facility] Last Admin: 11/19/18 09:44 Dose: 10 mg Atorvastatin Calcium (Lipitor -) 10 mg PO HS [facility] Last Admin: 11/18/18 21:32 Dose: 10 mg Budesonide/Formoterol Fumarate (Symbicort 160/4.5mcg -) 2 puff IH BID [facility] Last Admin: 11/19/18 09:48 Dose: 2 puff Bupropion HCl (Wellbutrin Xl -) 150 mg PO DAILY [facility] Last Admin: 11/19/18 09:48 Dose: Not Given Enoxaparin Sodium (Lovenox -) 40 mg SQ DAILY [facility] Last Admin: 11/19/18 09:45 Dose: 40 mg Gabapentin (Neurontin -) 800 mg PO BID [facility] Last Admin: 11/19/18 09:45 Dose: 800 mg Guaifenesin/Codeine Phosphate (Robitussin Ac -) 10 ml PO Q6H PRN PRN Reason: COUGH Last Admin: 11/19/18 06:39 Dose: 10 ml Azithromycin (Zithromax 500mg Ivpb (Pre-Docked)) 500 mg in 250 mls @ 250 mls/ hr IVPB DAILY [facility] Last Admin: 11/19/18 09:46 Dose: 250 mls/hr Letrozole (Femara -) 2.5 mg PO DAILY [facility] Last Admin: 11/19/18 09:45 Dose: 2.5 mg Methylprednisolone Sodium Succinate (Solu-Medrol -) 60 mg IVPUSH QID [facility] Last Admin: 11/19/18 09:46 Dose: 60 mg Montelukast Sodium (Singulair -) 10 mg PO HS [facility] Last Admin: 11/18/18 21:32 Dose: 10 mg Valsartan (Diovan -) 160 mg PO DAILY [facility] Last Admin: 11/19/18 09:45 Dose: 160 mg Zolpidem Tartrate (Ambien -) 10 mg PO HS PRN PRN Reason: INSOMNIA Last Admin: 11/18/18 21:32 Dose: 10 mg Gen: NAD at rest Heart: RRR Lung: Less bilateral coarse rhonchi and expiratory wheezing Abd: soft, nontender Ext: no edema Laboratory Results - last 24 hr 11/19/18 11/19/18 11/19/18 07:37 07:37 07:37 WBC 10.8 H RBC 4.02 Hgb 11.1 Hct 34.1 MCV 84.8 MCH 27.5 MCHC 32.4 RDW 17.7 H Plt Count 236 MPV 8.0 Absolute Neuts (auto) 9.6 H Neutrophils % 88.9 H Lymphocytes % 8.2 D Monocytes % 2.7 L Eosinophils % 0.0 D Basophils % 0.2 Nucleated RBC % 0 Sodium 137 Potassium 4.2 Chloride 111 H Carbon Dioxide 19 L Anion Gap 7 L BUN 39.0 H Creatinine 1.5 H Est GFR (CKD-EPI)AfAm 47.25 Est GFR (CKD-EPI)NonAf 40.77 POC Glucometer Random Glucose 385 H* Hemoglobin A1c % 6.9 H Calcium 8.4 L Total Bilirubin 0.3 AST 15 ALT 35 Alkaline Phosphatase 38 L Total Protein 5.8 L Albumin 3.0 L TSH 0.13 L Free T4 0.47 L 11/19/18 11:25 WBC RBC Hgb Hct MCV MCH MCHC RDW Plt Count MPV Absolute Neuts (auto) Neutrophils % Lymphocytes % Monocytes % Eosinophils % Basophils % Nucleated RBC % Sodium Potassium Chloride Carbon Dioxide Anion Gap BUN Creatinine Est GFR (CKD-EPI)AfAm Est GFR (CKD-EPI)NonAf POC Glucometer 387 Random Glucose Hemoglobin A1c % Calcium Total Bilirubin AST ALT Alkaline Phosphatase Total Protein Albumin TSH Free T4 Problem List - Problems (1) Exacerbation of asthma Code(s): J45.901 - UNSPECIFIED ASTHMA WITH (ACUTE) EXACERBATION Qualifiers: Asthma severity: moderate Asthma persistence: persistent Qualified Code(s ): J45.41 - Moderate persistent asthma with (acute) exacerbation (2) HLD (hyperlipidemia) Code(s): E78.5 - HYPERLIPIDEMIA, UNSPECIFIED (3) HTN (hypertension) Code(s): I10 - ESSENTIAL (PRIMARY) HYPERTENSION (4) Lung nodule, multiple Code(s): R91.8 - OTHER NONSPECIFIC ABNORMAL FINDING OF LUNG FIELD A/P Acute Asthma Exacerbation Lung Nodules HTN Hyperlipidemia h/o Breast Ca (?) OSAS - Taper Medrol - inhaled bronchodilators standing and PRN - singulair - empiric azithromycin - monitor peak flow - O2 as needed - outpt PFTs - DVT prophylaxis - Will need sleep screen once clinically improved or as an outpatient Dr Douglas
[2018-11-19 12:17] LABS: ANISOCYTOSIS 1+; MACROCYTOSIS 0; PLATELET ESTIMATE NORMAL; TEAR DROP CELLS 1+
[2018-11-19] MEDS: ALBUTEROL SO4 2.5/IPRATROPIUM 0.5 INH SOL 3 ML VIAL.NEB. NEB PRN ×2 (15:25→21:00)
--- NOTE | 2018-11-19 21:24 | PN ---
Progress Note, Physician - Current Medication List Current Medications: Active Medications Acetazolamide (Diamox -) 500 mg PO BID [facility] Last Admin: 11/19/18 09:45 Dose: 500 mg Albuterol/Ipratropium (Duoneb -) 1 amp NEB Q6H PRN PRN Reason: SHORTNESS OF BREATH Last Admin: 11/19/18 15:25 Dose: 1 amp Amlodipine Besylate (Norvasc -) 10 mg PO DAILY [facility] Last Admin: 11/19/18 09:44 Dose: 10 mg Atorvastatin Calcium (Lipitor -) 10 mg PO HS [facility] Last Admin: 11/18/18 21:32 Dose: 10 mg Budesonide/Formoterol Fumarate (Symbicort 160/4.5mcg -) 2 puff IH BID [facility] [place] Last Admin: 11/19/18 09:48 Dose: 2 puff Bupropion HCl (Wellbutrin Xl -) 150 mg PO DAILY [facility] Last Admin: 11/19/18 09:48 Dose: Not Given Enoxaparin Sodium (Lovenox -) 40 mg SQ DAILY [facility] Last Admin: 11/19/18 09:45 Dose: 40 mg Gabapentin (Neurontin -) 800 mg PO BID [facility] Last Admin: 11/19/18 09:45 Dose: 800 mg Guaifenesin/Codeine Phosphate (Robitussin Ac -) 10 ml PO Q6H PRN PRN Reason: COUGH Last Admin: 11/19/18 06:39 Dose: 10 ml Azithromycin (Zithromax 500mg Ivpb (Pre-Docked)) 500 mg in 250 mls @ 250 mls/ hr IVPB DAILY [facility] Last Admin: 11/19/18 09:46 Dose: 250 mls/hr Letrozole (Femara -) 2.5 mg PO DAILY [facility] Last Admin: 11/19/18 09:45 Dose: 2.5 mg Methylprednisolone Sodium Succinate (Solu-Medrol -) 40 mg IVPUSH Q6H-IV [facility] Last Admin: 11/19/18 15:07 Dose: 40 mg Montelukast Sodium (Singulair -) 10 mg PO HS [facility] Last Admin: 11/18/18 21:32 Dose: 10 mg Valsartan (Diovan -) 160 mg PO DAILY [facility] Last Admin: 11/19/18 09:45 Dose: 160 mg Zolpidem Tartrate (Ambien -) 10 mg PO HS PRN PRN Reason: INSOMNIA Last Admin: 11/18/18 21:32 Dose: 10 mg - Objective Vital Signs: Vital Signs Temperature 99.2 F 11/19/18 16:11 Pulse Rate 88 11/19/18 16:11 Respiratory Rate 22 H 11/19/18 16:11 Blood Pressure 132/78 11/19/18 16:11 O2 Sat by Pulse Oximetry (%) 98 11/18/18 21:00 Labs: CBC, BMP 11/19/18 07:37 11/19/18 07:37 Problem List - Problems (1) Exacerbation of asthma Code(s): J45.901 - UNSPECIFIED ASTHMA WITH (ACUTE) EXACERBATION Qualifiers: Asthma severity: moderate Asthma persistence: persistent Qualified Code(s ): J45.41 - Moderate persistent asthma with (acute) exacerbation (2) Breast CA Code(s): C50.919 - MALIGNANT NEOPLASM OF UNSP SITE OF UNSPECIFIED FEMALE BREAST (3) HLD (hyperlipidemia) Code(s): E78.5 - HYPERLIPIDEMIA, UNSPECIFIED (4) HTN (hypertension) Code(s): I10 - ESSENTIAL (PRIMARY) HYPERTENSION
[2018-11-19] MEDS: MONTELUKAST NA 10 MG TABLET PO SCH (21:28)
[2018-11-19] MEDS: ATORVASTATIN CA 10 MG TABLET (FP) PO SCH (21:28)
[2018-11-19] MEDS: ZOLPIDEM TARTRATE 5 MG TABLET PO PRN (21:36)
[2018-11-19] MEDS: INSULIN SLIDING SCALE (NOVOLOG) 1 VIAL SQ SCH (21:43)
[2018-11-20] MEDS: methylPREDNISolone NA SUCC 40 MG/1 ML VIAL IVPUSH SCH ×4 (04:29→20:48)
[2018-11-20] MEDS: guaiFENesin/CODEINE 10 ML UNIT-DOSE CUPS PO PRN ×3 (04:40→21:10)
[2018-11-20] MEDS: INSULIN SLIDING SCALE (NOVOLOG) 1 VIAL SQ SCH ×4 (06:16→21:10)
[2018-11-20] MEDS ORDERED: PT OWN MED DRAWER 7, Y5N ONE ×3 (06:20→21:01)
[2018-11-20] MEDS ORDERED: INSULIN (NOVOLOG) ASPART 100 UNITS/ML 10ML VIAL ONE ×4 (06:20→21:00)
[2018-11-20] MEDS: ALBUTEROL SO4 2.5/IPRATROPIUM 0.5 INH SOL 3 ML VIAL.NEB. NEB PRN ×2 (08:38→20:30)
[2018-11-20] MEDS: ENOXAPARIN NA (PORCINE) 40 MG/0.4 ML DISP.SYRIN SQ SCH (09:23)
[2018-11-20] MEDS: AZITHROMYCIN IVPB 500 MG/250 ML BAG IVPB SCH (09:25)
[2018-11-20] MEDS: GABAPENTIN 400 MG CAPSULE (FP) PO SCH ×2 (09:25→21:10)
[2018-11-20] MEDS: VALSARTAN 160 MG TABLET (UD) PO SCH (09:26)
[2018-11-20] MEDS: amLODIPine BESYLATE 10 MG TABLET (FP) PO SCH (09:26)
[2018-11-20] MEDS: acetaZOLAMIDE 250 MG TABLET PO SCH ×2 (09:27→21:10)
[2018-11-20] MEDS: LETROZOLE 2.5 MG TABLET (FP) PO SCH (09:28)
[2018-11-20] MEDS: BUDESONIDE/FORMETEROL FUMARATE 160/4.5 mcg INHALER IH SCH ×2 (09:28→21:11)
--- NOTE | 2018-11-20 14:23 | PN ---
Progress Note, Physician History of Present Illness: pulmonary alert,feeling better,less congested,less dyspneic - Current Medication List Current Medications: Active Medications Acetazolamide (Diamox -) 500 mg PO BID [facility] Last Admin: 11/20/18 09:27 Dose: 500 mg Albuterol/Ipratropium (Duoneb -) 1 amp NEB Q6H PRN PRN Reason: SHORTNESS OF BREATH Last Admin: 11/20/18 08:38 Dose: 1 amp Amlodipine Besylate (Norvasc -) 10 mg PO DAILY [facility] Last Admin: 11/20/18 09:26 Dose: 10 mg Atorvastatin Calcium (Lipitor -) 10 mg PO HS [facility] Last Admin: 11/19/18 21:28 Dose: 10 mg Budesonide/Formoterol Fumarate (Symbicort 160/4.5mcg -) 2 puff IH BID [facility] Last Admin: 11/20/18 09:28 Dose: 2 puff Bupropion HCl (Wellbutrin Xl -) 150 mg PO DAILY [facility] Last Admin: 11/20/18 09:39 Dose: Not Given Enoxaparin Sodium (Lovenox -) 40 mg SQ DAILY [facility] Last Admin: 11/20/18 09:23 Dose: 40 mg Gabapentin (Neurontin -) 800 mg PO BID [facility] Last Admin: 11/20/18 09:25 Dose: 800 mg Azithromycin (Zithromax 500mg Ivpb (Pre-Docked)) 500 mg in 250 mls @ 250 mls/ hr IVPB DAILY [facility] Last Admin: 11/20/18 09:25 Dose: 250 mls/hr Insulin Aspart (Novolog Vial Sliding Scale -) 1 vial SQ ACHS [facility]; Protocol Last Admin: 11/20/18 11:38 Dose: 10 units Letrozole (Femara -) 2.5 mg PO DAILY [facility] Last Admin: 11/20/18 09:28 Dose: 2.5 mg Methylprednisolone Sodium Succinate (Solu-Medrol -) 40 mg IVPUSH Q6H-IV [facility] Last Admin: 11/20/18 09:25 Dose: 40 mg Montelukast Sodium (Singulair -) 10 mg PO HS [facility] Last Admin: 11/19/18 21:28 Dose: 10 mg Valsartan (Diovan -) 160 mg PO DAILY [facility] Last Admin: 11/20/18 09:26 Dose: 160 mg - Objective Vital Signs: Vital Signs Temperature 98.4 F 11/20/18 10:00 Pulse Rate 95 H 11/20/18 10:00 Respiratory Rate 20 11/20/18 10:00 Blood Pressure 141/83 11/20/18 10:00 O2 Sat by Pulse Oximetry (%) 99 11/20/18 09:00 Constitutional: Yes: Well Nourished, Calm Eyes: Yes: WNL HENT: Yes: WNL Neck: Yes: WNL Cardiovascular: Yes: Regular Rate and Rhythm, S1, S2 Respiratory: Yes: Rhonchi, Wheezes (scattered bilateral wheezes and rhonchi) Gastrointestinal: Yes: Normal Bowel Sounds, Soft Extremities: Yes: WNL Edema: Yes Labs: CBC, BMP 11/19/18 07:37 Assessment/Plan - Problems (1) Exacerbation of asthma Code(s): J45.901 - UNSPECIFIED ASTHMA WITH (ACUTE) EXACERBATION Qualifiers: Asthma severity: moderate Asthma persistence: persistent Qualified Code(s ): J45.41 - Moderate persistent asthma with (acute) exacerbation (2) HLD (hyperlipidemia) Code(s): E78.5 - HYPERLIPIDEMIA, UNSPECIFIED (3) HTN (hypertension) Code(s): I10 - ESSENTIAL (PRIMARY) HYPERTENSION (4) Lung nodule, multiple Code(s): R91.8 - OTHER NONSPECIFIC ABNORMAL FINDING OF LUNG FIELD Assessment/Plan Acute Asthma Exacerbation Lung Nodules no change HTN Hyperlipidemia h/o Breast Ca - IV medrol q8h - inhaled bronchodilators standing and PRN - singulair - azithromycin - monitor peak flow - O2 as needed - outpt PFTs - DVT prophylaxis DR TRINH
[2018-11-20] MEDS: MONTELUKAST NA 10 MG TABLET PO SCH (21:09)
[2018-11-20] MEDS: ATORVASTATIN CA 10 MG TABLET (FP) PO SCH (21:10)
[2018-11-20] MEDS: ZOLPIDEM TARTRATE 5 MG TABLET PO PRN (21:43)
--- NOTE | 2018-11-20 22:52 | PN ---
Progress Note, Physician - Current Medication List Current Medications: Active Medications Acetazolamide (Diamox -) 500 mg PO BID [facility] Last Admin: 11/20/18 21:10 Dose: 500 mg Albuterol/Ipratropium (Duoneb -) 1 amp NEB Q6H PRN PRN Reason: SHORTNESS OF BREATH Last Admin: 11/20/18 20:30 Dose: 1 amp Amlodipine Besylate (Norvasc -) 10 mg PO DAILY [facility] Last Admin: 11/20/18 09:26 Dose: 10 mg Atorvastatin Calcium (Lipitor -) 10 mg PO HS [facility] Last Admin: 11/20/18 21:10 Dose: 10 mg Budesonide/Formoterol Fumarate (Symbicort 160/4.5mcg -) 2 puff IH BID [facility] Last Admin: 11/20/18 21:11 Dose: 2 puff Bupropion HCl (Wellbutrin Xl -) 150 mg PO DAILY [facility] Last Admin: 11/20/18 09:39 Dose: Not Given Enoxaparin Sodium (Lovenox -) 40 mg SQ DAILY [facility] Last Admin: 11/20/18 09:23 Dose: 40 mg Gabapentin (Neurontin -) 800 mg PO BID [facility] Last Admin: 11/20/18 21:10 Dose: 800 mg Guaifenesin/Codeine Phosphate (Robitussin Ac -) 10 ml PO Q6H PRN PRN Reason: COUGH Last Admin: 11/20/18 15:25 Dose: 10 ml Azithromycin (Zithromax 500mg Ivpb (Pre-Docked)) 500 mg in 250 mls @ 250 mls/ hr IVPB DAILY [facility] Last Admin: 11/20/18 09:25 Dose: 250 mls/hr Insulin Aspart (Novolog Vial Sliding Scale -) 1 vial SQ ACHS [facility]; Protocol Last Admin: 11/20/18 21:10 Dose: 8 units Letrozole (Femara -) 2.5 mg PO DAILY [facility] Last Admin: 11/20/18 09:28 Dose: 2.5 mg Methylprednisolone Sodium Succinate (Solu-Medrol -) 40 mg IVPUSH Q6H-IV [facility] Stop: 11/21/18 03:00 Last Admin: 11/20/18 20:48 Dose: 40 mg Methylprednisolone Sodium Succinate (Solu-Medrol -) 40 mg IVPUSH Q8H-IV [facility] Montelukast Sodium (Singulair -) 10 mg PO HS [facility] Last Admin: 11/20/18 21:09 Dose: 10 mg Valsartan (Diovan -) 160 mg PO DAILY [facility] Last Admin: 11/20/18 09:26 Dose: 160 mg Zolpidem Tartrate (Ambien -) 10 mg PO HS PRN PRN Reason: INSOMNIA Last Admin: 11/20/18 21:43 Dose: 10 mg - Objective Vital Signs: Vital Signs Temperature 98.1 F 11/20/18 22:00 Pulse Rate 90 11/20/18 22:00 Respiratory Rate 20 11/20/18 22:00 Blood Pressure 129/71 11/20/18 22:00 O2 Sat by Pulse Oximetry (%) 98 11/20/18 22:00 Labs: CBC, BMP 11/19/18 07:37 11/19/18 07:37 Problem List - Problems (1) Exacerbation of asthma Code(s): J45.901 - UNSPECIFIED ASTHMA WITH (ACUTE) EXACERBATION Qualifiers: Asthma severity: moderate Asthma persistence: persistent Qualified Code(s ): J45.41 - Moderate persistent asthma with (acute) exacerbation (2) Breast CA Code(s): C50.919 - MALIGNANT NEOPLASM OF UNSP SITE OF UNSPECIFIED FEMALE BREAST (3) HLD (hyperlipidemia) Code(s): E78.5 - HYPERLIPIDEMIA, UNSPECIFIED (4) HTN (hypertension) Code(s): I10 - ESSENTIAL (PRIMARY) HYPERTENSION
[2018-11-21] MEDS: methylPREDNISolone NA SUCC 40 MG/1 ML VIAL IVPUSH SCH ×3 (02:40→22:12)
[2018-11-21] MEDS: guaiFENesin/CODEINE 10 ML UNIT-DOSE CUPS PO PRN ×3 (04:57→17:31)
[2018-11-21] MEDS: INSULIN SLIDING SCALE (NOVOLOG) 1 VIAL SQ SCH ×4 (06:34→22:12)
[2018-11-21 08:08] LABS: BILIRUBIN,TOTAL 0.4 mg/dL (0.2-1); BLOOD UREA NITROGEN 42.3 mg/dL (7-18); CALCIUM 8.4 mg/dL (8.5-10.1); CREATININE 1.4 mg/dL (0.55-1.3); POTASSIUM 4.3 mmol/L (3.5-5.1); TOT PROT 5.7 g/dl (6.4-8.2)
[2018-11-21 08:39] LABS: BASO % 0.2 % (0-2.0); HEMATOCRIT 33.9 % (32.4-45.2); HEMOGLOBIN 11.1 GM/dL (10.7-15.3); LYMPH % 5.8 % (8-40); MCH 27.4 pg (25.7-33.7); MCHC 32.6 g/dl (32.0-36.0); MEAN PLT VOLUME 7.9 fl (7.5-11.1); MONO % 2.6 % (3.8-10.2); NEUT % 91.4 % (42.8-82.8); RBC 4.04 M/mm3 (3.60-5.2)
[2018-11-21 09:13] LABS: PLATELET COUNT 240 K/MM3 (134-434)
[2018-11-21] MEDS ORDERED: PT OWN MED DRAWER 7, Y5N ONE ×3 (09:41→22:03)
[2018-11-21] MEDS: AZITHROMYCIN IVPB 500 MG/250 ML BAG IVPB SCH (09:45)
[2018-11-21] MEDS: ENOXAPARIN NA (PORCINE) 40 MG/0.4 ML DISP.SYRIN SQ SCH (09:45)
[2018-11-21] MEDS: VALSARTAN 160 MG TABLET (UD) PO SCH (09:46)
[2018-11-21] MEDS: LETROZOLE 2.5 MG TABLET (FP) PO SCH (09:46)
[2018-11-21] MEDS: GABAPENTIN 400 MG CAPSULE (FP) PO SCH ×2 (09:46→22:12)
[2018-11-21] MEDS: amLODIPine BESYLATE 10 MG TABLET (FP) PO SCH (09:46)
--- NOTE | 2018-11-21 09:46 | PN ---
Progress Note (short form) - Note Progress Note: Breathing feels better today. Still with congested cough and wheezing, but overall less. Intake & Output 11/18/18 11/19/18 11/20/18 11/21/18 23:59 23:59 23:59 23:59 Intake Total 1160 1500 1885 10 Balance 1160 1500 1885 10 Last Vital Signs Temp Pulse Resp BP Pulse Ox 98.6 F 87 20 125/63 98 11/21/18 05:50 11/21/18 05:50 11/21/18 05:50 11/21/18 05:50 11/20/18 22:00 Active Medications Acetazolamide (Diamox -) 500 mg PO BID REPLACED BY [facility] Last Admin: 11/20/18 21:10 Dose: 500 mg Albuterol/Ipratropium (Duoneb -) 1 amp NEB Q6H PRN PRN Reason: SHORTNESS OF BREATH Last Admin: 11/20/18 20:30 Dose: 1 amp Amlodipine Besylate (Norvasc -) 10 mg PO DAILY REPLACED BY [facility] Last Admin: 11/20/18 09:26 Dose: 10 mg Atorvastatin Calcium (Lipitor -) 10 mg PO HS REPLACED BY [facility] Last Admin: 11/20/18 21:10 Dose: 10 mg Budesonide/Formoterol Fumarate (Symbicort 160/4.5mcg -) 2 puff IH BID REPLACED BY [facility] Last Admin: 11/20/18 21:11 Dose: 2 puff Bupropion HCl (Wellbutrin Xl -) 150 mg PO DAILY REPLACED BY [facility] Last Admin: 11/20/18 09:39 Dose: Not Given Enoxaparin Sodium (Lovenox -) 40 mg SQ DAILY REPLACED BY [facility] Last Admin: 11/20/18 09:23 Dose: 40 mg Gabapentin (Neurontin -) 800 mg PO BID REPLACED BY [facility] Last Admin: 11/20/18 21:10 Dose: 800 mg Guaifenesin/Codeine Phosphate (Robitussin Ac -) 10 ml PO Q6H PRN PRN Reason: COUGH Last Admin: 11/21/18 04:57 Dose: 10 ml Azithromycin (Zithromax 500mg Ivpb (Pre-Docked)) 500 mg in 250 mls @ 250 mls/ hr IVPB DAILY REPLACED BY [facility] Last Admin: 11/20/18 09:25 Dose: 250 mls/hr Insulin Aspart (Novolog Vial Sliding Scale -) 1 vial SQ ACHS [facility]; Protocol Last Admin: 11/21/18 06:34 Dose: 6 units Letrozole (Femara -) 2.5 mg PO DAILY REPLACED BY [facility] Last Admin: 11/20/18 09:28 Dose: 2.5 mg Methylprednisolone Sodium Succinate (Solu-Medrol -) 40 mg IVPUSH Q8H-IV [facility] Montelukast Sodium (Singulair -) 10 mg PO HS [facility] Last Admin: 11/20/18 21:09 Dose: 10 mg Valsartan (Diovan -) 160 mg PO DAILY [facility] Last Admin: 11/20/18 09:26 Dose: 160 mg Zolpidem Tartrate (Ambien -) 10 mg PO HS PRN PRN Reason: INSOMNIA Last Admin: 11/20/18 21:43 Dose: 10 mg Gen: NAD at rest Heart: RRR Lung: Less bilateral coarse rhonchi and expiratory wheezing Abd: soft, nontender Ext: no edema Laboratory Results - last 24 hr 11/20/18 11/20/18 11/20/18 11:32 16:26 21:08 WBC RBC Hgb Hct MCV MCH MCHC RDW Plt Count MPV Absolute Neuts (auto) Neutrophils % Lymphocytes % Monocytes % Eosinophils % Basophils % Nucleated RBC % Sodium Potassium Chloride Carbon Dioxide Anion Gap BUN Creatinine Est GFR (CKD-EPI)AfAm Est GFR (CKD-EPI)NonAf POC Glucometer 391 342 324 Random Glucose Calcium Total Bilirubin AST ALT Alkaline Phosphatase Total Protein Albumin 11/21/18 11/21/18 11/21/18 05:33 06:30 06:30 WBC 14.0 H RBC 4.04 Hgb 11.1 Hct 33.9 MCV 84.0 MCH 27.4 MCHC 32.6 RDW 18.0 H Plt Count 240 MPV 7.9 Absolute Neuts (auto) 12.8 H Neutrophils % 91.4 H Lymphocytes % 5.8 L D Monocytes % 2.6 L Eosinophils % 0.0 Basophils % 0.2 Nucleated RBC % 0 Sodium 139 Potassium 4.3 Chloride 113 H Carbon Dioxide 19 L Anion Gap 6 L BUN 42.3 H Creatinine 1.4 H Est GFR (CKD-EPI)AfAm 51.37 Est GFR (CKD-EPI)NonAf 44.32 POC Glucometer 284 Random Glucose 316 H* Calcium 8.4 L Total Bilirubin 0.4 AST 14 L ALT 45 Alkaline Phosphatase 35 L Total Protein 5.7 L Albumin 3.0 L Problem List - Problems (1) Exacerbation of asthma Code(s): J45.901 - UNSPECIFIED ASTHMA WITH (ACUTE) EXACERBATION Qualifiers: Asthma severity: moderate Asthma persistence: persistent Qualified Code(s ): J45.41 - Moderate persistent asthma with (acute) exacerbation (2) HLD (hyperlipidemia) Code(s): E78.5 - HYPERLIPIDEMIA, UNSPECIFIED (3) HTN (hypertension) Code(s): I10 - ESSENTIAL (PRIMARY) HYPERTENSION (4) Lung nodule, multiple Code(s): R91.8 - OTHER NONSPECIFIC ABNORMAL FINDING OF LUNG FIELD A/P Acute Asthma Exacerbation Lung Nodules HTN Hyperlipidemia h/o Breast Ca (?) OSAS - Taper Medrol today, If clinically better can likely change to Prednisone in the AM - inhaled bronchodilators standing and PRN - singulair - Azithromycin - monitor peak flow - O2 as needed - outpt PFTs - DVT prophylaxis - Will need sleep screen as an outpatient Dr Douglas
[2018-11-21] MEDS ORDERED: methylPREDNISolone NA SUCC 40 MG/1 ML VIAL IVPUSH SCH (10:00)
[2018-11-21] MEDS: BUDESONIDE/FORMETEROL FUMARATE 160/4.5 mcg INHALER IH SCH ×2 (10:06→22:13)
[2018-11-21] MEDS ORDERED: INSULIN (NOVOLOG) ASPART 100 UNITS/ML 10ML VIAL ONE ×2 (11:40→22:03)
[2018-11-21] MEDS: acetaZOLAMIDE 250 MG TABLET PO SCH ×2 (11:42→22:14)
[2018-11-21 12:12] LABS: ANISOCYTOSIS 2+; MACROCYTOSIS 0; OVALOCYTE 1+; PLATELET ESTIMATE NORMAL; TEAR DROP CELLS 1+
--- NOTE | 2018-11-21 18:34 | PN ---
Progress Note, Physician History of Present Illness: feeling better - Current Medication List Current Medications: Active Medications Acetazolamide (Diamox -) 500 mg PO BID [facility] Last Admin: 11/21/18 11:42 Dose: 500 mg Albuterol/Ipratropium (Duoneb -) 1 amp NEB Q6H PRN PRN Reason: SHORTNESS OF BREATH Last Admin: 11/20/18 20:30 Dose: 1 amp Amlodipine Besylate (Norvasc -) 10 mg PO DAILY [facility] Last Admin: 11/21/18 09:46 Dose: 10 mg Atorvastatin Calcium (Lipitor -) 10 mg PO HS [facility] Last Admin: 11/20/18 21:10 Dose: 10 mg Budesonide/Formoterol Fumarate (Symbicort 160/4.5mcg -) 2 puff IH BID [facility] Last Admin: 11/21/18 10:06 Dose: 2 puff Bupropion HCl (Wellbutrin Xl -) 150 mg PO DAILY [facility] Last Admin: 11/21/18 09:56 Dose: Not Given Gabapentin (Neurontin -) 800 mg PO BID [facility] Last Admin: 11/21/18 09:46 Dose: 800 mg Guaifenesin/Codeine Phosphate (Robitussin Ac -) 10 ml PO Q6H PRN PRN Reason: COUGH Last Admin: 11/21/18 17:31 Dose: 10 ml Insulin Aspart (Novolog Vial Sliding Scale -) 1 vial SQ [facility]; Protocol Last Admin: 11/21/18 16:11 Dose: 8 units Letrozole (Femara -) 2.5 mg PO DAILY [facility] Last Admin: 11/21/18 09:46 Dose: 2.5 mg Methylprednisolone Sodium Succinate (Solu-Medrol -) 40 mg IVPUSH BID [facility] Last Admin: 11/21/18 10:08 Dose: Not Given Montelukast Sodium (Singulair -) 10 mg PO HS [facility] Last Admin: 11/20/18 21:09 Dose: 10 mg Valsartan (Diovan -) 160 mg PO DAILY [facility] Last Admin: 11/21/18 09:46 Dose: 160 mg Zolpidem Tartrate (Ambien -) 10 mg PO HS PRN PRN Reason: INSOMNIA Last Admin: 11/20/18 21:43 Dose: 10 mg - Objective Vital Signs: Vital Signs Temperature 98.3 F 11/21/18 14:00 Pulse Rate 87 11/21/18 14:00 Respiratory Rate 20 11/21/18 14:00 Blood Pressure 123/76 11/21/18 14:00 O2 Sat by Pulse Oximetry (%) 97 11/21/18 09:00 Constitutional: Yes: No Distress HENT: Yes: Atraumatic Neck: Yes: Supple Cardiovascular: Yes: Regular Rate and Rhythm Respiratory: Yes: Wheezes Gastrointestinal: Yes: Normal Bowel Sounds Extremities: Yes: WNL Neurological: Yes: Alert, Oriented Labs: CBC, BMP 11/21/18 06:30 11/21/18 06:30 Problem List - Problems (1) Exacerbation of asthma Assessment/Plan: iv steroids duo nebs Code(s): J45.901 - UNSPECIFIED ASTHMA WITH (ACUTE) EXACERBATION Qualifiers: Asthma severity: moderate Asthma persistence: persistent Qualified Code(s ): J45.41 - Moderate persistent asthma with (acute) exacerbation (2) Multinodular goiter (nontoxic) Code(s): E04.2 - NONTOXIC MULTINODULAR GOITER (3) Breast CA Code(s): C50.919 - MALIGNANT NEOPLASM OF UNSP SITE OF UNSPECIFIED FEMALE BREAST (4) HLD (hyperlipidemia) Code(s): E78.5 - HYPERLIPIDEMIA, UNSPECIFIED (5) HTN (hypertension) Code(s): I10 - ESSENTIAL (PRIMARY) HYPERTENSION Assessment/Plan continue current management COVERING FOR DR CHAVEZ TODAY
[2018-11-21] MEDS: ALBUTEROL SO4 2.5/IPRATROPIUM 0.5 INH SOL 3 ML VIAL.NEB. NEB PRN (20:16)
--- NOTE | 2018-11-21 21:51 | PN ---
Progress Note, Physician - Current Medication List Current Medications: Active Medications Acetazolamide (Diamox -) 500 mg PO BID [facility] Last Admin: 11/21/18 11:42 Dose: 500 mg Albuterol/Ipratropium (Duoneb -) 1 amp NEB Q6H PRN PRN Reason: SHORTNESS OF BREATH Last Admin: 11/21/18 20:16 Dose: 1 amp Amlodipine Besylate (Norvasc -) 10 mg PO DAILY [facility] Last Admin: 11/21/18 09:46 Dose: 10 mg Atorvastatin Calcium (Lipitor -) 10 mg PO HS [facility] Last Admin: 11/20/18 21:10 Dose: 10 mg Budesonide/Formoterol Fumarate (Symbicort 160/4.5mcg -) 2 puff IH BID [facility] Last Admin: 11/21/18 10:06 Dose: 2 puff Bupropion HCl (Wellbutrin Xl -) 150 mg PO DAILY [facility] Last Admin: 11/21/18 09:56 Dose: Not Given Gabapentin (Neurontin -) 800 mg PO BID [facility] Last Admin: 11/21/18 09:46 Dose: 800 mg Guaifenesin/Codeine Phosphate (Robitussin Ac -) 10 ml PO Q6H PRN PRN Reason: COUGH Last Admin: 11/21/18 17:31 Dose: 10 ml Insulin Aspart (Novolog Vial Sliding Scale -) 1 vial SQ [facility]; Protocol Last Admin: 11/21/18 16:11 Dose: 8 units Letrozole (Femara -) 2.5 mg PO DAILY [facility] Last Admin: 11/21/18 09:46 Dose: 2.5 mg Methylprednisolone Sodium Succinate (Solu-Medrol -) 40 mg IVPUSH BID [facility] Last Admin: 11/21/18 10:08 Dose: Not Given Montelukast Sodium (Singulair -) 10 mg PO HS [facility] Last Admin: 11/20/18 21:09 Dose: 10 mg Valsartan (Diovan -) 160 mg PO DAILY [facility] Last Admin: 11/21/18 09:46 Dose: 160 mg Zolpidem Tartrate (Ambien -) 10 mg PO HS PRN PRN Reason: INSOMNIA Last Admin: 11/20/18 21:43 Dose: 10 mg - Objective Vital Signs: Vital Signs Temperature 98.4 F 11/21/18 18:00 Pulse Rate 91 H 11/21/18 18:00 Respiratory Rate 22 H 11/21/18 18:00 Blood Pressure 150/95 11/21/18 18:00 O2 Sat by Pulse Oximetry (%) 97 11/21/18 09:00 Labs: CBC, BMP 11/21/18 06:30 11/21/18 06:30 Problem List - Problems (1) Exacerbation of asthma Code(s): J45.901 - UNSPECIFIED ASTHMA WITH (ACUTE) EXACERBATION Qualifiers: Asthma severity: moderate Asthma persistence: persistent Qualified Code(s ): J45.41 - Moderate persistent asthma with (acute) exacerbation (2) Breast CA Code(s): C50.919 - MALIGNANT NEOPLASM OF UNSP SITE OF UNSPECIFIED FEMALE BREAST (3) HLD (hyperlipidemia) Code(s): E78.5 - HYPERLIPIDEMIA, UNSPECIFIED (4) HTN (hypertension) Code(s): I10 - ESSENTIAL (PRIMARY) HYPERTENSION
[2018-11-21] MEDS: MONTELUKAST NA 10 MG TABLET PO SCH (22:13)
[2018-11-21] MEDS: ATORVASTATIN CA 10 MG TABLET (FP) PO SCH (22:13)
[2018-11-21] MEDS: ZOLPIDEM TARTRATE 5 MG TABLET PO PRN (22:13)
[2018-11-22] MEDS: INSULIN SLIDING SCALE (NOVOLOG) 1 VIAL SQ SCH ×4 (08:01→22:21)
[2018-11-22] MEDS ORDERED: PT OWN MED DRAWER 7, Y5N ONE ×2 (09:30→13:00)
[2018-11-22] MEDS: acetaZOLAMIDE 250 MG TABLET PO SCH ×2 (10:09→22:21)
[2018-11-22] MEDS: amLODIPine BESYLATE 10 MG TABLET (FP) PO SCH (10:10)
[2018-11-22] MEDS: GABAPENTIN 400 MG CAPSULE (FP) PO SCH ×2 (10:10→22:00)
[2018-11-22] MEDS: LETROZOLE 2.5 MG TABLET (FP) PO SCH (10:11)
[2018-11-22] MEDS: VALSARTAN 160 MG TABLET (UD) PO SCH (10:15)
[2018-11-22] MEDS: methylPREDNISolone NA SUCC 40 MG/1 ML VIAL IVPUSH SCH ×2 (10:16→22:21)
[2018-11-22] MEDS: BUDESONIDE/FORMETEROL FUMARATE 160/4.5 mcg INHALER IH SCH ×2 (10:17→22:24)
[2018-11-22] MEDS: ALBUTEROL SO4 2.5/IPRATROPIUM 0.5 INH SOL 3 ML VIAL.NEB. NEB PRN ×2 (11:05→20:15)
[2018-11-22] MEDS: guaiFENesin/CODEINE 10 ML UNIT-DOSE CUPS PO PRN ×2 (11:06→17:45)
--- NOTE | 2018-11-22 12:28 | PN ---
Progress Note, Physician History of Present Illness: pulmonary alert,feeling better,comfortable,less congestion - Current Medication List Current Medications: Active Medications Acetazolamide (Diamox -) 500 mg PO BID [facility] Last Admin: 11/22/18 10:09 Dose: 500 mg Albuterol/Ipratropium (Duoneb -) 1 amp NEB Q6H PRN PRN Reason: SHORTNESS OF BREATH Last Admin: 11/22/18 11:05 Dose: 1 amp Amlodipine Besylate (Norvasc -) 10 mg PO DAILY [facility] Last Admin: 11/22/18 10:10 Dose: 10 mg Atorvastatin Calcium (Lipitor -) 10 mg PO HS [facility] Last Admin: 11/21/18 22:13 Dose: 10 mg Budesonide/Formoterol Fumarate (Symbicort 160/4.5mcg -) 2 puff IH BID [facility] Last Admin: 11/22/18 10:17 Dose: 2 puff Bupropion HCl (Wellbutrin Xl -) 150 mg PO DAILY [facility] Last Admin: 11/22/18 10:10 Dose: 150 mg Gabapentin (Neurontin -) 800 mg PO BID [facility] Last Admin: 11/22/18 10:10 Dose: 800 mg Guaifenesin/Codeine Phosphate (Robitussin Ac -) 10 ml PO Q6H PRN PRN Reason: COUGH Last Admin: 11/22/18 11:06 Dose: 10 ml Insulin Aspart (Novolog Vial Sliding Scale -) 1 vial SQ [facility]; Protocol Last Admin: 11/22/18 11:57 Dose: 6 units Letrozole (Femara -) 2.5 mg PO DAILY [facility] Last Admin: 11/22/18 10:11 Dose: 2.5 mg Methylprednisolone Sodium Succinate (Solu-Medrol -) 40 mg IVPUSH BID [facility] Last Admin: 11/22/18 10:16 Dose: 40 mg Montelukast Sodium (Singulair -) 10 mg PO HS [facility] Last Admin: 11/21/18 22:13 Dose: 10 mg Valsartan (Diovan -) 160 mg PO DAILY [facility] Last Admin: 11/22/18 10:15 Dose: 160 mg Zolpidem Tartrate (Ambien -) 10 mg PO HS PRN PRN Reason: INSOMNIA Last Admin: 11/21/18 22:13 Dose: 10 mg - Objective Vital Signs: Vital Signs Temperature 98.1 F 11/22/18 06:00 Pulse Rate 92 H 11/22/18 06:00 Respiratory Rate 20 11/22/18 06:00 Blood Pressure 155/94 11/22/18 06:00 O2 Sat by Pulse Oximetry (%) 97 11/21/18 21:00 Constitutional: Yes: Well Nourished, Calm, Obese Eyes: Yes: WNL HENT: Yes: WNL Neck: Yes: WNL Cardiovascular: Yes: Regular Rate and Rhythm, S1, S2 Respiratory: Yes: Wheezes (few scattered wheezes) Gastrointestinal: Yes: Normal Bowel Sounds, Soft Extremities: Yes: WNL Edema: Yes Labs: CBC, BMP 11/21/18 06:30 11/21/18 06:30 Assessment/Plan - Problems (1) Exacerbation of asthma Code(s): J45.901 - UNSPECIFIED ASTHMA WITH (ACUTE) EXACERBATION Qualifiers: Asthma severity: moderate Asthma persistence: persistent Qualified Code(s ): J45.41 - Moderate persistent asthma with (acute) exacerbation (2) HLD (hyperlipidemia) Code(s): E78.5 - HYPERLIPIDEMIA, UNSPECIFIED (3) HTN (hypertension) Code(s): I10 - ESSENTIAL (PRIMARY) HYPERTENSION (4) Lung nodule, multiple Code(s): R91.8 - OTHER NONSPECIFIC ABNORMAL FINDING OF LUNG FIELD Assessment/Plan Acute Asthma Exacerbation improving Lung Nodules no change HTN Hyperlipidemia h/o Breast Ca - prednisone 60mg po in am - inhaled bronchodilators standing and PRN - symbicort 160/4.5 - singulair - azithromycin - monitor peak flow - O2 as needed - outpt PFTs - DVT prophylaxis DR TRINH
--- NOTE | 2018-11-22 22:06 | PN ---
Progress Note, Physician - Current Medication List Current Medications: Active Medications Acetazolamide (Diamox -) 500 mg PO BID [facility] Last Admin: 11/22/18 10:09 Dose: 500 mg Albuterol/Ipratropium (Duoneb -) 1 amp NEB Q6H PRN PRN Reason: SHORTNESS OF BREATH Last Admin: 11/22/18 20:15 Dose: 1 amp Amlodipine Besylate (Norvasc -) 10 mg PO DAILY [facility] Last Admin: 11/22/18 10:10 Dose: 10 mg Atorvastatin Calcium (Lipitor -) 10 mg PO HS [facility] Last Admin: 11/21/18 22:13 Dose: 10 mg Budesonide/Formoterol Fumarate (Symbicort 160/4.5mcg -) 2 puff IH BID [facility] Last Admin: 11/22/18 10:17 Dose: 2 puff Bupropion HCl (Wellbutrin Xl -) 150 mg PO DAILY [facility] Last Admin: 11/22/18 10:10 Dose: 150 mg Gabapentin (Neurontin -) 800 mg PO BID [facility] Last Admin: 11/22/18 10:10 Dose: 800 mg Guaifenesin/Codeine Phosphate (Robitussin Ac -) 10 ml PO Q6H PRN PRN Reason: COUGH Last Admin: 11/22/18 17:45 Dose: 10 ml Insulin Aspart (Novolog Vial Sliding Scale -) 1 vial SQ ACHS [facility]; Protocol Last Admin: 11/22/18 16:49 Dose: 8 units Letrozole (Femara -) 2.5 mg PO DAILY [facility] Last Admin: 11/22/18 10:11 Dose: 2.5 mg Methylprednisolone Sodium Succinate (Solu-Medrol -) 40 mg IVPUSH BID [facility] Stop: 11/22/18 23:00 Last Admin: 11/22/18 10:16 Dose: 40 mg Montelukast Sodium (Singulair -) 10 mg PO HS [facility] Last Admin: 11/21/18 22:13 Dose: 10 mg Prednisone (Deltasone -) 60 mg PO DAILY [facility] Valsartan (Diovan -) 160 mg PO DAILY [facility] Last Admin: 11/22/18 10:15 Dose: 160 mg Zolpidem Tartrate (Ambien -) 10 mg PO HS PRN PRN Reason: INSOMNIA Last Admin: 11/21/18 22:13 Dose: 10 mg - Objective Vital Signs: Vital Signs Temperature 97.9 F 11/22/18 13:43 Pulse Rate 91 H 11/22/18 13:43 Respiratory Rate 20 11/22/18 09:00 Blood Pressure 128/76 11/22/18 13:43 O2 Sat by Pulse Oximetry (%) 97 11/22/18 09:00 Labs: CBC, BMP 11/21/18 06:30 11/21/18 06:30 Problem List - Problems (1) Exacerbation of asthma Code(s): J45.901 - UNSPECIFIED ASTHMA WITH (ACUTE) EXACERBATION Qualifiers: Asthma severity: moderate Asthma persistence: persistent Qualified Code(s ): J45.41 - Moderate persistent asthma with (acute) exacerbation (2) Breast CA Code(s): C50.919 - MALIGNANT NEOPLASM OF UNSP SITE OF UNSPECIFIED FEMALE BREAST (3) HLD (hyperlipidemia) Code(s): E78.5 - HYPERLIPIDEMIA, UNSPECIFIED (4) HTN (hypertension) Code(s): I10 - ESSENTIAL (PRIMARY) HYPERTENSION
[2018-11-22] MEDS ORDERED: INSULIN (NOVOLOG) ASPART 100 UNITS/ML 10ML VIAL ONE (22:11)
[2018-11-22] MEDS: MONTELUKAST NA 10 MG TABLET PO SCH (22:21)
[2018-11-22] MEDS: ATORVASTATIN CA 10 MG TABLET (FP) PO SCH (22:21)
[2018-11-22] MEDS: ZOLPIDEM TARTRATE 5 MG TABLET PO PRN (22:21)
[2018-11-23] MEDS: guaiFENesin/CODEINE 10 ML UNIT-DOSE CUPS PO PRN ×2 (01:22→09:15)
[2018-11-23] MEDS: INSULIN SLIDING SCALE (NOVOLOG) 1 VIAL SQ SCH ×2 (06:11→11:14)
[2018-11-23] MEDS: ALBUTEROL SO4 2.5/IPRATROPIUM 0.5 INH SOL 3 ML VIAL.NEB. NEB PRN (07:20)
[2018-11-23] MEDS ORDERED: PT OWN MED DRAWER 7, Y5N ONE (08:52)
[2018-11-23 09:11] VITALS: BP 145/71; PULSE 91; TEMP 98.3
[2018-11-23] MEDS: VALSARTAN 160 MG TABLET (UD) PO SCH (09:13)
[2018-11-23] MEDS: GABAPENTIN 400 MG CAPSULE (FP) PO SCH (09:13)
[2018-11-23] MEDS: amLODIPine BESYLATE 10 MG TABLET (FP) PO SCH (09:13)
[2018-11-23] MEDS: LETROZOLE 2.5 MG TABLET (FP) PO SCH (09:14)
[2018-11-23] MEDS: acetaZOLAMIDE 250 MG TABLET PO SCH (09:15)
[2018-11-23] MEDS: BUDESONIDE/FORMETEROL FUMARATE 160/4.5 mcg INHALER IH SCH (09:17)
[2018-11-23] MEDS ORDERED: predniSONE 20 MG TABLET (UD) PO SCH (10:00)
--- NOTE | 2018-11-23 12:16 | PN ---
Progress Note (short form) - Note Progress Note: PULMONARY WANTS TO GO HOME VSS/AFEBRILE ANICTERIC CLEAR S1S2 BS+ SOFT NO EDEMA LABS/MEDS/NOTES/IMAGES REVIEWED Acute Asthma Exacerbation improved Lung Nodules no change HTN Hyperlipidemia h/o Breast Ca - prednisone with slow outpatient taper - inhaled bronchodilators standing and PRN - symbicort 160/4.5 - singulair - azithromycin - monitor peak flow - O2 as needed - outpt PFTs - DVT prophylaxis OK TO D/C HOME Dominick REYNA MD
== END 2018-11-23 16:05 | disposition home or self-care (01) | DRG 203 ==
LOC: JER 10:35 → JERBED 12:12 → J6S 14:17
PROVIDERS: ADMIT Internal Medicine; ATTEND Internal Medicine
DX: J45.41 Moderate persistent asthma with (acute) exacerbation (principal); E78.5 Hyperlipidemia, unspecified; I10 Essential (primary) hypertension; R91.8 Other nonspecific abnormal finding of lung field; Z85.3 Personal history of malignant neoplasm of breast; Z68.39 Body mass index [BMI] 39.0-39.9, adult; E66.01 Morbid (severe) obesity due to excess calories
CPT/HCPCS: 36415; 71046-TC-FY; 71250-TC; 80053; 82962; 83036; 84439; 84443; 84703; 85025; 93005; 93010; 94150; 94640; 99282-25

== ENCOUNTER 2018-12-27 09:51 | Emergency (ER) | payer BC ==
[2018-12-27 10:08] VITALS: BP 143/95; PULSE 89; TEMP 98.4; BMI 40.7
[2018-12-27] MEDS ORDERED: ONDANSETRON 4 MG/2 ML VIAL IVPUSH ONE (10:32)
[2018-12-27] MEDS ORDERED: SODIUM CHLORIDE 1,000 ML IV STA (10:32)
[2018-12-27] MEDS ORDERED: KETOROLAC TROMETHAMINE 30 MG/1 ML VIAL IVPUSH ONE (10:32)
--- NOTE | 2018-12-27 10:53 | PDOC ---
History of Present Illness - General Chief Complaint: Back Pain Stated Complaint: LOWER BACK PAIN Time Seen by Provider: 12/27/18 10:27 History Source: Patient Exam Limitations: No Limitations - History of Present Illness Travel History: No Initial Comments: 12/27/18 11:04 48-year-old female recently diagnosed with questionable renal mass seen on ultrasound done in the office by Dr. Mcfarlane on Sunday. Patient with history of renal colic and now complaining of worsening right flank pain without fever, chills or nausea. Patient also denies any hematuria or urinary frequency or dysuria. Timing/Duration: reports: constant, getting worse Quality: reports: moderate, sharpness Abdominal Pain Onset Location: reports: flank (rt) Pain Radiation: reports: no radiation Activities at Onset: reports: none Aggravating Factors: improves with: None Alleviating Factors: improves with: None Past History - Travel Traveled outside of the country in the last 30 days: No Close contact w/someone who was outside of country & ill: No - Past Medical History Allergies/Adverse Reactions: Allergies Allergy/AdvReac Type Severity Reaction Status Date / Time ciprofloxacin Allergy Verified 12/27/18 10:08 Home Medications: Ambulatory Orders Amlodipine Besylate [Norvasc -] 10 mg PO DAILY 10/07/18 Atorvastatin Ca [Lipitor] 10 mg PO HS 10/07/18 Bupropion HCl [Wellbutrin Xl -] 150 mg PO DAILY 10/07/18 Calcium Carbonate/Vitamin D3 [Calcium 600 + Vit D Tablet] 2 each PO DAILY Cholecalciferol (Vitamin D3) [Vitamin D3] 2,000 unit PO DAILY 10/07/18 Gabapentin 800 mg PO BID 10/07/18 Letrozole [Femara] 2.5 mg PO DAILY 10/07/18 Pantoprazole Sodium 40 mg PO DAILY 10/07/18 Valsartan [Diovan] 160 mg PO DAILY 10/07/18 acetaZOLAMIDE [Diamox -] 500 mg PO BID 10/07/18 Albuterol 2.5/Ipratropium 0.5 [Duoneb -] 1 amp NEB Q6H PRN #90 amp 11/23/18 Budesonide/Formeterol Fumarate [SYMBICORT 160/4.5mcg -] 2 puff IH BID #1 inhaler 11/23/18 Furosemide [Lasix] 20 mg PO ASDIR #5 tablet 11/23/18 Guaifenesin AC [Robitussin AC -] 10 ml PO Q6H PRN #120 ml MDD 30 11/23/18 Montelukast Na [Singulair -] 10 mg PO HS #30 tablet 11/23/18 predniSONE [Deltasone -] 10 mg PO DAILY #40 tablet 11/23/18 Anemia: Yes Asthma: Yes Cancer: Yes (BREAST 2014) Cardiac Disorders: Yes (HX OF CHEST PAIN 2013 PT REPORTS NEG WORK-UP) CVA: No COPD: Yes CHF: No DVT: No Dementia: No Diabetes: Yes Dialysis: No GI Disorders: No Disorders: No HTN: Yes Hypercholesterolemia: Yes Kidney Stones: Yes Liver Disease: No Psychiatric Problems: No 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) Thyroid Disease: Yes (HYPOTHYROID) Lung CA: No - Surgical History Abdominal Surgery: No Appendectomy: Yes (hysterectomy) Cardiac Surgery: No Cholecystectomy: No Gastric Stapling: No GI Surgery: No Lung Surgery: No Neurologic Surgery: Yes (Back sx 05/2018- Spinal fusion) Orthopedic Surgery: No - Family Disease History Family Disease History: Heart Disease: Sister, CA: Father, Mother, Sister - Reproductive History Cervical CA: No Dysfunctional Uterine Bleeding: No Ectopic : No Endometrial CA: No Polycystic Ovaries: No Therapeutic (s) & number: No Tubal Ligation: Yes - Immunization History Td Vaccination: Yes TDAP Vaccination: Yes Immunization Up to Date: Yes - Suicide/Smoking/Psychosocial Hx Smoking Status: Yes Smoking History: Former smoker Years of Tobacco Use: 0 Have you smoked in the past 12 months: No Number of Cigarettes Smoked Daily: 0 If you are a former smoker, when did you quit?: 2014 Information on smoking cessation initiated: No Hx Alcohol Use: No Drug/Substance Use Hx: No Substance Use Type: None Hx Substance Use Treatment: No Patient Lives Alone: No Lives with/in: spouse/SO Review of Systems - Review of Systems Able to Perform ROS?: No Is the patient limited Somali proficient: No Constitutional: No: Symptoms Reported HEENTM: No: Symptoms Reported Respiratory: No: Symptoms reported Cardiac (ROS): No: Symptoms Reported ABD/GI: Yes: Abdominal cramping. No: Nausea : Yes: Flank Pain Musculoskeletal: No: Symptoms Reported Integumentary: No: Symptoms Reported Neurological: No: Symptoms reported *Physical Exam - Vital Signs Last Vital Signs Temp Pulse Resp BP Pulse Ox 98.4 F 89 18 143/95 100 12/27/18 10:03 12/27/18 10:03 12/27/18 10:03 12/27/18 10:03 12/27/18 10:03 - Physical Exam General Appearance: Yes: Nourished, Appropriately Dressed. No: Apparent Distress HEENT: negative: Pale Conjunctivae Respiratory/Chest: positive: Lungs Clear, Normal Breath Sounds. negative: Respiratory Distress, Accessory Muscle Use Cardiovascular: positive: Regular Rhythm, Regular Rate. negative: Murmur Gastrointestinal/Abdominal: positive: Soft, Tenderness (right flank, no right upper quadrant) Musculoskeletal: positive: CVA Tenderness (R) Integumentary: positive: Normal Color, Warm, Moist Neurologic: positive: Motor Strength 5/5 (ambulatory) ED Treatment Course - LABORATORY CBC & Chemistry Diagram: 12/27/18 13:13 12/27/18 13:13 Medical Decision Making - Medical Decision Making 12/27/18 11:05 cc: Right flank pain for the past week. Patient had bedside ultrasound done in urologist office on Sunday and saw a mass so had a spiral CT done here in [facility] but due to pain she decided come to the ER. Exam. Patient right flank and right CVA tenderness. Plan: Labs, urine, pain medicine IV fluids and will consult urology / review CAT scan report shortly 12/27/18 15:17 Laboratory Tests 12/27/18 12/27/18 11:14 13:13 Sodium 140 Potassium 3.5 Carbon Dioxide 24 Anion Gap 6 L BUN 8.9 Creatinine 1.0 Random Glucose 128 H Calcium 8.3 L Total Bilirubin 0.6 AST 16 ALT 21 Alkaline Phosphatase 60 Total Protein 6.5 Albumin 3.6 Lipase 275 Ur Specific [place] 1.052 H Urine Bilirubin Negative Ur Leukocyte Esterase Negative Laboratory Tests 12/27/18 13:13 WBC 9.7 Hgb 11.2 Hct 33.4 RDW 16.9 H Neutrophils % 72.4 D Lymphocytes % 21.5 D 12/27/18 15:20 Ultrasound shows gallbladder normal size containing multiple calculi with no evidence of intra-extrahepatic duct dilatation. The liver is normal size with hypochromic a color texture consistent with fatty infiltration. No icterus hepato-or masses seen. The pancreas is of normal size and texture with no pancreatic mass identified. There is no evidence of hydronephrosis acute abnormalities the right kidney. Abdominal CT reviewed by myself and reviewed verbally with urologist Dr. Emery Lugo who is aware of no hydronephrosis, renal colic, obstructive uropathy, or worsening renal mass. Patient will be given a referral for GI and surgical referral secondary to gallstones. Patient also will follow-up with urologist as discussed. *DC/Admit/Observation/Transfer Diagnosis at time of Disposition: Gallstones - Discharge Dispostion Disposition: HOME Condition at time of disposition: Good - Referrals Referrals: Smith Lugo MD [Primary Care Provider] - Smith Telles MD [Staff Physician] - - Patient Instructions Printed Discharge Instructions: DI for Gallstones Additional Instructions: Please call surgeon if symptoms continue of right abdominal pain to discuss gallstones and gallbladder removal. Read over information on gallstones and foods to avoid. Follow-up with urologist as discussed. - Post Discharge Activity
[2018-12-27] MEDS ORDERED: ONDANSETRON 4 MG/2 ML VIAL ONE (11:11)
[2018-12-27] MEDS ORDERED: KETOROLAC TROMETHAMINE 30 MG/1 ML VIAL ONE (11:11)
[2018-12-27 12:24] LABS: PH,URINE 7.5 (5.0-8.0); URINE APPEARANCE CLEAR; URINE BILIRUBIN NEGATIVE (NEGATIVE); URINE COLOR YELLOW; URINE GLUCOSE (UA) NEGATIVE (NEGATIVE); URINE KETONE NEGATIVE (NEGATIVE); URINE LEUK ESTERASE NEGATIVE (NEGATIVE); URINE NITRITE NEGATIVE (NEGATIVE); URINE PROTEIN NEGATIVE (NEGATIVE)
[2018-12-27 14:13] LABS: BASO % 0.3 % (0-2.0); EOS % 0.3 % (0-4.5); HEMATOCRIT 33.4 % (32.4-45.2); HEMOGLOBIN 11.2 GM/dL (10.7-15.3); LYMPH % 21.5 % (8-40); MCH 27.6 pg (25.7-33.7); MCHC 33.5 g/dl (32.0-36.0); MEAN CELL VOLUME 82.6 fl (80-96); MEAN PLT VOLUME 7.7 fl (7.5-11.1); MONO % 5.5 % (3.8-10.2); NEUT % 72.4 % (42.8-82.8); PLATELET COUNT 211 K/MM3 (134-434); RBC 4.05 M/mm3 (3.60-5.2); RDW 16.9 % (11.6-15.6); WHITE BLOOD COUNT 9.7 K/mm3 (4.0-10.0)
[2018-12-27 14:30] LABS: ALBUMIN 3.6 g/dl (3.4-5.0); BILIRUBIN,TOTAL 0.6 mg/dL (0.2-1); BLOOD UREA NITROGEN 8.9 mg/dL (7-18); CALCIUM 8.3 mg/dL (8.5-10.1); POTASSIUM 3.5 mmol/L (3.5-5.1); TOT PROT 6.5 g/dl (6.4-8.2)
== END 2018-12-27 16:00 | disposition home or self-care (01) ==
LOC: JER 09:51
DX: K80.20 Calculus of gallbladder without cholecystitis without obstruction (principal); D64.9 Anemia, unspecified; J45.909 Unspecified asthma, uncomplicated; J44.9 Chronic obstructive pulmonary disease, unspecified; I10 Essential (primary) hypertension; E03.9 Hypothyroidism, unspecified; Z86.69 Personal history of other diseases of the nervous system and sense organs; Z87.442 Personal history of urinary calculi
CPT/HCPCS: 36415; 74178-TC; 76705-TC; 80053; 81003; 83690; 85025; 87086; 99282-25; C1887

== ENCOUNTER 2019-01-24 17:20 | Emergency (ER) | payer BC ==
--- NOTE | 2019-01-24 17:39 | PDOC ---
Rapid Medical Evaluation Chief Complaint: Pain Time Seen by Provider: 01/24/19 17:36 Medical Evaluation: Allergies Allergy/AdvReac Type Severity Reaction Status Date / Time ciprofloxacin Allergy Verified 12/27/18 10:08 01/24/19 17:37 I have performed a brief in-person evaluation of this patient. The patient presents with a chief complaint of: s/p Cindy and Liver Bx Sunday. C/O pain, fevers to 100. Pertinent physical exam findings: Pain, bloating to abd., no drainage. I have ordered the following: CbC, CMP, Lipase, Amylase, The patient will proceed to the ED for further evaluation. Discharge Disposition - Diagnosis Abdominal pain - Referrals - Patient Instructions - Post Discharge Activity
[2019-01-24 17:41] VITALS: TEMP 98.2; BMI 40.7
[2019-01-24 18:46] LABS: BASO % 0.7 % (0-2.0); EOS % 5.5 % (0-4.5); HEMATOCRIT 38.8 % (32.4-45.2); HEMOGLOBIN 12.6 GM/dL (10.7-15.3); LYMPH % 37.9 % (8-40); MCH 27.5 pg (25.7-33.7); MCHC 32.5 g/dl (32.0-36.0); MEAN CELL VOLUME 84.4 fl (80-96); MEAN PLT VOLUME 7.5 fl (7.5-11.1); MONO % 5.7 % (3.8-10.2); NEUT % 50.2 % (42.8-82.8); PLATELET COUNT 243 K/MM3 (134-434); RBC 4.59 M/mm3 (3.60-5.2); RDW 16.6 % (11.6-15.6); WHITE BLOOD COUNT 7.2 K/mm3 (4.0-10.0)
[2019-01-24 19:05] LABS: ALBUMIN 3.5 g/dl (3.4-5.0); BILIRUBIN,TOTAL 0.5 mg/dL (0.2-1); BLOOD UREA NITROGEN 8.5 mg/dL (7-18); CALCIUM 8.8 mg/dL (8.5-10.1); CREATININE 0.9 mg/dL (0.55-1.3); POTASSIUM 3.9 mmol/L (3.5-5.1)
--- NOTE | 2019-01-24 19:24 | PDOC ---
History of Present Illness - General Chief Complaint: Pain Stated Complaint: ABD Time Seen by Provider: 01/24/19 17:36 History Source: Patient - History of Present Illness Initial Comments: 01/24/19 20:45 Jyoti Beatty is a 48yF with PMHx diabetes, HTN, breast cancer on immunotherapy, hyperthyroidism presenting with AB pain s/p cholecystectomy and liver biopsy. Progressively worsening epigastric and R flank pain started 2 days ago, 1 day after cholecystectomy and liver biopsy performed by Dr Quintero. Associated nausea/ vomiting, only able to keep small fluid amounts down. Took tramadol yesterday w/ o relief. Has regular bowel movements. Denies fever, chest pain, urinary changes. Past History - Past Medical History Allergies/Adverse Reactions: Allergies Allergy/AdvReac Type Severity Reaction Status Date / Time ciprofloxacin Allergy Verified 01/24/19 17:37 Home Medications: Ambulatory Orders Amlodipine Besylate [Norvasc -] 10 mg PO DAILY 10/07/18 Atorvastatin Ca [Lipitor] 10 mg PO HS 10/07/18 Bupropion HCl [Wellbutrin Xl -] 150 mg PO DAILY 10/07/18 Calcium Carbonate/Vitamin D3 [Calcium 600 + Vit D Tablet] 2 each PO DAILY Cholecalciferol (Vitamin D3) [Vitamin D3] 2,000 unit PO DAILY 10/07/18 Gabapentin 800 mg PO BID 10/07/18 Letrozole [Femara] 2.5 mg PO DAILY 10/07/18 Pantoprazole Sodium 40 mg PO DAILY 10/07/18 Valsartan [Diovan] 160 mg PO DAILY 10/07/18 acetaZOLAMIDE [Diamox -] 500 mg PO BID 10/07/18 Albuterol 2.5/Ipratropium 0.5 [Duoneb -] 1 amp NEB Q6H PRN #90 amp 11/23/18 Budesonide/Formeterol Fumarate [SYMBICORT 160/4.5mcg -] 2 puff IH BID #1 inhaler 11/23/18 Furosemide [Lasix] 20 mg PO ASDIR #5 tablet 11/23/18 Guaifenesin AC [Robitussin AC -] 10 ml PO Q6H PRN #120 ml MDD 30 11/23/18 Montelukast Na [Singulair -] 10 mg PO HS #30 tablet 11/23/18 predniSONE [Deltasone -] 10 mg PO DAILY #40 tablet 11/23/18 Oxycodone HCl/Acetaminophen [Percocet 5-325 mg Tablet] 1 - 2 tab PO Q6H PRN #12 tab MDD 4 12/27/18 Cephalexin [Keflex] 500 mg PO TID 7 Days #21 capsule 01/24/19 Anemia: Yes Asthma: Yes Cancer: Yes (BREAST 2014) Cardiac Disorders: Yes (HX OF CHEST PAIN 2013 PT REPORTS NEG WORK-UP) CVA: No COPD: Yes CHF: No DVT: No Dementia: No Diabetes: Yes Dialysis: No GI Disorders: No Disorders: No HTN: Yes Hypercholesterolemia: Yes Kidney Stones: Yes Liver Disease: No Psychiatric Problems: No 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) Thyroid Disease: Yes (HYPOTHYROID) Lung CA: No - Surgical History Abdominal Surgery: No Appendectomy: Yes (hysterectomy) Cardiac Surgery: No Cholecystectomy: No Gastric Stapling: No GI Surgery: No Lung Surgery: No Neurologic Surgery: Yes (Back sx 05/2018- Spinal fusion) Orthopedic Surgery: No - Family Disease History Family Disease History: Heart Disease: Sister, CA: Father, Mother, Sister - Reproductive History Cervical CA: No Dysfunctional Uterine Bleeding: No Ectopic : No Endometrial CA: No Polycystic Ovaries: No Therapeutic (s) & number: No Tubal Ligation: Yes - Immunization History Td Vaccination: Yes TDAP Vaccination: Yes Immunization Up to Date: Yes - Suicide/Smoking/Psychosocial Hx Smoking Status: Yes Smoking History: Never smoked Years of Tobacco Use: 0 Have you smoked in the past 12 months: No Number of Cigarettes Smoked Daily: 0 If you are a former smoker, when did you quit?: 2014 Information on smoking cessation initiated: No Hx Alcohol Use: No Drug/Substance Use Hx: No Substance Use Type: None Hx Substance Use Treatment: No Review of Systems - Review of Systems Constitutional: No: Chills, Fever HEENTM: No: Eye Pain, Nose Pain, Throat Pain, Mouth Pain Respiratory: No: Cough, Shortness of Breath Cardiac (ROS): No: Chest Pain, Palpitations, Syncope ABD/GI: Yes: Nausea, Poor Appetite, Poor Fluid Intake, Vomiting. No: Abdominal Distended, Blood Streaked Bowels, Constipated, Diarrhea : No: Burning, Dysuria, Discharge, Flank Pain, Hematuria, Incontinence Musculoskeletal: No: Back Pain, Joint Pain, Muscle Pain, Muscle Weakness Integumentary: No: Bruising, Flushing, Lesions, Lumps Neurological: No: Headache, Paresthesia, Seizure, Tingling, Tremors Psychiatric: No: Anxiety, Depression Endocrine: No: Excessive Sweating, Flushing, Intolerance to Cold, Intolerance to Heat Hematologic/Lymphatic: No: Anemia, Blood Clots, Easy Bleeding *Physical Exam - Vital Signs Last Vital Signs Temp Pulse Resp BP Pulse Ox 98.2 F 85 17 144/88 99 01/24/19 17:38 01/24/19 17:38 01/24/19 17:38 01/24/19 17:38 01/24/19 17:38 - Physical Exam General Appearance: Yes: Nourished, Appropriately Dressed, Moderate Distress HEENT: positive: EOMI, NORA, Normal Voice, Hearing Grossly Normal. negative: Scleral Icterus (R), Scleral Icterus (L), Rhinorrhea Respiratory/Chest: positive: Lungs Clear, Normal Breath Sounds. negative: Chest Tender, Respiratory Distress, Crackles, Rales, Rhonchi, Stridor, Wheezing Cardiovascular: positive: Regular Rhythm, Regular Rate, S1, S2. negative: Edema , Murmur Gastrointestinal/Abdominal: positive: Normal Bowel Sounds, Tender (moderate tenderness epigastric, RUQ, RLQ, R flank), Flat, Soft, Guarding, Other (healed laprascopic AB wounds, no erythema/discharge/bleeding). negative: Organomegaly , Distended, Rebound, Hernia Musculoskeletal: negative: CVA Tenderness (R), CVA Tenderness (L) Integumentary: positive: Normal Color, Dry. negative: Rash Neurologic: positive: Fully Oriented, Alert, Normal Response, Responsive. negative: Sensory Deficit, Confused, Disoriented ED Treatment Course - LABORATORY CBC & Chemistry Diagram: 01/24/19 18:30 01/24/19 18:30 - ADDITIONAL ORDERS Additional order review: Laboratory Results 01/24/19 18:30 Sodium 143 Potassium 3.9 Chloride 113 H Carbon Dioxide 25 Anion Gap 4 L BUN 8.5 Creatinine 0.9 Est GFR (CKD-EPI)AfAm 87.63 Est GFR (CKD-EPI)NonAf 75.61 Random Glucose 84 Calcium 8.8 Total Bilirubin 0.5 AST 25 ALT 31 Alkaline Phosphatase 56 Total Protein 7.0 Albumin 3.5 Total Amylase 50 Lipase 205 01/24/19 18:30 RBC 4.59 MCV 84.4 MCHC 32.5 RDW 16.6 H MPV 7.5 Neutrophils % 50.2 D Lymphocytes % 37.9 D Monocytes % 5.7 Eosinophils % 5.5 H D Basophils % 0.7 Medical Decision Making - Medical Decision Making 01/24/19 19:38 CT AB, UA, EKG morphine zofran 1L NS CBC CMP normal, hcg neg EKG showed T wave changes UA showed 3+ leuk esterase, + urobilinogen - UTI, given rocephin, plan to d/c w keflex TID 7d given 15 toradol for 7/[address] AB showed small chronic R renal subcapsular hematoma, no biliary dilation/ infection or bleeding Jyoti Young is a 48yF with PMHx diabetes, HTN, breast cancer on immunotherapy, hyperthyroidism presenting with AB pain s/p cholecystectomy and liver biopsy. Has UTI w leuk esterase on UA, given rocephin. Normal LFTs, not . Given morphine and toradol for pain, zofran for nausea, 1L NS for dehydration. CT AB showed no bile dilation or bowel injury s/p cholecystectomy. D/c home with keflex prescription for UTI, f/u w Dr. Quintero surgeon. Message left w Dr. Quintero *DC/Admit/Observation/Transfer Diagnosis at time of Disposition: Urinary tract infection Qualifiers: Urinary tract infection type: acute cystitis Hematuria presence: without hematuria Qualified Code(s): N30.00 - Acute cystitis without hematuria Abdominal pain Qualifiers: Abdominal location: epigastric Qualified Code(s): R10.13 - Epigastric pain - Discharge Dispostion Disposition: HOME Condition at time of disposition: Improved - Prescriptions Prescriptions: Cephalexin [Keflex] 500 mg PO TID 7 Days #21 capsule - Referrals Referrals: Smith Lugo MD [Primary Care Provider] - - Patient Instructions Printed Discharge Instructions: DI for Urinary Tract Infection (UTI) Additional Instructions: You were seen for abdominal pain. Your workup showed that you have a urinary tract infection. You were given antibiotics and medication to relieve your pain and nausea. Your CT scan did not show any surgical complications. Please follow up with Dr. Quintero regarding your ED visit. Please take your prescribed antibiotics as directed. Come back to the ED if you have worsening pain, continue vomiting, or have fevers. - Post Discharge Activity
[2019-01-24] MEDS ORDERED: ONDANSETRON 4 MG/2 ML VIAL IVPUSH ONE (19:32)
[2019-01-24] MEDS ORDERED: morphine CARPU-JECT 4 MG/1 ML DISP.SYRIN IVPUSH ONE (19:33)
[2019-01-24] MEDS ORDERED: SODIUM CHLORIDE 0.9% 500 ML INFUS.BAG IV ONE (19:34)
[2019-01-24] MEDS ORDERED: morphine SULFATE 4 MG/ML VIAL ONE (19:55)
[2019-01-24] MEDS ORDERED: ONDANSETRON 4 MG/2 ML VIAL ONE (19:55)
[2019-01-24 21:01] LABS: EPI CELLS 2.8 /HPF (0-5/HPF); HYALINE CASTS 112 /lpf (0-8); PH,URINE 7.5 (5.0-8.0); URINE APPEARANCE CLOUDY; URINE BACTERIA 15.6 /hpf (NEGATIVE); URINE BILIRUBIN NEGATIVE (NEGATIVE); URINE COLOR YELLOW; URINE GLUCOSE (UA) NEGATIVE (NEGATIVE); URINE KETONE TRACE (NEGATIVE); URINE LEUK ESTERASE 3+ (NEGATIVE); URINE NITRITE NEGATIVE (NEGATIVE); URINE PROTEIN TRACE (NEGATIVE); URINE RBC 8 /hpf (0-4); URINE UROBILINOGEN 4.0 E.U/dl mg/dL (0.2-1.0); URINE WBC 127 /hpf (0-5)
[2019-01-24] MEDS ORDERED: CEFTRIAXONE 1,000 MG in DEXTROSE 5%-WATER - 50 ML IVPB ONE (21:20)
[2019-01-24] MEDS ORDERED: CEFTRIAXONE 1 GM/50 ML BAG ONE ×2 (21:30→21:50)
[2019-01-24] MEDS ORDERED: KETOROLAC TROMETHAMINE 30 MG/1 ML VIAL IVPUSH ONE (22:18)
[2019-01-24] MEDS ORDERED: KETOROLAC TROMETHAMINE 15 MG/ML VIAL ONE (22:25)
[2019-01-24 22:41] VITALS: BP 140/83; PULSE 78
--- NOTE | 2019-01-24 22:44 | PDOC ---
Documentation entered by Hodan Saavedra SCRIBE, acting as scribe for Traci Brasher MD. Traci Brasher MD: This documentation has been prepared by the scribe, Hodan Saavedra SCRIBE, under my direction and personally reviewed by me in its entirety. I confirm that the documentation accurately reflects all work, treatment, procedures, and medical decision making performed by me. Attending Attestation - Resident Resident Name: YuriyChase - ED Attending Attestation I have performed the following: I have examined & evaluated the patient, The case was reviewed & discussed with the resident, I agree w/resident's findings & plan, Exceptions are as noted - HPI HPI: 01/24/19 19:31 The patient is a 48-year-old female, with a past medical history of HTN, DM, breast CA (on immunotherapy), s/p cholecystectomy and liver biopsy on Sunday, who presents to the ED with 2 days of epigastric and RT flank pain. The patient reports associated nausea, NB/NB vomiting, and a fever of 100 yesterday. Patient reports having normal bowel movements and denies any urinary symptoms. The patient denies any diarrhea and constipation. Denies any chest pain, palpitations, or shortness of breath. Denies any weakness, dizziness, lightheadedness, or changes in strength or sensation. Allergies: Ciprofloxacin Surgeon: Dr. Quintero - Physicial Exam PE: 01/24/19 19:33 GENERAL: Awake, alert, and fully oriented, in no acute distress HEAD: No signs of trauma EYES: PERRLA, EOMI, sclera anicteric, conjunctiva clear ENT: Auricles normal inspection, hearing grossly normal, nares patent, oropharynx clear without exudates. Moist mucosa NECK: Normal ROM, supple, no lymphadenopathy, JVD, or masses LUNGS: Breath sounds equal, clear to auscultation bilaterally. No wheezes, and no crackles HEART: Regular rate and rhythm, normal S1 and S2, no murmurs, rubs or gallops ABDOMEN: Soft, nontender, normoactive bowel sounds. No guarding, no rebound. No masses EXTREMITIES: Normal range of motion, no edema. No clubbing or cyanosis. No cords, erythema, or tenderness NEUROLOGICAL: Cranial nerves II through XII grossly intact. Normal speech SKIN: Warm, Dry, normal turgor, no rashes or lesions noted - Medical Decision Making 01/24/19 22:25 Pt has normal exam other than expected post surgical pain. She has no flank pain at this time. She has no suprapubic pain. Pt states that she hasn't eaten all day because she had joni soup and vomited up; likely too fatty meal. Pt advised to eat lower fat foods for the short term. Pt has no fever and no chills. She has no SOB. She has no chest pain. Heart and lungs normal. 01/25/19 00:13 Pt will be treated for UTI; stable to go home. Heart Score/ECG Review - ECG Intrepretation Rhythm: Regular Rhythm - [place]: Normal - P and MO Delta Wave(s) Present: No WPW: No - ST and T Early Repolarization: No Non Specific ST-T Wave changes: No - ECG Impressions Normal ECG: Yes Non-specific ST Elevation: No Ischemic Changes: Yes (inferior flipped Ts) Bradycardia: No
--- NOTE | 2019-01-26 11:39 | EKG ---
Test Reason : Blood Pressure : / mmHG Vent. Rate : 075 BPM Atrial Rate : 075 BPM P-R Int : 132 ms QRS Dur : 088 ms QT Int : 418 ms P-R-T Axes : 027 -28 -27 degrees QTc Int : 466 ms NORMAL SINUS RHYTHM POSSIBLE ANTERIOR INFARCT , AGE UNDETERMINED ABNORMAL ECG WHEN COMPARED WITH ECG OF 15-NOV-2018 17:18, NO SIGNIFICANT CHANGE WAS FOUND Confirmed by GEETA HERRERA MD ([id number]) on 01/26/2019 11:38:55 AM Referred By: Confirmed By:GEETA HERRERA MD
== END 2019-01-24 22:46 | disposition home or self-care (01) ==
LOC: JER 17:20
PROC: 3E03329 Introduction of Other Anti-infective into Peripheral Vein, Percutaneous Approach (ICD-10-PCS; principal; 2019-01-24)
PROC: 3E0333Z Introduction of Anti-inflammatory into Peripheral Vein, Percutaneous Approach (ICD-10-PCS; 2019-01-24)
PROC: 3E033NZ Introduction of Analgesics, Hypnotics, Sedatives into Peripheral Vein, Percutaneous Approach (ICD-10-PCS; 2019-01-24)
DX: N30.00 Acute cystitis without hematuria (principal); R10.13 Epigastric pain; E11.9 Type 2 diabetes mellitus without complications; I10 Essential (primary) hypertension; Z85.3 Personal history of malignant neoplasm of breast; E07.9 Disorder of thyroid, unspecified
CPT/HCPCS: 36415; 74177-TC; 80053; 81003; 82150; 83690; 84703; 85025; 87086; 87186; 93005; 93010; 99283-25

== ENCOUNTER 2019-05-23 08:24 | Emergency (ER) | payer BC ==
[2019-05-23 08:44] VITALS: BP 145/69; PULSE 92; TEMP 97.8; BMI 39.9
[2019-05-23] MEDS ORDERED: KETOROLAC TROMETHAMINE 60 MG/2 ML VIAL IM ONE (09:34)
[2019-05-23] MEDS ORDERED: METHOCARBAMOL 500 MG TABLET PO ONE (09:34)
[2019-05-23] MEDS ORDERED: KETOROLAC TROMETHAMINE 30 MG/1 ML VIAL IM ONE (09:40)
[2019-05-23] MEDS ORDERED: METHOCARBAMOL 500 MG TABLET ONE (09:42)
[2019-05-23] MEDS ORDERED: KETOROLAC TROMETHAMINE 30 MG/1 ML VIAL ONE (09:42)
--- NOTE | 2019-05-23 09:55 | PDOC ---
History of Present Illness - General Chief Complaint: Pain Stated Complaint: RT BREAST PAIN Time Seen by Provider: 05/23/19 09:25 History Source: Patient Exam Limitations: Clinical Condition - History of Present Illness Initial Comments: 05/23/19 09:53 Patient with past medical history of hypertension, asthma and diabetes on meds presented with complaint of 4-day history of persistent right side chest wall and upper back pain which has been worsening and worse when sleeping on right side of the body. Patient reported pain wakes her up at night due to sleeping on right side of body. Patient report intermittent shortness of breath. Denies nausea, vomiting, palpitation, weakness, headache, dizziness, sweats. Patient report taking home tramadol medication yesterday for pain with minimal improvement. Patient did not take anything for pain today. Patient reported she was seen by iron carrier 5 days ago and echo was done which was normal and has a follow-up appointment coming up with cardiology after chest CT was done for follow-up Is this a multiple visit Asthma Patient?: No Timing/Duration: getting worse, other (4 days) Past History - Past Medical History Allergies/Adverse Reactions: Allergies Allergy/AdvReac Type Severity Reaction Status Date / Time ciprofloxacin Allergy Verified 01/24/19 17:37 Home Medications: Ambulatory Orders Amlodipine Besylate [Norvasc -] 10 mg PO DAILY 10/07/18 Atorvastatin Ca [Lipitor] 10 mg PO HS 10/07/18 Bupropion HCl [Wellbutrin Xl -] 150 mg PO DAILY 10/07/18 Calcium Carbonate/Vitamin D3 [Calcium 600 + Vit D Tablet] 2 each PO DAILY Cholecalciferol (Vitamin D3) [Vitamin D3] 2,000 unit PO DAILY 10/07/18 Gabapentin 800 mg PO BID 10/07/18 Letrozole [Femara] 2.5 mg PO DAILY 10/07/18 Pantoprazole Sodium 40 mg PO DAILY 10/07/18 Valsartan [Diovan] 160 mg PO DAILY 10/07/18 acetaZOLAMIDE [Diamox -] 500 mg PO BID 10/07/18 Albuterol 2.5/Ipratropium 0.5 [Duoneb -] 1 amp NEB Q6H PRN #90 amp 11/23/18 Budesonide/Formeterol Fumarate [SYMBICORT 160/4.5mcg -] 2 puff IH BID #1 inhaler 11/23/18 Furosemide [Lasix] 20 mg PO ASDIR #5 tablet 11/23/18 Montelukast Na [Singulair -] 10 mg PO HS #30 tablet 11/23/18 Metformin HCl [Glucophage] 1,000 mg PO BID 05/23/19 Methocarbamol [Robaxin -] 500 mg PO BID PRN #14 tablet 05/23/19 Methylprednisolone [Medrol Dose Arik] 4 mg PO ASDIR #21 tablet 05/23/19 Anemia: Yes Asthma: Yes Cancer: Yes (BREAST 2014) Cardiac Disorders: Yes (HX OF CHEST PAIN 2013 PT REPORTS NEG WORK-UP) CVA: No COPD: Yes CHF: No DVT: No Dementia: No Diabetes: Yes Dialysis: No GI Disorders: No Disorders: No HTN: Yes Hypercholesterolemia: Yes Kidney Stones: Yes Liver Disease: No Psychiatric Problems: No 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) Thyroid Disease: Yes (HYPOTHYROID) Lung CA: No - Surgical History Abdominal Surgery: No Appendectomy: Yes (hysterectomy) Cardiac Surgery: No Cholecystectomy: No Gastric Stapling: No GI Surgery: No Lung Surgery: No Neurologic Surgery: Yes (Back sx 05/2018- Spinal fusion) Orthopedic Surgery: No - Reproductive History Cervical CA: No Dysfunctional Uterine Bleeding: No Ectopic : No Endometrial CA: No Polycystic Ovaries: No Therapeutic (s) & number: No Tubal Ligation: Yes - Immunization History Td Vaccination: Yes TDAP Vaccination: Yes Immunization Up to Date: Yes - Psycho Social/Smoking Cessation Hx Smoking Status: Yes Smoking History: Never smoked Years of Tobacco Use: 0 Have you smoked in the past 12 months: No Number of Cigarettes Smoked Daily: 0 If you are a former smoker, when did you quit?: 2014 Information on smoking cessation initiated: No Hx Alcohol Use: No Drug/Substance Use Hx: No Substance Use Type: None Hx Substance Use Treatment: No Review of Systems - Review of Systems Able to Perform ROS?: Yes Is the patient limited Bahraini proficient: No Constitutional: No: Chills, Fever, Malaise, Night Sweats, Weakness HEENTM: No: Symptoms Reported, See HPI, Eye Pain, Blurred Vision, Tearing, Recent change in vision, Double Vision, Cataracts, Ear Pain, Ocular Prothesis, Ear Discharge, Nose Pain, Nose Congestion, Tinnitus, Nose Bleeding, Hearing Loss , Throat Pain, Throat Swelling, Mouth Pain, Dental Problems, Difficulty Swallowing, Mouth Swelling, Other Respiratory: No: Symptoms reported, See HPI, Cough, Orthopnea, Shortness of Breath, SOB with Exertion, SOB at Rest, Stridor, Wheezing, Productive cough, Hemoptysis, Other Cardiac (ROS): Yes: Symptoms Reported, See HPI, Chest Pain (right side chest pain). No: Edema, Irregular Heart Rate, Lightheadedness, Palpitations, Syncope , Chest Tightness, Other ABD/GI: No: Symptoms Reported, Nausea, Vomiting Musculoskeletal: Yes: Symptoms Reported, See HPI, Muscle Pain (right upper back pain) Integumentary: No: Symptoms Reported Neurological: No: Symptoms reported, Headache, Paresthesia, Pre-Existing Deficit , Weakness, Unsteady Gait, Ataxia, Dizziness All Other Systems: Reviewed and Negative *Physical Exam - Vital Signs Last Vital Signs Temp Pulse Resp BP Pulse Ox 97.8 F 92 H 17 145/69 99 05/23/19 08:41 05/23/19 08:41 05/23/19 08:41 05/23/19 08:41 05/23/19 08:41 - Physical Exam 05/23/19 09:51 GENERAL: Well developed, well nourished. Awake and alert in mild acute distress. HEENT: Normocephalic, atraumatic. PERRLA, EOMI. No conjunctival pallor. Sclera are non-icteric. Moist mucous membranes. Oropharynx is clear. NECK: Supple. Full ROM. CARDIOVASCULAR: Regular rate and rhythm. No murmurs, rubs, or gallops. Distal pulses are 2+ and symmetric. No JVD PULMONARY: No evidence of respiratory distress. Lungs clear to auscultation bilaterally. No wheezing, rales or rhonchi. ABDOMINAL: Soft. Non-tender. Non-distended. No rebound or guarding. No organomegaly. Normoactive bowel sounds. MUSCULOSKELETAL Normal range of motion at all joints. Moderate reproducible tenderness to the right side chest wall and posterior right scapula of upper back. Pain worse with adduction of right upper arm to midline SKIN: Warm and dry. Normal capillary refill. No rashes. No cyanosis. NEUROLOGICAL: Alert, awake, appropriate. Gait is normal without ataxia. PSYCHIATRIC: Cooperative. Good eye contact. Appropriate mood General Appearance: Yes: Nourished, Appropriately Dressed, Mild Distress ( GENERAL:Well developed, well nourished. Awake and alert. No acute distress.HEENT : Normocephalic, atraumatic. PERRLA, EOMI. No conjunctival pallor. Sclera are non-icteric. Moist mucous membranes. Oropharynx is clear.NECK: Supple. Full ROM. CARDIOVASCULAR:Regular rate and rhythm. No murmurs, rubs, or gallops. Distal pulses are 2+ and symmetric. PULMONARY: No evidence of respiratory distress. Lungs clear to auscultation bilaterally. No wheezing, rales or rhonchi.ABDOMINAL:Soft. Non-tender. Non-distended. No rebound or guarding. No organomegaly. Normoactive bowel sounds. MUSCULOSKELETAL Normal range of motion at all joints. EXTREMITIES: No cyanosis. No clubbing. No edema. No calf tenderness.SKIN: Warm and dry. Normal capillary refill. No rashes. No jaundice. NEUROLOGICAL: Alert, awake, appropriate. Gait is normal without ataxia.PSYCHIATRIC: Cooperative. Good eye contact. Appropriate mood ) ED Treatment Course - LABORATORY CBC & Chemistry Diagram: 05/23/19 09:45 - RADIOLOGY Radiology Studies Ordered: Category Date Time Status CHEST PA & LAT [RAD] Stat Radiology 05/23/19 09:34 Ordered Medical Decision Making - Medical Decision Making 05/23/19 09:55 Patient with past medical history of hypertension, asthma and diabetes on meds presented with complaint of 4-day history of persistent right side chest wall and upper back pain which has been worsening and worse when sleeping on right side of the body. Patient reported pain wakes her up at night due to sleeping on right side of body. Patient report intermittent shortness of breath. Denies nausea, vomiting, palpitation, weakness, headache, dizziness, sweats. Patient report taking home tramadol medication yesterday for pain with minimal improvement. Patient did not take anything for pain today. Patient reported she was seen by iron carrier 5 days ago and echo was done which was normal and has a follow-up appointment coming up with cardiology after chest CT was done for follow-up Exam significant for moderate tenderness to right side of chest wall and upper back over right scapular which is worse with abduction of right upper arm to midline. Normal cardio exam and normal lung exam. Patient no acute respiratory distress. Symptoms likely costochondritis versus less likely cardiogenic pain. CBC and cardiac profile lab ordered. EKG done is normal. Checks x-ray ordered to rule out acute chest pathology. Toradol 30 mg IM and Robaxin 500 mg p.o. ordered for pain. Treat based on lab and imaging results 05/23/19 10:58 CBC and cardiac profile normal. Chest x-ray negative. Patient reported improvement with Toradol and Robaxin. Patient stable for discharge on Medrol pack anti-inflammatory effect and Robaxin for spasm with strict follow-up. Patient have follow-up appointment with her iron carrier and advised to follow- up as scheduled Discharge - Discharge Information Problems reviewed: Yes Clinical Impression/Diagnosis: Acute costochondritis Condition: Stable Disposition: HOME - Admission No - Additional Discharge Information Prescriptions: Methocarbamol [Robaxin -] 500 mg PO BID PRN #14 tablet PRN Reason: discomfort Methylprednisolone [Medrol Dose Arik] 4 mg PO ASDIR #21 tablet - Follow up/Referral Referrals: Smith Lugo MD [Primary Care Provider] - - Patient Discharge Instructions Patient Printed Discharge Instructions: DI for Costochondritis Additional Instructions: Your chest x-ray was normal. Your lab work is normal as well. Your symptoms likely caused by muscle pain as discussed. Take prescribed medication as prescribed for pain. Follow-up with your iron carrier as scheduled. Come back to emergency room if worsening chest pain, palpitation, dizziness, nausea vomiting - Post Discharge Activity Work/Back to School Note: Back to Work
[2019-05-23 10:22] LABS: BASO % 0.4 % (0-2.0); HEMATOCRIT 36.1 % (32.4-45.2); HEMOGLOBIN 11.9 GM/dL (10.7-15.3); LYMPH % 33.2 % (8-40); MCH 26.7 pg (25.7-33.7); MCHC 32.9 g/dl (32.0-36.0); MEAN CELL VOLUME 81.1 fl (80-96); MEAN PLT VOLUME 7.8 fl (7.5-11.1); MONO % 5.3 % (3.8-10.2); NEUT % 58.1 % (42.8-82.8); PLATELET COUNT 210 K/MM3 (134-434); RBC 4.44 M/mm3 (3.60-5.2); RDW 16.7 % (11.6-15.6); WHITE BLOOD COUNT 6.4 K/mm3 (4.0-10.0)
--- NOTE | 2019-05-24 10:22 | EKG ---
Test Reason : Blood Pressure : / mmHG Vent. Rate : 079 BPM Atrial Rate : 079 BPM P-R Int : 130 ms QRS Dur : 088 ms QT Int : 402 ms P-R-T Axes : 043 -23 -32 degrees QTc Int : 460 ms POOR DATA QUALITY, INTERPRETATION MAY BE ADVERSELY AFFECTED NORMAL SINUS RHYTHM POSSIBLE LEFT ATRIAL ENLARGEMENT SEPTAL INFARCT (CITED ON OR BEFORE 12-MAR-2017) ABNORMAL ECG WHEN COMPARED WITH ECG OF 24-JAN-2019 20:12, QUESTIONABLE CHANGE IN INITIAL FORCES OF SEPTAL LEADS Confirmed by LOUISE JOHNSON MD ([id number]) on 05/24/2019 10:22:26 AM Referred By: Confirmed By:LOUISE JOHNSON MD
== END 2019-05-23 11:08 | disposition home or self-care (01) ==
LOC: JER 08:24
PROC: 3E0233Z Introduction of Anti-inflammatory into Muscle, Percutaneous Approach (ICD-10-PCS; principal; 2019-05-23)
DX: M94.0 Chondrocostal junction syndrome [Tietze] (principal); Z88.8 Allergy status to other drugs, medicaments and biological substances; I10 Essential (primary) hypertension; J45.909 Unspecified asthma, uncomplicated; E11.9 Type 2 diabetes mellitus without complications; Z87.891 Personal history of nicotine dependence; E03.9 Hypothyroidism, unspecified; N20.0 Calculus of kidney; Z85.3 Personal history of malignant neoplasm of breast
CPT/HCPCS: 36415; 71046-TC-FY; 82550; 82553; 84484; 85025; 93005; 93010; 99283-25

== ENCOUNTER 2019-05-29 00:03 | Inpatient (IN) | payer BC ==
[2019-05-29] MEDS ORDERED: ALBUTEROL SO4 2.5/IPRATROPIUM 0.5 INH SOL 3 ML VIAL.NEB. NEB ONE ×2 (00:26→00:58)
[2019-05-29] MEDS ORDERED: methylPREDNISolone NA SUCC 40 MG/1 ML VIAL IVPUSH ONE ×2 (00:26→02:55)
[2019-05-29] MEDS ORDERED: ACETAMINOPHEN 1000 MG/100 ML VIAL (NON FORMULARY) IVPB ONE (00:27)
--- NOTE | 2019-05-29 00:30 | PDOC ---
Attending Attestation - Resident Resident Name: SarahyRomi - ED Attending Attestation I have performed the following: I have examined & evaluated the patient, The case was reviewed & discussed with the resident, I agree w/resident's findings & plan - HPI HPI: 05/29/19 03:25 see resident hpi - Physicial Exam PE: 05/29/19 03:25 agree with resident exam - Medical Decision Making 05/29/19 03:25 49-year-old female with persistent chest discomfort and wheezing despite home steroids and bronchodilators CTA of the chest to rule out PE Patient received magnesium additional steroids and multiple duo nebs in the emergency department with minimal improvement We will admit to medical service for further management
[2019-05-29] MEDS ORDERED: MAGNESIUM SULF 50% (8.12 MEQ/2 ML-1 GM VIAL) IVPB ONE (00:39)
[2019-05-29 01:10] VITALS: BP 162/95; PULSE 110; TEMP 98.1; BMI 40.2
[2019-05-29] MEDS ORDERED: ACETAMINOPHEN INJECTION 100 ML IVPB ONE (01:12)
--- NOTE | 2019-05-29 01:15 | PDOC ---
History of Present Illness - General Chief Complaint: Shortness of Breath Stated Complaint: Short of breath Time Seen by Provider: 05/29/19 00:11 History Source: Patient Exam Limitations: No Limitations - History of Present Illness Initial Comments: 05/29/19 01:11 49y F with PMH of IDDM, Asthma/COPD, HTN, HLD, Breast Ca (2014, on CTX q6 months ) BIBA for SOB and chest pains. Pt states that she has been feeling this way since last week. She had a CT done on 05/20 which showed pna and she was started on Augmentin however she stopped taking the antibiotics after 4 days due to side effects. She was seen here 5d ago for pain which was diagnosed as costochondritis or due to the implants. The pain resolved after steroids and patient was doing ok until this AM. She went to her PMD's office, was given IM steroids and rx for abx which she has not taken yet. She states that she also has dry cough. Chest pain is L sided, sharp, intermittent without any triggering factors. Inhalers did not help her with the SOB. Denies fever, chills , recent illnesses, back pain, headache, abdominal pain, n/v/d, recent travel, leg swelling. PMD: Alyssia Lugo PMH: see hpi PSH: bilateral oopherectomy Meds: see med rec Allergies: cipro Social: former smoker Past History - Past Medical History Allergies/Adverse Reactions: Allergies Allergy/AdvReac Type Severity Reaction Status Date / Time ciprofloxacin Allergy Verified 05/29/19 01:12 Home Medications: Ambulatory Orders Amlodipine Besylate [Norvasc -] 10 mg PO DAILY 10/07/18 Atorvastatin Ca [Lipitor] 10 mg PO HS 10/07/18 Bupropion HCl [Wellbutrin Xl -] 150 mg PO DAILY 10/07/18 Calcium Carbonate/Vitamin D3 [Calcium 600 + Vit D Tablet] 2 each PO DAILY Cholecalciferol (Vitamin D3) [Vitamin D3] 2,000 unit PO DAILY 10/07/18 Gabapentin 800 mg PO BID 10/07/18 Letrozole [Femara] 2.5 mg PO DAILY 10/07/18 Pantoprazole Sodium 40 mg PO DAILY 10/07/18 Valsartan [Diovan] 160 mg PO DAILY 10/07/18 acetaZOLAMIDE [Diamox -] 500 mg PO BID 10/07/18 Albuterol 2.5/Ipratropium 0.5 [Duoneb -] 1 amp NEB Q6H PRN #90 amp 11/23/18 Budesonide/Formeterol Fumarate [SYMBICORT 160/4.5mcg -] 2 puff IH BID #1 inhaler 11/23/18 Furosemide [Lasix] 20 mg PO ASDIR #5 tablet 11/23/18 Montelukast Na [Singulair -] 10 mg PO HS #30 tablet 11/23/18 Metformin HCl [Glucophage] 1,000 mg PO BID 05/23/19 Methocarbamol [Robaxin -] 500 mg PO BID PRN #14 tablet 05/23/19 Methylprednisolone [Medrol Dose Arik] 4 mg PO ASDIR #21 tablet 05/23/19 Anemia: Yes Asthma: Yes Cancer: Yes (BREAST 2014) Cardiac Disorders: Yes (HX OF CHEST PAIN 2013 PT REPORTS NEG WORK-UP) CVA: No COPD: Yes CHF: No DVT: No Dementia: No Diabetes: Yes Dialysis: No GI Disorders: No Disorders: No HTN: Yes Hypercholesterolemia: Yes Kidney Stones: Yes Liver Disease: No Psychiatric Problems: No 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) Thyroid Disease: Yes (HYPOTHYROID) Lung CA: No - Surgical History Abdominal Surgery: No Appendectomy: Yes (hysterectomy) Cardiac Surgery: No Cholecystectomy: No Gastric Stapling: No GI Surgery: No Lung Surgery: No Neurologic Surgery: Yes (Back sx 05/2018- Spinal fusion) Orthopedic Surgery: No - Reproductive History Cervical CA: No Dysfunctional Uterine Bleeding: No Ectopic : No Endometrial CA: No Polycystic Ovaries: No Therapeutic (s) & number: No Tubal Ligation: Yes - Immunization History Td Vaccination: Yes TDAP Vaccination: Yes Immunization Up to Date: Yes - Psycho Social/Smoking Cessation Hx Smoking Status: Yes Smoking History: Never smoked Years of Tobacco Use: 0 Have you smoked in the past 12 months: No Number of Cigarettes Smoked Daily: 0 If you are a former smoker, when did you quit?: 2014 Information on smoking cessation initiated: No Hx Alcohol Use: No Drug/Substance Use Hx: No Substance Use Type: None Hx Substance Use Treatment: No Review of Systems - Review of Systems Constitutional: No: Chills, Fever HEENTM: No: Symptoms Reported Respiratory: Yes: See HPI Cardiac (ROS): Yes: See HPI ABD/GI: No: Symptoms Reported : No: Symptoms Reported Musculoskeletal: No: Symptoms Reported Integumentary: No: Symptoms Reported Neurological: No: Symptoms reported *Physical Exam - Vital Signs Last Vital Signs Temp Pulse Resp BP Pulse Ox 98.1 F 110 H 19 162/95 99 05/29/19 00:05 05/29/19 00:05 05/29/19 00:05 05/29/19 00:05 05/29/19 00:05 - Physical Exam General Appearance: Yes: Appropriately Dressed, Mild Distress, Obese HEENT: positive: EOMI, NORA Neck: positive: Trachea midline, Supple. negative: Tender, Lymphadenopathy (R) , Lymphadenopathy (L) Respiratory/Chest: positive: Rapid RR, Wheezing (expiratory). negative: Chest Tender, Labored Respiration, Paradoxal Breathing, Crackles, Rales, Rhonchi, Stridor Cardiovascular: positive: Regular Rhythm, Regular Rate, S1, S2. negative: Edema , JVD, Murmur Vascular Pulses: Dorsalis-Pedis (R): 1+, Doralis-Pedis (L): 1+ Gastrointestinal/Abdominal: positive: Normal Bowel Sounds, Soft. negative: Tender Extremity: positive: Normal Capillary Refill. negative: Pedal Edema, Swelling Integumentary: positive: Normal Color, Dry, Warm Neurologic: positive: press operator II-XII NML intact, Fully Oriented, Alert, Normal Mood/ Affect, Normal Response, Motor Strength 5/5 ED Treatment Course - LABORATORY CBC & Chemistry Diagram: 05/29/19 01:01 05/29/19 01:01 - RADIOLOGY Radiology Studies Ordered: Category Date Time Status CHEST CTA [CT] Stat CT Scan 05/29/19 00:24 Ordered Medical Decision Making - Medical Decision Making 05/29/19 04:17 49y F with pmh of asthma/copd, breast ca, htn, dm presenting for sob and chest pain x1w+. vitals: wnl, saturating well on RA PE: wheezing. ddx includes but not limited to acs, asthma/copd exacerbation, dissection, pe, pna, ptx, carditis, pleurisy, pleural effusion will obtain labs, cardiac labs, mg -duonebs, mg, -ecg, cta reassess. ekg: nsr at 91bpm, no iain or depressions, similar to prior ekg labs wnl, slight ck elevation normal ck index and trop. cta: negative for pe, pna. emphysema. 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 pt continues to feel short of breath and having pain. will order steroids and give fluids to wash out contrast. poor air movement on lung exam. will admit patient for lung disease and symptomatic control. pt was endorsed to DR. Rodríguez pt then stated she wanted to leave because a bed would not be available in a timely manner and wants to go home to take her medications and wants to see if that will work. She understands that in leaving, her symptoms may not improve and may get worse. signed out AMA. Discharge - Discharge Information Problems reviewed: Yes Clinical Impression/Diagnosis: SOB (shortness of breath) Emphysema lung Qualifiers: Emphysema type: unspecified Qualified Code(s): J43.9 - Emphysema, unspecified Condition: Good Disposition: AGAINST MEDICAL ADVICE - Admission No - Follow up/Referral - Patient Discharge Instructions - Post Discharge Activity
[2019-05-29] MEDS ORDERED: methylPREDNISolone NA SUCC 40 MG/1 ML VIAL ONE ×2 (01:33→03:31)
[2019-05-29] MEDS ORDERED: MAGNESIUM SULFATE IN WATER 2 GM/50 ML IVPB IVPB ONE (01:33)
[2019-05-29 01:41] LABS: BASO % 0.7 % (0-2.0); HEMATOCRIT 35.7 % (32.4-45.2); HEMOGLOBIN 11.8 GM/dL (10.7-15.3); LYMPH % 11.7 % (8-40); MCHC 32.9 g/dl (32.0-36.0); MEAN CELL VOLUME 81.9 fl (80-96); MEAN PLT VOLUME 8.5 fl (7.5-11.1); MONO % 0.8 % (3.8-10.2); NEUT % 86.8 % (42.8-82.8); PLATELET COUNT 236 K/MM3 (134-434); RBC 4.36 M/mm3 (3.60-5.2); WHITE BLOOD COUNT 9.8 K/mm3 (4.0-10.0)
[2019-05-29 02:04] LABS: PROTHROMBIN TIME (PATIENT) 11.8 SEC (9.7-13.0)
[2019-05-29 02:16] LABS: ALBUMIN 3.4 g/dl (3.4-5.0); BILIRUBIN,TOTAL 0.4 mg/dL (0.2-1); BLOOD UREA NITROGEN 25.4 mg/dL (7-18); CALCIUM 9.1 mg/dL (8.5-10.1); CREATININE 1.2 mg/dL (0.55-1.3); POTASSIUM 4.4 mmol/L (3.5-5.1)
[2019-05-29] MEDS ORDERED: SODIUM CHLORIDE 1,000 ML IV STA (02:25)
[2019-05-29] MEDS ORDERED: ALBUTEROL SO4 0.083% IH SOL 2.5 MG/3 ML VIAL.NEB. NEB SCH ×2 (03:30)
[2019-05-29] MEDS ORDERED: ALBUTEROL SO4 0.083% IH SOL 2.5 MG/3 ML VIAL.NEB. NEB ONE (03:57)
--- NOTE | 2019-05-29 11:54 | EKG ---
Test Reason : Blood Pressure : / mmHG Vent. Rate : 091 BPM Atrial Rate : 091 BPM P-R Int : 124 ms QRS Dur : 084 ms QT Int : 338 ms P-R-T Axes : 068 -33 -62 degrees QTc Int : 415 ms NORMAL SINUS RHYTHM LEFT AXIS DEVIATION MARKED ST ABNORMALITY, POSSIBLE INFERIOR SUBENDOCARDIAL INJURY ABNORMAL ECG WHEN COMPARED WITH ECG OF 23-MAY-2019 08:52, CRITERIA FOR SEPTAL INFARCT ARE NO LONGER PRESENT T WAVE INVERSION NOW EVIDENT IN INFERIOR LEADS Confirmed by LOUISE JOHNSON MD ([id number]) on 05/29/2019 11:54:11 AM Referred By: Confirmed By:LOUISE JOHNSON MD
== END 2019-05-29 04:04 | disposition left against medical advice (07) | DRG 192 ==
LOC: JER 00:03 → JERBED 03:21
PROVIDERS: ADMIT Internal Medicine; ATTEND Internal Medicine
DX: J43.9 Emphysema, unspecified (principal); E11.9 Type 2 diabetes mellitus without complications; I10 Essential (primary) hypertension; E78.5 Hyperlipidemia, unspecified; J45.909 Unspecified asthma, uncomplicated; Z85.3 Personal history of malignant neoplasm of breast; E03.9 Hypothyroidism, unspecified; F17.210 Nicotine dependence, cigarettes, uncomplicated
CPT/HCPCS: 36415; 71275-TC; 80053; 82550; 82553; 83735; 84484; 84703; 85025; 85610; 85730; 93005; 93010; 99282-25; J0131; J7030; Q9967

== ENCOUNTER 2019-06-05 12:56 | Inpatient (IN) | payer BC ==
[2019-06-05] MEDS ORDERED: ALBUTEROL SO4 2.5/IPRATROPIUM 0.5 INH SOL 3 ML VIAL.NEB. NEB ONE ×4 (13:04→14:13)
[2019-06-05] MEDS ORDERED: methylPREDNISolone NA SUCC 125 MG/2 ML VIAL IVPUSH ONE (13:52)
--- NOTE | 2019-06-05 14:05 | PDOC ---
History of Present Illness - General Chief Complaint: Shortness of Breath Stated Complaint: SOB Time Seen by Provider: 06/05/19 13:35 - History of Present Illness Initial Comments: 49F PMH COPD, Asthma, HTN, pre-DM, Breast Ca in remission c/o SOB and productive cough that acutely worsened today. Pt has been ill w/ cough and myalgias for the past 2 weeks currently being treated w/ abx and steroids ( tapered to 10mg currently). Pt felt improvement yesterday and was more active. Today felt worse w/ cough, worsening SOB and RODRIGUEZ, and wheezes which are abnormal for her. Took 2 albuterol nebs before coming in. Denies f/c, n/v/d/ abdpain, cp. + sick contacts at home. Has received flu shot this year. former smoker. Has been hospitalized for asthma, never intubated, never ICU; most recent hospitalization was November 2018. PCP - Dr. Marcos Sellers allergy Past History - Past Medical History Allergies/Adverse Reactions: Allergies Allergy/AdvReac Type Severity Reaction Status Date / Time ciprofloxacin Allergy Verified 06/05/19 13:06 Home Medications: Ambulatory Orders Amlodipine Besylate [Norvasc -] 10 mg PO DAILY 10/07/18 Atorvastatin Ca [Lipitor] 10 mg PO HS 10/07/18 Bupropion HCl [Wellbutrin Xl -] 300 mg PO DAILY 10/07/18 Calcium Carbonate/Vitamin D3 [Calcium 600 + Vit D Tablet] 2 each PO DAILY Gabapentin 800 mg PO BID 10/07/18 Letrozole [Femara] 2.5 mg PO DAILY 10/07/18 Pantoprazole Sodium 40 mg PO DAILY 10/07/18 Valsartan [Diovan] 160 mg PO DAILY 10/07/18 acetaZOLAMIDE [Diamox -] 500 mg PO BID 10/07/18 Albuterol 2.5/Ipratropium 0.5 [Duoneb -] 1 amp NEB Q6H PRN #90 amp 11/23/18 Budesonide/Formeterol Fumarate [SYMBICORT 160/4.5mcg -] 2 puff IH BID #1 inhaler 11/23/18 Montelukast Na [Singulair -] 10 mg PO HS #30 tablet 11/23/18 Benzonatate 200 mg PO TID 06/05/19 Ergocalciferol [Vitamin D2] 50,000 unit PO Q7D@1000 06/05/19 Lorazepam [Ativan] 0.5 mg PO DAILY 06/05/19 Oxycodone HCl/Acetaminophen [Oxycodone-Acetaminophen 10-325] 1 each PO QID PRN 06/05/19 Sitagliptin Phosphate [Januvia] 100 mg PO DAILY 06/05/19 Zolpidem Tartrate [Ambien Cr] 12.5 mg PO HS 06/05/19 Anemia: Yes Asthma: Yes Cancer: Yes (BREAST 2014) Cardiac Disorders: Yes (HX OF CHEST PAIN 2013 PT REPORTS NEG WORK-UP) CVA: No COPD: Yes CHF: No DVT: No Dementia: No Diabetes: Yes Dialysis: No GI Disorders: No Disorders: No HTN: Yes Hypercholesterolemia: Yes Kidney Stones: Yes Liver Disease: No Psychiatric Problems: No 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) Thyroid Disease: Yes (HYPOTHYROID) Lung CA: No - Surgical History Abdominal Surgery: No Appendectomy: Yes (hysterectomy) Cardiac Surgery: No Cholecystectomy: No Gastric Stapling: No GI Surgery: No Lung Surgery: No Neurologic Surgery: Yes (Back sx 05/2018- Spinal fusion) Orthopedic Surgery: No - Reproductive History Cervical CA: No Dysfunctional Uterine Bleeding: No Ectopic : No Endometrial CA: No Polycystic Ovaries: No Therapeutic (s) & number: No Tubal Ligation: Yes - Immunization History Td Vaccination: Yes TDAP Vaccination: Yes Immunization Up to Date: Yes - Psycho Social/Smoking Cessation Hx Smoking Status: Yes Smoking History: Former smoker Years of Tobacco Use: 0 Have you smoked in the past 12 months: No Number of Cigarettes Smoked Daily: 0 If you are a former smoker, when did you quit?: 2014 Information on smoking cessation initiated: No Hx Alcohol Use: No Drug/Substance Use Hx: No Substance Use Type: None Hx Substance Use Treatment: No Review of Systems - Review of Systems Able to Perform ROS?: Yes Comments:: CONSTITUTIONAL: Denies F / C GENERAL: Endorses sick contacts HEENT: Denies headache, lightheadedness, dizziness RESP: Endorses SOB, cough, RODRIGUEZ CARD: Denies chest pain, palpitations GI: Denies N / V / D, abdominal pain, bloody stool, inability to tolerate PO : Denies dysuria, hematuria, frequency SKIN: Denies rashes NEURO: Denies numbness, tingling, weakness MSK: Denies back pain *Physical Exam - Vital Signs Last Vital Signs Temp Pulse Resp BP Pulse Ox 98.7 F 104 H 18 130/82 97 06/05/19 13:01 06/05/19 13:01 06/05/19 13:01 06/05/19 13:01 06/05/19 13:01 - Physical Exam GEN: Dyspnic with speech. AAOx3 HEENT: NC/AT, EOMI, PERRLA. No facial asymmetry. Normal voice. Supple neck w/ FROM. CV: S1/S2, tachycardia, no m/r/g LUNG: SaO2 well on NBR. Coarse breath sounds, expiratory wheezes diffusely and b /l. GI: soft, ndnt, +BS, no guarding, no rebound. EXTREMITIES: No LE edema. No obvious deformities of all extremities. SKIN: warm, dry, normal turgor PSYCH: normal mood and affect NEURO: Moving all extremities well ED Treatment Course - LABORATORY CBC & Chemistry Diagram: 06/06/19 09:37 06/06/19 09:37 - Medications Given in the ED: ED Medications Discontinued Medications Generic Name Dose Route Start Last Admin Trade Name Freq PRN Reason Stop Dose Admin Albuterol/Ipratropium 1 amp 06/05/19 13:04 06/05/19 13:18 Duoneb - NEB 06/05/19 13:05 1 amp ONCE ONE Administration Medical Decision Making - Medical Decision Making 06/05/19 13:54 49F COPD and Asthma currently on ABX and steroid taper (10mg now) c/o worsening productive cough, wheezes, sob, and rodriguez. DDx - COPD vs Asthma exacerbation; PNA; bronchitis Pt s/p 2 albuterol at home s/p 1 albuterol in ED before exam - CBC, CMP - CXR - EKG - Albuterol - Solu-medrol - consider Mag - Likely admit 06/05/19 16:01 EKG 06/05/19 HR 102 IL 100 QRS 82 QTc 456 sinus tachycardia labs reviewed CXR showing no infiltrates d/w Dr. Rodríguez; ADMITTED 06/05/19 16:31 Have been frequently assessing pt She now endorses breathing better s/p continuous nebs, Mag, and solu-medrol; still states she is wheezing Pt's breath sounds are coarse w/ expiratory wheezes but clearer than before Discharge - Discharge Information Problems reviewed: Yes Clinical Impression/Diagnosis: Asthma exacerbation Qualifiers: Asthma severity: unspecified severity Asthma persistence: unspecified Qualified Code(s): J45.901 - Unspecified asthma with (acute) exacerbation - Follow up/Referral - Patient Discharge Instructions - Post Discharge Activity
[2019-06-05] MEDS ORDERED: methylPREDNISolone NA SUCC 125 MG/2 ML VIAL ONE (14:13)
[2019-06-05 14:32] LABS: EOS % 0.1 % (0-4.5); HEMATOCRIT 38.6 % (32.4-45.2); HEMOGLOBIN 12.4 GM/dL (10.7-15.3); LYMPH % 11.7 % (8-40); MCH 26.3 pg (25.7-33.7); MCHC 32.1 g/dl (32.0-36.0); MEAN CELL VOLUME 82.1 fl (80-96); MEAN PLT VOLUME 7.6 fl (7.5-11.1); MONO % 3.4 % (3.8-10.2); NEUT % 84.8 % (42.8-82.8); PLATELET COUNT 179 K/MM3 (134-434); RDW 17.5 % (11.6-15.6); WHITE BLOOD COUNT 10.7 K/mm3 (4.0-10.0)
--- NOTE | 2019-06-05 14:48 | PDOC ---
Documentation entered by Valeriano Lopez SCRIBE, acting as scribe for Alex Musa MD. Alex Musa MD: This documentation has been prepared by the John arriaga Nirvannie, SCRIBE, under my direction and personally reviewed by me in its entirety. I confirm that the documentation accurately reflects all work, treatment, procedures, and medical decision making performed by me. Attending Attestation - Resident Resident Name: Adrian Cisneros - ED Attending Attestation I have performed the following: I have examined & evaluated the patient, The case was reviewed & discussed with the resident, I agree w/resident's findings & plan, Exceptions are as noted - HPI HPI: 06/05/19 14:43 CC: Cough and Shortness of breath HPI: The patient is a year old female, with a significant past medical history of COPD, Asthma, HTN, pre-DM, Breast Cancer, who presents to the emergency department with 2 weeks of progressively worsening cough and shortness of breath. As per patient, he is currently on antibiotics and steroids for his symptoms. He notes his symptoms were improving but worsened today with associated dyspnea upon exertion. Patient notes using albuterol nebulizer treatment prior to arrival, without relief prompting her arrival to the ED. She denies recent dysuria, frequency, urgency or hematuria. Allergies: Ciprofloxacin. Primary Care Physician: Dr. Rodríguez - Physicial Exam PE: 06/05/19 15:01 Vitals: Triage Vital signs reviewed General Appearance: No acute distress, well nourished well developed, Cardiac: Regular rate and rhythym, no murmurs, no rubs, no gallops, Lungs: Wheezing bilaterally Abdomen: Soft, non distended, normal bowel sounds, non tender to palpation Extremities: Full range of motion to all extremities, no cyanosis, clubbing, or edema Skin: Warm and dry, no rashes or lesions, no rash, no petechiae Psych: Normal mood, normal affect - Critical Care Time Total Critical Care Time: 35 Critical Care Statement: The care of this patient involved high complexity decision making to prevent further life threatening deterioration of the patient 's condition and/or to evaluate & treat vital organ system(s) failure or risk of failure. - Medical Decision Making 06/05/19 15:03 49 years old with history of asthma recently on steroids and antibiotics for asthma exacerbation presents to the ED with worsening wheezing despite compliance with outpatient meds In the emergency department patient received IV steroids and 3 duo nebs but is persistently wheezing patient require admission for serial nebs IV steroids IV magnesium and further management
[2019-06-05] MEDS ORDERED: MAGNESIUM SULF 50% (8.12 MEQ/2 ML-1 GM VIAL) IVPB ONE (14:50)
[2019-06-05] MEDS ORDERED: MAGNESIUM 1GM/D5W - 1 GM/100 ML IVPB IVPB ONE (14:58)
[2019-06-05 14:59] LABS: ALBUMIN 3.3 g/dl (3.4-5.0); BILIRUBIN,TOTAL 0.6 mg/dL (0.2-1); BLOOD UREA NITROGEN 19.6 mg/dL (7-18); CALCIUM 8.5 mg/dL (8.5-10.1); CREATININE 1.2 mg/dL (0.55-1.3); POTASSIUM 3.5 mmol/L (3.5-5.1); TOT PROT 6.6 g/dl (6.4-8.2)
[2019-06-05] MEDS ORDERED: ALBUTEROL SO4 0.083% IH SOL 2.5 MG/3 ML VIAL.NEB. NEB ONE (15:11)
[2019-06-05] MEDS: ALBUTEROL SO4 0.083% IH SOL 2.5 MG/3 ML VIAL.NEB. NEB SCH ×4 (15:17→16:06)
--- NOTE | 2019-06-05 21:23 | HP ---
Admitting History and Physical - Past Medical History [employer] PROFESSION[employer]: Yes: Migraine, Other (Pseudotumor cerebri?) Cardiovascular: Yes: CAD, HTN, Hyperlipdemia Pulmonary: Yes: COPD Gastrointestinal: Yes: Constipation, Other (colon polyps) Renal/: Yes: Renal Calculi ...LMP: 03/15/10 ...: No Heme/Onc: Yes: Cancer (Breast CA) Musculoskeletal: Yes: Chronic low back pain Endocrine: Yes: Diabetes Mellitus, Hypothyroidism - Past Surgical History Past Surgical History: Yes: Hysterectomy, Mastectomy - Advance Directives Advance Directives: Yes: Health Care Proxy - Smoking History Smoking history: Former smoker Have you smoked in the past 12 months: No Aproximately how many cigarettes per day: 0 If you are a former smoker, when did you quit?: 2014 - Alcohol/Substance Use Hx Alcohol Use: No History of Substance Use: reports: None - Social History ADL: Independent 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, 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, 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 History of Recent Travel: No Home Medications - Allergies Allergies/Adverse Reactions: Allergies Allergy/AdvReac Type Severity Reaction Status Date / Time ciprofloxacin Allergy Verified 06/05/19 13:06 - Home Medications Home Medications: Ambulatory Orders Amlodipine Besylate [Norvasc -] 10 mg PO DAILY 10/07/18 Atorvastatin Ca [Lipitor] 10 mg PO HS 10/07/18 Bupropion HCl [Wellbutrin Xl -] 300 mg PO DAILY 10/07/18 Calcium Carbonate/Vitamin D3 [Calcium 600 + Vit D Tablet] 2 each PO DAILY Gabapentin 800 mg PO BID 10/07/18 Letrozole [Femara] 2.5 mg PO DAILY 10/07/18 Pantoprazole Sodium 40 mg PO DAILY 10/07/18 Valsartan [Diovan] 160 mg PO DAILY 10/07/18 acetaZOLAMIDE [Diamox -] 500 mg PO BID 10/07/18 Albuterol 2.5/Ipratropium 0.5 [Duoneb -] 1 amp NEB Q6H PRN #90 amp 11/23/18 Budesonide/Formeterol Fumarate [SYMBICORT 160/4.5mcg -] 2 puff IH BID #1 inhaler 11/23/18 Montelukast Na [Singulair -] 10 mg PO HS #30 tablet 11/23/18 Benzonatate 200 mg PO TID 06/05/19 Ergocalciferol [Vitamin D2] 50,000 unit PO Q7D@1000 06/05/19 Lorazepam [Ativan] 0.5 mg PO DAILY 06/05/19 Oxycodone HCl/Acetaminophen [Oxycodone-Acetaminophen 10-325] 1 each PO QID PRN 06/05/19 Sitagliptin Phosphate [Januvia] 100 mg PO DAILY 06/05/19 Zolpidem Tartrate [Ambien Cr] 12.5 mg PO HS 06/05/19 Physical Examination Vital Signs: Vital Signs Temperature 97.3 F L 06/05/19 17:37 Pulse Rate 111 H 06/05/19 17:37 Respiratory Rate 20 06/05/19 17:37 Blood Pressure 145/81 06/05/19 17:37 O2 Sat by Pulse Oximetry (%) 97 06/05/19 17:37 Labs: CBC, BMP 06/05/19 14:09 06/05/19 14:09
[2019-06-05] MEDS: ALBUTEROL SO4 2.5/IPRATROPIUM 0.5 INH SOL 3 ML VIAL.NEB. NEB PRN (22:15)
[2019-06-05] MEDS: ATORVASTATIN CA 10 MG TABLET (FP) PO SCH (22:18)
[2019-06-05] MEDS: MONTELUKAST NA 10 MG TABLET PO SCH (22:18)
[2019-06-05] MEDS: ZOLPIDEM TARTRATE 5 MG TABLET PO PRN (22:18)
[2019-06-05] MEDS: BUDESONIDE/FORMETEROL FUMARATE 160/4.5 mcg INHALER IH SCH (23:22)
[2019-06-05] MEDS: GABAPENTIN 400 MG CAPSULE (FP) PO SCH (23:23)
[2019-06-05] MEDS: acetaZOLAMIDE 250 MG TABLET PO SCH (23:24)
[2019-06-05] MEDS: INSULIN SLIDING SCALE (NOVOLOG) 1 VIAL SQ SCH (23:25)
[2019-06-06] MEDS: methylPREDNISolone NA SUCC 40 MG/1 ML VIAL IVPUSH SCH ×3 (03:14→18:23)
[2019-06-06] MEDS: sitaGLIPtin PHOSPHATE 50 MG TABLET PO SCH (06:42)
[2019-06-06] MEDS: INSULIN SLIDING SCALE (NOVOLOG) 1 VIAL SQ SCH ×4 (06:43→21:42)
[2019-06-06] MEDS: ALBUTEROL SO4 2.5/IPRATROPIUM 0.5 INH SOL 3 ML VIAL.NEB. NEB PRN ×2 (07:35→20:10)
[2019-06-06] MEDS ORDERED: PT OWN MED DRAWER 7, Y5N ONE ×3 (10:42→21:08)
[2019-06-06 10:48] LABS: ALBUMIN 3.1 g/dl (3.4-5.0); BILIRUBIN,TOTAL 0.4 mg/dL (0.2-1); BLOOD UREA NITROGEN 30.4 mg/dL (7-18); CALCIUM 8.9 mg/dL (8.5-10.1); CREATININE 1.2 mg/dL (0.55-1.3); POTASSIUM 4.3 mmol/L (3.5-5.1); TOT PROT 6.5 g/dl (6.4-8.2)
[2019-06-06] MEDS: PANTOPRAZOLE 40 MG TABLET (FP) PO SCH (10:50)
[2019-06-06] MEDS: amLODIPine BESYLATE 10 MG TABLET (FP) PO SCH (10:50)
[2019-06-06] MEDS: VALSARTAN 160 MG TABLET (UD) PO SCH (10:51)
[2019-06-06] MEDS: LETROZOLE 2.5 MG TABLET (FP) PO SCH (10:51)
[2019-06-06] MEDS: CALCIUM 500MG/VIT-D 200 UNITS COMBO TABLET (FP) PO SCH (10:51)
[2019-06-06] MEDS: LORazepam 0.5 MG TABLET PO SCH (10:51)
[2019-06-06] MEDS: GABAPENTIN 400 MG CAPSULE (FP) PO SCH ×2 (10:51→21:39)
[2019-06-06] MEDS: BUDESONIDE/FORMETEROL FUMARATE 160/4.5 mcg INHALER IH SCH ×2 (10:52→21:45)
[2019-06-06] MEDS: acetaZOLAMIDE 250 MG TABLET PO SCH ×2 (10:52→21:38)
[2019-06-06] MEDS: HEPARIN NA (PORCINE) 5,000 UNITS/ML 1ML VIAL SQ SCH ×2 (10:52→21:40)
[2019-06-06 10:57] LABS: BASO % 0.1 % (0-2.0); HEMATOCRIT 36.9 % (32.4-45.2); HEMOGLOBIN 11.9 GM/dL (10.7-15.3); LYMPH % 6.8 % (8-40); MCH 26.8 pg (25.7-33.7); MCHC 32.2 g/dl (32.0-36.0); MEAN CELL VOLUME 83.2 fl (80-96); MEAN PLT VOLUME 8.3 fl (7.5-11.1); MONO % 2.2 % (3.8-10.2); NEUT % 90.9 % (42.8-82.8); PLATELET COUNT 189 K/MM3 (134-434); RBC 4.43 M/mm3 (3.60-5.2); RDW 18.3 % (11.6-15.6); WHITE BLOOD COUNT 8.8 K/mm3 (4.0-10.0)
--- NOTE | 2019-06-06 14:09 | EKG ---
Test Reason : Blood Pressure : / mmHG Vent. Rate : 102 BPM Atrial Rate : 102 BPM P-R Int : 100 ms QRS Dur : 082 ms QT Int : 350 ms P-R-T Axes : 047 -41 -25 degrees QTc Int : 456 ms POOR DATA QUALITY, INTERPRETATION MAY BE ADVERSELY AFFECTED SINUS TACHYCARDIA WITH SHORT VA LEFT AXIS DEVIATION SEPTAL INFARCT , AGE UNDETERMINED ABNORMAL ECG WHEN COMPARED WITH ECG OF 29-MAY-2019 00:45, T WAVE INVERSION NO LONGER EVIDENT IN INFERIOR LEADS NONSPECIFIC T WAVE ABNORMALITY NO LONGER EVIDENT IN LATERAL LEADS Confirmed by NEHEMIAH AMOS MD ([id number]) on 06/06/2019 2:08:41 PM Referred By: Confirmed By:NEHEMIAH AMOS MD
--- NOTE | 2019-06-06 15:29 | PN ---
Progress Note (short form) - Note Progress Note: PULMONARY CONSULTATION DICTATED 06/06/19 IMP ACUTE ASTHMA EXACERBATION H/O BREAST CA S/P MASTECTOMY HTN SUSPECTED SVETA HLD H/O TOBACCO USE PLAN IV STEROIDS INHALED BRONCHODILATORS O2 PFTS OUTPATIENT MONITOR PEAK FLOW FORMAL SLEEP STUDIES OUTPATIENT DR TRINH Problem List - Problems (1) Asthma exacerbation Code(s): J45.901 - UNSPECIFIED ASTHMA WITH (ACUTE) EXACERBATION (2) Breast CA Code(s): C50.919 - MALIGNANT NEOPLASM OF UNSP SITE OF UNSPECIFIED FEMALE BREAST (3) HLD (hyperlipidemia) Code(s): E78.5 - HYPERLIPIDEMIA, UNSPECIFIED (4) HTN (hypertension) Code(s): I10 - ESSENTIAL (PRIMARY) HYPERTENSION (5) SOB (shortness of breath) Code(s): R06.02 - SHORTNESS OF BREATH
--- NOTE | 2019-06-06 18:56 | CONS ---
DATE OF CONSULTATION: 06/06/2019 PULMONARY CONSULTATION REFERRING PHYSICIAN: Rissa Rodríguez M.D. HISTORY OF PRESENT ILLNESS: The patient is a 49-year-old female with past medical history of asthma, hypertension, prediabetes, breast CA status post mastectomy, former tobacco user, quit in 2014, been to [facility] complaining of 2-week history of increasing shortness of breath, cough, and chest congestion. The patient states a couple weeks prior to admission developed cough and chest congestion. At the time she was placed on antibiotics as well as prednisone. Despite these measures, the symptoms worsened. She noted she went to [facility] ER on May 29 and had a CTA of the chest, which revealed no evidence of acute pathology and discharged home on prednisone. Patient has a cough which is nonproductive. There is no history of hemoptysis. The patient subsequently back to [facility] on June 05. She was placed on IV steroids, inhaled bronchodilators with some improvement. Patient denies any history of occupational exposures. She has never been intubated. There is no history of DVT or PE. No history of recent travel. PAST MEDICAL HISTORY: Again includes asthma, history of breast CA status post mastectomy, hypertension, prediabetes. CURRENT MEDICATIONS: Include Symbicort, Solu-Medrol 40 q.8, Diovan, heparin, Neurontin, Wellbutrin, Femara, Ambien, Ativan, DuoNeb, Norvasc, Januvia, normal saline, Lipitor, Protonix, Singulair, Os-Mikhail. REVIEW OF SYSTEMS: Positive shortness of breath. Positive cough. Positive wheezing. No chest pain. No palpitations. No fever. No chills. No abdominal pain. PHYSICAL EXAMINATION: General: The patient is an obese female, awake and alert, in no acute distress. She is afebrile. Vital Signs: Blood pressure 146/71, respiratory rate 24, O2 saturation 95% on 2 L. HEENT: Normocephalic, atraumatic. Neck: Supple. Heart: Regular S1, S2. Chest: Bilateral wheezes. Abdomen: Soft, bowel sounds positive. Extremities: No cyanosis, edema. LABORATORY: WBC 8.8, hemoglobin 11.9, hematocrit 36.9, platelet count of 189, 000. Chemistry: BUN 30, creatinine 1.2. Chest x-ray revealed no acute infiltrates or effusions. IMPRESSION: 1. Dyspnea secondary to acute asthma exacerbation. 2. History of breast carcinoma status post mastectomy. 3. Hypertension. 4. Suspected obstructive sleep apnea. 5. Hypertension, hyperlipidemia. 6. History of tobacco use. PLAN: IV steroids, inhaled bronchodilators, supplemental O2, monitor peak flow , PFTs as outpatient, sleep screen, also formal sleep study as an outpatient. SARAI TRINH M.D. [id number] MTDD
[2019-06-06] MEDS: ATORVASTATIN CA 10 MG TABLET (FP) PO SCH (21:38)
[2019-06-06] MEDS: MONTELUKAST NA 10 MG TABLET PO SCH (21:39)
[2019-06-06] MEDS: ZOLPIDEM TARTRATE 5 MG TABLET PO PRN (21:44)
--- NOTE | 2019-06-06 23:03 | PN ---
Progress Note, Physician History of Present Illness: Pt still complains of wheezing/cough - Current Medication List Current Medications: Active Medications Acetazolamide (Diamox -) 500 mg PO BID [facility] Last Admin: 06/06/19 21:38 Dose: 500 mg Albuterol/Ipratropium (Duoneb -) 1 amp NEB Q6H PRN PRN Reason: SHORTNESS OF BREATH Last Admin: 06/06/19 20:10 Dose: 1 amp Amlodipine Besylate (Norvasc -) 10 mg PO DAILY [facility] Last Admin: 06/06/19 10:50 Dose: 10 mg Atorvastatin Calcium (Lipitor -) 10 mg PO HS [facility] Last Admin: 06/06/19 21:38 Dose: 10 mg Budesonide/Formoterol Fumarate (Symbicort 160/4.5mcg -) 2 puff IH BID [facility] Last Admin: 06/06/19 21:45 Dose: 2 puff Bupropion HCl (Wellbutrin Xl -) 300 mg PO DAILY [facility] Last Admin: 06/06/19 10:57 Dose: Not Given Calcium Carbonate/Cholecalciferol (Os-Mikhail 500+D -) 2 tab PO DAILY [facility] Last Admin: 06/06/19 10:51 Dose: 2 tab Ergocalciferol (Drisdol -) 50,000 unit PO Th@1000 [facility] Gabapentin (Neurontin -) 800 mg PO BID [facility] Last Admin: 06/06/19 21:39 Dose: 800 mg Heparin Sodium (Porcine) (Heparin -) 5,000 unit SQ BID [facility] Last Admin: 06/06/19 21:40 Dose: 5,000 unit Insulin Aspart (Novolog Vial Sliding Scale -) [address] [facility]; Protocol Last Admin: 06/06/19 21:42 Dose: Not Given Letrozole (Femara -) 2.5 mg PO DAILY [facility] Last Admin: 06/06/19 10:51 Dose: 2.5 mg Lorazepam (Ativan -) 0.5 mg PO DAILY [facility] Last Admin: 06/06/19 10:51 Dose: 0.5 mg Methylprednisolone Sodium Succinate (Solu-Medrol -) 40 mg IVPUSH Q8H-IV [facility] Last Admin: 06/06/19 18:23 Dose: 40 mg Montelukast Sodium (Singulair -) 10 mg PO HS [facility] Last Admin: 06/06/19 21:39 Dose: 10 mg Pantoprazole Sodium (Protonix -) 40 mg PO DAILY [facility] Last Admin: 06/06/19 10:50 Dose: 40 mg Sitagliptin Phosphate (Januvia -) 100 mg PO ACBK [facility] Last Admin: 06/06/19 06:42 Dose: 100 mg Valsartan (Diovan -) 160 mg PO DAILY [facility] Last Admin: 06/06/19 10:51 Dose: 160 mg Zolpidem Tartrate (Ambien -) 10 mg PO HS PRN PRN Reason: INSOMNIA Last Admin: 06/06/19 21:44 Dose: 10 mg - Objective Vital Signs: Vital Signs Temperature 98.8 F 06/06/19 18:10 Pulse Rate 94 H 06/06/19 18:10 Respiratory Rate 21 H 06/06/19 18:10 Blood Pressure 125/70 06/06/19 18:10 O2 Sat by Pulse Oximetry (%) 95 06/06/19 10:45 Neck: Yes: WNL, Supple Cardiovascular: Yes: WNL, Regular Rate and Rhythm Respiratory: Yes: Wheezes Gastrointestinal: Yes: WNL, Normal Bowel Sounds, Soft, Abdomen, Obese Extremities: Yes: WNL Edema: No Labs: CBC, BMP 06/06/19 09:37 06/06/19 09:37 Problem List - Problems (1) Asthma exacerbation Assessment/Plan: Cont IV steroids Cont nebulizers Pulmonary consult noted Code(s): J45.901 - UNSPECIFIED ASTHMA WITH (ACUTE) EXACERBATION (2) HLD (hyperlipidemia) Assessment/Plan: Cont lipitor Code(s): E78.5 - HYPERLIPIDEMIA, UNSPECIFIED (3) HTN (hypertension) Assessment/Plan: BP stable Cont norvasc/diamox Code(s): I10 - ESSENTIAL (PRIMARY) HYPERTENSION (4) Diabetes Assessment/Plan: Cont januvia Cont sliding scale w/ coverage Code(s): E11.9 - TYPE 2 DIABETES MELLITUS WITHOUT COMPLICATIONS (5) Breast CA Assessment/Plan: Cont femara Code(s): C50.919 - MALIGNANT NEOPLASM OF UNSP SITE OF UNSPECIFIED FEMALE BREAST
[2019-06-07] MEDS: methylPREDNISolone NA SUCC 40 MG/1 ML VIAL IVPUSH SCH ×3 (02:04→17:51)
[2019-06-07] MEDS: sitaGLIPtin PHOSPHATE 50 MG TABLET PO SCH (06:47)
[2019-06-07] MEDS: INSULIN SLIDING SCALE (NOVOLOG) 1 VIAL SQ SCH ×4 (06:48→22:58)
[2019-06-07] MEDS: ALBUTEROL SO4 2.5/IPRATROPIUM 0.5 INH SOL 3 ML VIAL.NEB. NEB PRN (08:16)
[2019-06-07] MEDS: amLODIPine BESYLATE 10 MG TABLET (FP) PO SCH (09:20)
[2019-06-07] MEDS: PANTOPRAZOLE 40 MG TABLET (FP) PO SCH (09:20)
[2019-06-07] MEDS: LORazepam 0.5 MG TABLET PO SCH (09:20)
[2019-06-07] MEDS: VALSARTAN 160 MG TABLET (UD) PO SCH (09:20)
[2019-06-07] MEDS: HEPARIN NA (PORCINE) 5,000 UNITS/ML 1ML VIAL SQ SCH ×2 (09:21→22:56)
[2019-06-07] MEDS: LETROZOLE 2.5 MG TABLET (FP) PO SCH (09:21)
[2019-06-07] MEDS: acetaZOLAMIDE 250 MG TABLET PO SCH ×2 (09:21→22:54)
[2019-06-07] MEDS: CALCIUM 500MG/VIT-D 200 UNITS COMBO TABLET (FP) PO SCH (09:22)
[2019-06-07] MEDS: GABAPENTIN 400 MG CAPSULE (FP) PO SCH ×2 (09:22→22:54)
[2019-06-07] MEDS: BUDESONIDE/FORMETEROL FUMARATE 160/4.5 mcg INHALER IH SCH ×2 (09:23→22:49)
--- NOTE | 2019-06-07 11:02 | PN ---
Progress Note (short form) - Note Progress Note: Still with SOB and wheezing. Feels no improvement from yesterday. Intake & Output 06/04/19 06/05/19 06/06/19 06/07/19 23:59 23:59 23:59 23:59 Intake Total 600 1000 350 Balance 600 1000 350 Weight 245 lb 14.4 oz Last Vital Signs Temp Pulse Resp BP Pulse Ox 98.6 F 101 H 22 H 143/79 97 06/07/19 06:00 06/07/19 09:17 06/07/19 09:17 06/07/19 09:17 06/07/19 09:00 Active Medications Acetazolamide (Diamox -) 500 mg PO BID [facility] Last Admin: 06/07/19 09:21 Dose: 500 mg Albuterol/Ipratropium (Duoneb -) 1 amp NEB Q6H PRN PRN Reason: SHORTNESS OF BREATH Last Admin: 06/07/19 08:16 Dose: 1 amp Amlodipine Besylate (Norvasc -) 10 mg PO DAILY [facility] Last Admin: 06/07/19 09:20 Dose: 10 mg Atorvastatin Calcium (Lipitor -) 10 mg PO HS [facility] Last Admin: 06/06/19 21:38 Dose: 10 mg Budesonide/Formoterol Fumarate (Symbicort 160/4.5mcg -) 2 puff IH BID [facility] Last Admin: 06/07/19 09:23 Dose: 2 puff Bupropion HCl (Wellbutrin Xl -) 300 mg PO DAILY [facility] Last Admin: 06/07/19 09:20 Dose: Not Given Calcium Carbonate/Cholecalciferol (Os-Mikhail 500+D -) 2 tab PO DAILY [facility] Last Admin: 06/07/19 09:22 Dose: 2 tab Ergocalciferol (Drisdol -) 50,000 unit PO Th@1000 [facility] Gabapentin (Neurontin -) 800 mg PO BID [facility] Last Admin: 06/07/19 09:22 Dose: 800 mg Heparin Sodium (Porcine) (Heparin -) 5,000 unit SQ BID [facility] Last Admin: 06/07/19 09:21 Dose: 5,000 unit Insulin Aspart (Novolog Vial Sliding Scale -) 1 vial SQ [facility]; Protocol Last Admin: 06/07/19 06:48 Dose: 2 unit Letrozole (Femara -) 2.5 mg PO DAILY [facility] Last Admin: 06/07/19 09:21 Dose: 2.5 mg Lorazepam (Ativan -) 0.5 mg PO DAILY [facility] Last Admin: 06/07/19 09:20 Dose: 0.5 mg Methylprednisolone Sodium Succinate (Solu-Medrol -) 40 mg IVPUSH Q8H-IV [facility] Last Admin: 06/07/19 09:20 Dose: 40 mg Montelukast Sodium (Singulair -) 10 mg PO HS [facility] Last Admin: 06/06/19 21:39 Dose: 10 mg Pantoprazole Sodium (Protonix -) 40 mg PO DAILY [facility] Last Admin: 06/07/19 09:20 Dose: 40 mg Sitagliptin Phosphate (Januvia -) 100 mg PO ACBK [facility] Last Admin: 06/07/19 06:47 Dose: 100 mg Valsartan (Diovan -) 160 mg PO DAILY [facility] Last Admin: 06/07/19 09:20 Dose: 160 mg Zolpidem Tartrate (Ambien -) 10 mg PO HS PRN PRN Reason: INSOMNIA Last Admin: 06/06/19 21:44 Dose: 10 mg Neck: Yes: WNL, Supple Cardiovascular: Yes: WNL, Regular Rate and Rhythm Respiratory: Yes: Bilateral Expiratory Wheezes Gastrointestinal: Yes: WNL, Normal Bowel Sounds, Soft, Abdomen, Obese Extremities: Yes: WNL Edema: No Labs: Laboratory Results - last 24 hr 06/06/19 06/06/19 06/06/19 09:37 12:08 17:28 WBC 8.8 RBC 4.43 Hgb 11.9 Hct 36.9 MCV 83.2 MCH 26.8 MCHC 32.2 RDW 18.3 H Plt Count 189 MPV 8.3 Absolute Neuts (auto) 8.0 Neutrophils % 90.9 H Lymphocytes % 6.8 L D Monocytes % 2.2 L Eosinophils % 0.0 D Basophils % 0.1 D Nucleated RBC % 0 POC Glucometer 158 190 06/06/19 06/07/19 21:35 06:42 WBC RBC Hgb Hct MCV MCH MCHC RDW Plt Count MPV Absolute Neuts (auto) Neutrophils % Lymphocytes % Monocytes % Eosinophils % Basophils % Nucleated RBC % POC Glucometer 146 174 Problem List - Problems (1) Asthma exacerbation Code(s): J45.901 - UNSPECIFIED ASTHMA WITH (ACUTE) EXACERBATION (2) Breast CA Code(s): C50.919 - MALIGNANT NEOPLASM OF UNSP SITE OF UNSPECIFIED FEMALE BREAST (3) HLD (hyperlipidemia) Code(s): E78.5 - HYPERLIPIDEMIA, UNSPECIFIED (4) HTN (hypertension) Code(s): I10 - ESSENTIAL (PRIMARY) HYPERTENSION (5) SOB (shortness of breath) Code(s): R06.02 - SHORTNESS OF BREATH IMP ACUTE ASTHMA EXACERBATION H/O BREAST CA S/P MASTECTOMY HTN SUSPECTED SVETA HLD H/O TOBACCO USE PLAN INCREASE IV STEROIDS INHALED BRONCHODILATORS O2 PFTS OUTPATIENT MONITOR [employer]AK [employer]OW [employer] SLEEP STUDIES OUTPATIENT DR NAIDU
[2019-06-07] MEDS ORDERED: ALBUTEROL SO4 0.083% IH SOL 2.5 MG/3 ML VIAL.NEB. NEB PRN (11:04)
[2019-06-07] MEDS: ALBUTEROL SO4 2.5/IPRATROPIUM 0.5 INH SOL 3 ML VIAL.NEB. NEB SCH ×3 (11:44→19:30)
[2019-06-07] MEDS: guaiFENesin 200 MG/10 ML 10 ML UNIT-DOSE CUPS PO PRN ×2 (12:27→17:51)
--- NOTE | 2019-06-07 13:09 | PN ---
Physical Exam: SUBJECTIVE: Patient seen and examined; SOB slightly improved. No further issues per nursing. Pulmonary medicine continues to follow. 10 sys ROS done and negative aside from HPI OBJECTIVE: Vital Signs Period Temp Pulse Resp BP Sys/Aleman Pulse Ox Last 24 Hr 98.0 F-98.8 F 86-101 20-22 125-144/70-84 97-99 GENERAL: The patient is awake, alert, and fully oriented, in no acute distress. HEAD: Normal with no signs of trauma. EYES: PERRL, extraocular movements intact, sclera anicteric, conjunctiva clear. No ptosis. ENT: Ears normal, nares patent, oropharynx clear without exudates, moist mucous membranes. NECK: Trachea midline, full range of motion, supple. LUNGS:Mild to bod wheezes b/l with good air movement, no crackles, no accessory muscle use. HEART: Regular rate and rhythm, S1, S2 without murmur, rub or gallop. ABDOMEN: Soft, nontender, nondistended, normoactive bowel sounds EXTREMITIES: 2+ pulses, warm, well-perfused, no edema. NEUROLOGICAL: Cranial nerves II through XII grossly intact. Normal speech, gait not observed. SKIN: Warm, dry, normal turgor, no rashes or lesions noted Laboratory Results - last 24 hr 06/06/19 06/06/19 06/07/19 17:28 21:35 06:42 POC Glucometer 190 146 174 06/07/19 12:19 POC Glucometer 224 Active Medications Generic Name Dose Route Start Last Admin Trade Name Freq PRN Reason Stop Dose Admin Acetazolamide 500 mg 06/05/19 22:00 06/07/19 09:21 Diamox - PO 500 mg BID [facility] Administration Albuterol Sulfate 1 amp 06/07/19 11:04 Ventolin 0.083% Nebulizer Soln - NEB Q4H PRN SHORT OF BREATH/WHEEZING Albuterol/Ipratropium 1 amp 06/07/19 12:00 06/07/19 11:44 Duoneb - NEB 1 amp RQID [facility] Administration Amlodipine Besylate 10 mg 06/06/19 10:00 06/07/19 09:20 Norvasc - PO 10 mg DAILY [facility] Administration Atorvastatin Calcium 10 mg 06/05/19 22:00 06/06/19 21:38 Lipitor - PO 10 mg HS [facility] Administration Budesonide/Formoterol Fumarate 2 puff 06/05/19 22:00 06/07/19 09:23 Symbicort 160/4.5mcg - IH 2 puff BID [facility] Administration Bupropion HCl 300 mg 06/06/19 10:00 06/07/19 09:20 Wellbutrin Xl - PO Not Given DAILY [facility] Calcium Carbonate/Cholecalciferol 2 tab 06/06/19 10:00 06/07/19 09:22 Os-Mikahil 500+D - PO 2 tab DAILY [facility] Administration Ergocalciferol 50,000 unit 06/12/19 10:00 Drisdol - PO Th@1000 [facility] Gabapentin 800 mg 06/05/19 22:00 06/07/19 09:22 Neurontin - PO 800 mg BID [facility] Administration Guaifenesin 10 ml 06/07/19 11:05 06/07/19 12:27 Robitussin - PO 10 ml Q4H PRN Administration COUGH Heparin Sodium (Porcine) 5,000 unit 06/06/19 10:00 06/07/19 09:21 Heparin - SQ 5,000 unit BID [facility] Administration Insulin Aspart 1 vial 06/05/19 22:00 06/07/19 12:22 Novolog Vial Sliding Scale - SQ 4 unit ACHS [facility] Administration Protocol Letrozole 2.5 mg 06/06/19 10:00 06/07/19 09:21 Femara - PO 2.5 mg DAILY [facility] Administration Lorazepam 0.5 mg 06/06/19 10:00 06/07/19 09:20 Ativan - PO 0.5 mg DAILY [facility] Administration Methylprednisolone Sodium Succinate 80 mg 06/07/19 11:04 Solu-Medrol - IVPUSH Q8H-IV [facility] Montelukast Sodium 10 mg 06/05/19 22:00 06/06/19 21:39 Singulair - PO 10 mg HS [facility] Administration Pantoprazole Sodium 40 mg 06/06/19 10:00 06/07/19 09:20 Protonix - PO 40 mg DAILY [facility] Administration Sitagliptin Phosphate 100 mg 06/06/19 07:00 06/07/19 06:47 Januvia - PO 100 mg ACBK [facility] Administration Valsartan 160 mg 06/06/19 10:00 06/07/19 09:20 Diovan - PO 160 mg DAILY [facility] Administration Zolpidem Tartrate 10 mg 06/05/19 22:00 06/06/19 21:44 Ambien - PO 10 mg HS PRN Administration INSOMNIA ASSESSMENT/PLAN: Patient presents for acute respiratory failure secondary to asthma exacerbation with likely component of obestiy hypventillation syndrome/SVETA. Pulmonary medicine is following. Continue steroids, BDs, and FU with subspecialist services. Problems include: -Acute respiratory failure 2/2 asthma exacerbation; per above -Hx HTN -Hx HLD -Hx DM, controlled on current reg -Breast Cancer Hx (Continue home meds) -Morbid obesity (SVETA eval/rosieian eval. vocational rehabilitation counselor prior to DC) -Insomnia (Continue zolpidem) -Hx GERD (Asx currently, continue home protonix) Visit type - Emergency Visit Emergency Visit: Yes ED Registration Date: 06/05/19 Care time: The patient presented to the Emergency Department on the above date and was hospitalized for further evaluation of their emergent condition. - New Patient This patient is new to me today: Yes Date on this admission: 06/07/19 - Critical Care Critical Care patient: No
[2019-06-07 15:46] LABS: BASO % 0.1 % (0-2.0); HEMATOCRIT 37.6 % (32.4-45.2); HEMOGLOBIN 11.8 GM/dL (10.7-15.3); LYMPH % 7.3 % (8-40); MCH 26.4 pg (25.7-33.7); MCHC 31.3 g/dl (32.0-36.0); MEAN CELL VOLUME 84.3 fl (80-96); MEAN PLT VOLUME 8.3 fl (7.5-11.1); MONO % 2.8 % (3.8-10.2); NEUT % 89.8 % (42.8-82.8); PLATELET COUNT 211 K/MM3 (134-434); RBC 4.45 M/mm3 (3.60-5.2); RDW 17.9 % (11.6-15.6); WHITE BLOOD COUNT 14.7 K/mm3 (4.0-10.0)
[2019-06-07 16:15] LABS: BLOOD UREA NITROGEN 35.8 mg/dL (7-18); CALCIUM 10.1 mg/dL (8.5-10.1); CREATININE 1.4 mg/dL (0.55-1.3); MAGNESIUM 2.6 mg/dL (1.8-2.4); N-TERMINAL BNP 52.3 pg/ml (5-125)
[2019-06-07] MEDS ORDERED: PT OWN MED DRAWER 7, Y5N ONE (21:23)
[2019-06-07] MEDS: ZOLPIDEM TARTRATE 5 MG TABLET PO PRN (22:55)
[2019-06-07] MEDS: ATORVASTATIN CA 10 MG TABLET (FP) PO SCH (22:55)
[2019-06-07] MEDS: MONTELUKAST NA 10 MG TABLET PO SCH (22:55)
[2019-06-08] MEDS: guaiFENesin 200 MG/10 ML 10 ML UNIT-DOSE CUPS PO PRN ×4 (01:44→22:28)
[2019-06-08] MEDS: methylPREDNISolone NA SUCC 40 MG/1 ML VIAL IVPUSH SCH ×3 (01:45→17:18)
[2019-06-08] MEDS: sitaGLIPtin PHOSPHATE 50 MG TABLET PO SCH (06:43)
[2019-06-08] MEDS: INSULIN SLIDING SCALE (NOVOLOG) 1 VIAL SQ SCH ×4 (06:43→22:24)
[2019-06-08] MEDS: ALBUTEROL SO4 2.5/IPRATROPIUM 0.5 INH SOL 3 ML VIAL.NEB. NEB SCH ×4 (07:35→19:52)
[2019-06-08] MEDS ORDERED: PT OWN MED DRAWER 7, Y5N ONE ×2 (07:55→22:19)
[2019-06-08] MEDS: PANTOPRAZOLE 40 MG TABLET (FP) PO SCH (09:04)
[2019-06-08] MEDS: amLODIPine BESYLATE 10 MG TABLET (FP) PO SCH (09:04)
[2019-06-08] MEDS: HEPARIN NA (PORCINE) 5,000 UNITS/ML 1ML VIAL SQ SCH ×2 (09:04→22:17)
[2019-06-08] MEDS: LORazepam 0.5 MG TABLET PO SCH (09:04)
[2019-06-08] MEDS: VALSARTAN 160 MG TABLET (UD) PO SCH (09:04)
[2019-06-08] MEDS: GABAPENTIN 400 MG CAPSULE (FP) PO SCH ×2 (09:05→22:52)
[2019-06-08] MEDS: BUDESONIDE/FORMETEROL FUMARATE 160/4.5 mcg INHALER IH SCH ×2 (09:07→22:20)
--- NOTE | 2019-06-08 10:51 | PN ---
Progress Note (short form) - Note Progress Note: Breathing feels a little better. Less SOB and wheezing. Some increase in symptoms overnight, likely due to OSAS. Intake & Output 06/05/19 06/06/19 06/07/19 06/08/19 23:59 23:59 23:59 23:59 Intake Total 600 1000 1850 250 Balance 600 1000 1850 250 Weight 245 lb 14.4 oz Last Vital Signs Temp Pulse Resp BP Pulse Ox 98.6 F 98 H 22 H 145/85 97 06/08/19 09:00 06/08/19 09:00 06/08/19 09:00 06/08/19 09:00 06/07/19 21:00 Active Medications Acetazolamide (Diamox -) 500 mg PO BID [facility] Last Admin: 06/07/19 22:54 Dose: 500 mg Albuterol Sulfate (Ventolin 0.083% Nebulizer Soln -) 1 amp NEB Q4H PRN PRN Reason: SHORT OF BREATH/WHEEZING Last Admin: 06/07/19 22:35 Dose: 1 amp Albuterol/Ipratropium (Duoneb -) 1 amp NEB RQID [facility] Last Admin: 06/08/19 07:35 Dose: 1 amp Amlodipine Besylate (Norvasc -) 10 mg PO DAILY [facility] Last Admin: 06/08/19 09:04 Dose: 10 mg Atorvastatin Calcium (Lipitor -) 10 mg PO HS [facility] Last Admin: 06/07/19 22:55 Dose: 10 mg Budesonide/Formoterol Fumarate (Symbicort 160/4.5mcg -) 2 puff IH BID [facility] Last Admin: 06/08/19 09:07 Dose: 2 puff Bupropion HCl (Wellbutrin Xl -) 300 mg PO DAILY [facility] Last Admin: 06/08/19 09:06 Dose: Not Given Calcium Carbonate/Cholecalciferol (Os-Mikhail 500+D -) 2 tab PO DAILY [facility] Last Admin: 06/07/19 09:22 Dose: 2 tab Ergocalciferol (Drisdol -) 50,000 unit PO Th@1000 [facility] Gabapentin (Neurontin -) 800 mg PO BID [facility] Last Admin: 06/08/19 09:05 Dose: 800 mg Guaifenesin (Robitussin -) 10 ml PO Q4H PRN PRN Reason: COUGH Last Admin: 06/08/19 09:04 Dose: 10 ml Heparin Sodium (Porcine) (Heparin -) 5,000 unit SQ BID [facility] Last Admin: 06/08/19 09:04 Dose: 5,000 unit Insulin Aspart (Novolog Vial Sliding Scale -) 1 vial SQ ACHS [facility]; Protocol Last Admin: 06/08/19 06:43 Dose: 6 unit Letrozole (Femara -) 2.5 mg PO DAILY [facility] Last Admin: 06/07/19 09:21 Dose: 2.5 mg Lorazepam (Ativan -) 0.5 mg PO DAILY [facility] Last Admin: 06/08/19 09:04 Dose: 0.5 mg Methylprednisolone Sodium Succinate (Solu-Medrol -) 80 mg IVPUSH Q8H-IV [facility] Last Admin: 06/08/19 09:04 Dose: 80 mg Montelukast Sodium (Singulair -) 10 mg PO HS [facility] Last Admin: 06/07/19 22:55 Dose: 10 mg Pantoprazole Sodium (Protonix -) 40 mg PO DAILY [facility] Last Admin: 06/08/19 09:04 Dose: 40 mg Sitagliptin Phosphate (Januvia -) 100 mg PO ACBK [facility] Last Admin: 06/08/19 06:43 Dose: 100 mg Valsartan (Diovan -) 160 mg PO DAILY [facility] Last Admin: 06/08/19 09:04 Dose: 160 mg Zolpidem Tartrate (Ambien -) 10 mg PO HS PRN PRN Reason: INSOMNIA Last Admin: 06/07/19 22:55 Dose: 10 mg Neck: Yes: WNL, Supple Cardiovascular: Yes: WNL, Regular Rate and Rhythm Respiratory: Yes: Bilateral Expiratory Wheezes Gastrointestinal: Yes: WNL, Normal Bowel Sounds, Soft, Abdomen, Obese Extremities: Yes: WNL Edema: No Labs: Laboratory Results - last 24 hr 06/07/19 06/07/19 06/07/19 12:19 14:50 14:50 WBC 14.7 H RBC 4.45 Hgb 11.8 Hct 37.6 MCV 84.3 MCH 26.4 MCHC 31.3 L RDW 17.9 H Plt Count 211 MPV 8.3 Absolute Neuts (auto) 13.2 H Neutrophils % 89.8 H Lymphocytes % 7.3 L Monocytes % 2.8 L Eosinophils % 0.0 Basophils % 0.1 Nucleated RBC % 0 Sodium 138 Potassium 4.0 Chloride 109 H Carbon Dioxide 22 Anion Gap 7 L BUN 35.8 H Creatinine 1.4 H Est GFR (CKD-EPI)AfAm 51.01 Est GFR (CKD-EPI)NonAf 44.01 POC Glucometer 224 Random Glucose 217 H Calcium 10.1 Magnesium 2.6 H B-Natriuretic Peptide 52.3 06/07/19 06/07/19 06/08/19 17:47 22:50 06:41 WBC RBC Hgb Hct MCV MCH MCHC RDW Plt Count MPV Absolute Neuts (auto) Neutrophils % Lymphocytes % Monocytes % Eosinophils % Basophils % Nucleated RBC % Sodium Potassium Chloride Carbon Dioxide Anion Gap BUN Creatinine Est GFR (CKD-EPI)AfAm Est GFR (CKD-EPI)NonAf POC Glucometer 180 198 251 Random Glucose Calcium Magnesium B-Natriuretic Peptide Problem List - Problems (1) Asthma exacerbation Code(s): J45.901 - UNSPECIFIED ASTHMA WITH (ACUTE) EXACERBATION (2) Breast CA Code(s): C50.919 - MALIGNANT NEOPLASM OF UNSP SITE OF UNSPECIFIED FEMALE BREAST (3) HLD (hyperlipidemia) Code(s): E78.5 - HYPERLIPIDEMIA, UNSPECIFIED (4) HTN (hypertension) Code(s): I10 - ESSENTIAL (PRIMARY) HYPERTENSION (5) SOB (shortness of breath) Code(s): R06.02 - SHORTNESS OF BREATH IMP ACUTE ASTHMA EXACERBATION H/O BREAST CA S/P MASTECTOMY HTN SUSPECTED SVETA HLD H/O TOBACCO USE PLAN IV STEROIDS AT THE CURRENT DOSE INHALED BRONCHODILATORS O2 NEEDED PFTS OUTPATIENT MONITOR PEAK FLOW FORMAL SLEEP STUDIES OUTPATIENT [facility] DR NAIDU
[2019-06-08] MEDS: LETROZOLE 2.5 MG TABLET (FP) PO SCH (11:42)
[2019-06-08] MEDS: acetaZOLAMIDE 250 MG TABLET PO SCH ×2 (11:42→22:52)
[2019-06-08] MEDS: CALCIUM 500MG/VIT-D 200 UNITS COMBO TABLET (FP) PO SCH (11:43)
[2019-06-08 13:21] VITALS: BMI 40.7
[2019-06-08] MEDS: ATORVASTATIN CA 10 MG TABLET (FP) PO SCH (22:17)
[2019-06-08] MEDS: MONTELUKAST NA 10 MG TABLET PO SCH (22:17)
--- NOTE | 2019-06-08 22:38 | PN ---
Progress Note, Physician History of Present Illness: Pt states that she didn't feel well last night - Current Medication List Current Medications: Active Medications Acetazolamide (Diamox -) 500 mg PO BID [facility] Last Admin: 06/08/19 11:42 Dose: 500 mg Albuterol Sulfate (Ventolin 0.083% Nebulizer Soln -) 1 amp NEB Q4H PRN PRN Reason: SHORT OF BREATH/WHEEZING Last Admin: 06/07/19 22:35 Dose: 1 amp Albuterol/Ipratropium (Duoneb -) 1 amp NEB RQID [facility] Last Admin: 06/08/19 19:52 Dose: 1 amp Amlodipine Besylate (Norvasc -) 10 mg PO DAILY [facility] Last Admin: 06/08/19 09:04 Dose: 10 mg Atorvastatin Calcium (Lipitor -) 10 mg PO HS [facility] Last Admin: 06/08/19 22:17 Dose: 10 mg Budesonide/Formoterol Fumarate (Symbicort 160/4.5mcg -) 2 puff IH BID [facility] Last Admin: 06/08/19 22:20 Dose: 2 puff Bupropion HCl (Wellbutrin Xl -) 300 mg PO DAILY [facility] Last Admin: 06/08/19 09:06 Dose: Not Given Calcium Carbonate/Cholecalciferol (Os-Mikhail 500+D -) 2 tab PO DAILY [facility] Last Admin: 06/08/19 11:43 Dose: 2 tab Ergocalciferol (Drisdol -) 50,000 unit PO Th@1000 [facility] Gabapentin (Neurontin -) 800 mg PO BID [facility] Last Admin: 06/08/19 09:05 Dose: 800 mg Guaifenesin (Robitussin -) 10 ml PO Q4H PRN PRN Reason: COUGH Last Admin: 06/08/19 22:28 Dose: 10 ml Heparin Sodium (Porcine) (Heparin -) 5,000 unit SQ BID [facility] Last Admin: 06/08/19 22:17 Dose: 5,000 unit Insulin Aspart (Novolog Vial Sliding Scale -) 1 vial SQ ACHS [facility]; Protocol Last Admin: 06/08/19 22:24 Dose: 6 unit Letrozole (Femara -) 2.5 mg PO DAILY [facility] Last Admin: 06/08/19 11:42 Dose: 2.5 mg Lorazepam (Ativan -) 0.5 mg PO DAILY [facility] Last Admin: 06/08/19 09:04 Dose: 0.5 mg Methylprednisolone Sodium Succinate (Solu-Medrol -) 80 mg IVPUSH Q8H-IV [facility] Last Admin: 06/08/19 17:18 Dose: 80 mg Montelukast Sodium (Singulair -) 10 mg PO HS [facility] Last Admin: 06/08/19 22:17 Dose: 10 mg Pantoprazole Sodium (Protonix -) 40 mg PO DAILY [facility] Last Admin: 06/08/19 09:04 Dose: 40 mg Sitagliptin Phosphate (Januvia -) 100 mg PO ACBK [facility] Last Admin: 06/08/19 06:43 Dose: 100 mg Valsartan (Diovan -) 160 mg PO DAILY [facility] Last Admin: 06/08/19 09:04 Dose: 160 mg - Objective Vital Signs: Vital Signs Temperature 98 F 06/08/19 18:00 Pulse Rate 93 H 06/08/19 18:00 Respiratory Rate 22 H 06/08/19 18:00 Blood Pressure 121/75 06/08/19 18:00 O2 Sat by Pulse Oximetry (%) 97 06/08/19 09:00 Neck: Yes: WNL, Supple Cardiovascular: Yes: WNL, Regular Rate and Rhythm Respiratory: Yes: Rhonchi, Wheezes Gastrointestinal: Yes: WNL, Normal Bowel Sounds, Soft Labs: CBC, BMP 06/07/19 14:50 06/07/19 14:50 Problem List - Problems (1) Asthma exacerbation Assessment/Plan: Cont IV steroids Cont nebulizers Code(s): J45.901 - UNSPECIFIED ASTHMA WITH (ACUTE) EXACERBATION (2) HLD (hyperlipidemia) Assessment/Plan: Cont lipitor Code(s): E78.5 - HYPERLIPIDEMIA, UNSPECIFIED (3) HTN (hypertension) Assessment/Plan: BP stable Cont norvasc/diamox Code(s): I10 - ESSENTIAL (PRIMARY) HYPERTENSION (4) Diabetes Assessment/Plan: Cont januvia Cont sliding scale w/ coverage Code(s): E11.9 - TYPE 2 DIABETES MELLITUS WITHOUT COMPLICATIONS (5) Breast CA Assessment/Plan: Cont femara Code(s): C50.919 - MALIGNANT NEOPLASM OF UNSP SITE OF UNSPECIFIED FEMALE BREAST
[2019-06-09] MEDS ORDERED: MELATONIN 5 MG TABLETS PO ONE (00:41)
[2019-06-09] MEDS: methylPREDNISolone NA SUCC 40 MG/1 ML VIAL IVPUSH SCH ×2 (01:32→10:02)
[2019-06-09] MEDS: ZOLPIDEM TARTRATE 5 MG TABLET PO PRN ×2 (01:32→21:49)
[2019-06-09] MEDS: INSULIN SLIDING SCALE (NOVOLOG) 1 VIAL SQ SCH ×4 (06:14→21:57)
[2019-06-09] MEDS: sitaGLIPtin PHOSPHATE 50 MG TABLET PO SCH (06:14)
[2019-06-09] MEDS: ALBUTEROL SO4 2.5/IPRATROPIUM 0.5 INH SOL 3 ML VIAL.NEB. NEB SCH ×4 (07:35→22:03)
[2019-06-09] MEDS ORDERED: PT OWN MED DRAWER 7, Y5N ONE (09:59)
[2019-06-09] MEDS: BUDESONIDE/FORMETEROL FUMARATE 160/4.5 mcg INHALER IH SCH ×2 (10:06→22:00)
[2019-06-09] MEDS: PANTOPRAZOLE 40 MG TABLET (FP) PO SCH (10:06)
[2019-06-09] MEDS: VALSARTAN 160 MG TABLET (UD) PO SCH (10:07)
[2019-06-09] MEDS: amLODIPine BESYLATE 10 MG TABLET (FP) PO SCH (10:07)
[2019-06-09] MEDS: guaiFENesin 200 MG/10 ML 10 ML UNIT-DOSE CUPS PO PRN ×2 (10:07→16:48)
[2019-06-09] MEDS: HEPARIN NA (PORCINE) 5,000 UNITS/ML 1ML VIAL SQ SCH ×2 (10:07→21:49)
[2019-06-09] MEDS: LORazepam 0.5 MG TABLET PO SCH (10:07)
[2019-06-09] MEDS: CALCIUM 500MG/VIT-D 200 UNITS COMBO TABLET (FP) PO SCH (10:08)
[2019-06-09] MEDS: acetaZOLAMIDE 250 MG TABLET PO SCH ×2 (10:08→21:47)
[2019-06-09] MEDS: GABAPENTIN 400 MG CAPSULE (FP) PO SCH ×2 (10:08→21:48)
[2019-06-09] MEDS: LETROZOLE 2.5 MG TABLET (FP) PO SCH (10:09)
--- NOTE | 2019-06-09 12:32 | PN ---
Progress Note (short form) - Note Progress Note: PULMONARY States breathing better but still some cough and wheezes. Vital Signs Period Temp Pulse Resp BP Sys/Aleman Pulse Ox Last 24 Hr 97.4 F-98.3 F 83-95 20-22 113-123/58-75 97 Gen: NAD at rest Heart: RRR Lung: scattered rhonchi Abd: soft, nontender Ext: no edema CBC, BMP 06/07/19 14:50 06/07/19 14:50 Active Medications Acetazolamide (Diamox -) 500 mg PO BID [facility] Last Admin: 06/09/19 10:08 Dose: 500 mg Albuterol Sulfate (Ventolin 0.083% Nebulizer Soln -) 1 amp NEB Q4H PRN PRN Reason: SHORT OF BREATH/WHEEZING Last Admin: 06/07/19 22:35 Dose: 1 amp Albuterol/Ipratropium (Duoneb -) 1 amp NEB RQID [facility] Last Admin: 06/09/19 11:15 Dose: 1 amp Amlodipine Besylate (Norvasc -) 10 mg PO DAILY [facility] Last Admin: 06/09/19 10:07 Dose: 10 mg Atorvastatin Calcium (Lipitor -) 10 mg PO HS [facility] Last Admin: 06/08/19 22:17 Dose: 10 mg Budesonide/Formoterol Fumarate (Symbicort 160/4.5mcg -) 2 puff IH BID [facility] Last Admin: 06/09/19 10:06 Dose: 2 puff Bupropion HCl (Wellbutrin Xl -) 300 mg PO DAILY [facility] Last Admin: 06/09/19 10:13 Dose: 300 mg Calcium Carbonate/Cholecalciferol (Os-Mikhail 500+D -) 2 tab PO DAILY [facility] Last Admin: 06/09/19 10:08 Dose: 2 tab Ergocalciferol (Drisdol -) 50,000 unit PO Th@1000 [facility] Gabapentin (Neurontin -) 800 mg PO BID [facility] Last Admin: 06/09/19 10:08 Dose: 800 mg Guaifenesin (Robitussin -) 10 ml PO Q4H PRN PRN Reason: COUGH Last Admin: 06/09/19 10:07 Dose: 10 ml Heparin Sodium (Porcine) (Heparin -) 5,000 unit SQ BID [facility] Last Admin: 06/09/19 10:07 Dose: 5,000 unit Insulin Aspart (Novolog Vial Sliding Scale -) 1 vial SQ ACHS [facility]; Protocol Last Admin: 06/09/19 06:14 Dose: 4 unit Letrozole (Femara -) 2.5 mg PO DAILY [facility] Last Admin: 06/09/19 10:09 Dose: 2.5 mg Lorazepam (Ativan -) 0.5 mg PO DAILY [facility] Last Admin: 06/09/19 10:07 Dose: 0.5 mg Methylprednisolone Sodium Succinate (Solu-Medrol -) 80 mg IVPUSH Q8H-IV LALY Last Admin: 06/09/19 10:02 Dose: 80 mg Montelukast Sodium (Singulair -) 10 mg PO HS [facility] Last Admin: 06/08/19 22:17 Dose: 10 mg Pantoprazole Sodium (Protonix -) 40 mg PO DAILY [facility] Last Admin: 06/09/19 10:06 Dose: 40 mg Sitagliptin Phosphate (Januvia -) 100 mg PO ACBK [facility] Last Admin: 06/09/19 06:14 Dose: 100 mg Valsartan (Diovan -) 160 mg PO DAILY [facility] Last Admin: 06/09/19 10:07 Dose: 160 mg Zolpidem Tartrate (Ambien -) 10 mg PO HS PRN PRN Reason: INSOMNIA Last Admin: 06/09/19 01:32 Dose: 10 mg A/P Acute Asthma Exacerbation Morbid Obesity r/o SVETA HTN DM Hyperlipidemia GERD - will decrease medrol to 60mg q12h - if continues to improve, can likely change steroids to PO prednisone 60mg daily in AM - inhaled bronchodilators - singulair - O2 as needed - outpt PFTs and NPSG - DVT prophylaxis
[2019-06-09] MEDS: predniSONE 20 MG TABLET (UD) PO SCH ×2 (12:51→21:46)
--- NOTE | 2019-06-09 13:08 | ECHO ---
Name: YU SOCORRO Exam:Adult Echocardiogram Study Date: 06/09/2019 09:04 AM Age: 49 yrs Height: 65 in Weight: 246 lb BSA: 2.2 m2 MMode/2D Measurements & Calculations IVSd: 0.97 cm Ao root diam: 3.1 cm LVIDd: 3.9 cm LA dimension: 2.4 cm LVIDs: 2.8 cm LVPWd: 1.2 cm LVPWs: 0.96 cm EDV(Teich): 66.6 ml ESV(Teich): 29.2 ml RV S Kamari: 23.4 cm/sec Doppler Measurements & Calculations MV E max kamari: 75.5 cm/sec Ao V2 max: 210.4 cm/sec MV A max kamair: 91.8 cm/sec Ao max P.7 mmHg MV E/A: 0.82 MV dec time: 0.11 sec LV V1 max P.4 mmHg PA V2 max: 139.8 cm/sec LV V1 max: 116.5 cm/sec PA max P.8 mmHg Lat Peak E' Kamari: 9.3 cm/sec Lat E/e': 8.1 Procedure A complete two-dimensional transthoracic echocardiogram was performed (2D, M-mode, Doppler and color flow Doppler). Technically limited study. Left Ventricle The left ventricle is normal in size. Left ventricular systolic function is normal. Ejection Fraction = 55- 60%. No regional wall motion abnormalities noted. Right Ventricle The right ventricle is not well visualized. Atria The left atrial size is normal. Right atrial size is normal. Mitral Valve The mitral valve is normal in structure and function. There is no mitral regurgitation noted. Tricuspid Valve The tricuspid valve is normal in structure and function. No tricuspid regurgitation. Aortic Valve The aortic valve is normal in structure and function. No aortic regurgitation is present. Pulmonic Valve The pulmonic valve is not well visualized. Great Vessels The aortic root is normal size. Pericardium/Pleura There is no pericardial effusion. Interpretation Summary Technically limited study The left ventricle is normal in size. Left ventricular systolic function is normal. No regional wall motion abnormalities noted. Ejection Fraction = 55-60%. The right ventricle is not well visualized. The left atrial size is normal. Right atrial size is normal. No significant valvular regurgitations There is no pericardial effusion. Brigido Gutierrez MD 06/09/2019 01:07 PM
[2019-06-09 14:52] LABS: BASO % 0.3 % (0-2.0); HEMATOCRIT 35.8 % (32.4-45.2); HEMOGLOBIN 11.2 GM/dL (10.7-15.3); LYMPH % 6.2 % (8-40); MCH 26.5 pg (25.7-33.7); MCHC 31.4 g/dl (32.0-36.0); MEAN CELL VOLUME 84.4 fl (80-96); MEAN PLT VOLUME 8.1 fl (7.5-11.1); MONO % 2.7 % (3.8-10.2); NEUT % 90.8 % (42.8-82.8); PLATELET COUNT 198 K/MM3 (134-434); RBC 4.24 M/mm3 (3.60-5.2); RDW 18.5 % (11.6-15.6); WHITE BLOOD COUNT 12.2 K/mm3 (4.0-10.0)
[2019-06-09 15:30] LABS: BILIRUBIN,TOTAL 0.3 mg/dL (0.2-1); BLOOD UREA NITROGEN 34.8 mg/dL (7-18); CALCIUM 9.3 mg/dL (8.5-10.1); CREATININE 1.3 mg/dL (0.55-1.3); POTASSIUM 4.6 mmol/L (3.5-5.1); TOT PROT 6.2 g/dl (6.4-8.2)
--- NOTE | 2019-06-09 19:14 | PN ---
Progress Note, Physician - Current Medication List Current Medications: Active Medications Acetazolamide (Diamox -) 500 mg PO BID [facility] Last Admin: 06/09/19 10:08 Dose: 500 mg Albuterol Sulfate (Ventolin 0.083% Nebulizer Soln -) 1 amp NEB Q4H PRN PRN Reason: SHORT OF BREATH/WHEEZING Last Admin: 06/07/19 22:35 Dose: 1 amp Albuterol/Ipratropium (Duoneb -) 1 amp NEB RQID [facility] Last Admin: 06/09/19 15:40 Dose: 1 amp Amlodipine Besylate (Norvasc -) 10 mg PO DAILY [facility] Last Admin: 06/09/19 10:07 Dose: 10 mg Atorvastatin Calcium (Lipitor -) 10 mg PO HS [facility] Last Admin: 06/08/19 22:17 Dose: 10 mg Budesonide/Formoterol Fumarate (Symbicort 160/4.5mcg -) 2 puff IH BID [facility] Last Admin: 06/09/19 10:06 Dose: 2 puff Bupropion HCl (Wellbutrin Xl -) 300 mg PO DAILY [facility] Last Admin: 06/09/19 10:13 Dose: 300 mg Calcium Carbonate/Cholecalciferol (Os-Mikhail 500+D -) 2 tab PO DAILY [facility] Last Admin: 06/09/19 10:08 Dose: 2 tab Ergocalciferol (Drisdol -) 50,000 unit PO Th@1000 [facility] Gabapentin (Neurontin -) 800 mg PO BID [facility] Last Admin: 06/09/19 10:08 Dose: 800 mg Guaifenesin (Robitussin -) 10 ml PO Q4H PRN PRN Reason: COUGH Last Admin: 06/09/19 16:48 Dose: 10 ml Heparin Sodium (Porcine) (Heparin -) 5,000 unit SQ BID [facility] Last Admin: 06/09/19 10:07 Dose: 5,000 unit Insulin Aspart (Novolog Vial Sliding Scale -) 1 vial SQ [facility]; Protocol Last Admin: 06/09/19 16:47 Dose: 4 unit Letrozole (Femara -) 2.5 mg PO DAILY [facility] Last Admin: 06/09/19 10:09 Dose: 2.5 mg Lorazepam (Ativan -) 0.5 mg PO DAILY [facility] Last Admin: 06/09/19 10:07 Dose: 0.5 mg Montelukast Sodium (Singulair -) 10 mg PO HS [facility] Last Admin: 06/08/19 22:17 Dose: 10 mg Pantoprazole Sodium (Protonix -) 40 mg PO DAILY [facility] Last Admin: 06/09/19 10:06 Dose: 40 mg Prednisone (Deltasone -) 60 mg PO BID [facility] Last Admin: 06/09/19 12:51 Dose: 60 mg Sitagliptin Phosphate (Januvia -) 100 mg PO ACBK [facility] Last Admin: 06/09/19 06:14 Dose: 100 mg Valsartan (Diovan -) 160 mg PO DAILY [facility] Last Admin: 06/09/19 10:07 Dose: 160 mg Zolpidem Tartrate (Ambien -) 10 mg PO HS PRN PRN Reason: INSOMNIA Last Admin: 06/09/19 01:32 Dose: 10 mg - Objective Vital Signs: Vital Signs Temperature 98.0 F 06/09/19 14:00 Pulse Rate 94 H 06/09/19 14:00 Respiratory Rate 20 06/09/19 14:00 Blood Pressure 136/54 L 06/09/19 14:00 O2 Sat by Pulse Oximetry (%) 98 06/09/19 09:00 Labs: CBC, BMP 06/09/19 14:11 06/09/19 14:11 Problem List - Problems (1) Asthma exacerbation Code(s): J45.901 - UNSPECIFIED ASTHMA WITH (ACUTE) EXACERBATION (2) HLD (hyperlipidemia) Code(s): E78.5 - HYPERLIPIDEMIA, UNSPECIFIED (3) HTN (hypertension) Code(s): I10 - ESSENTIAL (PRIMARY) HYPERTENSION (4) Diabetes Code(s): E11.9 - TYPE 2 DIABETES MELLITUS WITHOUT COMPLICATIONS (5) Breast CA Code(s): C50.919 - MALIGNANT NEOPLASM OF UNSP SITE OF UNSPECIFIED FEMALE BREAST
[2019-06-09] MEDS: ATORVASTATIN CA 10 MG TABLET (FP) PO SCH (21:47)
[2019-06-09] MEDS: MONTELUKAST NA 10 MG TABLET PO SCH (21:48)
[2019-06-09] MEDS ORDERED: methylPREDNISolone NA SUCC 40 MG/1 ML VIAL IVPUSH SCH (22:00)
[2019-06-10] MEDS: INSULIN SLIDING SCALE (NOVOLOG) 1 VIAL SQ SCH ×2 (06:23→11:27)
[2019-06-10] MEDS: sitaGLIPtin PHOSPHATE 50 MG TABLET PO SCH (06:23)
[2019-06-10] MEDS: ALBUTEROL SO4 2.5/IPRATROPIUM 0.5 INH SOL 3 ML VIAL.NEB. NEB SCH ×2 (07:35→11:20)
[2019-06-10] MEDS: GABAPENTIN 400 MG CAPSULE (FP) PO SCH (11:14)
[2019-06-10] MEDS: LETROZOLE 2.5 MG TABLET (FP) PO SCH (11:15)
[2019-06-10] MEDS: acetaZOLAMIDE 250 MG TABLET PO SCH (11:15)
[2019-06-10] MEDS: predniSONE 20 MG TABLET (UD) PO SCH (11:17)
[2019-06-10] MEDS: HEPARIN NA (PORCINE) 5,000 UNITS/ML 1ML VIAL SQ SCH (11:18)
[2019-06-10] MEDS: LORazepam 0.5 MG TABLET PO SCH (11:18)
[2019-06-10] MEDS: amLODIPine BESYLATE 10 MG TABLET (FP) PO SCH (11:18)
[2019-06-10] MEDS: PANTOPRAZOLE 40 MG TABLET (FP) PO SCH (11:18)
[2019-06-10] MEDS: VALSARTAN 160 MG TABLET (UD) PO SCH (11:18)
[2019-06-10] MEDS: CALCIUM 500MG/VIT-D 200 UNITS COMBO TABLET (FP) PO SCH (11:19)
[2019-06-10] MEDS: BUDESONIDE/FORMETEROL FUMARATE 160/4.5 mcg INHALER IH SCH (11:28)
--- NOTE | 2019-06-10 11:38 | PN ---
Progress Note (short form) - Note Progress Note: PULMONARY Wants to go home. Subjective improvement. Gen: NAD at rest Heart: RRR Lung: scattered rhonchi Abd: soft, nontender Ext: no edema Chart reviewed A/P Acute Asthma Exacerbation resolving Morbid Obesity r/o SVETA HTN DM Hyperlipidemia GERD - change to oral steroids - inhaled bronchodilators - singulair - O2 as needed - outpt PFTs and NPSG - DVT prophylaxis - discharge planning Dominick REYNA MD
[2019-06-10] MEDS ORDERED: predniSONE 20 MG TABLET (UD) PO SCH (11:45)
[2019-06-10 14:29] VITALS: BP 148/72; PULSE 99; TEMP 98.3
[2019-06-12] MEDS ORDERED: ERGOCALCIFEROL (VIT D2) 50,000 UNIT (1.25 MG) CAPSULE PO SCH (10:00)
== END 2019-06-10 14:38 | disposition home health service (06) | DRG 202 ==
LOC: JER 12:56 → JERBED 15:51 → J5S 17:32
PROVIDERS: ADMIT Internal Medicine; ATTEND Internal Medicine
DX: J45.901 Unspecified asthma with (acute) exacerbation (principal); J96.00 Acute respiratory failure, unspecified whether with hypoxia or hypercapnia; Z68.41 Body mass index [BMI] 40.0-44.9, adult; E11.9 Type 2 diabetes mellitus without complications; I25.10 Atherosclerotic heart disease of native coronary artery without angina pectoris; I10 Essential (primary) hypertension; E78.5 Hyperlipidemia, unspecified; M54.5 Low back pain; K59.09 Other constipation; K63.5 Polyp of colon; E03.9 Hypothyroidism, unspecified; G47.33 Obstructive sleep apnea (adult) (pediatric); K21.9 Gastro-esophageal reflux disease without esophagitis; G47.00 Insomnia, unspecified; E66.01 Morbid (severe) obesity due to excess calories; Z85.3 Personal history of malignant neoplasm of breast; Z87.891 Personal history of nicotine dependence
CPT/HCPCS: 36415; 71045-TC-FY; 80048; 80053; 82962; 83735; 83880; 85025; 93005; 93010; 93306-TC; 94640; 99283-25; J1644

== ENCOUNTER 2019-06-20 06:33 | Inpatient (IN) | payer BC ==
[2019-06-20] MEDS ORDERED: ACETAMINOPHEN 1000 MG/100 ML VIAL (NON FORMULARY) IVPB ONE (07:08)
[2019-06-20] MEDS ORDERED: ALBUTEROL SO4 2.5/IPRATROPIUM 0.5 INH SOL 3 ML VIAL.NEB. NEB ONE ×4 (07:08→11:12)
[2019-06-20] MEDS ORDERED: ACETAMINOPHEN INJECTION 100 ML IVPB ONE (07:13)
--- NOTE | 2019-06-20 07:18 | PDOC ---
History of Present Illness - General Chief Complaint: Shortness of Breath Stated Complaint: DIFFICULTY BREATHING,ASTHMA Time Seen by Provider: 06/20/19 06:55 History Source: Patient Exam Limitations: No Limitations - History of Present Illness Initial Comments: 06/20/19 07:17 49yF with PMH of Asthma/COPD (as needed 2L O2), HTN, HLD, Breast Ca (2014, on CTX q6 months), DM presenting to ED for SOB. Was recently discharged from hospital. She states she was feeling fine after discharge but then started to become short of breath again. She went to pmd office yesterday and was given a steroid shot. She says she continues to feel short of breath and is requiring more frequent use of O2. Endorses chest tightness, cough productive of clear phlegm, and headache. Denies fever, chills, abdominal pain, n/v/d. PMD: Marcos Plm: Andrzej PMH: see hpi MEds: see med rec Allergies: Cipro (SOB) Past History - Past Medical History Allergies/Adverse Reactions: Allergies Allergy/AdvReac Type Severity Reaction Status Date / Time ciprofloxacin Allergy Verified 06/20/19 06:51 Home Medications: Ambulatory Orders Amlodipine Besylate [Norvasc -] 10 mg PO DAILY 10/07/18 Atorvastatin Ca [Lipitor] 10 mg PO HS 10/07/18 Bupropion HCl [Wellbutrin Xl -] 300 mg PO DAILY 10/07/18 Calcium Carbonate/Vitamin D3 [Calcium 600 + Vit D Tablet] 2 each PO DAILY Gabapentin 800 mg PO BID 10/07/18 Letrozole [Femara] 2.5 mg PO DAILY 10/07/18 Pantoprazole Sodium 40 mg PO DAILY 10/07/18 Valsartan [Diovan] 160 mg PO DAILY 10/07/18 acetaZOLAMIDE [Diamox -] 500 mg PO BID 10/07/18 Albuterol 2.5/Ipratropium 0.5 [Duoneb -] 1 amp NEB Q6H PRN #90 amp 11/23/18 Budesonide/Formeterol Fumarate [SYMBICORT 160/4.5mcg -] 2 puff IH BID #1 inhaler 11/23/18 Montelukast Na [Singulair -] 10 mg PO HS #30 tablet 11/23/18 Benzonatate 200 mg PO TID 06/05/19 Ergocalciferol [Vitamin D2] 50,000 unit PO Q7D@1000 06/05/19 Lorazepam [Ativan] 0.5 mg PO DAILY 06/05/19 Sitagliptin Phosphate [Januvia] 100 mg PO DAILY 06/05/19 Zolpidem Tartrate [Ambien Cr] 12.5 mg PO HS 06/05/19 predniSONE [Deltasone -] 20 mg PO DAILY #20 tablet 06/10/19 Anemia: Yes Asthma: Yes Cancer: Yes (BREAST 2014) Cardiac Disorders: Yes (HX OF CHEST PAIN 2013 PT REPORTS NEG WORK-UP) CVA: No COPD: Yes CHF: No DVT: No Dementia: No Diabetes: Yes Dialysis: No GI Disorders: No Disorders: No HTN: Yes Hypercholesterolemia: Yes Kidney Stones: Yes Liver Disease: No Psychiatric Problems: No 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) Thyroid Disease: Yes (HYPOTHYROID) Lung CA: No - Surgical History Abdominal Surgery: No Appendectomy: Yes (hysterectomy) Cardiac Surgery: No Cholecystectomy: No Gastric Stapling: No GI Surgery: No Lung Surgery: No Neurologic Surgery: Yes (Back sx 05/2018- Spinal fusion) Orthopedic Surgery: No - Reproductive History Cervical CA: No Dysfunctional Uterine Bleeding: No Ectopic : No Endometrial CA: No Polycystic Ovaries: No Therapeutic (s) & number: No Tubal Ligation: Yes - Immunization History Td Vaccination: Yes TDAP Vaccination: Yes Immunization Up to Date: Yes - Psycho Social/Smoking Cessation Hx Smoking Status: Yes Smoking History: Never smoked Years of Tobacco Use: 0 Have you smoked in the past 12 months: No Number of Cigarettes Smoked Daily: 0 If you are a former smoker, when did you quit?: 2014 Information on smoking cessation initiated: No Hx Alcohol Use: No Drug/Substance Use Hx: No Substance Use Type: None Hx Substance Use Treatment: No Review of Systems - Review of Systems Constitutional: No: Symptoms Reported HEENTM: No: Symptoms Reported Respiratory: Yes: See HPI Cardiac (ROS): Yes: See HPI ABD/GI: No: Symptoms Reported : No: Symptoms Reported Musculoskeletal: No: Symptoms Reported Integumentary: No: Symptoms Reported Neurological: No: Symptoms reported *Physical Exam - Vital Signs Last Vital Signs Temp Pulse Resp BP Pulse Ox 98.2 F 102 H 26 H 151/74 06/20/19 06:52 06/20/19 06:52 06/20/19 06:52 06/20/19 06:52 - Physical Exam General Appearance: Yes: Appropriately Dressed, Moderate Distress, Obese HEENT: positive: EOMI, NORA, Normal ENT Inspection Neck: positive: Trachea midline, Supple. negative: Lymphadenopathy (R), Lymphadenopathy (L) Respiratory/Chest: positive: Labored Respiration, Rapid RR, Rhonchi, Wheezing. negative: Chest Tender, Accessory Muscle Use, Decreased Breath Sounds, Crackles , Rales, Stridor Cardiovascular: positive: S1, S2, Tachycardia. negative: Edema, JVD, Murmur Gastrointestinal/Abdominal: positive: Normal Bowel Sounds, Soft. negative: Tender Musculoskeletal: negative: CVA Tenderness Extremity: positive: Normal Capillary Refill. negative: Pedal Edema, Swelling Integumentary: positive: Normal Color, Dry, Warm Neurologic: positive: powder nipper II-XII NML intact, Fully Oriented, Alert, Normal Mood/ Affect, Normal Response, Motor Strength 10/13 ED Treatment Course - LABORATORY CBC & Chemistry Diagram: 06/20/19 07:35 06/20/19 07:35 - RADIOLOGY Radiology Studies Ordered: Category Date Time Status CHEST X-RAY PORTABLE* [RAD] Stat Radiology 06/20/19 07:00 Ordered Medical Decision Making - Medical Decision Making 06/20/19 19:16 49y F recently discharged from hospital for asthma exacerbation. still feeling short of breath. vitals: tachcyardia, low-mid 90s on RA. low suspicion for PE; pt had CTA done 06/08 with no evidence of pe. likely asthma exacerbation. -cardiac w/u, cbc cmp, ekg, cxr cxr; no infiltrates or consolidatoins. ekg: sinus tachycardia at 103, LA deviation. no iain or depresions. labs wnl. abg shows low CO2 and low O2. given duonebs, albuterol, solumedrol and mg. BiPAP. pt sattinng low on RA, still tachypneic, feeling short of breath. will benefit from admisison admitted to Dr. Rodríguez. consult to pulm placed per request of admitting team. 06/20/19 19:19 Discharge - Discharge Information Problems reviewed: Yes Clinical Impression/Diagnosis: SOB (shortness of breath) Asthma exacerbation Qualifiers: Asthma severity: unspecified severity Asthma persistence: unspecified Qualified Code(s): J45.901 - Unspecified asthma with (acute) exacerbation Condition: Stable - Admission Yes - Follow up/Referral - Patient Discharge Instructions - Post Discharge Activity
[2019-06-20] MEDS ORDERED: MAGNESIUM SULF 50% (8.12 MEQ/2 ML-1 GM VIAL) IVPB ONE (07:29)
[2019-06-20] MEDS ORDERED: methylPREDNISolone NA SUCC 125 MG/2 ML VIAL IVPUSH ONE (07:29)
[2019-06-20 07:36] LABS: ALLENS TEST POSITIVE
[2019-06-20 07:41] LABS: ARTERIAL BLD GAS O2 SATURATION 93.2 % (95-98); ARTERIAL BLOOD GAS BASE EXCESS 1.5 meq/l (-2-2); ARTERIAL BLOOD GAS PCO2 34.2 mmHg (35-45); ARTERIAL BLOOD GAS PO2 63.7 mmHg (80-100); ARTERIAL BLOOD GAS pH 7.47 (7.35-7.45); CARBOXYHEMOGLOBIN 0.5 % (0-2)
--- NOTE | 2019-06-20 07:42 | PDOC ---
Attending Attestation - Resident Resident Name: Romi Weathers - ED Attending Attestation I have performed the following: I have examined & evaluated the patient, The case was reviewed & discussed with the resident, I agree w/resident's findings & plan, Exceptions are as noted - HPI HPI: 06/20/19 08:16 Ms martinez is a 49 yo F h/o COPD/Asthma, HTN, pre-DM, Breast Cancer, who presents to the emergency department with a complaint of shortness of breath and wheezing Pt was seen in the ER once in may where CTA was performed and was negative She returned to the ER after this and was admitted for severe asthma exacerbation Since her discharge pt states she had been doing well Was tapered off of steroids on Friday 06/16 She returned to work on Sunday 06/18 Since completing her steroid taper, she developed progressively worsening shortness of breath No chest pain No fevers or chills No cough with sputum Pt was seen by PMD yesterday due to her shortness of breath and was given a steroid "shot" Pt states her shortness of breath has not improved Allergies: Ciprofloxacin. Primary Care Physician: Dr. Rodríguez 06/20/19 08:21 - Physicial Exam PE: 06/20/19 07:42 GENERAL: The patient has a bipap in place, no acute distress. ENT: Ears normal, nares patent, oropharynx clear without exudates. Moist mucous membranes. NECK: Normal range of motion, supple LUNGS: expiratory wheezing bilaterally, HEART:Regular rate and rhythm, normal S1 and S2 without murmur, rub or gallop. ABDOMEN: Soft, nontender, normoactive bowel sounds. EXTREMITIES: Normal range of motion, no edema. NEUROLOGICAL: Cranial nerves II through XII grossly intact. Normal speech. No focal neurological deficits. SKIN: Warm, Dry, normal turgor, no rashes or lesions noted. 06/20/19 08:17 - Critical Care Time Total Critical Care Time: 60 Critical Care Statement: The care of this patient involved high complexity decision making to prevent further life threatening deterioration of the patient 's condition and/or to evaluate & treat vital organ system(s) failure or risk of failure. - Medical Decision Making 06/20/19 08:18 49 yo F presenting to the ER with a complaint of shortness of breath No fevers or chills 06/20/19 08:25 Laboratory Tests 06/20/19 06/20/19 07:21 07:35 WBC 10.5 H Hgb 11.4 Hct 35.9 ABG pH 7.47 H ABG pCO2 at Pt Temp 34.2 L ABG pO2 at Pt Temp 63.7 L 06/20/19 08:27 EKG: NSR rate of 103 bpm, LAD, no st elevation or depression,t waves upright, no pathological q waves CXR: no infiltrate Will hold on repeating CTA as pt had similar symptoms within the past month and was evaluated with a CTA which was negative Pt remains of BiPAP Given Nebs Consult to Pulmonary 06/20/19 14:27 Pt improved after nebs BiPAP removed Admit Clinical impression: severe asthma/copd exacerbation
[2019-06-20 08:05] LABS: BASO % 0.4 % (0-2.0); HEMATOCRIT 35.9 % (32.4-45.2); HEMOGLOBIN 11.4 GM/dL (10.7-15.3); MCH 27.3 pg (25.7-33.7); MCHC 31.8 g/dl (32.0-36.0); MEAN CELL VOLUME 85.6 fl (80-96); MEAN PLT VOLUME 8.2 fl (7.5-11.1); MONO % 2.6 % (3.8-10.2); PLATELET COUNT 160 K/MM3 (134-434); RBC 4.19 M/mm3 (3.60-5.2); RDW 18.5 % (11.6-15.6); WHITE BLOOD COUNT 10.5 K/mm3 (4.0-10.0)
[2019-06-20] MEDS ORDERED: methylPREDNISolone NA SUCC 125 MG/2 ML VIAL ONE (08:15)
[2019-06-20] MEDS ORDERED: MAGNESIUM 1GM/D5W - 2 GM/200 ML IVPB IVPB ONE (08:15)
[2019-06-20 08:17] LABS: INR 1.03 (0.83-1.09); PROTHROMBIN TIME (PATIENT) 12.1 SEC (9.7-13.0)
[2019-06-20 09:06] LABS: ALBUMIN 3.1 g/dl (3.4-5.0); ALK PHOS 40 U/L (45-117); ANION GAP 10 MMOL/L (8-16); BILIRUBIN,TOTAL 0.4 mg/dL (0.2-1); BLOOD UREA NITROGEN 26.4 mg/dL (7-18); CALCIUM 8.7 mg/dL (8.5-10.1); CHLORIDE 108 mmol/L (98-107); CO2 23 mmol/L (21-32); GLUCOSE,RANDOM 217 mg/dL (74-106); MAGNESIUM 1.9 mg/dL (1.8-2.4); POTASSIUM 4.2 mmol/L (3.5-5.1); SGOT/AST 34 U/L (15-37); SGPT/ALT 49 U/L (13-61); SODIUM 141 mmol/L (136-145); TOT PROT 6.1 g/dl (6.4-8.2)
[2019-06-20] MEDS ORDERED: ALBUTEROL SO4 0.083% IH SOL 2.5 MG/3 ML VIAL.NEB. NEB ONE ×2 (09:41→10:11)
[2019-06-20 11:20] LABS: PLATELET ESTIMATE NORMAL
--- NOTE | 2019-06-20 11:57 | EKG ---
Test Reason : Blood Pressure : / mmHG Vent. Rate : 103 BPM Atrial Rate : 103 BPM P-R Int : 114 ms QRS Dur : 086 ms QT Int : 312 ms P-R-T Axes : 061 -37 018 degrees QTc Int : 408 ms SINUS TACHYCARDIA LEFT AXIS DEVIATION SEPTAL INFARCT (CITED ON OR BEFORE 12-MAR-2017) ABNORMAL ECG WHEN COMPARED WITH ECG OF 05-JUN-2019 14:40, QUESTIONABLE CHANGE IN INITIAL FORCES OF SEPTAL LEADS Confirmed by NEHEMIAH AMOS MD ([id number]) on 06/20/2019 11:57:26 AM Referred By: Confirmed By:NEHEMIAH AMOS MD
--- NOTE | 2019-06-20 12:32 | CON.PULM ---
Consult Consult Specialty:: PULM/CCM Referred by:: ER Reason for Consultation:: SOB - History of Present Illness Chief Complaint: SOB History of Present Illness: 49 F, known to me from a previous admissions due to AE of COPD/Asthma (likely Moderate Persistent: no intubations, has been steroid dependent previously for 3 months, unknown baseline PEF), HTN, DM, and Breast Cancer. PE was ruled out in 05/2019 by CTA. Patient quit smoking in 2014. Patient was discharged home with Symbicort Sungulair, and Albutreol PRN. She reports completing her Prednisone taper on 06/16. She returned to work on 06/18. No specific allergy symptoms. She does have GERD and takes daily Prilosec. No travel history. No sick contacts. CXR: Clear, no acute process. 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 No: O2 Dependent, Previously Intubated, Pulmonary Embolus Gastrointestinal: Yes: Constipation, Other (colon polyps) Renal/: Yes: Renal Calculi ...LMP: 03/15/10 Musculoskeletal: Yes: Chronic low back pain Endocrine: Yes: Diabetes Mellitus, Hypothyroidism - Past Surgical History Past Surgical History: Yes: Hysterectomy, Mastectomy - Alcohol/Substance Use Hx Alcohol Use: No History of Substance Use: reports: None - Smoking History Smoking history: Never smoked Have you smoked in the past 12 months: No Aproximately how many cigarettes per day: 0 If you are a former smoker, when did you quit?: 2014 - Social History Usual Living Arrangement: With Spouse ADL: Independent 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, 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, 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 History of Recent Travel: No Home Medications - Allergies Allergies/Adverse Reactions: Allergies Allergy/AdvReac Type Severity Reaction Status Date / Time ciprofloxacin Allergy Verified 06/20/19 06:51 - Home Medications Home Medications: Ambulatory Orders Amlodipine Besylate [Norvasc -] 10 mg PO DAILY 10/07/18 Atorvastatin Ca [Lipitor] 10 mg PO HS 10/07/18 Bupropion HCl [Wellbutrin Xl -] 300 mg PO DAILY 10/07/18 Calcium Carbonate/Vitamin D3 [Calcium 600 + Vit D Tablet] 2 each PO DAILY Gabapentin 800 mg PO BID 10/07/18 Letrozole [Femara] 2.5 mg PO DAILY 10/07/18 Pantoprazole Sodium 40 mg PO DAILY 10/07/18 Valsartan [Diovan] 160 mg PO DAILY 10/07/18 acetaZOLAMIDE [Diamox -] 500 mg PO BID 10/07/18 Albuterol 2.5/Ipratropium 0.5 [Duoneb -] 1 amp NEB Q6H PRN #90 amp 11/23/18 Budesonide/Formeterol Fumarate [SYMBICORT 160/4.5mcg -] 2 puff IH BID #1 inhaler 11/23/18 Montelukast Na [Singulair -] 10 mg PO HS #30 tablet 11/23/18 Benzonatate 200 mg PO TID 06/05/19 Ergocalciferol [Vitamin D2] 50,000 unit PO Q7D@1000 06/05/19 Lorazepam [Ativan] 0.5 mg PO DAILY 06/05/19 Sitagliptin Phosphate [Januvia] 100 mg PO DAILY 06/05/19 Zolpidem Tartrate [Ambien Cr] 12.5 mg PO HS 06/05/19 predniSONE [Deltasone -] 20 mg PO DAILY #20 tablet 06/10/19 Review of Systems - Review of Systems Constitutional: reports: Malaise. denies: Chills, Fever, Loss of Appetite, Night Sweats, Unintentional Wgt. Loss, Weakness Eyes: reports: No Symptoms HENT: reports: No Symptoms Neck: reports: No Symptoms Cardiovascular: reports: Shortness of Breath. denies: Chest Pain, Edema, Palpitations Respiratory: reports: Cough, Snoring, SOB, SOB on Exertion, Wheezing. denies: Hemoptysis, Orthopnea, PND Gastrointestinal: reports: No Symptoms Genitourinary: reports: No Symptoms Breasts: reports: No Symptoms Reported Musculoskeletal: reports: No Symptoms Integumentary: reports: No Symptoms Neurological: reports: No Symptoms Endocrine: reports: No Symptoms Hematology/Lymphatic: reports: No Symptoms Psychiatric: reports: No Symptoms Physical Exam Vital Sings: Vital Signs Temperature 98.2 F 06/20/19 06:52 Pulse Rate 109 H 06/20/19 10:52 Respiratory Rate 20 10/20 10:52 Blood Pressure 134/75 06/20/19 10:52 O2 Sat by Pulse Oximetry (%) 100 06/20/19 11:00 Constitutional: Yes: Mild Distress, Obese Eyes: Yes: Conjunctiva Clear, EOM Intact HENT: Yes: Atraumatic, Normocephalic Neck: Yes: Supple, Trachea Midline Cardiovascular: Yes: Regular Rate and Rhythm, Tachycardia Respiratory: Yes: Accessory Muscle Use, Cough, On BiPap, SOB, SOB on Exertion, Tachypnea, Wheezes. No: Rales, Rhonchi, Stridor ...Inspection: Yes: WNL ...Clubbing: No Gastrointestinal: Yes: Normal Bowel Sounds, Soft, Abdomen, Obese Renal/: Yes: WNL Musculoskeletal: Yes: WNL Extremities: Yes: WNL Edema: No Peripheral Pulses WNL: Yes Integumentary: Yes: WNL Neurological: Yes: WNL, Alert, Oriented ...Motor Strength: WNL Psychiatric: Yes: WNL, Alert, Oriented Labs: CBC, BMP 06/20/19 07:35 06/20/19 07:35 ABG Results ABG pH 7.47 (7.35-7.45) H 06/20/19 07:21 ABG pCO2 at Pt Temp 34.2 mmHg (35-45) L 06/20/19 07:21 ABG pO2 at Pt Temp 63.7 mmHg (80-100) L 06/20/19 07:21 ABG HCO3 24.5 mmol/L (22-27) 06/20/19 07:21 ABG O2 Sat (Measured) 93.2 % (95-98) L 06/20/19 07:21 ABG O2 Content 14.4 % vol 06/20/19 07:21 ABG Base Excess 1.5 meq/l (-2-2) 06/20/19 07:21 Imaging - Results Chest X-ray: Report Reviewed, Image Reviewed Cat Scan: Report Reviewed, Image Reviewed Problem List - Problems (1) Asthma exacerbation Code(s): J45.901 - UNSPECIFIED ASTHMA WITH (ACUTE) EXACERBATION Qualifiers: Asthma severity: unspecified severity Asthma persistence: unspecified Qualified Code(s): J45.901 - Unspecified asthma with (acute) exacerbation (2) Breast CA Code(s): C50.919 - MALIGNANT NEOPLASM OF UNSP SITE OF UNSPECIFIED FEMALE BREAST (3) Diabetes Code(s): E11.9 - TYPE 2 DIABETES MELLITUS WITHOUT COMPLICATIONS (4) HLD (hyperlipidemia) Code(s): E78.5 - HYPERLIPIDEMIA, UNSPECIFIED (5) History of COPD Code(s): Z87.09 - PERSONAL HISTORY OF OTHER DISEASES OF THE RESPIRATORY SYSTEM (6) SOB (shortness of breath) Code(s): R06.02 - SHORTNESS OF BREATH Assessment/Plan Medrol BS TX standing and PRN Singulair NIPPV support as needed VTE prophylaxis Would monitor off ABX No smoking Outpatient PFTs Will need formal sleep workup after discharge Monitor on the Floor Will follow Thank you. Dr Douglas
[2019-06-20] MEDS ORDERED: ALBUTEROL SO4 0.083% IH SOL 2.5 MG/3 ML VIAL.NEB. NEB PRN (12:54)
[2019-06-20] MEDS ORDERED: methylPREDNISolone NA SUCC 40 MG/1 ML VIAL IVPUSH ONE (12:56)
[2019-06-20] MEDS ORDERED: methylPREDNISolone NA SUCC 40 MG/1 ML VIAL ONE (13:34)
[2019-06-20] MEDS ORDERED: ALBUTEROL SO4 2.5/IPRATROPIUM 0.5 INH SOL 3 ML VIAL.NEB. NEB PRN (13:37)
[2019-06-20] MEDS: BUDESONIDE/FORMETEROL FUMARATE 160/4.5 mcg INHALER IH SCH ×2 (13:42→22:32)
[2019-06-20] MEDS ORDERED: VALSARTAN 80 MG TABLET (UD) ONE (13:44)
[2019-06-20] MEDS ORDERED: PATIENT'S OWN MEDICATION (NON-FORMULARY) (Gabapentin [Gabapentin] 800 MG) PO SCH (13:45)
[2019-06-20] MEDS: VALSARTAN 160 MG TABLET (UD) PO SCH (13:45)
[2019-06-20] MEDS: ALBUTEROL SO4 2.5/IPRATROPIUM 0.5 INH SOL 3 ML VIAL.NEB. NEB SCH ×2 (16:02→21:18)
[2019-06-20] MEDS: methylPREDNISolone NA SUCC 40 MG/1 ML VIAL IVPUSH SCH (17:32)
[2019-06-20] MEDS ORDERED: INSULIN (NOVOLOG) ASPART 100 UNITS/ML 10ML VIAL ONE (21:47)
[2019-06-20] MEDS: acetaZOLAMIDE 250 MG TABLET PO SCH (21:59)
[2019-06-20] MEDS: MONTELUKAST NA 10 MG TABLET PO SCH (22:00)
[2019-06-20] MEDS ORDERED: MONTELUKAST NA 10 MG TABLET PO SCH (22:00)
[2019-06-20] MEDS: HEPARIN NA (PORCINE) 5,000 UNITS/ML 1ML VIAL SQ SCH (22:00)
[2019-06-20] MEDS: GABAPENTIN 400 MG CAPSULE (FP) PO SCH (22:01)
[2019-06-20] MEDS: ATORVASTATIN CA 10 MG TABLET (FP) PO SCH (22:33)
--- NOTE | 2019-06-20 23:31 | HP ---
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 No: O2 Dependent, Previously Intubated, Pulmonary Embolus Gastrointestinal: Yes: Constipation, Other (colon polyps) Renal/: Yes: Renal Calculi ...LMP: 03/15/10 ...: No Heme/Onc: Yes: Cancer (Breast CA) Musculoskeletal: Yes: Chronic low back pain Endocrine: Yes: Diabetes Mellitus, Hypothyroidism - Past Surgical History Past Surgical History: Yes: Hysterectomy, Mastectomy - Smoking History Smoking history: Never smoked Have you smoked in the past 12 months: No Aproximately how many cigarettes per day: 0 If you are a former smoker, when did you quit?: 2014 - Alcohol/Substance Use Hx Alcohol Use: No History of Substance Use: reports: None - Social History ADL: Independent 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5 mg PO DAILY 10/07/18 Pantoprazole Sodium 40 mg PO DAILY 10/07/18 Valsartan [Diovan] 160 mg PO DAILY 10/07/18 acetaZOLAMIDE [Diamox -] 500 mg PO BID 10/07/18 Albuterol 2.5/Ipratropium 0.5 [Duoneb -] 1 amp NEB Q6H PRN #90 amp 11/23/18 Budesonide/Formeterol Fumarate [SYMBICORT 160/4.5mcg -] 2 puff IH BID #1 inhaler 11/23/18 Montelukast Na [Singulair -] 10 mg PO HS #30 tablet 11/23/18 Benzonatate 200 mg PO TID 06/05/19 Ergocalciferol [Vitamin D2] 50,000 unit PO Q7D@1000 06/05/19 Lorazepam [Ativan] 0.5 mg PO DAILY 06/05/19 Sitagliptin Phosphate [Januvia] 100 mg PO DAILY 06/05/19 Zolpidem Tartrate [Ambien Cr] 12.5 mg PO HS 06/05/19 predniSONE [Deltasone -] 20 mg PO DAILY #20 tablet 06/10/19 Physical Examination Vital Signs: Vital Signs Temperature 98.5 F 06/20/19 22:00 Pulse Rate 112 H 06/20/19 22:00 Respiratory Rate 20 06/20/19 22:00 Blood Pressure 129/71 06/20/19 22:00 O2 Sat by Pulse Oximetry (%) 96 06/20/19 21:18 Labs: CBC, BMP 06/20/19 07:35 06/20/19 07:35
[2019-06-21] MEDS: methylPREDNISolone NA SUCC 40 MG/1 ML VIAL IVPUSH SCH ×3 (02:31→17:13)
[2019-06-21 06:33] LABS: BASO % 0.1 % (0-2.0); HEMATOCRIT 34.2 % (32.4-45.2); HEMOGLOBIN 11.2 GM/dL (10.7-15.3); LYMPH % 6.4 % (8-40); MCH 27.2 pg (25.7-33.7); MCHC 32.7 g/dl (32.0-36.0); MEAN CELL VOLUME 83.3 fl (80-96); MEAN PLT VOLUME 7.5 fl (7.5-11.1); NEUT % 91.5 % (42.8-82.8); PLATELET COUNT 188 K/MM3 (134-434); RBC 4.11 M/mm3 (3.60-5.2); RDW 18.9 % (11.6-15.6)
[2019-06-21 06:54] LABS: ALBUMIN 3.2 g/dl (3.4-5.0); BILIRUBIN,TOTAL 0.3 mg/dL (0.2-1); BLOOD UREA NITROGEN 26.4 mg/dL (7-18); CALCIUM 8.8 mg/dL (8.5-10.1); CREATININE 1.1 mg/dL (0.55-1.3); POTASSIUM 3.7 mmol/L (3.5-5.1)
[2019-06-21] MEDS: ALBUTEROL SO4 2.5/IPRATROPIUM 0.5 INH SOL 3 ML VIAL.NEB. NEB SCH ×4 (08:00→20:38)
[2019-06-21] MEDS: amLODIPine BESYLATE 10 MG TABLET (FP) PO SCH (10:07)
[2019-06-21] MEDS: LORazepam 0.5 MG TABLET PO SCH (10:07)
[2019-06-21] MEDS: VALSARTAN 160 MG TABLET (UD) PO SCH (10:07)
[2019-06-21] MEDS: PANTOPRAZOLE 40 MG TABLET (FP) PO SCH (10:08)
[2019-06-21] MEDS: GABAPENTIN 400 MG CAPSULE (FP) PO SCH ×2 (10:10→22:32)
[2019-06-21] MEDS: HEPARIN NA (PORCINE) 5,000 UNITS/ML 1ML VIAL SQ SCH ×2 (10:10→22:31)
[2019-06-21] MEDS: BUDESONIDE/FORMETEROL FUMARATE 160/4.5 mcg INHALER IH SCH ×2 (10:17→22:33)
[2019-06-21] MEDS: LETROZOLE 2.5 MG TABLET (FP) PO SCH (10:48)
[2019-06-21] MEDS: acetaZOLAMIDE 250 MG TABLET PO SCH ×2 (10:49→22:31)
[2019-06-21 11:59] LABS: ANISOCYTOSIS 1+; MACROCYTOSIS 0; OVALOCYTE 1+; PLATELET ESTIMATE NORMAL; TEAR DROP CELLS 1+
--- NOTE | 2019-06-21 14:46 | CON.PULM ---
Consult Consult Specialty:: PULMONARY Referred by:: PMD Reason for Consultation:: SOB/COUGH/WHEEZE - History of Present Illness Chief Complaint: SOB/COUGH/WHEEZE History of Present Illness: 49yF with PMH of Asthma/COPD (as needed 2L O2), HTN, HLD, Breast Ca (2014, on CTX q6 months), DM presenting to ED for SOB. Was recently discharged from hospital. She states she was feeling fine after discharge but then started to become short of breath again. She went to pmd office yesterday and was given a steroid shot. She says she continues to feel short of breath and is requiring more frequent use of O2. Endorses chest tightness, cough productive of clear phlegm, and headache. Denies fever, chills, abdominal pain, n/v/d. 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 No: Alzheimer's Cardio/Vascular: Yes: CAD, HTN, Hyperlipdemia Pulmonary: Yes: Asthma, Bronchitis, COPD, Pneumonia, Other (Suspected sleep apnea ). No: O2 Dependent, Previously Intubated, Pulmonary Embolus Gastrointestinal: Yes: Constipation, Other (colon polyps) Renal/: Yes: Renal Calculi ...LMP: 03/15/10 ...: No Musculoskeletal: Yes: Chronic low back pain Endocrine: Yes: Diabetes Mellitus, Hypothyroidism - Past Surgical History Past Surgical History: Yes: Hysterectomy, Mastectomy - Alcohol/Substance Use Hx Alcohol Use: No History of Substance Use: reports: None - Smoking History Smoking history: Never smoked Have you smoked in the past 12 months: No Aproximately how many cigarettes per day: 0 If you are a former smoker, when did you quit?: 2015 - Social History Usual Living Arrangement: With Spouse ADL: Independent 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, 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, 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 History of Recent Travel: No Home Medications - Allergies Allergies/Adverse Reactions: Allergies Allergy/AdvReac Type Severity Reaction Status Date / Time ciprofloxacin Allergy Verified 06/20/19 06:51 - Home Medications Home Medications: Ambulatory Orders Amlodipine Besylate [Norvasc -] 10 mg PO DAILY 10/07/18 Atorvastatin Ca [Lipitor] 10 mg PO HS 10/07/18 Bupropion HCl [Wellbutrin Xl -] 300 mg PO DAILY 10/07/18 Calcium Carbonate/Vitamin D3 [Calcium 600 + Vit D Tablet] 2 each PO DAILY Gabapentin 800 mg PO BID 10/07/18 Letrozole [Femara] 2.5 mg PO DAILY 10/07/18 Pantoprazole Sodium 40 mg PO DAILY 10/07/18 Valsartan [Diovan] 160 mg PO DAILY 10/07/18 acetaZOLAMIDE [Diamox -] 500 mg PO BID 10/07/18 Albuterol 2.5/Ipratropium 0.5 [Duoneb -] 1 amp NEB Q6H PRN #90 amp 11/23/18 Budesonide/Formeterol Fumarate [SYMBICORT 160/4.5mcg -] 2 puff IH BID #1 inhaler 11/23/18 Montelukast Na [Singulair -] 10 mg PO HS #30 tablet 11/23/18 Benzonatate 200 mg PO TID 06/05/19 Ergocalciferol [Vitamin D2] 50,000 unit PO Q7D@1000 06/05/19 Lorazepam [Ativan] 0.5 mg PO DAILY 06/05/19 Sitagliptin Phosphate [Januvia] 100 mg PO DAILY 06/05/19 Zolpidem Tartrate [Ambien Cr] 12.5 mg PO HS 06/05/19 predniSONE [Deltasone -] 20 mg PO DAILY #20 tablet 06/10/19 Family Medical History Family History: Unremarkable Review of Systems - Review of Systems Constitutional: denies: Fever Eyes: denies: Blurred Vision HENT: denies: Difficult Swallowing Neck: denies: Decreased ROM Cardiovascular: reports: Shortness of Breath. denies: Chest Pain Respiratory: reports: Cough, Exercise Intolerance, Orthopnea, SOB, SOB on Exertion, Wheezing. denies: Hemoptysis Gastrointestinal: denies: Abdominal Pain Physical Exam Vital Sings: Vital Signs Temperature 98.4 F 06/21/19 14:02 Pulse Rate 84 06/21/19 14:02 Respiratory Rate 18 06/21/19 14:02 Blood Pressure 128/67 06/21/19 14:02 O2 Sat by Pulse Oximetry (%) 99 06/21/19 08:31 Constitutional: Yes: Calm Eyes: Yes: EOM Intact HENT: Yes: Normocephalic Neck: Yes: Trachea Midline Cardiovascular: Yes: Regular Rate and Rhythm Respiratory: Yes: CTA Bilaterally Gastrointestinal: Yes: Normal Bowel Sounds Edema: No Labs: CBC, BMP 06/21/19 05:45 06/21/19 05:45 ABG Results ABG pH 7.47 (7.35-7.45) H 06/20/19 07:21 ABG pCO2 at Pt Temp 34.2 mmHg (35-45) L 06/20/19 07:21 ABG pO2 at Pt Temp 63.7 mmHg (80-100) L 06/20/19 07:21 ABG HCO3 24.5 mmol/L (22-27) 06/20/19 07:21 ABG O2 Sat (Measured) 93.2 % (95-98) L 06/20/19 07:21 ABG O2 Content 14.4 % vol 06/20/19 07:21 ABG Base Excess 1.5 meq/l (-2-2) 06/20/19 07:21 Imaging - Results Chest X-ray: Report Reviewed, Image Reviewed Problem List - Problems (1) Asthma exacerbation Code(s): J45.901 - UNSPECIFIED ASTHMA WITH (ACUTE) EXACERBATION Qualifiers: Asthma severity: unspecified severity Asthma persistence: unspecified Qualified Code(s): J45.901 - Unspecified asthma with (acute) exacerbation (2) SOB (shortness of breath) Code(s): R06.02 - SHORTNESS OF BREATH Assessment/Plan A/E B. ASTHMA H/O BREAST CA LIKELY OSAS M. OBESITY HTN/DM/HLD AGREE WITH IV MEDROL/O2/NIPPV HS/BRONCHODILATORS/DAILY PEAK FLOW GLYCEMIC CONTROL/DVT PROPHYLAXSIS WILL FOLLOW Dominick REYNA MD
[2019-06-21] MEDS ORDERED: PT OWN MED DRAWER 7, Y5N ONE ×2 (19:07→20:58)
[2019-06-21] MEDS: ATORVASTATIN CA 10 MG TABLET (FP) PO SCH (22:31)
[2019-06-21] MEDS: MONTELUKAST NA 10 MG TABLET PO SCH (22:32)
[2019-06-21] MEDS: ZOLPIDEM TARTRATE 5 MG TABLET PO PRN (22:32)
--- NOTE | 2019-06-21 23:02 | PN ---
Progress Note, Physician - Current Medication List Current Medications: Active Medications Acetazolamide (Diamox -) 500 mg PO BID [facility] Last Admin: 06/21/19 22:31 Dose: 500 mg Albuterol Sulfate (Ventolin 0.083% Nebulizer Soln -) 1 amp NEB Q4H PRN PRN Reason: SHORT OF BREATH/WHEEZING Albuterol/Ipratropium (Duoneb -) 1 amp NEB RQID [facility] Last Admin: 06/21/19 20:38 Dose: Not Given Amlodipine Besylate (Norvasc -) 10 mg PO DAILY [facility] Last Admin: 06/21/19 10:07 Dose: 10 mg Atorvastatin Calcium (Lipitor -) 10 mg PO HS [facility] Last Admin: 06/21/19 22:31 Dose: 10 mg Budesonide/Formoterol Fumarate (Symbicort 160/4.5mcg -) 2 puff IH BID [facility] Last Admin: 06/21/19 22:33 Dose: 2 puff Bupropion HCl (Wellbutrin Xl -) 300 mg PO DAILY [facility] Last Admin: 06/21/19 10:08 Dose: 300 mg Gabapentin (Neurontin -) 800 mg PO BID [facility] Last Admin: 06/21/19 22:32 Dose: 800 mg Heparin Sodium (Porcine) (Heparin -) 5,000 unit SQ BID [facility] Last Admin: 06/21/19 22:31 Dose: 5,000 unit Letrozole (Femara -) 2.5 mg PO DAILY [facility] Last Admin: 06/21/19 10:48 Dose: 2.5 mg Lorazepam (Ativan -) 0.5 mg PO DAILY [facility] Last Admin: 06/21/19 10:07 Dose: 0.5 mg Methylprednisolone Sodium Succinate (Solu-Medrol -) 60 mg IVPUSH Q8H-IV [facility] Last Admin: 06/21/19 17:13 Dose: 60 mg Montelukast Sodium (Singulair -) 10 mg PO HS [facility] Last Admin: 06/21/19 22:32 Dose: 10 mg Pantoprazole Sodium (Protonix -) 40 mg PO DAILY [facility] Last Admin: 06/21/19 10:08 Dose: 40 mg Sitagliptin Phosphate (Januvia -) 100 mg PO ACBK [facility] Last Admin: 06/21/19 06:18 Dose: 100 mg Valsartan (Diovan -) 160 mg PO DAILY [facility] Last Admin: 06/21/19 10:07 Dose: 160 mg Zolpidem Tartrate (Ambien -) 10 mg PO HS PRN PRN Reason: INSOMNIA Last Admin: 06/21/19 22:32 Dose: 10 mg - Objective Vital Signs: Vital Signs Temperature 98.6 F 06/21/19 18:00 Pulse Rate 80 06/21/19 18:00 Respiratory Rate 20 06/21/19 18:00 Blood Pressure 127/68 06/21/19 18:00 O2 Sat by Pulse Oximetry (%) 98 06/21/19 20:38 Labs: CBC, BMP 06/21/19 05:45 06/21/19 05:45 INR, PTT INR 1.03 (0.83-1.09) 06/20/19 07:35
[2019-06-22] MEDS: methylPREDNISolone NA SUCC 40 MG/1 ML VIAL IVPUSH SCH ×3 (01:48→17:01)
[2019-06-22] MEDS: ALBUTEROL SO4 2.5/IPRATROPIUM 0.5 INH SOL 3 ML VIAL.NEB. NEB SCH ×4 (08:23→20:24)
[2019-06-22] MEDS: HEPARIN NA (PORCINE) 5,000 UNITS/ML 1ML VIAL SQ SCH ×2 (09:53→22:26)
[2019-06-22] MEDS: GABAPENTIN 400 MG CAPSULE (FP) PO SCH ×2 (09:54→22:26)
[2019-06-22] MEDS: LETROZOLE 2.5 MG TABLET (FP) PO SCH (09:54)
[2019-06-22] MEDS: VALSARTAN 160 MG TABLET (UD) PO SCH (09:54)
[2019-06-22] MEDS: acetaZOLAMIDE 250 MG TABLET PO SCH ×2 (09:54→22:28)
[2019-06-22] MEDS: PANTOPRAZOLE 40 MG TABLET (FP) PO SCH (09:54)
[2019-06-22] MEDS: amLODIPine BESYLATE 10 MG TABLET (FP) PO SCH (09:54)
[2019-06-22] MEDS: LORazepam 0.5 MG TABLET PO SCH (09:54)
[2019-06-22] MEDS: BUDESONIDE/FORMETEROL FUMARATE 160/4.5 mcg INHALER IH SCH ×2 (09:55→22:34)
[2019-06-22] MEDS ORDERED: PT OWN MED DRAWER 7, Y5N ONE (20:47)
[2019-06-22] MEDS: ZOLPIDEM TARTRATE 5 MG TABLET PO PRN (22:26)
[2019-06-22] MEDS: MONTELUKAST NA 10 MG TABLET PO SCH (22:26)
[2019-06-22] MEDS: ATORVASTATIN CA 10 MG TABLET (FP) PO SCH (22:26)
[2019-06-22] MEDS: INSULIN SLIDING SCALE (NOVOLOG) 1 VIAL SQ SCH (23:34)
--- NOTE | 2019-06-22 23:45 | PN ---
Progress Note, Physician History of Present Illness: No new complaints - Current Medication List Current Medications: Active Medications Acetazolamide (Diamox -) 500 mg PO BID [facility] Last Admin: 06/22/19 22:28 Dose: 500 mg Albuterol Sulfate (Ventolin 0.083% Nebulizer Soln -) 1 amp NEB Q4H PRN PRN Reason: SHORT OF BREATH/WHEEZING Albuterol/Ipratropium (Duoneb -) 1 amp NEB RQID [facility] Last Admin: 06/22/19 20:24 Dose: 1 amp Amlodipine Besylate (Norvasc -) 10 mg PO DAILY [facility] Last Admin: 06/22/19 09:54 Dose: 10 mg Atorvastatin Calcium (Lipitor -) 10 mg PO HS [facility] Last Admin: 06/22/19 22:26 Dose: 10 mg Budesonide/Formoterol Fumarate (Symbicort 160/4.5mcg -) 2 puff IH BID [facility] Last Admin: 06/22/19 22:34 Dose: 2 puff Bupropion HCl (Wellbutrin Xl -) 300 mg PO DAILY [facility] Last Admin: 06/22/19 10:03 Dose: Not Given Gabapentin (Neurontin -) 800 mg PO BID [facility] Last Admin: 06/22/19 22:26 Dose: 800 mg Heparin Sodium (Porcine) (Heparin -) 5,000 unit SQ BID [facility] Last Admin: 06/22/19 22:26 Dose: 5,000 unit Insulin Aspart (Novolog Vial Sliding Scale -) 1 vial SQ [facility]; Protocol Last Admin: 06/22/19 23:34 Dose: 6 unit Letrozole (Femara -) 2.5 mg PO DAILY [facility] Last Admin: 06/22/19 09:54 Dose: 2.5 mg Lorazepam (Ativan -) 0.5 mg PO DAILY [facility] Last Admin: 06/22/19 09:54 Dose: 0.5 mg Methylprednisolone Sodium Succinate (Solu-Medrol -) 60 mg IVPUSH Q8H-IV [facility] Last Admin: 06/22/19 17:01 Dose: 60 mg Montelukast Sodium (Singulair -) 10 mg PO HS [facility] Last Admin: 06/22/19 22:26 Dose: 10 mg Pantoprazole Sodium (Protonix -) 40 mg PO DAILY [facility] Last Admin: 06/22/19 09:54 Dose: 40 mg Sitagliptin Phosphate (Januvia -) 100 mg PO ACBK [facility] Last Admin: 06/22/19 06:30 Dose: 100 mg Valsartan (Diovan -) 160 mg PO DAILY [facility] Last Admin: 06/22/19 09:54 Dose: 160 mg Zolpidem Tartrate (Ambien -) 10 mg PO HS PRN PRN Reason: INSOMNIA Last Admin: 06/22/19 22:26 Dose: 10 mg - Objective Vital Signs: Vital Signs Temperature 99 F 06/22/19 21:19 Pulse Rate 104 H 06/22/19 21:19 Respiratory Rate 24 H 06/22/19 21:19 Blood Pressure 147/89 06/22/19 21:19 O2 Sat by Pulse Oximetry (%) 95 06/22/19 21:00 Constitutional: Yes: Well Nourished Neck: Yes: WNL, Supple Cardiovascular: Yes: WNL, Regular Rate and Rhythm Respiratory: Yes: WNL, Regular, CTA Bilaterally Gastrointestinal: Yes: WNL, Normal Bowel Sounds, Soft Labs: CBC, BMP 06/21/19 05:45 06/21/19 05:45 INR, PTT INR 1.03 (0.83-1.09) 06/20/19 07:35 Problem List - Problems (1) Asthma exacerbation Assessment/Plan: Will decrease dose of IV solumedrol Cont nebulizers Code(s): J45.901 - UNSPECIFIED ASTHMA WITH (ACUTE) EXACERBATION Qualifiers: Asthma severity: unspecified severity Asthma persistence: unspecified Qualified Code(s): J45.901 - Unspecified asthma with (acute) exacerbation (2) Diabetes Assessment/Plan: Cont sliding scale w/ coverage Code(s): E11.9 - TYPE 2 DIABETES MELLITUS WITHOUT COMPLICATIONS (3) HTN (hypertension) Assessment/Plan: BP stable Code(s): I10 - ESSENTIAL (PRIMARY) HYPERTENSION (4) HLD (hyperlipidemia) Code(s): E78.5 - HYPERLIPIDEMIA, UNSPECIFIED (5) Breast CA Code(s): C50.919 - MALIGNANT NEOPLASM OF UNSP SITE OF UNSPECIFIED FEMALE BREAST
[2019-06-23] MEDS: methylPREDNISolone NA SUCC 40 MG/1 ML VIAL IVPUSH SCH ×2 (03:00→09:40)
[2019-06-23] MEDS: INSULIN SLIDING SCALE (NOVOLOG) 1 VIAL SQ SCH ×3 (06:46→16:32)
[2019-06-23] MEDS ORDERED: INSULIN (NOVOLOG) ASPART 100 UNITS/ML 10ML VIAL ONE ×2 (06:53→11:19)
[2019-06-23] MEDS ORDERED: PT OWN MED DRAWER 7, Y5N ONE (08:43)
[2019-06-23] MEDS: ALBUTEROL SO4 2.5/IPRATROPIUM 0.5 INH SOL 3 ML VIAL.NEB. NEB SCH ×3 (08:48→16:14)
[2019-06-23] MEDS: HEPARIN NA (PORCINE) 5,000 UNITS/ML 1ML VIAL SQ SCH (09:40)
[2019-06-23] MEDS: PANTOPRAZOLE 40 MG TABLET (FP) PO SCH (09:41)
[2019-06-23] MEDS: LORazepam 0.5 MG TABLET PO SCH (09:41)
[2019-06-23] MEDS: amLODIPine BESYLATE 10 MG TABLET (FP) PO SCH (09:41)
[2019-06-23] MEDS: GABAPENTIN 400 MG CAPSULE (FP) PO SCH (09:41)
[2019-06-23] MEDS: VALSARTAN 160 MG TABLET (UD) PO SCH (09:41)
[2019-06-23] MEDS: BUDESONIDE/FORMETEROL FUMARATE 160/4.5 mcg INHALER IH SCH (09:42)
[2019-06-23] MEDS: LETROZOLE 2.5 MG TABLET (FP) PO SCH (09:42)
[2019-06-23] MEDS: acetaZOLAMIDE 250 MG TABLET PO SCH (09:42)
--- NOTE | 2019-06-23 10:43 | PN ---
Progress Note (short form) - Note Progress Note: PULMONARY States breathing has improved. Less cough and wheezing. Feels well enough to go home. Vital Signs Period Temp Pulse Resp BP Sys/Aleman Pulse Ox Last 24 Hr 97.8 F-99 F 92-104 18-24 120-147/66-89 95-100 Gen: NAD at rest Heart: RRR Lung: no wheezes appreciated Abd: soft, nontender Ext: no edema CBC, BMP 06/21/19 05:45 06/21/19 05:45 Active Medications Acetazolamide (Diamox -) 500 mg PO BID [facility] Last Admin: 06/23/19 09:42 Dose: 500 mg Albuterol Sulfate (Ventolin 0.083% Nebulizer Soln -) 1 amp NEB Q4H PRN PRN Reason: SHORT OF BREATH/WHEEZING Albuterol/Ipratropium (Duoneb -) 1 amp NEB RQID [facility] Last Admin: 06/23/19 08:48 Dose: 1 amp Amlodipine Besylate (Norvasc -) 10 mg PO DAILY [facility] Last Admin: 06/23/19 09:41 Dose: 10 mg Atorvastatin Calcium (Lipitor -) 10 mg PO HS [facility] Last Admin: 06/22/19 22:26 Dose: 10 mg Budesonide/Formoterol Fumarate (Symbicort 160/4.5mcg -) 2 puff IH BID [facility] Last Admin: 06/23/19 09:42 Dose: 2 puff Bupropion HCl (Wellbutrin Xl -) 300 mg PO DAILY [facility] Last Admin: 06/23/19 09:41 Dose: Not Given Gabapentin (Neurontin -) 800 mg PO BID [facility] Last Admin: 06/23/19 09:41 Dose: 800 mg Heparin Sodium (Porcine) (Heparin -) 5,000 unit SQ BID [facility] Last Admin: 06/23/19 09:40 Dose: 5,000 unit Insulin Aspart (Novolog Vial Sliding Scale -) 1 vial SQ ACHS [facility]; Protocol Last Admin: 06/23/19 06:46 Dose: 6 unit Letrozole (Femara -) 2.5 mg PO DAILY [facility] Last Admin: 06/23/19 09:42 Dose: 2.5 mg Lorazepam (Ativan -) 0.5 mg PO DAILY [facility] Last Admin: 06/23/19 09:41 Dose: 0.5 mg Methylprednisolone Sodium Succinate (Solu-Medrol -) 40 mg IVPUSH Q8H-IV [facility] Last Admin: 06/23/19 09:40 Dose: 40 mg Montelukast Sodium (Singulair -) 10 mg PO HS [facility] Last Admin: 06/22/19 22:26 Dose: 10 mg Pantoprazole Sodium (Protonix -) 40 mg PO DAILY [facility] Last Admin: 06/23/19 09:41 Dose: 40 mg Sitagliptin Phosphate (Januvia -) 100 mg PO ACBK [facility] Last Admin: 06/23/19 06:46 Dose: 100 mg Valsartan (Diovan -) 160 mg PO DAILY [facility] Last Admin: 06/23/19 09:41 Dose: 160 mg Zolpidem Tartrate (Ambien -) 10 mg PO HS PRN PRN Reason: INSOMNIA Last Admin: 06/22/19 22:26 Dose: 10 mg A/P Acute Asthma Exacerbation Morbid Obesity Likely Obstructive Sleep Apnea HTN DM Hyperlipidemia - can change steroids to PO prednisone 40mg daily and taper as outpt - inhaled bronchodilators - outpt PFTs and NPSG - can d/c home from pulmonary standpoint
[2019-06-23 12:45] VITALS: BMI 42.3
[2019-06-23 13:50] VITALS: TEMP 98.2
[2019-06-23 18:10] VITALS: BP 125/69; PULSE 102
[2019-06-24] MEDS ORDERED: predniSONE 20 MG TABLET (UD) PO SCH (10:00)
== END 2019-06-23 18:55 | disposition home or self-care (01) | DRG 202 ==
LOC: JER 06:33 → JERBED 09:40 → J7W 15:24
PROVIDERS: ADMIT Internal Medicine; ATTEND Internal Medicine
DX: J45.41 Moderate persistent asthma with (acute) exacerbation (principal); Z68.41 Body mass index [BMI] 40.0-44.9, adult; E66.01 Morbid (severe) obesity due to excess calories; G47.33 Obstructive sleep apnea (adult) (pediatric); I10 Essential (primary) hypertension; E11.9 Type 2 diabetes mellitus without complications; E78.5 Hyperlipidemia, unspecified; Z85.3 Personal history of malignant neoplasm of breast
CPT/HCPCS: 36415; 36600; 71045-TC-FY; 80053; 82375; 82550; 82553; 82803; 82962; 83050; 83735; 84484; 85025; 85610; 93005; 93010; 94640; 94660; 99285-25; J0131; J1644

== ENCOUNTER 2020-08-03 19:43 | Emergency (ER) | payer OTHER, BC ==
[2020-08-03 20:06] VITALS: BP 129/87; PULSE 80; TEMP 98.7; BMI 41.5
[2020-08-03] MEDS ORDERED: METHOCARBAMOL 500 MG TABLET PO ONE (20:49)
[2020-08-03] MEDS ORDERED: KETOROLAC TROMETHAMINE 30 MG/1 ML VIAL IM ONE (20:49)
[2020-08-03] MEDS ORDERED: KETOROLAC TROMETHAMINE 30 MG/1 ML VIAL ONE (20:56)
[2020-08-03] MEDS ORDERED: METHOCARBAMOL 500 MG TABLET ONE (20:56)
== END 2020-08-03 22:18 | disposition home or self-care (01) ==
LOC: JER 19:43
PROC: 3E023GC Introduction of Other Therapeutic Substance into Muscle, Percutaneous Approach (ICD-10-PCS; principal; 2020-08-03)
DX: M54.41 Lumbago with sciatica, right side (principal)
CPT/HCPCS: 72100-TC-FY; 99284-25

== ENCOUNTER 2020-10-12 04:11 | Day surgery (SDC) | payer OTHER, BC ==
[2020-10-11 16:51] VITALS: BMI 41.5
[2020-10-12] MEDS ORDERED: MIDAZOLAM HCL 2 MG/2 ML SINGLE DOSE VIAL ONE (13:05)
[2020-10-12] MEDS ORDERED: PROPOFOL 20 ML ONE (13:07)
[2020-10-12] MEDS ORDERED: KETOROLAC TROMETHAMINE 30 MG/1 ML VIAL ONE (13:08)
[2020-10-12] MEDS ORDERED: ceFAZolin SODIUM 1 GM VIAL IVPB ONE (13:13)
[2020-10-12] MEDS ORDERED: ceFAZolin SODIUM 1 GM VIAL ONE (13:14)
[2020-10-12] MEDS ORDERED: SODIUM CHLORIDE 0.9% P/F 10 ML VIAL IJ ONE (13:14)
[2020-10-12] MEDS ORDERED: LIDOCAINE HCL/PF 2% SDV 5ML VIAL ONE (13:15)
[2020-10-12] MEDS ORDERED: ONDANSETRON 4 MG/2 ML VIAL IVPUSH PRN (13:53)
[2020-10-12] MEDS ORDERED: PROMETHAZINE HCL 25 MG/1 ML VIAL IVPUSH PRN (13:53)
[2020-10-12] MEDS ORDERED: oxyCODONE HCL 5 MG TABLET PO PRN (13:53)
[2020-10-12] MEDS ORDERED: LACTATED RINGERS SOLUTION 1,000 ML IV SCH (14:00)
[2020-10-12 14:09] VITALS: TEMP 97.9
[2020-10-12 14:28] VITALS: BP 127/73; PULSE 81
== END 2020-10-12 14:45 | disposition home or self-care (01) ==
LOC: JASU-SURG 04:11
PROVIDERS: ATTEND Urology
PROC: 0TF3XZZ Fragmentation in Right Kidney Pelvis, External Approach (ICD-10-PCS; principal; 2020-10-12 10:30)
DX: N20.0 Calculus of kidney (principal)

== ENCOUNTER 2021-01-21 14:56 | Emergency (ER) | payer OTHER, BC ==
[2021-01-21 15:11] VITALS: TEMP 97.8; BMI 42.4
[2021-01-21] MEDS ORDERED: ALBUTEROL SO4 2.5/IPRATROPIUM 0.5 INH SOL 3 ML VIAL.NEB. NEB ONE (15:59)
[2021-01-21] MEDS ORDERED: methylPREDNISolone NA SUCC 40 MG/1 ML VIAL IVPUSH ONE (15:59)
[2021-01-21] MEDS ORDERED: methylPREDNISolone NA SUCC 40 MG/1 ML VIAL ONE (16:24)
[2021-01-21] MEDS: ALBUTEROL SO4 2.5/IPRATROPIUM 0.5 INH SOL 3 ML VIAL.NEB. NEB SCH (16:45)
[2021-01-21 17:00] LABS: EOS % 0.9 % (0-4.5); HEMATOCRIT 34.4 % (32.4-45.2); HEMOGLOBIN 11.5 GM/dL (10.7-15.3); LYMPH % 35.6 % (8-40); MCH 27.9 pg (25.7-33.7); MCHC 33.4 g/dl (32.0-36.0); MEAN CELL VOLUME 83.5 fl (80-96); MEAN PLT VOLUME 7.7 fl (7.5-11.1); MONO % 4.8 % (3.8-10.2); NEUT % 56.7 % (42.8-82.8); PLATELET COUNT 225 10^3/uL (134-434); RBC 4.12 M/mm3 (3.60-5.2); RDW 16.5 % (11.6-15.6); WHITE BLOOD COUNT 9.9 K/mm3 (4.0-10.0)
[2021-01-21 17:17] LABS: CHLORIDE 109 mmol/L (98-107); SODIUM 139 mmol/L (136-145)
[2021-01-21 17:19] LABS: ANION GAP 7 MMOL/L (8-16); BLOOD UREA NITROGEN 20.1 mg/dL (7-18); CALCIUM 8.3 mg/dL (8.5-10.1); CO2 24 mmol/L (21-32); GLUCOSE,RANDOM 103 mg/dL (74-106)
[2021-01-21 17:22] LABS: SGOT/AST 35 U/L (15-37); SGPT/ALT 26 U/L (13-61)
[2021-01-21 17:24] LABS: BILIRUBIN,TOTAL 0.4 mg/dL (0.2-1); TOT PROT 6.4 g/dl (6.4-8.2)
[2021-01-21 17:25] LABS: ALK PHOS 47 U/L (45-117)
[2021-01-21 20:15] VITALS: BP 145/89; PULSE 95
[2021-01-22 14:07] LABS: SARS-CoV-2 NAA Not Detected (Not Detected)
== END 2021-01-21 20:15 | disposition home or self-care (01) ==
LOC: JER 14:56
PROC: 3E0F7GC Introduction of Other Therapeutic Substance into Respiratory Tract, Via Natural or Artificial Opening (ICD-10-PCS; principal; 2021-01-21)
PROC: 3E033GC Introduction of Other Therapeutic Substance into Peripheral Vein, Percutaneous Approach (ICD-10-PCS; 2021-01-21)
DX: R06.02 Shortness of breath (principal); J44.9 Chronic obstructive pulmonary disease, unspecified; Z11.52 Encounter for screening for COVID-19
CPT/HCPCS: 36415; 71250-TC; 80053; 84484; 85025; 93005; 93010; 99285-25; C9803; U0003; U0005

== ENCOUNTER 2022-02-18 19:20 | Observation (INO) | payer OTHER, BC ==
[2022-02-18 19:41] VITALS: BMI 43.2
[2022-02-18] MEDS ORDERED: morphine CARPU-JECT 2 MG/1 ML DISP.SYRIN IVPUSH ONE (21:06)
[2022-02-18] MEDS ORDERED: FAMOTIDINE 20 MG/50 ML IVPB 20 MG/50 ML MG IVPB ONE ×2 (21:06→21:43)
[2022-02-18 22:10] LABS: BASO % 1.2 % (0-2.0); EOS % 1.7 % (0-4.5); HEMATOCRIT 37.8 % (32.4-45.2); HEMOGLOBIN 12.6 GM/dL (10.7-15.3); LYMPH % 29.8 % (8-40); MCH 27.4 pg (25.7-33.7); MCHC 33.4 g/dl (32.0-36.0); MEAN CELL VOLUME 82.2 fl (80-96); MEAN PLT VOLUME 7.5 fl (7.5-11.1); MONO % 4.6 % (3.8-10.2); NEUT % 62.7 % (42.8-82.8); PLATELET COUNT 225 10^3/uL (134-434); RDW 16.5 % (11.6-15.6)
[2022-02-18 22:24] LABS: ALBUMIN 3.4 g/dl (3.4-5.0); BLOOD UREA NITROGEN 19.1 mg/dL (7-18); CALCIUM 9.2 mg/dL (8.5-10.1)
[2022-02-18 22:29] LABS: BILIRUBIN,TOTAL 0.5 mg/dL (0.2-1); TOT PROT 7.4 g/dl (6.4-8.2)
[2022-02-19] MEDS ORDERED: ALBUTEROL SO4 2.5/IPRATROPIUM 0.5 INH SOL 3 ML VIAL.NEB. NEB ONE ×2 (00:24→02:06)
[2022-02-19] MEDS ORDERED: ACETAMINOPHEN 1000 MG/100 ML BAG IVPB ONE (02:02)
[2022-02-19] MEDS ORDERED: ACETAMINOPHEN INJECTION 100 ML IVPB ONE ×2 (02:06→02:15)
[2022-02-19] MEDS ORDERED: morphine CARPU-JECT 4 MG/1 ML DISP.SYRIN IVPUSH ONE (08:31)
[2022-02-19] MEDS ORDERED: ALBUTEROL SO4 2.5/IPRATROPIUM 0.5 INH SOL 3 ML VIAL.NEB. NEB PRN (16:21)
[2022-02-19] MEDS ORDERED: ENOXAPARIN NA (PORCINE) 40 MG/0.4 ML DISP.SYRIN SQ ONE (17:51)
[2022-02-19] MEDS: ENOXAPARIN NA (PORCINE) 40 MG/0.4 ML DISP.SYRIN SQ SCH (17:56)
[2022-02-19 18:06] LABS: BLOOD UREA NITROGEN 17.9 mg/dL (7-18); CALCIUM 9.3 mg/dL (8.5-10.1)
[2022-02-19 18:07] LABS: ALBUMIN 3.6 g/dl (3.4-5.0)
[2022-02-19 18:11] LABS: BILIRUBIN,TOTAL 0.7 mg/dL (0.2-1); TOT PROT 7.1 g/dl (6.4-8.2)
[2022-02-19] MEDS ORDERED: ATORVASTATIN CA 10 MG TABLET (FP) ONE (20:44)
[2022-02-19] MEDS ORDERED: MONTELUKAST NA 10 MG TABLET ONE (20:45)
[2022-02-19] MEDS ORDERED: ZOLPIDEM TARTRATE 5 MG TABLET ONE (21:49)
[2022-02-19] MEDS ORDERED: MONTELUKAST NA 10 MG TABLET PO SCH (22:00)
[2022-02-19] MEDS ORDERED: ATORVASTATIN CA 10 MG TABLET (FP) PO SCH (22:00)
[2022-02-19] MEDS ORDERED: ZOLPIDEM TARTRATE 5 MG TABLET PO PRN (22:00)
[2022-02-19] MEDS ORDERED: ONDANSETRON 4 MG/2 ML VIAL IVPB ONE (23:05)
[2022-02-19] MEDS ORDERED: ONDANSETRON 4 MG/2 ML VIAL ONE (23:12)
[2022-02-19] MEDS ORDERED: ONDANSETRON 4 MG/2 ML VIAL IVPUSH PRN (23:47)
[2022-02-20] MEDS: PATIENT'S OWN MEDICATION (NON-FORMULARY) (Gabapentin [Gabapentin] 800 MG Tablet) PO SCH ×2 (00:23→00:24)
[2022-02-20] MEDS ORDERED: GABAPENTIN 400 MG CAPSULE ONE ×2 (00:29→06:00)
[2022-02-20] MEDS: GABAPENTIN 400 MG CAPSULE PO SCH ×2 (00:33→06:05)
[2022-02-20 00:34] VITALS: TEMP 98.2
[2022-02-20 07:41] LABS: BASO % 0.3 % (0-2.0); EOS % 1.1 % (0-4.5); HEMATOCRIT 38.4 % (32.4-45.2); HEMOGLOBIN 12.4 GM/dL (10.7-15.3); MCH 26.4 pg (25.7-33.7); MCHC 32.3 g/dl (32.0-36.0); MEAN CELL VOLUME 81.8 fl (80-96); MEAN PLT VOLUME 7.7 fl (7.5-11.1); MONO % 3.2 % (3.8-10.2); NEUT % 67.4 % (42.8-82.8); PLATELET COUNT 221 10^3/uL (134-434); RBC 4.69 M/mm3 (3.60-5.2); RDW 16.3 % (11.6-15.6); WHITE BLOOD COUNT 8.1 K/mm3 (4.0-10.0)
[2022-02-20 07:57] LABS: ALBUMIN 3.4 g/dl (3.4-5.0)
[2022-02-20 07:58] LABS: BLOOD UREA NITROGEN 18.5 mg/dL (7-18); CALCIUM 9.1 mg/dL (8.5-10.1)
[2022-02-20 08:00] LABS: CREATININE 1.1 mg/dL (0.55-1.3)
[2022-02-20 08:01] LABS: CHOLESTEROL 236 mg/dL (50-200); TRIGLYCERIDES 151 mg/dL (0-150)
[2022-02-20 08:02] LABS: BILIRUBIN,TOTAL 0.6 mg/dL (0.2-1); LDL CHOLESTEROL (ONLY SJRH) 138 mg/dL (5-100); TOT PROT 6.7 g/dl (6.4-8.2)
[2022-02-20 08:04] LABS: HDL CHOLESTEROL 59 mg/dL (40-60)
[2022-02-20] MEDS ORDERED: VALSARTAN 160 MG TABLET PO SCH (10:00)
[2022-02-20] MEDS ORDERED: TAMOXIFEN CITRATE 10 MG TABLET PO SCH (10:00)
[2022-02-20] MEDS ORDERED: PANTOPRAZOLE 40 MG TABLET PO SCH (10:00)
[2022-02-20] MEDS ORDERED: amLODIPine BESYLATE 2.5 MG TABLET (FP) PO SCH (10:00)
[2022-02-20] MEDS ORDERED: PATIENT'S OWN MEDICATION (NON-FORMULARY) (Valsartan/Hydrochlorothiazide [Valsartan-Hctz 16 PO SCH (10:00)
[2022-02-20] MEDS ORDERED: HYDROCHLOROTHIAZIDE 25 MG TABLET (FP) PO SCH (10:00)
[2022-02-20] MEDS ORDERED: amLODIPine BESYLATE 2.5 MG TABLET (FP) ONE (10:15)
[2022-02-20] MEDS ORDERED: PANTOPRAZOLE 40 MG TABLET PO ONE (10:15)
[2022-02-20] MEDS ORDERED: HYDROCHLOROTHIAZIDE 25 MG TABLET (FP) ONE (10:15)
[2022-02-20] MEDS ORDERED: ENOXAPARIN NA (PORCINE) 40 MG/0.4 ML DISP.SYRIN SQ ONE (10:15)
[2022-02-20] MEDS: ENOXAPARIN NA (PORCINE) 40 MG/0.4 ML DISP.SYRIN SQ SCH (10:25)
[2022-02-20] MEDS ORDERED: ALBUTEROL SO4 2.5/IPRATROPIUM 0.5 INH SOL 3 ML VIAL.NEB. NEB ONE ×2 (13:05→13:30)
[2022-02-20 13:46] VITALS: PULSE 102
[2022-02-20] MEDS ORDERED: methylPREDNISolone NA SUCC 40 MG/1 ML VIAL IVPUSH SCH (14:15)
[2022-02-20 14:52] VITALS: BP 107/83; RESP 20
== END 2022-02-20 15:18 | disposition home or self-care (01) ==
LOC: JER 19:20 → JERBED 02-19 02:34 → INTOOBSV 02-19 02:34 → UNDOADMOB 02-19 02:34 → JERBED 02-19 17:53
PROVIDERS: ADMIT Internal Medicine; ATTEND Internal Medicine
PROC: 3E033GC Introduction of Other Therapeutic Substance into Peripheral Vein, Percutaneous Approach (ICD-10-PCS; principal; 2022-02-19)
PROC: 3E033NZ Introduction of Analgesics, Hypnotics, Sedatives into Peripheral Vein, Percutaneous Approach (ICD-10-PCS; 2022-02-19)
PROC: 3E013GC Introduction of Other Therapeutic Substance into Subcutaneous Tissue, Percutaneous Approach (ICD-10-PCS; 2022-02-19)
DX: R07.89 Other chest pain (principal); I10 Essential (primary) hypertension; E78.5 Hyperlipidemia, unspecified; I25.10 Atherosclerotic heart disease of native coronary artery without angina pectoris; E03.9 Hypothyroidism, unspecified; M54.59 Other low back pain; G89.29 Other chronic pain; R06.02 Shortness of breath; J45.901 Unspecified asthma with (acute) exacerbation; Z86.69 Personal history of other diseases of the nervous system and sense organs; Z85.3 Personal history of malignant neoplasm of breast; Z96.652 Presence of left artificial knee joint; Z90.10 Acquired absence of unspecified breast and nipple; Z88.1 Allergy status to other antibiotic agents; Z87.891 Personal history of nicotine dependence
CPT/HCPCS: 36415; 71046-TC-FY; 71275-TC; 80053; 80061; 82550; 82553; 83036; 84132; 84443; 84484; 84703; 85025; 85379; 93005; 93010; 96365; 96372; 96375; 96376; 99285-25; C9803-CS; G0378; Q9967; U0003; U0005

== ENCOUNTER 2022-03-02 15:33 | Inpatient (IN) | payer OTHER, BC ==
[2022-03-02] MEDS ORDERED: DEXAMETHASONE SOD PHOSPHATE 10 MG/1 ML VIAL IVPUSH ONE (16:19)
[2022-03-02] MEDS ORDERED: ALBUTEROL SO4 2.5/IPRATROPIUM 0.5 INH SOL 3 ML VIAL.NEB. NEB ONE (16:25)
[2022-03-02] MEDS ORDERED: DEXAMETHASONE SOD PHOSPHATE 10 MG/1 ML VIAL ONE (16:25)
[2022-03-02] MEDS: ALBUTEROL SO4 2.5/IPRATROPIUM 0.5 INH SOL 3 ML VIAL.NEB. NEB SCH ×4 (16:35→17:20)
[2022-03-02 17:19] LABS: BASO % 0.1 % (0-2.0); HEMATOCRIT 37.3 % (32.4-45.2); HEMOGLOBIN 11.8 GM/dL (10.7-15.3); LYMPH % 9.6 % (8-40); MCH 26.1 pg (25.7-33.7); MCHC 31.8 g/dl (32.0-36.0); MEAN CELL VOLUME 82.2 fl (80-96); MEAN PLT VOLUME 7.7 fl (7.5-11.1); MONO % 2.6 % (3.8-10.2); NEUT % 87.7 % (42.8-82.8); PLATELET COUNT 268 10^3/uL (134-434); RBC 4.54 M/mm3 (3.60-5.2); RDW 16.4 % (11.6-15.6); WHITE BLOOD COUNT 15.2 K/mm3 (4.0-10.0)
[2022-03-02 17:25] LABS: VENOUS O2 SATURATION 89.3 % (70-80); VENOUS PCO2 38.7 mmHg (38-52); VENOUS PH 7.371 (7.310-7.410)
[2022-03-02] MEDS ORDERED: MAGNESIUM SULF 50% (8.12 MEQ/2 ML-1 GM VIAL) IVPB ONE (17:37)
[2022-03-02 17:47] LABS: CALCIUM 8.4 mg/dL (8.5-10.1)
[2022-03-02 17:48] LABS: ALBUMIN 3.3 g/dl (3.4-5.0); BLOOD UREA NITROGEN 20.8 mg/dL (7-18)
[2022-03-02 17:51] LABS: CREATININE 1.2 mg/dL (0.55-1.3)
[2022-03-02 17:52] LABS: BILIRUBIN,TOTAL 0.3 mg/dL (0.2-1); TOT PROT 6.7 g/dl (6.4-8.2)
[2022-03-02] MEDS: ALBUTEROL SO4 0.083% IH SOL 2.5 MG/3 ML VIAL.NEB. NEB SCH ×4 (18:00→19:04)
[2022-03-02] MEDS ORDERED: MAGNESIUM SULFATE IN WATER 2 GM/50 ML IVPB IVPB ONE (18:24)
[2022-03-02] MEDS ORDERED: ALBUTEROL SO4 0.083% IH SOL 2.5 MG/3 ML VIAL.NEB. NEB ONE ×2 (18:24→19:02)
[2022-03-02] MEDS ORDERED: AZITHROMYCIN IVPB 500 MG/250 ML BAG IVPB ONE ×2 (22:37→22:48)
[2022-03-02] MEDS: CEFTRIAXONE 1 GM in DEXTROSE 5%-WATER - 50 ML IVPB SCH (22:43)
[2022-03-02] MEDS ORDERED: cefTRIAXone SODIUM 1 GM VIAL ONE (22:47)
[2022-03-03] MEDS ORDERED: MELATONIN 5 MG TABLETS PO ONE (01:31)
[2022-03-03] MEDS ORDERED: ALBUTEROL SO4 2.5/IPRATROPIUM 0.5 INH SOL 3 ML VIAL.NEB. NEB ONE (01:52)
[2022-03-03] MEDS ORDERED: MELATONIN 5 MG TABLETS ONE (02:13)
[2022-03-03] MEDS ORDERED: GABAPENTIN 400 MG CAPSULE ONE (02:13)
[2022-03-03] MEDS: GABAPENTIN 400 MG CAPSULE PO SCH ×4 (02:14→21:31)
[2022-03-03 04:08] VITALS: BMI 44.8
[2022-03-03] MEDS: methylPREDNISolone NA SUCC 40 MG/1 ML VIAL IVPUSH SCH ×3 (07:29→21:32)
[2022-03-03] MEDS: ALBUTEROL SO4 2.5/IPRATROPIUM 0.5 INH SOL 3 ML VIAL.NEB. NEB PRN ×2 (09:28→14:30)
[2022-03-03] MEDS ORDERED: PATIENT'S OWN MEDICATION (NON-FORMULARY) (Valsartan/Hydrochlorothiazide [Valsartan-Hctz 16 PO SCH (10:00)
[2022-03-03] MEDS: PANTOPRAZOLE 40 MG TABLET PO SCH (10:30)
[2022-03-03] MEDS: CEFTRIAXONE 1 GM in DEXTROSE 5%-WATER - 50 ML IVPB SCH (10:30)
[2022-03-03] MEDS: HYDROCHLOROTHIAZIDE 25 MG TABLET (FP) PO SCH (10:30)
[2022-03-03] MEDS: ENOXAPARIN NA (PORCINE) 40 MG/0.4 ML DISP.SYRIN SQ SCH (10:30)
[2022-03-03] MEDS: VALSARTAN 160 MG TABLET PO SCH (10:30)
[2022-03-03] MEDS: amLODIPine BESYLATE 2.5 MG TABLET (FP) PO SCH (10:30)
[2022-03-03 11:55] LABS: BASO % 0.2 % (0-2.0); EOS % 0.1 % (0-4.5); HEMATOCRIT 35.1 % (32.4-45.2); HEMOGLOBIN 11.2 GM/dL (10.7-15.3); LYMPH % 9.3 % (8-40); MCH 26.6 pg (25.7-33.7); NEUT % 87.4 % (42.8-82.8); PLATELET COUNT 227 10^3/uL (134-434); RBC 4.23 M/mm3 (3.60-5.2); RDW 16.6 % (11.6-15.6)
[2022-03-03 13:07] LABS: CALCIUM 8.4 mg/dL (8.5-10.1)
[2022-03-03 13:08] LABS: ALBUMIN 3.2 g/dl (3.4-5.0); BLOOD UREA NITROGEN 25.1 mg/dL (7-18)
[2022-03-03 13:11] LABS: CREATININE 1.1 mg/dL (0.55-1.3)
[2022-03-03 13:13] LABS: TOT PROT 6.5 g/dl (6.4-8.2)
[2022-03-03 13:26] LABS: BILIRUBIN,TOTAL 0.3 mg/dL (0.2-1)
[2022-03-03] MEDS: TAMOXIFEN CITRATE 10 MG TABLET PO SCH (13:26)
[2022-03-03] MEDS: MONTELUKAST NA 10 MG TABLET PO SCH (21:31)
[2022-03-03] MEDS: ATORVASTATIN CA 10 MG TABLET (FP) PO SCH (21:31)
[2022-03-03] MEDS: ZOLPIDEM TARTRATE 5 MG TABLET PO PRN (21:33)
[2022-03-03] MEDS ORDERED: INSULIN (NOVOLOG) ASPART 100 UNITS/ML 10ML VIAL SQ ONE (23:45)
[2022-03-04] MEDS: GABAPENTIN 400 MG CAPSULE PO SCH ×3 (05:56→21:26)
[2022-03-04] MEDS: methylPREDNISolone NA SUCC 40 MG/1 ML VIAL IVPUSH SCH ×3 (05:56→21:30)
[2022-03-04] MEDS: ALBUTEROL SO4 2.5/IPRATROPIUM 0.5 INH SOL 3 ML VIAL.NEB. NEB PRN ×3 (06:45→20:03)
[2022-03-04] MEDS: VALSARTAN 160 MG TABLET PO SCH (10:14)
[2022-03-04] MEDS: ENOXAPARIN NA (PORCINE) 40 MG/0.4 ML DISP.SYRIN SQ SCH (10:15)
[2022-03-04] MEDS: CEFTRIAXONE 1 GM in DEXTROSE 5%-WATER - 50 ML IVPB SCH (10:15)
[2022-03-04] MEDS: HYDROCHLOROTHIAZIDE 25 MG TABLET (FP) PO SCH (10:15)
[2022-03-04] MEDS: amLODIPine BESYLATE 2.5 MG TABLET (FP) PO SCH (10:15)
[2022-03-04] MEDS: PANTOPRAZOLE 40 MG TABLET PO SCH (10:15)
[2022-03-04] MEDS: TAMOXIFEN CITRATE 10 MG TABLET PO SCH (10:16)
[2022-03-04] MEDS: ATORVASTATIN CA 10 MG TABLET (FP) PO SCH (21:29)
[2022-03-04] MEDS: MONTELUKAST NA 10 MG TABLET PO SCH (21:30)
[2022-03-04] MEDS: ZOLPIDEM TARTRATE 5 MG TABLET PO PRN (21:41)
[2022-03-05] MEDS: INSULIN SLIDING SCALE (NOVOLOG) 1 VIAL SQ SCH ×4 (06:24→22:44)
[2022-03-05] MEDS: methylPREDNISolone NA SUCC 40 MG/1 ML VIAL IVPUSH SCH ×3 (06:24→17:59)
[2022-03-05] MEDS: GABAPENTIN 400 MG CAPSULE PO SCH ×3 (06:24→21:58)
[2022-03-05] MEDS: ALBUTEROL SO4 2.5/IPRATROPIUM 0.5 INH SOL 3 ML VIAL.NEB. NEB PRN ×3 (07:54→22:30)
[2022-03-05] MEDS ORDERED: ALBUTEROL SO4 0.083% IH SOL 2.5 MG/3 ML VIAL.NEB. NEB ONE (10:01)
[2022-03-05] MEDS: amLODIPine BESYLATE 2.5 MG TABLET (FP) PO SCH (10:34)
[2022-03-05] MEDS: PANTOPRAZOLE 40 MG TABLET PO SCH (10:34)
[2022-03-05] MEDS: HYDROCHLOROTHIAZIDE 25 MG TABLET (FP) PO SCH (10:35)
[2022-03-05] MEDS: ENOXAPARIN NA (PORCINE) 40 MG/0.4 ML DISP.SYRIN SQ SCH (10:35)
[2022-03-05] MEDS: VALSARTAN 160 MG TABLET PO SCH (10:35)
[2022-03-05] MEDS: CEFTRIAXONE 1 GM in DEXTROSE 5%-WATER - 50 ML IVPB SCH (10:35)
[2022-03-05] MEDS: TAMOXIFEN CITRATE 10 MG TABLET PO SCH (10:36)
[2022-03-05] MEDS: guaiFENesin 200 MG/10 ML 10 ML UNIT-DOSE CUPS PO PRN (21:58)
[2022-03-05] MEDS: MONTELUKAST NA 10 MG TABLET PO SCH (21:58)
[2022-03-05] MEDS: ATORVASTATIN CA 10 MG TABLET (FP) PO SCH (21:58)
[2022-03-05] MEDS: ZOLPIDEM TARTRATE 5 MG TABLET PO PRN (21:58)
[2022-03-06] MEDS: methylPREDNISolone NA SUCC 40 MG/1 ML VIAL IVPUSH SCH ×3 (03:17→17:45)
[2022-03-06] MEDS ORDERED: ALBUTEROL SO4 HFA INHALER IH PRN (05:09)
[2022-03-06] MEDS: GABAPENTIN 400 MG CAPSULE PO SCH ×3 (07:06→21:32)
[2022-03-06] MEDS: INSULIN SLIDING SCALE (NOVOLOG) 1 VIAL SQ SCH ×4 (07:28→21:33)
[2022-03-06] MEDS: ALBUTEROL SO4 2.5/IPRATROPIUM 0.5 INH SOL 3 ML VIAL.NEB. NEB PRN ×2 (08:00→20:37)
[2022-03-06] MEDS: HYDROCHLOROTHIAZIDE 25 MG TABLET (FP) PO SCH (09:32)
[2022-03-06] MEDS: amLODIPine BESYLATE 2.5 MG TABLET (FP) PO SCH (09:32)
[2022-03-06] MEDS: CEFTRIAXONE 1 GM in DEXTROSE 5%-WATER - 50 ML IVPB SCH (09:32)
[2022-03-06] MEDS: VALSARTAN 160 MG TABLET PO SCH (09:32)
[2022-03-06] MEDS: PANTOPRAZOLE 40 MG TABLET PO SCH (09:32)
[2022-03-06] MEDS: guaiFENesin 200 MG/10 ML 10 ML UNIT-DOSE CUPS PO PRN (09:32)
[2022-03-06] MEDS: ENOXAPARIN NA (PORCINE) 40 MG/0.4 ML DISP.SYRIN SQ SCH (09:32)
[2022-03-06] MEDS: TAMOXIFEN CITRATE 10 MG TABLET PO SCH (09:33)
[2022-03-06 11:34] LABS: HEMOGLOBIN 11.6 GM/dL (10.7-15.3); MCH 27.4 pg (25.7-33.7); MEAN PLT VOLUME 7.4 fl (7.5-11.1); PLATELET COUNT 225 10^3/uL (134-434); RBC 4.21 M/mm3 (3.60-5.2); RDW 16.4 % (11.6-15.6); WHITE BLOOD COUNT 10.6 K/mm3 (4.0-10.0)
[2022-03-06 11:43] LABS: CHLORIDE 100 mmol/L (98-107); SODIUM 133 mmol/L (136-145)
[2022-03-06 11:47] LABS: ANION GAP 11 MMOL/L (8-16); BLOOD UREA NITROGEN 40.8 mg/dL (7-18); CALCIUM 8.7 mg/dL (8.5-10.1); CO2 22 mmol/L (21-32)
[2022-03-06 11:48] LABS: ALBUMIN 3.1 g/dl (3.4-5.0); GLUCOSE,RANDOM 496 mg/dL (74-106)
[2022-03-06 11:50] LABS: SGPT/ALT 36 U/L (13-61)
[2022-03-06 11:51] LABS: CREATININE 1.6 mg/dL (0.55-1.3); SGOT/AST 10 U/L (15-37)
[2022-03-06 11:52] LABS: BILIRUBIN,TOTAL 0.3 mg/dL (0.2-1); TOT PROT 6.5 g/dl (6.4-8.2)
[2022-03-06 11:53] LABS: ALK PHOS 45 U/L (45-117)
[2022-03-06 11:54] LABS: GLUCOSE,RANDOM 471 mg/dL (74-106)
[2022-03-06] MEDS ORDERED: INSULIN (NOVOLOG) ASPART 100 UNITS/ML 10ML VIAL ONE (12:12)
[2022-03-06 12:36] LABS: ANISOCYTOSIS 0; HELMET CELLS 0; HOWELL-JOLLY BODIES 0; MACROCYTOSIS 0; OVALOCYTE 0; ROULEAU 0; SICKELED CELLS 0; TARGET CELLS 0; TEAR DROP CELLS 0; TOXIC GRANULATION 0
[2022-03-06] MEDS: ATORVASTATIN CA 10 MG TABLET (FP) PO SCH (21:32)
[2022-03-06] MEDS: ZOLPIDEM TARTRATE 5 MG TABLET PO PRN (21:33)
[2022-03-06] MEDS: MONTELUKAST NA 10 MG TABLET PO SCH (21:33)
[2022-03-06] MEDS ORDERED: INSULIN (LEVEMIR) 100 UNITS/ML UNITS SQ SCH (22:00)
[2022-03-06 23:14] VITALS: RESP 20
[2022-03-07] MEDS: methylPREDNISolone NA SUCC 40 MG/1 ML VIAL IVPUSH SCH ×3 (02:16→18:13)
[2022-03-07] MEDS: INSULIN SLIDING SCALE (NOVOLOG) 1 VIAL SQ SCH ×3 (06:40→22:56)
[2022-03-07] MEDS: GABAPENTIN 400 MG CAPSULE PO SCH ×3 (06:40→22:54)
[2022-03-07] MEDS: ALBUTEROL SO4 2.5/IPRATROPIUM 0.5 INH SOL 3 ML VIAL.NEB. NEB PRN ×2 (09:16→20:15)
[2022-03-07] MEDS: ENOXAPARIN NA (PORCINE) 40 MG/0.4 ML DISP.SYRIN SQ SCH (09:44)
[2022-03-07] MEDS: HYDROCHLOROTHIAZIDE 25 MG TABLET (FP) PO SCH (09:44)
[2022-03-07] MEDS: VALSARTAN 160 MG TABLET PO SCH (09:44)
[2022-03-07] MEDS: PANTOPRAZOLE 40 MG TABLET PO SCH (09:44)
[2022-03-07] MEDS: amLODIPine BESYLATE 2.5 MG TABLET (FP) PO SCH (09:44)
[2022-03-07] MEDS: CEFTRIAXONE 1 GM in DEXTROSE 5%-WATER - 50 ML IVPB SCH (09:45)
[2022-03-07] MEDS: TAMOXIFEN CITRATE 10 MG TABLET PO SCH (09:56)
[2022-03-07] MEDS ORDERED: INSULIN SLIDING SCALE (NOVOLOG) 1 VIAL SQ SCH (11:58)
[2022-03-07] MEDS ORDERED: INSULIN (LEVEMIR) 100 UNITS/ML UNITS SQ ONE ×2 (12:02→22:46)
[2022-03-07] MEDS ORDERED: INSULIN (NOVOLOG MIX 70/30) 100 UNITS/ML MDV SQ SCH ×2 (16:30→22:00)
[2022-03-07] MEDS: INSULIN (LEVEMIR) 100 UNITS/ML UNITS SQ SCH (22:52)
[2022-03-07] MEDS: MONTELUKAST NA 10 MG TABLET PO SCH (22:54)
[2022-03-07] MEDS: ATORVASTATIN CA 10 MG TABLET (FP) PO SCH (22:54)
[2022-03-07] MEDS: ZOLPIDEM TARTRATE 5 MG TABLET PO PRN (22:59)
[2022-03-08] MEDS: methylPREDNISolone NA SUCC 40 MG/1 ML VIAL IVPUSH SCH ×3 (03:14→17:36)
[2022-03-08] MEDS ORDERED: INSULIN (NOVOLOG MIX 70/30) 100 UNITS/ML MDV SQ ONE ×2 (06:40→17:47)
[2022-03-08] MEDS: GABAPENTIN 400 MG CAPSULE PO SCH ×3 (07:01→22:08)
[2022-03-08] MEDS: INSULIN (LEVEMIR) 100 UNITS/ML UNITS SQ SCH ×2 (07:02→22:10)
[2022-03-08] MEDS: INSULIN (NOVOLOG MIX 70/30) 100 UNITS/ML MDV SQ SCH ×2 (07:04→17:36)
[2022-03-08] MEDS: INSULIN SLIDING SCALE (NOVOLOG) 1 VIAL SQ SCH ×4 (07:07→22:12)
[2022-03-08] MEDS: ALBUTEROL SO4 2.5/IPRATROPIUM 0.5 INH SOL 3 ML VIAL.NEB. NEB PRN ×2 (09:35→18:20)
[2022-03-08] MEDS: HYDROCHLOROTHIAZIDE 25 MG TABLET (FP) PO SCH (10:20)
[2022-03-08] MEDS: CEFTRIAXONE 1 GM in DEXTROSE 5%-WATER - 50 ML IVPB SCH (10:20)
[2022-03-08] MEDS: amLODIPine BESYLATE 2.5 MG TABLET (FP) PO SCH (10:20)
[2022-03-08] MEDS: PANTOPRAZOLE 40 MG TABLET PO SCH (10:20)
[2022-03-08] MEDS: VALSARTAN 160 MG TABLET PO SCH (10:20)
[2022-03-08] MEDS: ENOXAPARIN NA (PORCINE) 40 MG/0.4 ML DISP.SYRIN SQ SCH (10:20)
[2022-03-08] MEDS: TAMOXIFEN CITRATE 10 MG TABLET PO SCH (10:24)
[2022-03-08] MEDS ORDERED: methylPREDNISolone NA SUCC 40 MG/1 ML VIAL IVPUSH SCH (14:07)
[2022-03-08 17:43] LABS: EPI CELLS 19 /uL (0-25.1); HYALINE CASTS 1 /uL (0-3.1); URINE APPEARANCE CLEAR; URINE BACTERIA 17 /uL (0-1359); URINE BILIRUBIN NEGATIVE (NEGATIVE); URINE COLOR YELLOW; URINE GLUCOSE (UA) NEGATIVE (NEGATIVE); URINE KETONE NEGATIVE (NEGATIVE); URINE LEUK ESTERASE 1+ (NEGATIVE); URINE NITRITE NEGATIVE (NEGATIVE); URINE PROTEIN NEGATIVE (NEGATIVE); URINE RBC 22 /uL (0-23.9); URINE UROBILINOGEN 0.2 mg/dL (0.2-1.0); URINE WBC 11 /uL (0-25.8)
[2022-03-08] MEDS ORDERED: INSULIN (LEVEMIR) 100 UNITS/ML UNITS SQ ONE (17:46)
[2022-03-08] MEDS ORDERED: INSULIN (NOVOLOG) ASPART 100 UNITS/ML 10ML VIAL ONE (17:47)
[2022-03-08] MEDS: MONTELUKAST NA 10 MG TABLET PO SCH (22:08)
[2022-03-08] MEDS: ATORVASTATIN CA 10 MG TABLET (FP) PO SCH (22:08)
[2022-03-08] MEDS: ZOLPIDEM TARTRATE 5 MG TABLET PO PRN (22:18)
[2022-03-09] MEDS: methylPREDNISolone NA SUCC 40 MG/1 ML VIAL IVPUSH SCH ×3 (03:04→17:33)
[2022-03-09] MEDS: GABAPENTIN 400 MG CAPSULE PO SCH ×3 (06:55→21:51)
[2022-03-09] MEDS: INSULIN (LEVEMIR) 100 UNITS/ML UNITS SQ SCH ×2 (06:58→21:55)
[2022-03-09] MEDS: INSULIN (NOVOLOG MIX 70/30) 100 UNITS/ML MDV SQ SCH ×2 (07:02→17:30)
[2022-03-09] MEDS: INSULIN SLIDING SCALE (NOVOLOG) 1 VIAL SQ SCH ×4 (07:04→22:02)
[2022-03-09] MEDS: ENOXAPARIN NA (PORCINE) 40 MG/0.4 ML DISP.SYRIN SQ SCH (09:12)
[2022-03-09] MEDS: HYDROCHLOROTHIAZIDE 25 MG TABLET (FP) PO SCH (10:41)
[2022-03-09] MEDS: VALSARTAN 160 MG TABLET PO SCH (10:41)
[2022-03-09] MEDS: PANTOPRAZOLE 40 MG TABLET PO SCH (10:41)
[2022-03-09] MEDS: CEFTRIAXONE 1 GM in DEXTROSE 5%-WATER - 50 ML IVPB SCH (10:41)
[2022-03-09] MEDS: amLODIPine BESYLATE 2.5 MG TABLET (FP) PO SCH (10:41)
[2022-03-09] MEDS: TAMOXIFEN CITRATE 10 MG TABLET PO SCH (10:42)
[2022-03-09 10:44] LABS: ALBUMIN 2.8 g/dl (3.4-5.0); BLOOD UREA NITROGEN 37.5 mg/dL (7-18)
[2022-03-09 10:47] LABS: CREATININE 1.3 mg/dL (0.55-1.3)
[2022-03-09 10:49] LABS: TOT PROT 5.9 g/dl (6.4-8.2)
[2022-03-09 11:05] LABS: BILIRUBIN,TOTAL 0.5 mg/dL (0.2-1)
[2022-03-09] MEDS ORDERED: ACETAMINOPHEN 325 MG TABLET (FP) PO ONE (16:15)
[2022-03-09] MEDS ORDERED: ACETAMINOPHEN 325 MG TABLET (FP) PO PRN (19:27)
[2022-03-09] MEDS: ATORVASTATIN CA 10 MG TABLET (FP) PO SCH (21:51)
[2022-03-09] MEDS: MONTELUKAST NA 10 MG TABLET PO SCH (21:52)
[2022-03-09] MEDS: IBUPROFEN 400 MG TABLET (FP) PO PRN (23:11)
[2022-03-09] MEDS: ZOLPIDEM TARTRATE 5 MG TABLET PO PRN (23:11)
[2022-03-10] MEDS: methylPREDNISolone NA SUCC 40 MG/1 ML VIAL IVPUSH SCH ×3 (01:34→17:53)
[2022-03-10] MEDS: GABAPENTIN 400 MG CAPSULE PO SCH ×3 (06:10→23:00)
[2022-03-10] MEDS: INSULIN (NOVOLOG MIX 70/30) 100 UNITS/ML MDV SQ SCH ×2 (06:14→16:42)
[2022-03-10] MEDS: INSULIN (LEVEMIR) 100 UNITS/ML UNITS SQ SCH ×2 (06:15→22:56)
[2022-03-10] MEDS: INSULIN SLIDING SCALE (NOVOLOG) 1 VIAL SQ SCH ×4 (06:16→22:58)
[2022-03-10] MEDS: IBUPROFEN 400 MG TABLET (FP) PO PRN (06:35)
[2022-03-10] MEDS: CEFTRIAXONE 1 GM in DEXTROSE 5%-WATER - 50 ML IVPB SCH (09:37)
[2022-03-10] MEDS: amLODIPine BESYLATE 2.5 MG TABLET (FP) PO SCH (09:38)
[2022-03-10] MEDS: PANTOPRAZOLE 40 MG TABLET PO SCH (09:38)
[2022-03-10] MEDS: HYDROCHLOROTHIAZIDE 25 MG TABLET (FP) PO SCH (09:38)
[2022-03-10] MEDS: VALSARTAN 160 MG TABLET PO SCH (09:38)
[2022-03-10] MEDS: TAMOXIFEN CITRATE 10 MG TABLET PO SCH (09:41)
[2022-03-10] MEDS ORDERED: INSULIN (NOVOLOG) ASPART 100 UNITS/ML 10ML VIAL ONE (11:40)
[2022-03-10] MEDS: traMADol HCL 50 MG TABLET PO PRN ×2 (13:52→23:00)
[2022-03-10] MEDS: ATORVASTATIN CA 10 MG TABLET (FP) PO SCH (22:59)
[2022-03-10] MEDS: MONTELUKAST NA 10 MG TABLET PO SCH (23:00)
[2022-03-10] MEDS: ZOLPIDEM TARTRATE 5 MG TABLET PO PRN (23:01)
[2022-03-11] MEDS: methylPREDNISolone NA SUCC 40 MG/1 ML VIAL IVPUSH SCH (01:36)
[2022-03-11] MEDS: traMADol HCL 50 MG TABLET PO PRN (07:01)
[2022-03-11] MEDS: GABAPENTIN 400 MG CAPSULE PO SCH ×2 (07:01→15:17)
[2022-03-11] MEDS: INSULIN (LEVEMIR) 100 UNITS/ML UNITS SQ SCH (07:05)
[2022-03-11] MEDS: INSULIN SLIDING SCALE (NOVOLOG) 1 VIAL SQ SCH ×2 (07:08→11:46)
[2022-03-11] MEDS ORDERED: INSULIN (NOVOLOG MIX 70/30) 100 UNITS/ML MDV SQ ONE (07:09)
[2022-03-11] MEDS: INSULIN (NOVOLOG MIX 70/30) 100 UNITS/ML MDV SQ SCH (07:11)
[2022-03-11 07:58] VITALS: PULSE 82
[2022-03-11] MEDS: VALSARTAN 160 MG TABLET PO SCH (09:43)
[2022-03-11] MEDS: amLODIPine BESYLATE 2.5 MG TABLET (FP) PO SCH (09:43)
[2022-03-11] MEDS: PANTOPRAZOLE 40 MG TABLET PO SCH (09:43)
[2022-03-11] MEDS: HYDROCHLOROTHIAZIDE 25 MG TABLET (FP) PO SCH (09:43)
[2022-03-11] MEDS: TAMOXIFEN CITRATE 10 MG TABLET PO SCH (09:44)
[2022-03-11] MEDS: guaiFENesin 200 MG/10 ML 10 ML UNIT-DOSE CUPS PO PRN (09:44)
[2022-03-11] MEDS ORDERED: predniSONE 20 MG TABLET (UD) PO SCH (10:00)
[2022-03-11] MEDS ORDERED: INSULIN (NOVOLOG) ASPART 100 UNITS/ML 10ML VIAL ONE (11:39)
[2022-03-11 15:37] VITALS: BP 123/83; TEMP 97.6
== END 2022-03-11 15:51 | disposition home or self-care (01) | DRG 191 ==
LOC: JER 15:33 → JERBED 17:53 → J8W 03-03 02:41
PROVIDERS: ADMIT Internal Medicine; ATTEND Internal Medicine
DX: J44.1 Chronic obstructive pulmonary disease with (acute) exacerbation (principal); J45.901 Unspecified asthma with (acute) exacerbation; Z68.41 Body mass index [BMI] 40.0-44.9, adult; N17.9 Acute kidney failure, unspecified; Z99.81 Dependence on supplemental oxygen; I10 Essential (primary) hypertension; E11.9 Type 2 diabetes mellitus without complications; E78.5 Hyperlipidemia, unspecified; E11.42 Type 2 diabetes mellitus with diabetic polyneuropathy; R07.89 Other chest pain; I12.9 Hypertensive chronic kidney disease with stage 1 through stage 4 chronic kidney disease, or unspecified chronic kidney disease; N18.9 Chronic kidney disease, unspecified; N20.0 Calculus of kidney; E66.01 Morbid (severe) obesity due to excess calories
CPT/HCPCS: 0241U-QW; 36415; 71045-TC-FY; 71046-TC-FY; 76775-TC; 80053; 81003; 82570; 82803; 82947; 82962; 83036; 84156; 85025; 93005; 93010; 93306-TC; 94640; 99285-25; C9803-CS; J1100; U0003; U0005

== ENCOUNTER 2022-07-13 10:24 | Emergency (ER) | payer OTHER, BC ==
[2022-07-13 10:38] VITALS: BMI 44.9
[2022-07-13] MEDS ORDERED: ALBUTEROL SO4 2.5/IPRATROPIUM 0.5 INH SOL 3 ML VIAL.NEB. NEB ONE ×2 (11:25→11:32)
[2022-07-13] MEDS ORDERED: DEXAMETHASONE SOD PHOSPHATE 10 MG/1 ML VIAL IVPUSH ONE (11:46)
[2022-07-13 12:07] LABS: BASO % 0.5 % (0-2.0); EOS % 0.5 % (0-4.5); HEMATOCRIT 32.4 % (32.4-45.2); HEMOGLOBIN 10.3 GM/dL (10.7-15.3); LYMPH % 30.2 % (8-40); MCH 25.8 pg (25.7-33.7); MCHC 31.7 g/dl (32.0-36.0); MEAN CELL VOLUME 81.2 fl (80-96); MEAN PLT VOLUME 7.7 fl (7.5-11.1); MONO % 5.2 % (3.8-10.2); NEUT % 63.6 % (42.8-82.8); PLATELET COUNT 250 10^3/uL (134-434); RBC 3.99 M/mm3 (3.60-5.2); RDW 15.9 % (11.6-15.6); WHITE BLOOD COUNT 9.8 K/mm3 (4.0-10.0)
[2022-07-13] MEDS ORDERED: DEXAMETHASONE SOD PHOSPHATE 10 MG/1 ML VIAL ONE (12:08)
[2022-07-13 12:29] LABS: ALBUMIN 2.9 g/dl (3.4-5.0)
[2022-07-13 12:30] LABS: BLOOD UREA NITROGEN 25.7 mg/dL (7-18)
[2022-07-13 12:32] LABS: CREATININE 1.1 mg/dL (0.55-1.3)
[2022-07-13 12:34] LABS: BILIRUBIN,TOTAL 0.3 mg/dL (0.2-1)
[2022-07-13] MEDS ORDERED: SODIUM CHLORIDE 0.9% 500 ML INFUS.BAG IV ONE (15:00)
[2022-07-13 15:44] VITALS: RESP 20
[2022-07-13] MEDS ORDERED: ALBUTEROL SO4 0.083% IH SOL 2.5 MG/3 ML VIAL.NEB. NEB ONE ×2 (16:16→16:23)
[2022-07-13] MEDS ORDERED: MAGNESIUM SULF 50% (8.12 MEQ/2 ML-1 GM VIAL) IVPB ONE (16:18)
[2022-07-13] MEDS ORDERED: MAGNESIUM SULFATE IN WATER 2 GM/50 ML IVPB IVPB ONE (16:23)
[2022-07-13 18:34] VITALS: BP 123/81; PULSE 89; TEMP 98
== END 2022-07-13 18:46 | disposition home or self-care (01) ==
LOC: JER 10:24
PROC: 3E033GC Introduction of Other Therapeutic Substance into Peripheral Vein, Percutaneous Approach (ICD-10-PCS; principal; 2022-07-13)
PROC: 3E0F7GC Introduction of Other Therapeutic Substance into Respiratory Tract, Via Natural or Artificial Opening (ICD-10-PCS; 2022-07-13)
DX: J44.1 Chronic obstructive pulmonary disease with (acute) exacerbation (principal)
CPT/HCPCS: 0241U-QW; 36415; 71045-TC-FY; 71275-TC; 80053; 84484; 85025; 85379; 93005; 93010; 99285-25; J1100; Q9967

== ENCOUNTER 2023-07-03 03:08 | Inpatient (IN) | payer OTHER, BC ==
[2023-07-03] MEDS ORDERED: MAGNESIUM SULF 50% (8.12 MEQ/2 ML-1 GM VIAL) IVPB ONE (03:47)
[2023-07-03] MEDS ORDERED: methylPREDNISolone NA SUCC 125 MG/2 ML VIAL IVPUSH ONE (03:47)
[2023-07-03] MEDS ORDERED: MAGNESIUM SULFATE IN WATER 2 GM/50 ML IVPB IVPB ONE (04:03)
[2023-07-03] MEDS ORDERED: ALBUTEROL SO4 2.5/IPRATROPIUM 0.5 INH SOL 3 ML VIAL.NEB. NEB ONE ×4 (04:03→18:51)
[2023-07-03] MEDS ORDERED: methylPREDNISolone NA SUCC 125 MG/2 ML VIAL ONE (04:03)
[2023-07-03] MEDS: ALBUTEROL SO4 2.5/IPRATROPIUM 0.5 INH SOL 3 ML VIAL.NEB. NEB SCH ×4 (04:14→19:00)
[2023-07-03] MEDS ORDERED: LACTATED RINGERS SOLUTION 1000 ML INFUS.BAG IV ONE (04:20)
[2023-07-03 04:28] LABS: VENOUS BASE EXCESS 0.3 mmol/L (-2-2); VENOUS PCO2 35.7 mmHg (38-52); VENOUS PH 7.446 (7.310-7.410)
[2023-07-03 04:29] LABS: INR 0.97 (0.83-1.09); PROTHROMBIN TIME (PATIENT) 11.2 SEC (9.7-13.0)
[2023-07-03 04:31] LABS: ACTIVATED PTT 24.1 SECONDS (25.2-36.5); BASO % 0.5 % (0-2.0); EOS % 0.2 % (0-4.5); HEMOGLOBIN 10.8 GM/dL (10.7-15.3); LYMPH % 34.1 % (8-40); MCH 26.8 pg (25.7-33.7); MCHC 32.7 g/dl (32.0-36.0); MEAN CELL VOLUME 81.9 fl (80-96); MEAN PLT VOLUME 7.4 fl (7.5-11.1); MONO % 4.8 % (3.8-10.2); NEUT % 60.4 % (42.8-82.8); PLATELET COUNT 253 10^3/uL (134-434); RBC 4.03 M/mm3 (3.60-5.2); WHITE BLOOD COUNT 7.7 K/mm3 (4.0-10.0)
[2023-07-03 04:35] LABS: POTASSIUM 3.4 mmol/L (3.5-5.1)
[2023-07-03 04:37] LABS: CALCIUM 8.4 mg/dL (8.5-10.1)
[2023-07-03 04:38] LABS: ALBUMIN 2.9 g/dl (3.4-5.0); BLOOD UREA NITROGEN 25.4 mg/dL (7-18)
[2023-07-03 04:41] LABS: CREATININE 1.4 mg/dL (0.55-1.3)
[2023-07-03 04:42] LABS: BILIRUBIN,TOTAL 0.2 mg/dL (0.2-1); TOT PROT 6.3 g/dl (6.4-8.2)
[2023-07-03 04:45] LABS: N-TERMINAL BNP 52.1 pg/ml (5-125)
[2023-07-03] MEDS ORDERED: dilTIAZem HCL 50 MG/10 ML - 10 ML VIAL IVPUSH ONE ×2 (04:50→06:07)
[2023-07-03] MEDS ORDERED: dilTIAZem HCL 125 MG/25 ML - 25 ML VIAL ONE ×2 (04:52→06:10)
[2023-07-03] MEDS ORDERED: dilTIAZem HCL 30 MG TABLET PO ONE (05:01)
[2023-07-03] MEDS ORDERED: dilTIAZem HCL 30 MG TABLET ONE ×3 (06:14→18:50)
[2023-07-03] MEDS ORDERED: AZITHROMYCIN IVPB 500 MG in DEXTROSE 5%-WATER - 250 ML IVPB ONE (06:28)
[2023-07-03] MEDS: CEFTRIAXONE 1 GM in DEXTROSE 5%-WATER - 100 ML IVPB ONE ×2 (06:43→08:45)
[2023-07-03] MEDS ORDERED: CEFTRIAXONE 1 GM/50 ML BAG ONE ×2 (06:44→08:31)
[2023-07-03] MEDS ORDERED: AZITHROMYCIN IVPB 500 MG/250 ML BAG IVPB ONE (06:53)
[2023-07-03 07:08] LABS: POTASSIUM 3.6 mmol/L (3.5-5.1)
[2023-07-03 07:09] LABS: CALCIUM 9.1 mg/dL (8.5-10.1)
[2023-07-03 07:10] LABS: BLOOD UREA NITROGEN 27.2 mg/dL (7-18)
[2023-07-03 07:13] LABS: CREATININE 1.1 mg/dL (0.55-1.3)
[2023-07-03] MEDS ORDERED: ALBUTEROL SO4 2.5/IPRATROPIUM 0.5 INH SOL 3 ML VIAL.NEB. NEB PRN ×2 (09:50→23:12)
[2023-07-03] MEDS ORDERED: PATIENT'S OWN MEDICATION (NON-FORMULARY) (Tamoxifen Citrate [Tamoxifen Citrate] 20 MG Tabl PO SCH (10:00)
[2023-07-03] MEDS ORDERED: PATIENT'S OWN MEDICATION (NON-FORMULARY) (Valsartan/Hydrochlorothiazide [Valsartan-Hctz 16 PO SCH (10:00)
[2023-07-03] MEDS ORDERED: ENOXAPARIN NA (PORCINE) 40 MG/0.4 ML DISP.SYRIN SQ SCH (10:00)
[2023-07-03] MEDS ORDERED: amLODIPine BESYLATE 10 MG TABLET (FP) PO SCH (10:00)
[2023-07-03] MEDS ORDERED: APIXABAN 5 MG TABLET ONE (11:18)
[2023-07-03] MEDS ORDERED: PANTOPRAZOLE 40 MG TABLET PO ONE (11:18)
[2023-07-03] MEDS ORDERED: OSELTAMIVIR PHOSPHATE 75 MG CAPSULE ONE (11:19)
[2023-07-03] MEDS ORDERED: HYDROCHLOROTHIAZIDE 25 MG TABLET (FP) ONE ×2 (11:19→11:20)
[2023-07-03] MEDS ORDERED: VALSARTAN 80 MG TABLET ONE (11:19)
[2023-07-03] MEDS ORDERED: methylPREDNISolone NA SUCC 40 MG/1 ML VIAL ONE ×2 (11:20→18:50)
[2023-07-03] MEDS: methylPREDNISolone NA SUCC 40 MG/1 ML VIAL IVPUSH SCH ×2 (11:28→18:58)
[2023-07-03] MEDS: VALSARTAN 160 MG TABLET PO SCH (11:28)
[2023-07-03] MEDS: BUDESONIDE/FORMETEROL FUMARATE 160/4.5 mcg INHALER IH SCH ×2 (11:28→22:46)
[2023-07-03] MEDS: APIXABAN 5 MG TABLET PO SCH ×2 (11:28→21:02)
[2023-07-03] MEDS: PANTOPRAZOLE 40 MG TABLET PO SCH (11:28)
[2023-07-03] MEDS: HYDROCHLOROTHIAZIDE 25 MG TABLET (FP) PO SCH (11:28)
[2023-07-03] MEDS: OSELTAMIVIR PHOSPHATE 75 MG CAPSULE PO SCH ×2 (11:28→21:01)
[2023-07-03] MEDS: dilTIAZem HCL 30 MG TABLET PO SCH ×3 (11:29→23:26)
[2023-07-03] MEDS: INSULIN ASPART SLIDING SCALE (NOVOLOG) 1 VIAL SQ SCH ×3 (11:37→21:13)
[2023-07-03] MEDS ORDERED: GABAPENTIN 400 MG CAPSULE ONE (13:58)
[2023-07-03] MEDS: GABAPENTIN 400 MG CAPSULE PO SCH ×2 (14:00→21:02)
[2023-07-03] MEDS: MONTELUKAST NA 10 MG TABLET PO SCH (21:04)
[2023-07-03] MEDS: ATORVASTATIN CA 10 MG TABLET (FP) PO SCH (21:04)
[2023-07-03] MEDS: ZOLPIDEM TARTRATE 5 MG TABLET PO PRN (23:26)
[2023-07-04] MEDS: methylPREDNISolone NA SUCC 40 MG/1 ML VIAL IVPUSH SCH ×3 (01:22→17:37)
[2023-07-04] MEDS: INSULIN (LEVEMIR) 100 UNITS/ML UNITS SQ SCH ×2 (06:34→21:19)
[2023-07-04] MEDS: GABAPENTIN 400 MG CAPSULE PO SCH ×3 (06:34→21:03)
[2023-07-04] MEDS: dilTIAZem HCL 30 MG TABLET PO SCH (06:34)
[2023-07-04] MEDS: INSULIN ASPART SLIDING SCALE (NOVOLOG) 1 VIAL SQ SCH ×4 (06:42→21:19)
[2023-07-04] MEDS: ALBUTEROL SO4 2.5/IPRATROPIUM 0.5 INH SOL 3 ML VIAL.NEB. NEB SCH ×4 (07:40→20:10)
[2023-07-04 07:42] LABS: BASO % 0.4 % (0-2.0); HEMATOCRIT 33.1 % (32.4-45.2); HEMOGLOBIN 10.4 GM/dL (10.7-15.3); LYMPH % 11.3 % (8-40); MCH 26.3 pg (25.7-33.7); MCHC 31.4 g/dl (32.0-36.0); MEAN CELL VOLUME 83.6 fl (80-96); MEAN PLT VOLUME 7.7 fl (7.5-11.1); MONO % 1.5 % (3.8-10.2); NEUT % 86.8 % (42.8-82.8); PLATELET COUNT 227 10^3/uL (134-434); RBC 3.95 M/mm3 (3.60-5.2); WHITE BLOOD COUNT 9.5 K/mm3 (4.0-10.0)
[2023-07-04 07:52] LABS: POTASSIUM 4.6 mmol/L (3.5-5.1)
[2023-07-04 07:56] LABS: ALBUMIN 2.9 g/dl (3.4-5.0)
[2023-07-04 07:57] LABS: BLOOD UREA NITROGEN 25.4 mg/dL (7-18)
[2023-07-04 07:58] LABS: CREATININE 1.2 mg/dL (0.55-1.3)
[2023-07-04 08:00] LABS: BILIRUBIN,TOTAL 0.3 mg/dL (0.2-1); TOT PROT 6.1 g/dl (6.4-8.2)
[2023-07-04 09:16] VITALS: BMI 43.7
[2023-07-04] MEDS ORDERED: AZITHROMYCIN IVPB 250 MG in DEXTROSE 5%-WATER - 250 ML IVPB SCH (10:00)
[2023-07-04] MEDS: APIXABAN 5 MG TABLET PO SCH ×2 (10:47→21:04)
[2023-07-04] MEDS: CEFTRIAXONE 1 GM in DEXTROSE 5%-WATER - 50 ML IVPB SCH (10:47)
[2023-07-04] MEDS: HYDROCHLOROTHIAZIDE 25 MG TABLET (FP) PO SCH (10:47)
[2023-07-04] MEDS: VALSARTAN 160 MG TABLET PO SCH (10:47)
[2023-07-04] MEDS: BUDESONIDE/FORMETEROL FUMARATE 160/4.5 mcg INHALER IH SCH ×2 (10:47→21:20)
[2023-07-04] MEDS: PANTOPRAZOLE 40 MG TABLET PO SCH (10:47)
[2023-07-04] MEDS: OSELTAMIVIR PHOSPHATE 75 MG CAPSULE PO SCH ×2 (10:47→21:04)
[2023-07-04] MEDS: TAMOXIFEN CITRATE 10 MG TABLET PO SCH (10:48)
[2023-07-04] MEDS: ZOLPIDEM TARTRATE 5 MG TABLET PO PRN (21:03)
[2023-07-04] MEDS: MONTELUKAST NA 10 MG TABLET PO SCH (21:03)
[2023-07-04] MEDS: ATORVASTATIN CA 10 MG TABLET (FP) PO SCH (21:04)
[2023-07-05] MEDS: methylPREDNISolone NA SUCC 40 MG/1 ML VIAL IVPUSH SCH ×3 (05:55→17:35)
[2023-07-05] MEDS: GABAPENTIN 400 MG CAPSULE PO SCH ×3 (05:56→21:08)
[2023-07-05] MEDS: INSULIN ASPART SLIDING SCALE (NOVOLOG) 1 VIAL SQ SCH ×4 (06:03→21:09)
[2023-07-05] MEDS: INSULIN (LEVEMIR) 100 UNITS/ML UNITS SQ SCH ×2 (06:06→21:09)
[2023-07-05] MEDS: ALBUTEROL SO4 2.5/IPRATROPIUM 0.5 INH SOL 3 ML VIAL.NEB. NEB SCH ×4 (07:53→20:20)
[2023-07-05 08:07] LABS: BASO % 0.1 % (0-2.0); HEMATOCRIT 32.4 % (32.4-45.2); HEMOGLOBIN 10.2 GM/dL (10.7-15.3); MCH 26.6 pg (25.7-33.7); MCHC 31.6 g/dl (32.0-36.0); MEAN PLT VOLUME 7.6 fl (7.5-11.1); MONO % 1.3 % (3.8-10.2); NEUT % 89.6 % (42.8-82.8); PLATELET COUNT 247 10^3/uL (134-434); RBC 3.86 M/mm3 (3.60-5.2); WHITE BLOOD COUNT 11.4 K/mm3 (4.0-10.0)
[2023-07-05 08:13] LABS: POTASSIUM 4.2 mmol/L (3.5-5.1)
[2023-07-05 08:17] LABS: ALBUMIN 2.9 g/dl (3.4-5.0)
[2023-07-05 08:18] LABS: BLOOD UREA NITROGEN 30.8 mg/dL (7-18); CALCIUM 9.6 mg/dL (8.5-10.1)
[2023-07-05 08:21] LABS: CREATININE 1.4 mg/dL (0.55-1.3)
[2023-07-05 08:22] LABS: TOT PROT 6.1 g/dl (6.4-8.2)
[2023-07-05 08:23] LABS: BILIRUBIN,TOTAL 0.3 mg/dL (0.2-1)
[2023-07-05] MEDS: HYDROCHLOROTHIAZIDE 25 MG TABLET (FP) PO SCH (10:37)
[2023-07-05] MEDS: PANTOPRAZOLE 40 MG TABLET PO SCH (10:37)
[2023-07-05] MEDS: APIXABAN 5 MG TABLET PO SCH ×2 (10:37→21:08)
[2023-07-05] MEDS: OSELTAMIVIR PHOSPHATE 75 MG CAPSULE PO SCH ×2 (10:37→21:09)
[2023-07-05] MEDS: VALSARTAN 160 MG TABLET PO SCH (10:37)
[2023-07-05] MEDS: CEFTRIAXONE 1 GM in DEXTROSE 5%-WATER - 50 ML IVPB SCH (10:37)
[2023-07-05] MEDS: BUDESONIDE/FORMETEROL FUMARATE 160/4.5 mcg INHALER IH SCH ×2 (10:38→21:10)
[2023-07-05] MEDS: TAMOXIFEN CITRATE 10 MG TABLET PO SCH (10:38)
[2023-07-05] MEDS ORDERED: SODIUM CHLORIDE 1,000 ML IV SCH (12:00)
[2023-07-05] MEDS: SODIUM CHLORIDE 1,000 ML IV SCH (17:35)
[2023-07-05] MEDS: MONTELUKAST NA 10 MG TABLET PO SCH (21:08)
[2023-07-05] MEDS: ATORVASTATIN CA 10 MG TABLET (FP) PO SCH (21:08)
[2023-07-05] MEDS: ZOLPIDEM TARTRATE 5 MG TABLET PO PRN (21:21)
[2023-07-06] MEDS: methylPREDNISolone NA SUCC 40 MG/1 ML VIAL IVPUSH SCH ×3 (02:13→17:00)
[2023-07-06] MEDS: GABAPENTIN 400 MG CAPSULE PO SCH ×3 (06:15→21:47)
[2023-07-06] MEDS: INSULIN (LEVEMIR) 100 UNITS/ML UNITS SQ SCH (06:16)
[2023-07-06] MEDS: INSULIN ASPART SLIDING SCALE (NOVOLOG) 1 VIAL SQ SCH ×5 (06:16→21:47)
[2023-07-06] MEDS: ALBUTEROL SO4 2.5/IPRATROPIUM 0.5 INH SOL 3 ML VIAL.NEB. NEB SCH ×4 (07:26→19:53)
[2023-07-06 09:18] LABS: CHLORIDE 102 mmol/L (98-107); POTASSIUM 4.1 mmol/L (3.5-5.1); SODIUM 136 mmol/L (136-145)
[2023-07-06 09:20] LABS: ANION GAP 9 mmol/L (4-13); BLOOD UREA NITROGEN 34.3 mg/dL (7-18); CO2 25 mmol/L (21-32)
[2023-07-06 09:23] LABS: CREATININE 1.5 mg/dL (0.55-1.3)
[2023-07-06 09:26] LABS: GLUCOSE,RANDOM 478 mg/dL (74-106)
[2023-07-06] MEDS: PANTOPRAZOLE 40 MG TABLET PO SCH (09:58)
[2023-07-06] MEDS: VALSARTAN 160 MG TABLET PO SCH (09:58)
[2023-07-06] MEDS: APIXABAN 5 MG TABLET PO SCH ×2 (09:58→21:46)
[2023-07-06] MEDS: HYDROCHLOROTHIAZIDE 25 MG TABLET (FP) PO SCH (09:58)
[2023-07-06] MEDS: BUDESONIDE/FORMETEROL FUMARATE 160/4.5 mcg INHALER IH SCH (09:59)
[2023-07-06] MEDS: CEFTRIAXONE 1 GM in DEXTROSE 5%-WATER - 50 ML IVPB SCH (09:59)
[2023-07-06] MEDS: OSELTAMIVIR PHOSPHATE 75 MG CAPSULE PO SCH ×2 (09:59→21:47)
[2023-07-06] MEDS: TAMOXIFEN CITRATE 10 MG TABLET PO SCH (10:00)
[2023-07-06] MEDS ORDERED: INSULIN ASPART SLIDING SCALE (NOVOLOG) 1 VIAL SQ SCH (11:01)
[2023-07-06] MEDS ORDERED: INSULIN (NOVOLOG) ASPART 100 UNITS/ML 10ML VIAL SQ ONE (11:30)
[2023-07-06] MEDS: SODIUM CHLORIDE 1,000 ML IV SCH (13:15)
[2023-07-06] MEDS: INSULIN (NOVOLOG MIX 70/30) 100 UNITS/ML MDV SQ SCH (16:57)
[2023-07-06] MEDS: ATORVASTATIN CA 10 MG TABLET (FP) PO SCH (21:47)
[2023-07-06] MEDS: MONTELUKAST NA 10 MG TABLET PO SCH (21:47)
[2023-07-06] MEDS: ZOLPIDEM TARTRATE 5 MG TABLET PO PRN (21:48)
[2023-07-07] MEDS: methylPREDNISolone NA SUCC 40 MG/1 ML VIAL IVPUSH SCH ×3 (01:11→17:53)
[2023-07-07] MEDS: GABAPENTIN 400 MG CAPSULE PO SCH ×3 (06:27→21:17)
[2023-07-07] MEDS: INSULIN (LEVEMIR) 100 UNITS/ML UNITS SQ SCH (07:04)
[2023-07-07] MEDS: INSULIN (NOVOLOG MIX 70/30) 100 UNITS/ML MDV SQ SCH ×2 (07:05→17:49)
[2023-07-07] MEDS: INSULIN ASPART SLIDING SCALE (NOVOLOG) 1 VIAL SQ SCH ×5 (07:06→21:18)
[2023-07-07] MEDS: ALBUTEROL SO4 2.5/IPRATROPIUM 0.5 INH SOL 3 ML VIAL.NEB. NEB SCH ×4 (07:40→19:59)
[2023-07-07 09:07] LABS: CHLORIDE 102 mmol/L (98-107); SODIUM 135 mmol/L (136-145)
[2023-07-07 09:19] LABS: ANION GAP 10 mmol/L (4-13); BLOOD UREA NITROGEN 34.4 mg/dL (7-18); CO2 23 mmol/L (21-32)
[2023-07-07 09:20] LABS: ALBUMIN 2.7 g/dl (3.4-5.0)
[2023-07-07 09:22] LABS: CREATININE 1.6 mg/dL (0.55-1.3); SGOT/AST 5 U/L (15-37); SGPT/ALT 25 U/L (13-61)
[2023-07-07 09:24] LABS: ALK PHOS 64 U/L (45-117); BILIRUBIN,TOTAL 0.3 mg/dL (0.2-1); TOT PROT 5.8 g/dl (6.4-8.2)
[2023-07-07 09:25] LABS: GLUCOSE,RANDOM 515 mg/dL (74-106)
[2023-07-07] MEDS: APIXABAN 5 MG TABLET PO SCH ×2 (09:57→21:17)
[2023-07-07] MEDS: VALSARTAN 160 MG TABLET PO SCH (09:57)
[2023-07-07] MEDS: TAMOXIFEN CITRATE 10 MG TABLET PO SCH (09:57)
[2023-07-07] MEDS: PANTOPRAZOLE 40 MG TABLET PO SCH (09:57)
[2023-07-07] MEDS: OSELTAMIVIR PHOSPHATE 75 MG CAPSULE PO SCH ×2 (09:57→21:19)
[2023-07-07] MEDS: CEFTRIAXONE 1 GM in DEXTROSE 5%-WATER - 50 ML IVPB SCH (09:58)
[2023-07-07] MEDS: FLUTICASONE/UMECLIDIN/VILANTER(200-62.5-25 TRELEGY ELLIPTA) INAHLER IH SCH (10:25)
[2023-07-07 14:36] LABS: EPI CELLS >36 /uL (0-25.1); HYALINE CASTS 0 /uL (0-3.1); PH,URINE 5.5 (5.0-8.0); URINE APPEARANCE CLEAR; URINE BACTERIA 23 /uL (0-1359); URINE BILIRUBIN NEGATIVE (NEGATIVE); URINE COLOR YELLOW; URINE GLUCOSE (UA) 2+ (NEGATIVE); URINE KETONE TRACE (NEGATIVE); URINE LEUK ESTERASE TRACE (NEGATIVE); URINE NITRITE NEGATIVE (NEGATIVE); URINE PROTEIN 1+ (NEGATIVE); URINE RBC 12 /uL (0-23.9); URINE UROBILINOGEN 0.2 mg/dL (0.2-1.0); URINE WBC 52 /uL (0-25.8)
[2023-07-07] MEDS: ATORVASTATIN CA 10 MG TABLET (FP) PO SCH (21:17)
[2023-07-07] MEDS: MONTELUKAST NA 10 MG TABLET PO SCH (21:19)
[2023-07-07] MEDS: ZOLPIDEM TARTRATE 5 MG TABLET PO PRN (21:19)
[2023-07-08] MEDS: methylPREDNISolone NA SUCC 40 MG/1 ML VIAL IVPUSH SCH ×2 (01:09→09:48)
[2023-07-08] MEDS: INSULIN (LEVEMIR) 100 UNITS/ML UNITS SQ SCH ×3 (06:33→21:33)
[2023-07-08] MEDS: GABAPENTIN 400 MG CAPSULE PO SCH ×3 (06:33→21:25)
[2023-07-08] MEDS: INSULIN ASPART SLIDING SCALE (NOVOLOG) 1 VIAL SQ SCH ×5 (06:34→21:34)
[2023-07-08] MEDS: INSULIN (NOVOLOG MIX 70/30) 100 UNITS/ML MDV SQ SCH ×3 (06:35→18:38)
[2023-07-08] MEDS: ALBUTEROL SO4 2.5/IPRATROPIUM 0.5 INH SOL 3 ML VIAL.NEB. NEB SCH ×4 (07:52→20:17)
[2023-07-08 08:16] LABS: BASO % 0.3 % (0-2.0); EOS % 0.3 % (0-4.5); HEMOGLOBIN 10.7 GM/dL (10.7-15.3); LYMPH % 8.8 % (8-40); MCH 27.2 pg (25.7-33.7); MCHC 32.6 g/dl (32.0-36.0); MEAN CELL VOLUME 83.4 fl (80-96); MEAN PLT VOLUME 7.4 fl (7.5-11.1); MONO % 1.2 % (3.8-10.2); NEUT % 89.4 % (42.8-82.8); PLATELET COUNT 276 10^3/uL (134-434); RBC 3.95 M/mm3 (3.60-5.2); RDW 15.3 % (11.6-15.6); WHITE BLOOD COUNT 9.1 K/mm3 (4.0-10.0)
[2023-07-08 08:37] LABS: CHLORIDE 101 mmol/L (98-107); SODIUM 135 mmol/L (136-145)
[2023-07-08 08:50] LABS: CALCIUM 8.8 mg/dL (8.5-10.1)
[2023-07-08 08:51] LABS: ALBUMIN 2.7 g/dl (3.4-5.0)
[2023-07-08 08:54] LABS: CREATININE 1.5 mg/dL (0.55-1.3); SGPT/ALT 30 U/L (13-61)
[2023-07-08 08:55] LABS: BILIRUBIN,TOTAL 0.3 mg/dL (0.2-1); SGOT/AST 10 U/L (15-37); TOT PROT 5.6 g/dl (6.4-8.2)
[2023-07-08 08:56] LABS: ALK PHOS 58 U/L (45-117)
[2023-07-08 09:27] LABS: ANION GAP 8 mmol/L (4-13); BLOOD UREA NITROGEN 31.7 mg/dL (7-18); CO2 26 mmol/L (21-32)
[2023-07-08] MEDS: APIXABAN 5 MG TABLET PO SCH ×2 (09:48→21:35)
[2023-07-08] MEDS: PANTOPRAZOLE 40 MG TABLET PO SCH (09:48)
[2023-07-08] MEDS: CEFTRIAXONE 1 GM in DEXTROSE 5%-WATER - 50 ML IVPB SCH (09:49)
[2023-07-08] MEDS: FLUTICASONE/UMECLIDIN/VILANTER(200-62.5-25 TRELEGY ELLIPTA) INAHLER IH SCH (09:49)
[2023-07-08] MEDS: TAMOXIFEN CITRATE 10 MG TABLET PO SCH (09:49)
[2023-07-08 10:33] LABS: GLUCOSE,RANDOM 463 mg/dL (74-106)
[2023-07-08] MEDS ORDERED: INSULIN (NOVOLOG MIX 70/30) 100 UNITS/ML MDV SQ SCH (17:15)
[2023-07-08] MEDS ORDERED: INSULIN ASPART SLIDING SCALE (NOVOLOG) 1 VIAL SQ SCH (17:16)
[2023-07-08] MEDS ORDERED: ACETAMINOPHEN 1000 MG/100 ML BAG IVPB ONE (21:15)
[2023-07-08] MEDS: ZOLPIDEM TARTRATE 5 MG TABLET PO PRN (21:24)
[2023-07-08] MEDS: ATORVASTATIN CA 10 MG TABLET (FP) PO SCH (21:25)
[2023-07-08] MEDS: MONTELUKAST NA 10 MG TABLET PO SCH (21:25)
[2023-07-08] MEDS ORDERED: methylPREDNISolone NA SUCC 40 MG/1 ML VIAL IVPUSH SCH (22:00)
[2023-07-09 00:25] VITALS: RESP 18
[2023-07-09] MEDS: GABAPENTIN 400 MG CAPSULE PO SCH ×2 (05:13→14:00)
[2023-07-09] MEDS: INSULIN (NOVOLOG MIX 70/30) 100 UNITS/ML MDV SQ SCH (06:19)
[2023-07-09] MEDS: INSULIN ASPART SLIDING SCALE (NOVOLOG) 1 VIAL SQ SCH ×2 (06:20→11:23)
[2023-07-09] MEDS: ALBUTEROL SO4 2.5/IPRATROPIUM 0.5 INH SOL 3 ML VIAL.NEB. NEB SCH ×2 (07:13→11:05)
[2023-07-09 08:49] VITALS: BP 122/77; PULSE 92; TEMP 98
[2023-07-09] MEDS: TAMOXIFEN CITRATE 10 MG TABLET PO SCH (10:42)
[2023-07-09] MEDS: PANTOPRAZOLE 40 MG TABLET PO SCH (10:42)
[2023-07-09] MEDS: APIXABAN 5 MG TABLET PO SCH (10:43)
[2023-07-09] MEDS: CEFTRIAXONE 1 GM in DEXTROSE 5%-WATER - 50 ML IVPB SCH (10:43)
[2023-07-09] MEDS: FLUTICASONE/UMECLIDIN/VILANTER(200-62.5-25 TRELEGY ELLIPTA) INAHLER IH SCH (10:43)
[2023-07-09] MEDS ORDERED: predniSONE 20 MG TABLET (UD) PO SCH (11:00)
[2023-07-09] MEDS: INSULIN (LEVEMIR) 100 UNITS/ML UNITS SQ SCH (11:24)
== END 2023-07-09 14:31 | disposition home or self-care (01) | DRG 190 ==
LOC: JER 03:08 → JERBED 06:28 → J4S 20:31
PROVIDERS: ADMIT Internal Medicine; ATTEND Internal Medicine
DX: J44.0 Chronic obstructive pulmonary disease with (acute) lower respiratory infection (principal); J11.00 Influenza due to unidentified influenza virus with unspecified type of pneumonia; Z68.41 Body mass index [BMI] 40.0-44.9, adult; N17.9 Acute kidney failure, unspecified; J44.1 Chronic obstructive pulmonary disease with (acute) exacerbation; E03.9 Hypothyroidism, unspecified; I48.91 Unspecified atrial fibrillation; G43.909 Migraine, unspecified, not intractable, without status migrainosus; I25.10 Atherosclerotic heart disease of native coronary artery without angina pectoris; I12.9 Hypertensive chronic kidney disease with stage 1 through stage 4 chronic kidney disease, or unspecified chronic kidney disease; E11.22 Type 2 diabetes mellitus with diabetic chronic kidney disease; N18.9 Chronic kidney disease, unspecified; E78.5 Hyperlipidemia, unspecified; N20.0 Calculus of kidney; E66.01 Morbid (severe) obesity due to excess calories; K59.00 Constipation, unspecified; M54.59 Other low back pain; Z85.3 Personal history of malignant neoplasm of breast
CPT/HCPCS: 0241U-QW; 36415; 71045-TC-FY; 71275-TC; 80048; 80053; 81003; 82803; 82962; 83036; 83880; 84439; 84443; 84484; 85025; 85610; 85730; 93005; 93010; 93306-TC; 94640; 99285-25; 99291; J0131; Q9967

== ENCOUNTER 2024-10-06 16:19 | Emergency (ER) | payer OTHER, BC ==
[2024-10-06 16:56] VITALS: TEMP 98.3; BMI 41.2
[2024-10-06] MEDS ORDERED: ACETAMINOPHEN 325 MG TABLET (FP) ONE (18:14)
[2024-10-06] MEDS: ACETAMINOPHEN 500 MG TABLET (FP) PO ONE (18:21)
[2024-10-06 21:52] VITALS: BP 130/72; PULSE 86; RESP 19
== END 2024-10-06 21:53 | disposition home or self-care (01) ==
LOC: JER 16:19
DX: M25.571 Pain in right ankle and joints of right foot (principal); R51.9 Headache, unspecified; W01.198A Fall on same level from slipping, tripping and stumbling with subsequent striking against other object, initial encounter
CPT/HCPCS: 70450-TC; 72125-TC; 73610-TC-RT-FY; 73630-TC-RT-FY; 99284-25

== ENCOUNTER 2024-12-15 16:35 | Emergency (ER) | payer OTHER, BC ==
[2024-12-15 17:19] VITALS: BP 132/80; PULSE 76; RESP 20; TEMP 98; BMI 41.5
[2024-12-15] MEDS ORDERED: KETOROLAC TROMETHAMINE 30 MG/1 ML VIAL ONE (18:58)
[2024-12-15] MEDS ORDERED: METHOCARBAMOL 500 MG TABLET ONE (19:00)
[2024-12-15] MEDS: METHOCARBAMOL 750 MG TAB PO ONE (19:05)
[2024-12-15] MEDS: KETOROLAC TROMETHAMINE 30 MG/1 ML VIAL IM ONE (19:05)
== END 2024-12-15 19:25 | disposition home or self-care (01) ==
LOC: JER 16:35
PROC: 3E0233Z Introduction of Anti-inflammatory into Muscle, Percutaneous Approach (ICD-10-PCS; principal; 2024-12-15)
DX: M54.50 Low back pain, unspecified (principal); M54.6 Pain in thoracic spine; V89.2XXA Person injured in unspecified motor-vehicle accident, traffic, initial encounter
CPT/HCPCS: 99284-25